=== PATIENT | male | born 1945 | race Caucasian/White ===

== ENCOUNTER → 2016-06-15 | Outpatient (CLI) | payer OTHER ==
[~2016-06-15] MED LIST: ACET325T95 PO; CEPH500C2 PO; CLC100 PO; DOCU100C31 PO; HYDR-5688 PO; OMEP40CA PO; ONDA8TAB6 PO; PROC1TAB5 PO; TRAM-10 PO; VGR50 PO
[2016-06-15 12:32] LABS: BASO % 0.2 %; BASO ABS # 0.02 K/uL (0-0.2); COMPLETE YES; EOS % 2.1 %; HEMATOCRIT 45.2 % (42-52); IG% 0.2 %; LYMPH % 29.7 %; LYMPH ABS # 2.43 K/uL (1.2-3.4); MEAN CELL VOLUME 88.8 fL (80-100); MEAN CORPUSCULAR HEMOGLOBIN 30.1 pg (25-34); MEAN CORPUSCULAR HGB CONC 33.8 g/dl (32-36); MEAN PLATELET VOLUME 9.9 fL (7.4-10.4); MONO % 9.3 %; NEUT % 58.5 %; PLATELET COUNT 158 K/uL (130-400); RED BLOOD COUNT 5.09 M/uL (4.7-6.1); WHITE BLOOD COUNT 8.19 K/uL (4.8-10.8)
[2016-06-15 12:41] LABS: ESTIMATED AVERAGE GLUCOSE 128 mg/dl; HA1C FLAG Normal (Normal)
[2016-06-15 13:21] LABS: BLOOD UREA NITROGEN 16 mg/dl (7-18); BUN/CREATININE RATIO 12.5 (10-20); CALCIUM 9.2 mg/dl (8.5-10.1); CARBON DIOXIDE 27 mmol/L (21-32); CHLORIDE 102 mmol/L (98-107); GLUCOSE 105 mg/dl (70-99); SODIUM 138 mmol/L (136-145)
[2016-06-15 13:24] LABS: CHOLESTEROL 176 mg/dl (0-200); CHOLESTEROL/HDL RATIO 4.4; HDL CHOLESTEROL 40 mg/dl; LDL CHOLESTEROL CALCULATED 95 mg/dl; TRIGLYCERIDES 203 mg/dl (0-150); VERY LOW DENSITY LIPOPROT CALC 41 mg/dl
== END | disposition home or self-care (01) ==
LOC: C.LABBFT 07:54
PROVIDERS: ATTEND Internal Medicine
DX: Z00.00 Encounter for general adult medical examination without abnormal findings (principal); R73.01 Impaired fasting glucose; Z13.6 Encounter for screening for cardiovascular disorders

== ENCOUNTER → 2016-06-29 | Outpatient (CLI) | payer OTHER ==
--- NOTE | 2016-06-29 08:58 | DIAGNOSTIC IMAGING REPORT ---
CT OF THE CHEST WITHOUT IV CONTRAST CLINICAL HISTORY: Pulmonary nodule. 6 month follow-up examination. COMPARISON STUDY: 01/08/2016 CT DOSE: 466.45 mGy.cm TECHNIQUE: CT of the thorax was performed from the thoracic inlet to the lung bases. Images are reviewed in the axial, sagittal, and coronal planes. IV contrast was not administered for this examination. FINDINGS: Thyroid: Imaged portions of the thyroid gland are normal in appearance. Thoracic aorta: There is dilatation of the adjacent thoracic aorta which measures 44 mm. Heart: There are cardiac calcifications present. Lungs and pleural spaces: No pleural effusions are visualized. There is pulmonary emphysema. There is subpleural interstitial thickening. There is an enlarging irregular marginated left upper lobe pulmonary nodule measuring 20 x 7 mm. This is suspicious for a bronchogenic neoplasm. Mediastinum: There is an enlarged 21 mm AP window lymph node. This must be viewed as suspicious for metastatic lymphadenopathy. Payal: Mild left hilar adenopathy is suspected. Evaluation is limited due to the noncontrast nature the study Axilla: Clear. Upper abdomen: Partially visualized upper abdominal viscera is within normal limits. Skeletal structures: There are no lytic or blastic osseous lesions. IMPRESSION: 1. Enlarging irregularly marginated left upper lobe pulmonary nodule measuring 20 mm in long axis. This is suspicious for a bronchogenic neoplasm. 2. Pathologic mediastinal lymphadenopathy 3. Emphysema Electronically signed by: Ehsan Huddleston M.D. 06/29/2016 8:57 AM Dictated Date/Time: 06/29/2016 8:51 AM
== END | disposition home or self-care (01) ==
LOC: C.CTS 08:21
PROVIDERS: ATTEND Internal Medicine
DX: R91.1 Solitary pulmonary nodule (principal); R59.1 Generalized enlarged lymph nodes; J43.9 Emphysema, unspecified

== ENCOUNTER → 2016-07-01 | Outpatient (CLI) | payer OTHER | END | disposition home or self-care (01) | LOC: C.LAB 10:14 → EDSTATUS 11:21 → C.LAB 13:27 → EDSTATUS 13:27 | PROVIDERS: ATTEND Surgery | DX: C34.90 Malignant neoplasm of unspecified part of unspecified bronchus or lung (principal) ==

== ENCOUNTER → 2016-07-07 | Outpatient (CLI) | payer OTHER ==
[~2016-07-07] MED LIST changes: -CEPH500C2 PO
--- NOTE | 2016-07-07 11:43 | DIAGNOSTIC IMAGING REPORT ---
PET/CT CLINICAL HISTORY: Solitary pulmonary nodule. TECHNIQUE: A PET/CT was performed from the skull base through the upper thighs following intravenous injection of 13.45 mCi of F 18 FDG IV. The injection was performed at 9:04 AM on July 07, 2016 and imaging began at 10:06 AM on July 07, 2016. Unenhanced CT was performed for attenuation correction purposes and anatomic localization. COMPARISON STUDY: Chest CT June 29, [address] of the abdomen and pelvis January 08, 2016. FINDINGS: Head and neck: No suspicious FDG uptake is identified within the neck. There is no cervical lymphadenopathy. Chest: There is moderate FDG uptake within the 2 cm irregular subpleural left upper lobe nodule shown on image 73. The SUV max for this nodule is 4.8. There is marked FDG uptake with an enlarged prevascular lymph node shown on image 75. This node measures 2.8 x 1.8 cm and has an SUV max of 8. There is also moderate FDG uptake within several left hilar lymph nodes. These nodes are difficult to visualize on this unenhanced exam but represent pathologic lymph nodes within SUV max of 6. Moderate emphysema is noted. There is mild dilatation of the ascending aorta which measures 4.3 cm. There is extensive coronary artery calcification. Abdomen and Pelvis: No suspicious FDG uptake is identified within the abdomen or pelvis. There is no abdominal or pelvic lymphadenopathy. There is left colon diverticulosis without evidence for acute diverticulitis. There are findings consistent with placement of a bifurcated aortoiliac stent graft. This is similar to exam of January 08, 2016. 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 Musculoskeletal: No suspicious skeletal lesions are identified. IMPRESSION: 1. Moderate FDG uptake within the 2 cm irregular subpleural left upper lobe nodule consistent with bronchogenic carcinoma. 2. Marked FDG uptake within an enlarged prevascular lymph node and moderate FDG uptake within nonenlarged left hilar lymph nodes consistent with johann spread of disease. 3. No evidence of distant metastatic disease. Electronically signed by: Pee Hsokins M.D. 07/07/2016 11:41 AM Dictated Date/Time: 07/07/2016 11:20 AM
== END | disposition home or self-care (01) ==
LOC: C.PET 08:22
PROVIDERS: ATTEND Surgery
DX: R91.1 Solitary pulmonary nodule (principal)

== ENCOUNTER 2016-07-09 05:37 | Day surgery (SDC) | payer OTHER ==
--- NOTE | 2016-07-01 11:08 | PAT Medication Instructions ---
Service Date Jul 01, 2016. Current Home Medication List Omeprazole (Prilosec), 40 MG PO QAM Sildenafil Citrate (Viagra), 50 MG PO PRN Medication Instructions For Your Scheduled Surgery - Take the following medications the morning of surgery with a sip of water OTHERWISE NOTHING TO EAT OR DRINK AFTER MIDNIGHT: Omeprazole (Prilosec), 40 MG PO QAM If you have any questions please call us at [phone] or [phone] or [phone]
[~2016-07-09] VITALS: Ht 175.3 cm; Wt 92.6 kg
[~2016-07-09 05:37] MED LIST changes: -ACET325T95 PO; -CLC100 PO; -DOCU100C31 PO; -HYDR-5688 PO; -ONDA8TAB6 PO; -PROC1TAB5 PO; -TRAM-10 PO
[2016-07-09 05:58] VITALS: BP 159/90; PULSE 59; TEMP 36.6; O2SAT 97; Ht 175.3 cm; Wt 92.6 kg
[2016-07-09] MEDS ORDERED: FENTANYL CITRATE INJ 50 MCG/1 ML 2 ML VIAL ONE ×2 (06:42→07:46)
[2016-07-09] MEDS ORDERED: MIDAZOLAM HCL 1 MG/ML 2ML VIAL ONE (06:42)
[2016-07-09] MEDS: LACTATED RINGER'S 1000ML 1,000 ML IV SCH ×2 (06:58→09:49)
--- NOTE | 2016-07-09 07:00 | History & Physical Bridge Note ---
H&P Re-Evaluation Bridge Note: I have examined the patient, reviewed the History & Physical and in the interval since the performance of the History & Physical I have noted the following changes of clinical significance: No changes noted
--- NOTE | 2016-07-09 08:23 | Discharge Instructions ---
Discharge Instructions Date of Service Jul 09, 2016. Visit Reason for Visit: Lung Nodule Discharge Discharge Diagnosis / Problem: Lung Nodule Discharge Goals Goal(s): Learn about illness Activity Recommendations Activity Limitations: resume your previous activity (in 24 hours) Anesthesia . Post Anesthesia Instructions: If you have had General Anesthesia or IV Sedation: * Do not drive today. * Resume driving when surgeon permits. * Do not make important decisions or sign legal documents today. * Call surgeon for: 1. Temperature elevations greater than 101 degrees F. 2. Uncontrollable pain. 3. Excessive bleeding. 4. Persistent nausea and vomiting. 5. Medication intolerance (nausea, vomiting or rash). * For nausea and vomiting use only clear liquids such as: tea, soda, bouillon until nausea subsides, then gradually increase diet as tolerated. * If you have any concerns or questions, call your surgeon's office. If physician is unavailable and it is an emergency, call 911 or go to the nearest emergency room. . Instructions / Follow-Up Instructions / Follow-Up 1. You may cough up some blood. Call physician if excessive amount noted. 2. Keep your scheduled appointment with Dr. Ohara on July 19, 2016 @ 10:30 Diet Recommendations Recommended Home Diet: resume previous diet Procedures Procedures Performed: Endobronchial Ultrasound; Navigational Bronchoscopy with Biopsies Pending Studies Studies pending at discharge: no Medical Emergencies . Who to Call and When: Medical Emergencies: If at any time you feel your situation is an emergency, please call 911 immediately. . Non-Emergent Contact Non-Emergency issues call your: Surgeon Call Non-Emergent contact if: temperature is above 101.5, your pain is worsening . . "Provider Documentation" section prepared by Gil Martinez.
[2016-07-09] MEDS ORDERED: NALOXONE HCL 0.4 MG/1 ML VIAL/CARP IV PRN (09:00)
[2016-07-09] MEDS ORDERED: ATROPINE SULFATE 0.1 MG/ML 5ML SYR IV PRN (09:00)
[2016-07-09] MEDS ORDERED: PROMETHAZINE HCL INJ 12.5 MG in SODIUM CHLORIDE 0.9% 50ML 50 ML IV PRN (09:00)
[2016-07-09] MEDS ORDERED: LABETALOL HCL IV 5 MG/ML 20ML IV PRN (09:00)
[2016-07-09] MEDS ORDERED: ONDANSETRON INJ 2 MG/ML 2 ML VIAL IV PRN (09:00)
[2016-07-09] MEDS ORDERED: EpHEDrine SULFATE INJ 50 MG/ML AMP IV PRN (09:00)
[2016-07-09] MEDS ORDERED: HYDROmorphone INJ 2 MG/ML SYR/VIAL ONE (09:05)
[2016-07-09] MEDS ORDERED: LIDOCAINE HCL 2% 2 ML VIAL (20MG/ML) ONE (09:09)
[2016-07-09] MEDS ORDERED: EpHEDrine SULFATE 50MG/5ML SYR ONE (09:09)
[2016-07-09] MEDS ORDERED: GLYCOPYRROLATE INJ 0.2 MG/ML VIAL ONE (09:09)
[2016-07-09] MEDS ORDERED: PROPOFOL IV EMULSION 10 MG/ML 20 ML VIAL IV ONE (09:09)
[2016-07-09] MEDS ORDERED: NEOSTIGMINE METHYLSULFATE 5 MG/5 ML SYR ONE (09:09)
[2016-07-09] MEDS ORDERED: ROCURONIUM BROMIDE 10 MG/ML 5 ML VIAL ONE (09:09)
[2016-07-09] MEDS ORDERED: ONDANSETRON INJ 2 MG/ML 2 ML VIAL ONE ×2 (09:09→09:22)
--- NOTE | 2016-07-09 09:44 | DIAGNOSTIC IMAGING REPORT ---
FLUOROSCOPIC IMAGES OF THE CHEST CLINICAL HISTORY: Navigational Bronch COMPARISON STUDY: Chest CT June 26, 2016. FINDINGS: 7 fluoroscopic images during a left sided bronchoscopy were submitted for interpretation. Fluoroscopy time was 1 minute and 50 seconds. IMPRESSION: Fluoroscopic images from left-sided bronchoscopy. Electronically signed by: Pee Hoskins M.D. 07/09/2016 9:42 AM Dictated Date/Time: 07/09/2016 9:40 AM
--- NOTE | 2016-07-09 09:55 | DIAGNOSTIC IMAGING REPORT ---
CHEST ONE VIEW PORTABLE CLINICAL HISTORY: s/p linwood bronch post procedure COMPARISON STUDY: No previous studies for comparison. FINDINGS: The bones soft tissues and hemidiaphragms are normal. The cardiomediastinal silhouette is normal. The lungs are clear. The pulmonary vasculature is normal. No evidence for postprocedural pneumothorax IMPRESSION: No evidence for postprocedural pneumothorax. Electronically signed by: Justin Duarte M.D. 07/09/2016 9:53 AM Dictated Date/Time: 07/09/2016 9:52 AM
--- NOTE | 2016-07-09 10:04 | Anesthesiology Progress Note ---
Anesthesia Post Op Note Date & Time Jul 09, 2016 at 10:03 Vital Signs Pain Intensity: 0 Vital Signs Past 12 Hours Date Time Temp Pulse Resp B/P Pulse Ox O2 Delivery O2 Flow Rate FiO2 07/09/16 10:00 62 22 114/68 97 Nasal Cannula 2 07/09/16 09:50 36.4 58 22 115/68 96 Nasal Cannula 2 07/09/16 09:40 36.0 61 15 117/74 94 Nasal Cannula 2 07/09/16 09:30 66 22 135/75 100 Mask 10 07/09/16 09:20 66 21 128/78 99 Mask 10 07/09/16 09:13 36.1 85 16 162/67 100 Mask 10 07/09/16 05:58 36.6 59 18 159/90 97 Room Air Notes Mental Status: alert / awake / arousable, participated in evaluation Pt Amnestic to Procedure: Yes Nausea / Vomiting: adequately controlled Pain: adequately controlled Airway Patency, RR, SpO2: stable & adequate BP & HR: stable & adequate Hydration State: stable & adequate Anesthetic Complications: no major complications apparent
[2016-07-09 10:15] VITALS: BP 115/68; PULSE 65; TEMP 36.5; O2SAT 94
[2016-07-09 10:45] VITALS: BP 140/81; PULSE 62; TEMP 35.2; O2SAT 97
[2016-07-09 11:15] VITALS: BP 135/81; PULSE 77; TEMP 35.9; O2SAT 97
--- NOTE | 2016-07-09 12:19 | OPERATIVE REPORT ---
DATE OF OPERATION: 07/09/2016 PREOPERATIVE DIAGNOSIS: Left upper lobe lesion with hypermetabolic mediastinal and hilar adenopathy. POSTOPERATIVE DIAGNOSIS: Same. PROCEDURE: 1. Endobronchial ultrasound with biopsy. 2. Navigational bronchoscopy with biopsy. SURGEON: Dr. Ohara. PENSION ADVISER: Rashel Lemus, respiratory therapy. ANESTHESIA: General anesthesia endotracheal intubation. INDICATION FOR PROCEDURE AND FINDINGS: This is a 70-year-old male who was found to have a mass in his left upper lobe with some mild mediastinal adenopathy. We had a long talk about this and I elected to proceed with a navigational bronchoscopy and endobronchial ultrasound after we did pulmonary function studies and a PET scan. PET scan showed localized disease to the thorax, however his periaortic node on the left was hypermetabolic as well as the hilar node. With this mass, it appears he may well be a surgical candidate. On 07/09/2016 the patient an uncomplicated endobronchial ultrasound. We did a complete staging endobronchial ultrasound and got good lymph node tissue from right level 2, right level 4, right level 10, level 7, left level 10, and left level 4. We saw no evidence of malignant disease. I biopsied this hilar area several times. We still did not see evidence of malignant disease. I then did a navigational bronchoscopy and got out right to this lesion and did multiple biopsies with the brush, needle, as well as forceps. We will wait and see what the results show but preliminary shows no evidence of malignancy. He tolerated it well. PROCEDURE: The patient was brought to the operating room and laid in the supine position. General anesthesia induced and endotracheal intubation was performed with single lumen tube. The endobronchial ultrasound was in place. As the patient had a left upper lobe lesion we started on the right side biopsying the right level 10, right level 4 and right level 2 and the level 7 from the right side. We got good lymph node tissue and there was no evidence of malignancy. The level 7 area was then biopsied from the left side and then we biopsied level 10, level 4 and again got lymph node tissue, but no evidence of malignancy. We had negligible bleeding with this. The scope was then removed and a regular bronchoscope was placed. After registering the patient's anatomy with the [employer] system the navigational probe was placed and went up into the left upper lobe. I took this directly out to this lesion and this was confirmed with the radial ultrasound probe. We then did multiple biopsies with brushes, needles, forceps from 2 different angles. Preliminary showed no evidence of malignancy. We then did washings with saline and aspirated back. I then slowly removed the bronchoscope and saw no evidence of bleeding. The patient tolerated it well. I attest to the content of the Intraoperative Record and any orders documented therein. Any exceptions are noted below. RICHD
[2016-09-03] MEDS ORDERED: DOCU100C31 PO (09:26)
[2016-11-26] MEDS ORDERED: ONDA8TAB6 PO (09:18)
[2016-11-26] MEDS ORDERED: PROC1TAB5 PO (09:18)
== END 2016-07-09 11:18 | disposition home or self-care (01) ==
LOC: C.ACU 05:37
PROVIDERS: ATTEND Surgery
DX: R22.2 Localized swelling, mass and lump, trunk (principal); J30.9 Allergic rhinitis, unspecified; I71.2 Thoracic aortic aneurysm, without rupture; M19.90 Unspecified osteoarthritis, unspecified site; K21.9 Gastro-esophageal reflux disease without esophagitis; K57.32 Diverticulitis of large intestine without perforation or abscess without bleeding; E78.5 Hyperlipidemia, unspecified; D12.6 Benign neoplasm of colon, unspecified

== ENCOUNTER 2016-08-09 07:04 | Inpatient (IN) | payer OTHER ==
[2016-08-09] VITALS (8 sets, daily range): BP systolic 130–153; BP diastolic 71–96; PULSE 60–82; TEMP 36.3–36.8; O2SAT 92–97; Ht 175.3 cm; Wt 92.7 kg
[~2016-08-09] VITALS: Ht 175.3 cm; Wt 92.7 kg
[~2016-08-09 07:04] MED LIST changes: +LACTATED RINGER'S 1000ML 1,000 ML IV SCH
[2016-08-09] MEDS ORDERED: MIDAZOLAM HCL 1 MG/ML 2ML VIAL ONE (08:54)
[2016-08-09] MEDS ORDERED: LIDOCAINE HCL 2% 2 ML VIAL (20MG/ML) ONE (08:54)
[2016-08-09] MEDS ORDERED: PROPOFOL IV EMULSION 10 MG/ML 20 ML VIAL IV ONE (08:54)
[2016-08-09] MEDS ORDERED: DEXAMETHASONE SOD INJ 4 MG/ML VIAL ONE (08:54)
[2016-08-09] MEDS ORDERED: ONDANSETRON INJ 2 MG/ML 2 ML VIAL ONE (08:54)
[2016-08-09] MEDS ORDERED: FENTANYL CITRATE INJ 50 MCG/1 ML 2 ML VIAL ONE ×3 (08:54→13:50)
[2016-08-09] MEDS ORDERED: KETAMINE HCL INJ 50 MG/ML 10 ML VIAL ONE (08:54)
[2016-08-09] MEDS ORDERED: CISATRACURIUM BESYLATE IV SOLN 2 MG/ML 10 ML VIAL ONE ×2 (08:54→11:50)
[2016-08-09] MEDS ORDERED: SODIUM CHLORIDE 0.9% PF 50 ML VIAL ONE (09:45)
[2016-08-09] MEDS ORDERED: BUPIVACAINE LIPOSOME 1/3% 266 MG/20 ML VIAL INFIL ONE (09:46)
--- NOTE | 2016-08-09 12:13 | DIAGNOSTIC IMAGING REPORT ---
CHEST 1 VIEW FRONTAL, AND SPECIMEN RADIOGRAPHY CLINICAL HISTORY: LT NAVIGATIONAL BRONCH COMPARISON STUDY: No previous studies for comparison. FINDINGS: 106 seconds of fluoroscopic time was utilized. 2 intraprocedural fluoroscopic spot images of the left chest were obtained. This is supplemented with a single specimen radiograph. The fluoroscopic spot images demonstrate a bronchoscopic catheter within the left midlung zone. A fiducial marker is visualized. A single specimen radiograph as visualized. This contains a fiducial marker. IMPRESSION: 1. A fiducial marker is visualized within the specimen radiograph. Electronically signed by: Ehsan Huddleston M.D. 08/09/2016 12:12 PM Dictated Date/Time: 08/09/2016 12:10 PM
--- NOTE | 2016-08-09 12:35 | OPERATIVE REPORT ---
DATE OF OPERATION: 08/09/2016 PREOPERATIVE DIAGNOSIS: Hypermetabolic mass, left upper lobe. POSTOPERATIVE DIAGNOSIS: Same. PROCEDURE: Fiberoptic bronchoscopy with navigational bronchoscopy with marking left upper lobe mass with a fiducial marker and with methylene blue. SURGEON: Dr. Ohara. RECEIVER STOCKER: Rashel Lemus. ANESTHESIA: General anesthesia endotracheal intubation. INDICATION FOR PROCEDURE AND FINDINGS: The patient is a 70-year-old male who has a history of cigarette smoking and has a hypermetabolic mass which I suspect to be a nonsmall cell lung carcinoma, left upper lobe. He also has some mediastinal adenopathy and we attempted to biopsy this with endobronchial ultrasound and navigational bronchoscopy but were unable to get a diagnosis. We had a long talk in the office. One option would be to do a mediastinotomy (Tiff procedure). However, the patient stated that he wanted this taken care of "once and for all". We are going to proceed with a thoracoscopic wedge resection of this mass and should this prove to be nonsmall cell, we will proceed with a left upper lobectomy and mediastinal lymph node dissection. In order to do this this small mass would have to be marked. On 08/09/2016 the patient was brought to the operating room and underwent uncomplicated intubation with single lumen tube. I then quite easily got out to the mass and placed a fiducial marker it it as well as methylene blue dye towards the pleura. He tolerated it well. He is now ready for his thoracoscopic procedure. PROCEDURE: The patient brought to the operating room, laid in supine position. General anesthesia induced and endotracheal intubation was performed with a single lumen tube. The fiberoptic bronchoscope was then placed after appropriate timeout had been given and antibiotics had been given. The patient and the airways were then registered and then I went into the left upper lobe airway and I was easily able to get out to the mass under the computer navigation. X-ray showed this to be in the proper position and also thoracoscopically. A fiducial marker was then placed without difficulty and then 0.5 mL of methylene blue dye with 0.5 mL of air were then injected towards the pleura. This was then removed and the patient was ready for his procedure. He tolerated it well. I attest to the content of the Intraoperative Record and any orders documented therein. Any exceptio ns are noted below.
[2016-08-09] MEDS ORDERED: SURGICEL ABSORB HEMOSTAT 2IN X 14IN TOP ONE (12:45)
[2016-08-09] MEDS ORDERED: EpHEDrine SULFATE 50MG/5ML SYR ONE (13:02)
[2016-08-09] MEDS ORDERED: ONDANSETRON INJ 2 MG/ML 2 ML VIAL IV PRN ×2 (13:15→13:30)
[2016-08-09] MEDS ORDERED: HYDROmorphone INJ 1 MG/ML SYR IV PRN (13:15)
[2016-08-09] MEDS ORDERED: EpHEDrine SULFATE INJ 50 MG/ML AMP IV PRN (13:30)
[2016-08-09] MEDS ORDERED: FENTANYL CITRATE INJ 50 MCG/1 ML 2 ML VIAL IV PRN (13:30)
[2016-08-09] MEDS ORDERED: PROMETHAZINE HCL INJ 12.5 MG in SODIUM CHLORIDE 0.9% 50ML 50 ML IV PRN (13:30)
[2016-08-09] MEDS ORDERED: FLUMAZENIL 0.1 MG/1 ML 10 ML VIAL IV PRN (13:30)
[2016-08-09] MEDS ORDERED: NALOXONE HCL 0.4 MG/1 ML VIAL/CARP IV PRN (13:30)
[2016-08-09] MEDS ORDERED: LABETALOL HCL IV 5 MG/ML 20ML IV PRN (13:30)
[2016-08-09] MEDS ORDERED: ATROPINE SULFATE 0.1 MG/ML 5ML SYR IV PRN (13:30)
--- NOTE | 2016-08-09 13:54 | DIAGNOSTIC IMAGING REPORT ---
CHEST ONE VIEW PORTABLE CLINICAL HISTORY: AZEEM Wedge COMPARISON STUDY: 07/09/2016 FINDINGS: Postsurgical changes are present on the left. A left-sided chest tube is visualized. There is no significant pneumothorax. The heart is borderline enlarged. There are left upper lobe airspace opacities, likely representing postsurgical edema. There is also elevation of the interstitial markings in the right lung. An element of pulmonary vascular congestion/fluid overload is suspected.[ IMPRESSION: 1. Interval placement of a left-sided chest tube. No evidence of pneumothorax 2. Mild elevation of the interstitium. An element of mild pulmonary vascular congestion/fluid overload is suspected Electronically signed by: Ehsan Huddleston M.D. 08/09/2016 1:53 PM Dictated Date/Time: 08/09/2016 1:52 PM
--- NOTE | 2016-08-09 15:03 | Anesthesiology Progress Note ---
Anesthesia Post Op Note Date & Time August 09, 2016 at 15:02 Vital Signs Pain Intensity: 3 Vital Signs Past 12 Hours Date Time Temp Pulse Resp B/P Pulse Ox O2 Delivery O2 Flow Rate FiO2 08/09/16 14:41 140/81 08/09/16 14:38 64 11 96 08/09/16 14:38 63 11 08/09/16 14:36 129/79 08/09/16 14:33 60 14 08/09/16 14:33 61 14 96 08/09/16 14:31 142/82 08/09/16 14:28 65 16 97 08/09/16 14:28 60 16 08/09/16 14:26 146/80 08/09/16 14:23 50 10 96 08/09/16 14:23 50 10 08/09/16 14:22 36.5 60 20 152/88 96 Nasal Cannula 2 08/09/16 14:21 145/96 08/09/16 14:18 69 16 08/09/16 14:18 16 08/09/16 14:16 152/88 08/09/16 14:13 67 14 97 08/09/16 14:13 67 14 08/09/16 14:11 148/82 08/09/16 14:08 69 18 96 08/09/16 14:08 60 18 08/09/16 14:06 155/92 08/09/16 14:03 65 15 08/09/16 14:03 67 15 98 08/09/16 14:01 136/87 08/09/16 13:58 62 18 99 08/09/16 13:58 62 18 08/09/16 13:57 65 20 100 08/09/16 13:57 64 20 08/09/16 13:56 152/88 08/09/16 13:52 65 17 95 08/09/16 13:52 65 17 08/09/16 13:51 133/86 08/09/16 13:47 65 16 92 08/09/16 13:47 62 16 08/09/16 13:46 160/83 08/09/16 13:43 60 17 08/09/16 13:43 60 17 99 08/09/16 13:41 149/82 08/09/16 13:38 62 14 98 08/09/16 13:38 62 14 08/09/16 13:36 138/87 5/15/17 13:33 61 10 08/09/16 13:33 60 10 97 08/09/16 13:31 139/70 08/09/16 13:28 36.1 69 16 136/82 94 Mask 10 08/09/16 13:28 69 19 136/82 95 08/09/16 13:28 69 19 08/09/16 07:36 36.4 60 20 153/96 96 Room Air Notes Mental Status: alert / awake / arousable, participated in evaluation Pt Amnestic to Procedure: Yes Nausea / Vomiting: adequately controlled Pain: adequately controlled Airway Patency, RR, SpO2: stable & adequate BP & HR: stable & adequate Hydration State: stable & adequate Anesthetic Complications: no major complications apparent
[2016-08-09] MEDS ORDERED: CEFAZOLIN IV 2,000 MG in DEXTROSE 5% 50ML 100 ML IV SCH (16:00)
[2016-08-09] MEDS: D5W AND 1/2NSS 1,000 ML IV SCH (16:41)
[2016-08-09] MEDS: ACETAMINOPHEN IV 1,000 MG in EMPTY BAG 0 ML IV SCH (16:42)
[2016-08-09] MEDS: KETOROLAC TROMETHAMINE 15 MG/ML VIAL IV. SCH (16:42)
[2016-08-09] MEDS: METOCLOPRAMIDE HCL INJ 5 MG/ML 2 ML VIAL IV. SCH (16:43)
[2016-08-09] MEDS: CEFAZOLIN IV 2,000 MG in DEXTROSE 5% 50ML 50 ML IV SCH (17:12)
[2016-08-09] MEDS: DOCUSATE SODIUM 100 MG CAP PO SCH (20:55)
[2016-08-10] MEDS: D5W AND 1/2NSS 1,000 ML IV SCH ×2 (00:02→08:33)
[2016-08-10] MEDS: CEFAZOLIN IV 2,000 MG in DEXTROSE 5% 50ML 50 ML IV SCH (00:02)
[2016-08-10] MEDS: ACETAMINOPHEN IV 1,000 MG in EMPTY BAG 0 ML IV SCH ×2 (00:03→08:03)
[2016-08-10] MEDS: METOCLOPRAMIDE HCL INJ 5 MG/ML 2 ML VIAL IV. SCH ×2 (00:03→08:03)
[2016-08-10] MEDS: KETOROLAC TROMETHAMINE 15 MG/ML VIAL IV. SCH ×2 (00:04→08:03)
[2016-08-10] MEDS ORDERED: NURSING VERBAL MED ORDER ONE ×2 (02:30→03:15)
[2016-08-10 03:10] VITALS: BP 113/68; PULSE 68; TEMP 36.9; O2SAT 93
[2016-08-10 07:16] LABS: HEMATOCRIT 37.4 % (42-52); MEAN CELL VOLUME 89.3 fL (80-100); MEAN CORPUSCULAR HEMOGLOBIN 29.6 pg (25-34); MEAN CORPUSCULAR HGB CONC 33.2 g/dl (32-36); MEAN PLATELET VOLUME 9.2 fL (7.4-10.4); PLATELET COUNT 130 K/uL (130-400); RED BLOOD COUNT 4.19 M/uL (4.7-6.1); WHITE BLOOD COUNT 12.33 K/uL (4.8-10.8)
[2016-08-10 07:27] VITALS: BP 130/70; PULSE 61; TEMP 36.7; O2SAT 95
--- NOTE | 2016-08-10 07:31 | DIAGNOSTIC IMAGING REPORT ---
CHEST ONE VIEW PORTABLE CLINICAL HISTORY: AZEEM Wedge postoperative evaluation COMPARISON STUDY: 08/09/2016 FINDINGS: Stable postoperative changes left hemithorax. Left-sided chest tube unchanged in position. No significant postprocedural pneumothorax. Diaphragms smooth. Right lung is clear. IMPRESSION: Improved exam with minimal residual interstitial change left hemithorax. Stable postoperative changes left hemithorax. Electronically signed by: Justin Duarte M.D. 08/10/2016 7:29 AM Dictated Date/Time: 08/10/2016 7:28 AM
[2016-08-10 07:38] LABS: PARTIAL THROMBOPLASTIN RATIO 1.3; PROTHROMBIN TIME (PATIENT) 10.9 SECONDS (9.0-12.0)
[2016-08-10 07:42] LABS: CREATININE 1.4 mg/dl (0.60-1.40)
[2016-08-10] MEDS ORDERED: CEFAZOLIN IV 2,000 MG in DEXTROSE 5% 50ML 50 ML IV SCH (08:00)
[2016-08-10] MEDS: DOCUSATE SODIUM 100 MG CAP PO SCH (08:03)
--- NOTE | 2016-08-10 08:48 | Discharge Instructions ---
Discharge Instructions Date of Service August 10, 2016. Admission Reason for Admission: Left Upper Lobe Lung Mass Discharge Discharge Diagnosis / Problem: Lung Cancer Discharge Goals Goal(s): Learn about illness Activity Recommendations Activity Limitations: as noted below Lifting Limitations: none . Instructions / Follow-Up Instructions / Follow-Up 1. Do not fly or SCUBA dive until cleared to do so by Dr. Ohara. 2. You may remove dressings in 3 days and shower thereafter. No tub baths. 3. Office appointment with Dr. Ohara in 1-2 weeks. Office will call with date and time of appointment. You will need a chest x-ray prior to appointment. Current Hospital Diet Patient's current hospital diet: Regular Diet Discharge Diet Recommended Diet: Regular Diet Procedures Procedures Performed: Left Video-assisted Thoracoscopy with Lymph Node Biopsy, Left Upper Lobe Wedge Resection; Navigational Bronchoscopy with Fiducial Markers Pending Studies Studies pending at discharge: no Laboratory Results Hemoglobin A1c Test 06/15/16 08:01 Range/Units Estimated Average Glucose 128 mg/dl Hemoglobin A1c 6.1 H 4.5-5.6 % Lipid Panel Test 06/15/16 08:01 Range/Units Triglycerides Level 203 H 0-150 mg/dl Cholesterol Level 176 0-200 mg/dl HDL Cholesterol 40 mg/dl Cholesterol/HDL Ratio 4.4 LDL Cholesterol, Calculated 95 mg/dl Medical Emergencies . Who to Call and When: Medical Emergencies: If at any time you feel your situation is an emergency, please call 911 immediately. . Non-Emergent Contact Non-Emergency issues call your: Surgeon Call Non-Emergent contact if: you have a fever, your pain is not controlled, wound has increased drainage . "Provider Documentation" section prepared by Gil Martinez. . VTE Core Measure Inpt VTE Proph given/why not?: Enoxaparin (Lovenox)SQ
[2016-08-10] MEDS ORDERED: ACET325T95 PO (09:00)
[2016-08-10] MEDS ORDERED: CLC100 PO (09:00)
[2016-08-10] MEDS ORDERED: ENOXAPARIN 40 MG/0.4 ML SYR SQ SCH (09:00)
[2016-08-10] MEDS ORDERED: TRAM-10 PO (09:00)
[2016-08-10] MEDS ORDERED: PANTOprazole SOD 40 MG TAB PO SCH (09:00)
--- NOTE | 2016-08-10 09:22 | DIAGNOSTIC IMAGING REPORT ---
CHEST ONE VIEW PORTABLE CLINICAL HISTORY: chest tube removal postoperative evaluation COMPARISON STUDY: 08/10/2016 7:32 AM FINDINGS: Interval removal left-sided chest tube. No significant postprocedural pneumothorax. Linear density considered loosening over left upper lung appears to relate to a chest tube tract IMPRESSION: No pneumothorax status post left-sided chest tube removal. Postoperative changes as noted. Electronically signed by: Justin Duarte M.D. 08/10/2016 9:21 AM Dictated Date/Time: 08/10/2016 9:20 AM
--- NOTE | 2016-08-10 09:49 | DISCHARGE SUMMARY ---
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 HOSPITAL COURSE: This is a 70-year-old male who was found to have a hypermetabolic mass in his left upper lobe. We did a navigational bronchoscopy, endobronchial ultrasound and did not get an answer and did not get a diagnosis, although it appeared that his mediastinal lymph nodes were negative for carcinoma. The patient and I had a long talk and we elected to proceed with a thoracoscopic biopsy and possible lobectomy. On 08/09/2016, the patient was brought to the operating room and underwent uncomplicated left thoracoscopy with a wedge resection and a frozen section. While waiting for this, we biopsied the level 10 lymph nodes, again indeed this did come back as a small cell lung carcinoma with metastases. I did not see any other evidence of metastases. We did an Exparel block from the 2nd to the 11th rib. He did very well with this. We had no blood loss and really no air leak. His chest tube was removed the following morning. His x-ray looked quite good. He was discharged home and I will see him back in the office in a week to go over his final pathology. Discharge instructions were given. He was tolerating a healthy diet and ambulating in the hallway and was on room air with good saturations.
[2016-08-10 10:25] VITALS: BP 130/70; PULSE 61; TEMP 36.7; O2SAT 95
--- NOTE | 2016-08-10 11:06 | Anesthesiology Progress Note ---
Anesthesia Post Op Note Date & Time August 10, 2016 at 11:06 Vital Signs Pain Intensity: 0.0 Vital Signs Past 12 Hours Date Time Temp Pulse Resp B/P Pulse Ox O2 Delivery O2 Flow Rate FiO2 08/10/16 10:25 36.7 61 19 95 Room Air 08/10/16 08:30 Room Air 08/10/16 07:27 36.7 61 19 130/70 95 Room Air 08/10/16 03:10 36.9 68 16 113/68 93 Room Air 08/09/16 23:46 36.8 72 16 130/71 92 Room Air 08/09/16 23:30 Room Air Notes Mental Status: alert / awake / arousable, participated in evaluation Pt Amnestic to Procedure: Yes Nausea / Vomiting: adequately controlled Pain: adequately controlled Airway Patency, RR, SpO2: stable & adequate BP & HR: stable & adequate Hydration State: stable & adequate Anesthetic Complications: no major complications apparent
--- NOTE | 2016-08-20 06:22 | EDITING REQUIRED CODING QUERY ---
CODING QUERY To promote full compliance with coding requirements relating to patient care, provider participation is requested in all cases of social scientist uncertainty. Please assist us with the question(s) below: Coding Question: Can you please review and maybe addend the operative report? I don't see the documentation for the bronchoscopy procedure, only the fiducial marker placement? Or was that all that was done on this visit? Thank you so much for your help! Physician's Response(s): Thank you! Sara Weeks Principal Diagnosis: "_that condition established after study, to be chiefly responsible for occasioning the admission of the patient to the hospital for care." Co-Existing Principal Diagnosis: "_when two or more diagnoses equally meet the criteria for principal diagnosis as determined by the circumstances of admission, diagnostic work up, and/or therapy provided, and the Alphabetic Index, Tabular List, or another coding guideline does not provide sequencing direction, any one of the diagnoses may be sequenced first." "When the physician has documented what appears to be a current diagnosis in the body of the record, but has not included the diagnosis in the final diagnostic statement, the physician should be asked whether the diagnosis should be added." ([facility] 2 QTR90. p3-4)
--- NOTE | 2016-08-24 16:19 | OPERATIVE REPORT ---
DATE OF OPERATION: 08/09/2016 PREOPERATIVE DIAGNOSIS: Hypermetabolic mass, left upper lobe. POSTOPERATIVE DIAGNOSIS: Small cell carcinoma, left upper lobe. PROCEDURES: 1. Left thoracoscopy with wedge resection left upper lobe mass. 2. Thoracoscopic biopsy of left hilar and mediastinal lymph node. SURGEON: Dr. Ohara. MACHINE PRECISION ETCHER: Clint Martinez PA-C. ANESTHESIA: General anesthesia endotracheal intubation using double lumen tube. SPECIFICS OF PROCEDURE: Mr. Mariscal is a very nice 71-year-old male who has a hypermetabolic mass in his left upper lobe. He has a history of cigarette smoking. We attempted to make a diagnosis of his hypermetabolic mass; however, we were unable to do so with a navigational bronchoscopy and endobronchial ultrasound. I had a long discussion with him and stated we could attempt a [place] procedure. However, he wanted to "get this mass out." After a long discussion we elected to proceed with thoracoscopy. On 08/09/2016, the patient underwent an uncomplicated left thoracoscopy with wedge resection left upper lobe mass. I also biopsied level 5 and level 10 lymph nodes on the left. These came back as positive for small cell lung carcinoma. We elected to stop here. I blocked him with liposomal bupivacaine and an intercostal block. He tolerated it well with negligible blood loss. OPERATION AND FINDINGS: PROCEDURE: The patient was brought to the operating room and laid in supine position. General anesthesia induced and endotracheal intubation performed with a double lumen tube. The patient was placed in right lateral decubitus position. Left chest prepped and draped in usual sterile fashion. It should be noted that the patient had had a navigational bronchoscopy and had his mass marked with methylene blue dye as well as a fiducial marker. After 1 lung ventilation ensued I placed a 5 mm port just anterior and inferior to the tip of the scapula. Under thoracoscopic guidance it could be seen we had very little in the way of adhesions. Two 12 mm ports were placed, 1 about the fourth interspace in the midclavicular line and 1 anterior to the latissimus dorsi and the other about the seventh interspace anteriorly. Between these 3 we were able to dissect this out and I did use thoracoscopy to locate the mass. I did not see the methylene blue wedge well until we had really pulled it up. I then wedged this out in a generous fashion using several Endo-YUMI staplers. This was delivered off in an Endobag and sent for frozen section. While waiting for frozen section, I dissected out a very large level 5 node as well as a level 10 node. Frozen section came back positive for small cell carcinoma as did the left upper lobe mass. It appeared we had clean resection margin. We elected to stop here given the diagnosis. Chest was irrigated out with warm saline. Exparel 266 mg (liposomal bupivacaine) mixed in a total of 60 mL normal saline injected from the 2nd-11th rib under thoracoscopic guidance. A 24-Tamazight chest tube was placed in the inferior anterior chest tube directed towards the apex and held in place with heavy silk suture. 0 Polysorb was used to close the muscle layers of each incision and 4-0 Monocryl was used in running subcuticular fashion to approximate the wound edges. He tolerated it well. I attest to the content of the Intraoperative Record and any orders documented therein. Any exceptio ns are noted below.
[2016-09-03] MEDS ORDERED: DOCU100C31 PO (09:26)
[2016-11-26] MEDS ORDERED: ONDA8TAB6 PO (09:18)
[2016-11-26] MEDS ORDERED: PROC1TAB5 PO (09:18)
== END 2016-08-10 11:00 | disposition home or self-care (01) | DRG 164 ==
LOC: ENRESERVTM → ENRESERVDT → C.ACU 07:04 → C.MSW 09:40
PROVIDERS: ADMIT Surgery; ATTEND Surgery
PROC: 07B74ZX Excision of Thorax Lymphatic, Percutaneous Endoscopic Approach, Diagnostic (ICD-10-PCS; principal; 2016-08-09 09:30)
PROC: 0BBG4ZZ Excision of Left Upper Lung Lobe, Percutaneous Endoscopic Approach (ICD-10-PCS; principal; 2016-08-09 09:30)
DX: C34.12 Malignant neoplasm of upper lobe, left bronchus or lung (principal); C77.1 Secondary and unspecified malignant neoplasm of intrathoracic lymph nodes; Z79.899 Other long term (current) drug therapy

== ENCOUNTER → 2016-08-12 | Outpatient (CLI) | payer OTHER ==
[~2016-08-12] MED LIST changes: +ACET325T95 PO; +CLC100 PO; +DOCU100C31 PO; +HYDR-5688 PO; -LACTATED RINGER'S 1000ML 1,000 ML IV SCH; +ONDA8TAB6 PO; +PROC1TAB5 PO; +TRAM-10 PO
--- NOTE | 2016-08-12 10:29 | DIAGNOSTIC IMAGING REPORT ---
CHEST 2 VIEWS ROUTINE CLINICAL HISTORY: R91.1 Lung [id number] COMPARISON STUDY: 08/10/2016 FINDINGS: The cardiac and mediastinal contours remain stable. There is no lobar consolidation. Increased markings within the left upper lung zone, are likely postsurgical.[ There are no pleural effusions. There is no failure. IMPRESSION: Areas of presumed postsurgical scarring within the left mid to upper lung zone. No acute findings. Electronically signed by: Ehsan Huddleston M.D. 08/12/2016 10:27 AM Dictated Date/Time: 08/12/2016 10:25 AM
== END | disposition home or self-care (01) ==
LOC: C.RAD 10:04
PROVIDERS: ATTEND Surgery
DX: R91.1 Solitary pulmonary nodule (principal)

== ENCOUNTER 2016-09-08 07:48 | Day surgery (SDC) | payer OTHER ==
[~2016-09-08] VITALS: Ht 175.3 cm; Wt 91.0 kg
[~2016-09-08 07:48] MED LIST changes: +CEFAZOLIN 2000 MG/60 ML D5W IV SCH; -CLC100 PO; -HYDR-5688 PO; +LACTATED RINGER'S 1000ML 1,000 ML IV SCH; -ONDA8TAB6 PO; -PROC1TAB5 PO; -TRAM-10 PO
[2016-09-08 08:20] VITALS: BP 164/84; PULSE 56; TEMP 36.6; O2SAT 96; Ht 175.3 cm; Wt 91.0 kg
[2016-09-08] MEDS ORDERED: FENTANYL CITRATE INJ 50 MCG/1 ML 2 ML VIAL ONE (09:13)
[2016-09-08] MEDS ORDERED: MIDAZOLAM HCL 1 MG/ML 2ML VIAL ONE (09:13)
[2016-09-08] MEDS ORDERED: HYDR-5688 PO (09:39)
--- NOTE | 2016-09-08 09:41 | Discharge Instructions ---
Discharge Instructions Date of Service Sep 08, 2016. Visit Reason for Visit: Lung Cancer Discharge Discharge Diagnosis / Problem: A-port placement Discharge Goals Goal(s): Improve disease control Activity Recommendations Activity Limitations: as noted below Shower/Bathe: keep incision dry (for 2 days) Driving or Machine Use: resume 3 days after discharge (if not taking [place]) Anesthesia . Post Anesthesia Instructions: If you have had General Anesthesia or IV Sedation: * Do not drive today. * Resume driving when surgeon permits. * Do not make important decisions or sign legal documents today. * Call surgeon for: 1. Temperature elevations greater than 101 degrees F. 2. Uncontrollable pain. 3. Excessive bleeding. 4. Persistent nausea and vomiting. 5. Medication intolerance (nausea, vomiting or rash). * For nausea and vomiting use only clear liquids such as: tea, soda, bouillon until nausea subsides, then gradually increase diet as tolerated. * If you have any concerns or questions, call your surgeon's office. If physician is unavailable and it is an emergency, call 911 or go to the nearest emergency room. . Instructions / Follow-Up Instructions / Follow-Up Dr. Laird's office in 2 weeks for suture removal, call [phone] if you do not already have an appt Diet Recommendations Recommended Home Diet: no limitations Pending Studies Studies pending at discharge: no Medical Emergencies . Who to Call and When: Medical Emergencies: If at any time you feel your situation is an emergency, please call 911 immediately. . Non-Emergent Contact Non-Emergency issues call your: Surgeon Call Non-Emergent contact if: you have a fever, temperature is above 101.5, your pain is not controlled, wound has increased redness, you have any medication questions . . "Provider Documentation" section prepared by Adam Cedillo. .
[2016-09-08] MEDS ORDERED: THROMBIN FOR SOLN 20000 UNIT KIT ONE (09:42)
[2016-09-08] MEDS ORDERED: CEFAZOLIN SOD 1 GM VIAL ONE (09:42)
[2016-09-08] MEDS ORDERED: HEPARIN SOD (PORCINE) 1000 UNIT/ML 10 ML VIAL ONE (09:42)
[2016-09-08] MEDS ORDERED: LIDOCAINE HCL 1% 20 ML VIAL ONE (09:42)
[2016-09-08] MEDS ORDERED: ATROPINE SULFATE 0.1 MG/ML 5ML SYR IV PRN (09:45)
[2016-09-08] MEDS ORDERED: EpHEDrine SULFATE INJ 50 MG/ML AMP IV PRN (09:45)
[2016-09-08] MEDS ORDERED: PROPOFOL IV EMULSION 10 MG/ML 20 ML VIAL IV ONE (10:01)
[2016-09-08] MEDS ORDERED: LACTATED RINGER'S 1000ML 1,000 ML IV SCH (10:48)
--- NOTE | 2016-09-08 10:51 | [facility] Post Operative Brief Note ---
Immediate Operative Summary Operative Date Sep 08, 2016. Pre-Operative Diagnosis lung cancer Post-Operative Diagnosis same Procedure(s) Performed port placement Surgeon Eitan Door Slinger Surgeon(s) nurses Estimated Blood Loss 7cc Findings placed via Lt cephalic vein Specimens none Anesthesia local/ sedation Complication(s) None Disposition Recovery Room / PACU
[2016-09-08] MEDS ORDERED: HYDROmorphone INJ 1 MG/ML SYR IV PRN (11:00)
[2016-09-08] MEDS ORDERED: ONDANSETRON INJ 2 MG/ML 2 ML VIAL IV PRN ×2 (11:00)
[2016-09-08] MEDS ORDERED: HYDROCODONE/ACETAMOPHEN 5/325MG TAB PO PRN ×3 (11:00)
--- NOTE | 2016-09-08 11:07 | Anesthesiology Progress Note ---
Anesthesia Post Op Note Date & Time Sep 08, 2016 at 11:07 Vital Signs Pain Intensity: 0 Vital Signs Past 12 Hours Date Time Temp Pulse Resp B/P (MAP) Pulse Ox O2 Delivery O2 Flow Rate FiO2 09/08/16 11:03 51 16 98 09/08/16 11:03 51 16 09/08/16 11:01 137/90 09/08/16 10:58 54 19 98 09/08/16 10:58 55 19 09/08/16 10:56 157/82 09/08/16 10:53 52 11 09/08/16 10:53 52 11 100 09/08/16 10:51 129/92 09/08/16 10:49 133/87 09/08/16 10:48 69 15 97 09/08/16 10:48 65 15 09/08/16 10:48 36.2 54 12 133/87 (97) 99 Mask 10 09/08/16 08:20 36.6 56 18 164/84 (110) 96 Room Air Notes Mental Status: alert / awake / arousable, participated in evaluation Pt Amnestic to Procedure: Yes Nausea / Vomiting: adequately controlled Pain: adequately controlled Airway Patency, RR, SpO2: stable & adequate BP & HR: stable & adequate Hydration State: stable & adequate Anesthetic Complications: no major complications apparent
--- NOTE | 2016-09-08 11:54 | DIAGNOSTIC IMAGING REPORT ---
CHEST ONE VIEW PORTABLE CLINICAL HISTORY: port placement LUNG CARCINOMA COMPARISON STUDY: 08/12/2016 FINDINGS: The cardiac and sternal contours remain stable. There is been interval placement of a left subclavian A-Port catheter. The tip projects over the superior vena cava. There is no pneumothorax. There is no focal pulmonary consolidation. There is mild interstitial thickening similar to the prior study.[ IMPRESSION: No evidence of pneumothorax status post placement of a left subclavian A-Port catheter. The tip projects over the superior vena cava. Electronically signed by: Ehsan Huddleston M.D. 09/08/2016 11:52 AM Dictated Date/Time: 09/08/2016 11:51 AM
[2016-09-08 12:00] VITALS: BP 159/96; PULSE 57; TEMP 36.1; O2SAT 97
[2016-09-08 12:30] VITALS: BP 163/80; PULSE 54; TEMP 36.6; O2SAT 98
--- NOTE | 2016-09-08 13:04 | OPERATIVE REPORT ---
DATE OF OPERATION: 09/08/2016 NAME OF OPERATION: Port placement. PREOPERATIVE DIAGNOSIS: Lung cancer. POSTOPERATIVE DIAGNOSIS: Same. STAFF SURGEON: Dr. Laird. ANESTHESIA: 1% plain lidocaine with sedation. DESCRIPTION OF PROCEDURE: The patient was brought in the operating room and placed on the operating table in supine position. His upper chest was prepped and draped in usual fashion. 1% plain lidocaine was used to anesthetize skin and subcutaneous tissue in the left side over the deltopectoral groove. Incision was made carrying dissection down identifying the cephalic vein which was large, was ligated distally using 2-0 silk suture and opened. A catheter was passed under fluoroscopy down into the superior vena cava, secured using 2-0 silk suture, aspirated and flushed with heparinized solution. A pocket was fashioned in the chest wall and then the port was attached to the catheter. Port was then placed into the pocket and secured to the chest wall using 3-0 Prolene suture. The port was then aspirated and flushed with heparinized solution. The site was irrigated with antibiotic solution. Subcutaneous tissue reapproximated using 2-0 chromic catgut suture, then the skin reapproximated using 4-0 nylon suture. The patient was transferred to recovery room in stable condition. I attest to the content of the Intraoperative Record and any orders documented therein. Any exception s are noted below.
[2016-09-08] MEDS ORDERED: ERYTHROMYCIN OP OINT 5 MG/GM 3.5 GM TUBE OP SCH (14:00)
[2016-11-26] MEDS ORDERED: PROC1TAB5 PO (09:18)
[2016-11-26] MEDS ORDERED: ONDA8TAB6 PO (09:18)
== END 2016-09-08 12:45 | disposition home or self-care (01) ==
LOC: C.ACU 07:48
PROVIDERS: ATTEND Surgery
DX: C34.90 Malignant neoplasm of unspecified part of unspecified bronchus or lung (principal); J44.9 Chronic obstructive pulmonary disease, unspecified; I25.10 Atherosclerotic heart disease of native coronary artery without angina pectoris; I12.9 Hypertensive chronic kidney disease with stage 1 through stage 4 chronic kidney disease, or unspecified chronic kidney disease; E11.22 Type 2 diabetes mellitus with diabetic chronic kidney disease; I73.9 Peripheral vascular disease, unspecified; N18.9 Chronic kidney disease, unspecified; F17.200 Nicotine dependence, unspecified, uncomplicated; Z90.89 Acquired absence of other organs; Z98.890 Other specified postprocedural states; Z96.651 Presence of right artificial knee joint; Z88.5 Allergy status to narcotic agent; Z68.29 Body mass index [BMI] 29.0-29.9, adult; E66.9 Obesity, unspecified; Z83.3 Family history of diabetes mellitus; Z80.0 Family history of malignant neoplasm of digestive organs

== ENCOUNTER → 2016-09-20 | Outpatient (CLI) | payer OTHER ==
[~2016-09-20] MED LIST changes: -ACET325T95 PO; -CEFAZOLIN 2000 MG/60 ML D5W IV SCH; +HYDR-5688 PO; -LACTATED RINGER'S 1000ML 1,000 ML IV SCH; +ONDA8TAB6 PO; +PROC1TAB5 PO
--- NOTE | 2016-09-20 11:05 | DIAGNOSTIC IMAGING REPORT ---
CHEST 2 VIEWS ROUTINE CLINICAL HISTORY: C34.90 Small cell lung [id number] neoplasm COMPARISON STUDY: 09/08/2016 FINDINGS: Central catheter remains in superior vena cava. Lungs remain clear. Diaphragms smooth. IMPRESSION: Lungs remain clear. Central catheter remains in the superior vena cava.. No acute process. Electronically signed by: Justin Duarte M.D. 09/20/2016 11:03 AM Dictated Date/Time: 09/20/2016 11:02 AM
[2016-09-20 15:52] VITALS: BP 138/75; PULSE 68; TEMP 36.8; O2SAT 96
== END | disposition home or self-care (01) ==
LOC: C.RAD 10:48
PROVIDERS: ATTEND Surgery
DX: Z51.0 Encounter for antineoplastic radiation therapy (principal); C34.90 Malignant neoplasm of unspecified part of unspecified bronchus or lung; C34.12 Malignant neoplasm of upper lobe, left bronchus or lung

== ENCOUNTER → 2016-10-05 | Outpatient (CLI) | payer OTHER ==
[~2016-10-05] MED LIST changes: +OPTIRAY 320 IV PRN
--- NOTE | 2016-10-05 12:11 | DIAGNOSTIC IMAGING REPORT ---
CT brain combination HEAD COMBO CLINICAL HISTORY: LUNG Ca, small CELL, R/O METS lung carcinoma TECHNIQUE: Pre and postcontrast transaxial acquisition COMPARISON STUDY: None FINDINGS: Unremarkable density characteristics of the cerebellar as well as cerebral hemispheres. Minimal chronic small vessel change. Ventricular system is midline. No abnormal postcontrast enhancement. Evidence for prior antral window placement involving the maxillary sinuses. IMPRESSION: Negative study Electronically signed by: Justin Duarte M.D. 10/05/2016 12:10 PM Dictated Date/Time: 10/05/2016 12:07 PM
== END | disposition home or self-care (01) ==
LOC: C.CTS 11:36
PROVIDERS: ATTEND Radiology Radiation Oncology
DX: C34.12 Malignant neoplasm of upper lobe, left bronchus or lung (principal)

== ENCOUNTER → 2016-11-26 | Outpatient (CLI) | payer OTHER ==
[~2016-11-26] MED LIST changes: -OPTIRAY 320 IV PRN
[2016-11-26 09:04] VITALS: BP 138/80; PULSE 61; TEMP 36.3; O2SAT 98
--- NOTE | 2016-11-26 10:03 | Radiation Oncology Follow-Up ---
Radiation Oncology Follow-Up Date of Visit Nov 26, 2016. 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 Radiation completed 10/29/2016. He received 6000 cGy. Last Edited By: Virginie Iqbal on Nov 08, 2016 13:55 History of Present Illness Mr. Serrano is a 71-year-old male who has a long smoking history. He is smoked since age 12 and continues to smoke daily. He has been able to decrease his smoking to 10 cigarettes a day. He also uses chewing tobacco on a daily basis. He has a history of a thoracic aortic aneurysm and has been followed with serial CT scans. He was noted to have a lung nodule that measured approximately [address] scan from 01/08/2016 again showed a stable 7 mm nodular density in the left upper lobe with no evidence of new or interval changes. Patient therefore underwent a repeat lung nodule study on 06/29/2016. This study identified an enlarging irregular marginated left upper lobe pulmonary nodule that measured 2.0 x 0.7 cm. Due to it's appearance and change this was felt to be suspicious for a bronchogenic carcinoma. In the mediastinum there was an enlarged 2.1 cm AP window lymph node PET was felt to be suspicious for metastatic lymphadenopathy. In the goran a left hilar adenopathy was suspected. The patient was subsequently seen by Dr. Ohara. He ordered a PET/CT scan which was performed on 07/07/2016. This showed a moderate FDG uptake within 2.0 cm irregular subpleural left upper lobe nodule with an SUV max of 4.8. There was marked FDG uptake within an enlarged prevascular lymph node measuring 2.8 x 1.8 cm and an SUV max of 8. He was also moderate FDG uptake noted within several left hilar lymph nodes. The lymph nodes were difficult to visualize on the unenhanced exam but likely represent pathologic lymph nodes within an SUV max of 6. There was mild dilatation of the ascending aorta measuring 4.3 cm. In the abdomen and pelvis no suspicious FDG uptake was identified. No suspicious skeletal lesions were identified. There was no evidence of disseminated metastatic disease appreciated. On 07/09/2016 Dr. Dunn performed an endobronchial ultrasound with biopsy and navigational bronchoscopy with biopsy. A complete staging endobronchial ultrasound was performed with lymph node tissue from the right level II, right level IV, right level X, level VII, left level X and left level IV. Pathology from these nodes were all benign. Case: [id number] through Case: [id number]. Super dimensional bronchial brushing showed no malignant cells. Case: [id number]. Transbronchial aspiration of the left upper lobe lesion revealed no malignant cells. Case: [id number]. Bronchial washings showed no malignant cells. Case: 4-NG and left upper lobe transbronchial biopsy revealed malignant cells. Case: [id number]. Dr. Ohara proceeded to perform a fiberoptic bronchoscopy with navigational bronchoscopy with marking left upper lobe mass with fiducial marker and subsequent wedge resection and node sampling on 08/09/2016. 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 The tumor measured 2.0 x 1.5 x 1.5 cm. No lymphovascular invasion was identified. The tumor involved the visceral pleura. The examined parenchymal margins were negative for tumor. The tumor extended to within 0.5 cm of the parenchymal margin. Biopsy of lymph node 5 was negative for metastatic carcinoma. 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 The pathologic staging was pT2a pN1 Stage IIA. The patient was subsequently seen by Dr. Myron Watkins evaluation of the role of adjuvant systemic chemotherapy. 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 Recommendations included combination chemotherapy radiation. The chemotherapy would consist of a [place] double[place] in the radiation would include irradiating the mediastinal and hilar nodes. The patient is scheduled to undergo placement of a port for chemotherapy administration. He will be seen in the medical oncology department for a more detailed discussion of the aspects of chemotherapy. We were asked to see the patient in referral to review with them the role of radiation and if possible to proceed with a CT simulation to expedite initiation of his treatment. He underwent combined radiation and chemotherapy. Radiation was completed 10/29. He received 6000 cGy Interim History He did develop an area of desquamation of the left upper back. He had presented following treatment and was given Silvadene. This area has steadily improved. There is some mild skin dryness and dark discoloration. He denies any pain. He continues on with chemotherapy. His next dose of treatment will be December 06 to the . This will be his final cycle of chemotherapy. He does feel that he has increased shortness of breath since completion of treatment. He stated that he has known emphysema. He finds that he has to walk slower to prevent the shortness of breath. Denies increased cough. He denies soreness of his throat. Allergies Coded Allergies: Morphine (Verified Allergy, Unknown, BROKE OUT IN SWEATS, "THOUGHT I WAS DYING", SOB, 08/09/16) PERCOCET AND NORCO IN "DISCONTINUED" AND "COMPLETE" CATEGORIES ON ALL-SCRIPTS. Home Medications Scheduled Docusate Sodium (Docusate Sodium), 1 CAP PO DAILY Omeprazole (Prilosec), 40 MG PO QAM Sildenafil Citrate (Viagra), 50 MG PO PRN Scheduled PRN Ondansetron Hcl (Zofran), 8 MG PO Q4H PRN for Nausea Prochlorperazine Maleate (Compazine), 10 MG PO Q6H PRN for Nausea or Vomiting Review of Systems Gastrointestinal: Symptoms: Nausea GI Comments: takes meds as needed, ( vomited one time ) Oral: Symptoms: No Problems Respiratory: Symptoms: SOB With Exertion Other Respiratory: " cougheed up some blood about 1 week ago " none since Urinary: Symptoms: Nocturia Comments: nocturia 2 - 3 times Skin: Symptoms: No Problems Physical Exam Vital Signs Date Time Temp Pulse Resp B/P (MAP) Pulse Ox O2 Delivery O2 Flow Rate FiO2 11/26/16 09:04 36.3 61 20 138/80 98 Pain: Side: Bilateral Patient Pain Scale: 0 - 10 Initial Pain Intensity: 0.0 Fatigue: None General Appearance: no apparent distress Eyes: normal inspection, EOMI ENT: normal ENT inspection, hearing grossly normal Neck: no adenopathy, thyroid normal Respiratory/Chest: lungs clear, no respiratory distress, no accessory muscle use, + pertinent finding (there is no area of hyperpigmentation and resolving dry desquamation of the left upper posterior thorax) Cardiovascular: regular rate, rhythm, no gallop, no murmur Extremities: no pedal edema Neurologic/Psychiatric: no motor/sensory deficits, alert, normal mood/affect Skin: warm/dry Laboratory Studies Test 08/31/16 05:00 09/08/16 08:17 09/29/16 10:50 10/04/16 10:02 Urine Collection Time 24 HOURS Urine Total Volume 1600 mL Urine Creatinine 110.0 mg/dl Urine Creatinine 24 Hour 1.8 gm/24 HR (0.6-2.5) POC Glucose 104 mg/dl (70-99) Platelet Estimate DECREASED Echinocytes 1+ Neutrophils % (Manual) 31.7 % Lymphocytes % (Manual) 34.6 % Variant Lymphocytes % (manual) 15.4 % Monocytes % (Manual) 12.5 % Eosinophils % (Manual) 4.8 % Myelocytes % 1.0 % Neutrophils # (Manual) 0.96 K/uL (1.4-6.5) Total Absolute Neutrophils 0.96 K/uL (1.4-6.5) Lymphocytes # (Manual) 1.04 K/uL (1.2-3.4) Absolute Variant Lymphocytes 0.47 K/uL Total Absolute Lymphocytes 1.51 K/uL (1.2-3.4) Monocytes # (Manual) 0.38 K/uL (0.11-0.59) Eosinophils # (Manual) 0.14 K/uL (0-0.5) Myelocytes # 0.03 K/uL (0-0) Red Blood Cell Morphology Unremarkable Test 10/11/16 08:45 10/20/16 11:12 10/28/16 11:00 11/08/16 08:35 Magnesium Level 2.0 mg/dl (1.8-2.4) 1.8 mg/dl (1.8-2.4) Lactate Dehydrogenase 197 U/L (87-241) 205 U/L (87-241) Platelet Estimate DECREASED Est Creatinine Clear Calc Drug Dose 51.9 ml/min 52.3 ml/min White Blood Count 1.65 K/uL (4.8-10.8) 4.81 K/uL (4.8-10.8) Red Blood Count 3.80 M/uL (4.7-6.1) 4.04 M/uL (4.7-6.1) Hemoglobin 11.7 g/dL (14.0-18.0) 11.9 g/dL (14.0-18.0) Hematocrit 33.3 % (42-52) 35.8 % (42-52) Mean Corpuscular Volume 87.6 fL (80-100) 88.6 fL (80-100) Mean Corpuscular Hemoglobin 30.8 pg (25-34) 29.5 pg (25-34) Mean Corpuscular Hemoglobin Concent 35.1 g/dl (32-36) 33.2 g/dl (32-36) Platelet Count 76 K/uL (130-400) 137 K/uL (130-400) Mean Platelet Volume 8.5 fL (7.4-10.4) 8.7 fL (7.4-10.4) Neutrophils (%) (Auto) 32.1 % 60.6 % Lymphocytes (%) (Auto) 37.6 % 23.5 % Monocytes (%) (Auto) 26.1 % 12.1 % Eosinophils (%) (Auto) 4.2 % 1.7 % Basophils (%) (Auto) 0.0 % 0.6 % Neutrophils # (Auto) 0.53 K/uL (1.4-6.5) 2.92 K/uL (1.4-6.5) Lymphocytes # (Auto) 0.62 K/uL (1.2-3.4) 1.13 K/uL (1.2-3.4) Monocytes # (Auto) 0.43 K/uL (0.11-0.59) 0.58 K/uL (0.11-0.59) Eosinophils # (Auto) 0.07 K/uL (0-0.5) 0.08 K/uL (0-0.5) Basophils # (Auto) 0.00 K/uL (0-0.2) 0.03 K/uL (0-0.2) RDW Standard Deviation 46.3 fL (36.4-46.3) 49.1 fL (36.4-46.3) RDW Coefficient of Variation 14.5 % (11.5-14.5) 15.2 % (11.5-14.5) Immature Granulocyte % (Auto) 0.0 % 1.5 % Immature Granulocyte # (Auto) 0.00 K/uL (0.00-0.02) 0.07 K/uL (0.00-0.02) Giant Platelets 2+ Sodium Level 134 mmol/L (136-145) 135 mmol/L (136-145) Potassium Level 4.0 mmol/L (3.5-5.1) 3.8 mmol/L (3.5-5.1) Chloride Level 102 mmol/L (98-107) 101 mmol/L (98-107) Carbon Dioxide Level 27 mmol/L (21-32) 27 mmol/L (21-32) Anion Gap 5.0 mmol/L (3-11) 7.0 mmol/L (3-11) Blood Urea Nitrogen 24 mg/dl (7-18) 22 mg/dl (7-18) Creatinine 1.40 mg/dl (0.60-1.40) 1.40 mg/dl (0.60-1.40) Estimated GFR () 57.4 57.4 Estimated GFR (Non- 49.5 49.5 BUN/Creatinine Ratio 17.4 (10-20) 15.9 (10-20) Random Glucose 106 mg/dl (70-99) 129 mg/dl (70-99) Calcium Level 8.9 mg/dl (8.5-10.1) 9.2 mg/dl (8.5-10.1) Total Bilirubin 0.1 mg/dl (0.2-1) 0.2 mg/dl (0.2-1) Aspartate Amino Transferase (AST) 22 U/L (15-37) 22 U/L (15-37) Alanine Aminotransferase (ALT) 26 U/L (12-78) 24 U/L (12-78) Alkaline Phosphatase 62 U/L (45-117) 60 U/L (45-117) Total Protein 7.0 gm/dl (6.4-8.2) 7.3 gm/dl (6.4-8.2) Albumin 3.6 gm/dl (3.4-5.0) 3.7 gm/dl (3.4-5.0) Globulin 3.4 gm/dl (2.5-4.0) 3.6 gm/dl (2.5-4.0) Albumin/Globulin Ratio 1.1 (0.9-2) 1.0 (0.9-2) Additional Studies Patient: MONICA SERRANO Address1: [address] [facility] Rec: [id number] Address2: Acct ID: [id number] [facility] Zip: [place] [id number] Date: 1945 Sex: M Room/Bed: Ref Phy: Virginie Iqbal PA-C SC: C.CTS Att Phy: Barron Blackwood M.D. Report #: [id number] Deepa Phy: Jesus العلي M.D. Test: HC Admit Phy: Program Engineer: ASHLEY Interpreting Phy: Justin Duarte M.D. Diagnosis: SMALL CELL CA OF LUNG, R/O METS Ordering Phy: Barron Blackwood M.D. Service Date: 10/05/16 Admit Date: 10/05/16 MNE: [id number] CONF: DICTATED BY: Justin Duarte M.D.]] CC: Barron Blackwood M.D. Hester, Christopher E., M.D. Kline, Angelica, PA-C Endcc: [~ rep ct add3]] CT brain combination HEAD COMBO CLINICAL HISTORY: LUNG Ca, small CELL, R/O METS lung carcinoma TECHNIQUE: Pre and postcontrast transaxial acquisition COMPARISON STUDY: None FINDINGS: Unremarkable density characteristics of the cerebellar as well as cerebral hemispheres. Minimal chronic small vessel change. Ventricular system is midline. No abnormal postcontrast enhancement. Evidence for prior antral window placement involving the maxillary sinuses. IMPRESSION: Negative study Electronically signed by: Justin Duarte M.D. 10/05/2016 12:10 PM Dictated Date/Time: 10/05/2016 12:07 PM Assessment & Plan Plan: Patient is also seen and examined by Dr. Steve today He will be completing his final cycle of chemotherapy. This will begin on 12/06/2016. Today we completed a cancer survivorship care plan. A copy of the document was given to the patient. We discussed prophylactic cranial irradiation. It was discussed that he will need to complete his final cycle and then have restaging scans including an MRI of the Brain. If all is improved and stable then he is a candidate for prophylactic cranial radiation. He stated he will discuss this also with Dr. Watkins at his next visit which is December 06. We asked him to return to our office in 2 months. He may call if she has any questions or concerns in the interim. Assessment & Plan (Attending) ADDENDUM: I agree with note created by Virginie Iqbal PA-C. I reviewed the patient's chart and information with her. I have examined and evaluated the patient. I reviewed relevant clinical information and answered the patient's and /or family's questions. MASTER LAY OUT SPECIALIST Total Time In Follow-Up I spent 20 minutes being to the patient performing examination. I spent 20 minutes reviewing information, preparing the survivorship document, and completing this note. AK Total Time (Attending) In Follow-Up I spent 15 minutes examining and counseling the patient. MASTER LAY OUT SPECIALIST Copy To Jesus العلي M.D.; Myron Watkins MD; Levy Ohara MD Problem Qualifiers (1) Lung cancer: Laterality: left Lung location: upper lobe of lung Qualified Codes: C34.12 - Malignant neoplasm of upper lobe, left bronchus or lung
== END | disposition home or self-care (01) ==
LOC: C.ONC 08:51
PROVIDERS: ATTEND Physician Assistant Medical
DX: Z08 Encounter for follow-up examination after completed treatment for malignant neoplasm (principal); Z92.3 Personal history of irradiation; Z85.118 Personal history of other malignant neoplasm of bronchus and lung

== ENCOUNTER → 2017-01-03 | Outpatient (CLI) | payer OTHER ==
[~2017-01-03] MED LIST changes: -HYDR-5688 PO; +OPTIRAY 320 IV PRN
--- NOTE | 2017-01-03 08:42 | DIAGNOSTIC IMAGING REPORT ---
CT SCAN OF THE CHEST WITH IV CONTRAST CLINICAL HISTORY: Small cell lung cancer. COMPARISON STUDY: Chest CT scans dated 06/29/2016 and 01/08/2016. Chest x-ray dated 09/20/2016. PET/CT dated 07/07/2016. TECHNIQUE: Following the IV administration of 92 cc of Optiray 320, CT scan of the thorax was performed from the thoracic inlet to the upper abdomen. Images are reviewed in the axial, sagittal, and coronal planes. IV contrast was administered without complication. A dose lowering technique was utilized adhering to the principles of ALARA. CT DOSE: 416.12 mGy.cm FINDINGS: Thyroid: Imaged portions of the thyroid gland are normal in size and attenuation. Thoracic aorta: There is atherosclerotic calcification of the thoracic aorta. There is mild ectasia of the ascending thoracic aorta which measures up to 4.1 cm. The remainder of the thoracic aorta is normal in caliber and the arch demonstrates standard 3-vessel anatomy. No dissection is seen. A left subclavian central venous infusion port is in place. Pulmonary vasculature: The pulmonary trunk is normal in caliber. There are no filling defects identified in the central pulmonary vessels to indicate pulmonary embolus. Note that this examination was not protocoled for evaluation of the pulmonary arteries. Heart: The heart is top normal in size and there is trace pericardial effusion. The coronary arteries are densely calcified. Lungs and pleural spaces: Emphysema is noted. Postoperative change is seen in the left upper lobe. The trachea and central airways are clear. A tracheal or esophageal diverticulum is seen just above the thoracic inlet. There is no airspace consolidation typical for pneumonia or pleural effusion. Dependent atelectasis is observed. There are numerous small calcified granulomas. Mediastinum: There are subcentimeter mediastinal lymph nodes. These are not pathologically enlarged by size criteria. The enlarged prevascular lymph node seen previously has been removed. Payal: Clear. Axillae: There is no axillary lymphadenopathy. Upper abdomen: There are numerous calcified splenic granulomas. No adrenal lesion is seen. Skeletal structures: The skeletal structures are osteopenic. There are superior endplate compression deformities of T12 and L1. No lytic or blastic bony lesions are seen. Advanced arthritic change is seen in the shoulders. IMPRESSION: 1. There is no evidence of recurrent or metastatic disease in the chest. 2. Emphysema. 3. There is postoperative change from left upper lobe and mediastinal lymph node resection. 4. There is mild ectasia of the ascending thoracic aorta which measures up to 4.1 cm in diameter. 5. No airspace consolidation or pleural effusion is seen. Electronically signed by: Paolo Katz M.D. 01/03/2017 8:41 AM Dictated Date/Time: 01/03/2017 8:25 AM
== END | disposition home or self-care (01) ==
LOC: C.CTS 07:52
PROVIDERS: ATTEND Internal Medicine Hematology & Oncology
DX: C34.12 Malignant neoplasm of upper lobe, left bronchus or lung (principal); J43.9 Emphysema, unspecified; Z90.2 Acquired absence of lung [part of]

== ENCOUNTER → 2017-01-11 | Outpatient (CLI) | payer OTHER ==
--- NOTE | 2017-01-11 08:27 | DIAGNOSTIC IMAGING REPORT ---
CT OF THE HEAD WITH AND WITHOUT CONTRAST CLINICAL HISTORY: Small cell lung cancer. COMPARISON STUDY: Head CT October 05, 2016. TECHNIQUE: Axial images of the head were obtained before and after intravenous administration of Optiray 320 IV. FINDINGS: No acute intracranial hemorrhage, midline shift or mass effect is present. Ventricular system is normal. Basilar cisterns are patent. There are no extra-axial collections. White matter hypodensities suggest small vessel disease. No intracranial mass or pathologic enhancement is present. No suspicious calvarial lesions are present. There are postoperative findings within the sinuses. IMPRESSION: No evidence of metastatic disease. Electronically signed by: Pee Hoskins M.D. 01/11/2017 8:25 AM Dictated Date/Time: 01/11/2017 8:17 AM
== END | disposition home or self-care (01) ==
LOC: C.CTS 07:30
PROVIDERS: ATTEND Internal Medicine Hematology & Oncology
DX: C34.12 Malignant neoplasm of upper lobe, left bronchus or lung (principal)

== ENCOUNTER → 2017-03-15 | Outpatient (CLI) | payer OTHER ==
[~2017-03-15] MED LIST changes: +MEMA10TA PO; +OMEP20TA PO; +ONDA-170 PO; -ONDA8TAB6 PO; -OPTIRAY 320 IV PRN; +PROC10TA PO; -PROC1TAB5 PO
[2017-03-15 14:45] VITALS: BP 123/80; PULSE 68; TEMP 36.7; O2SAT 96
--- NOTE | 2017-03-15 16:05 | Radiation Oncology Follow-Up ---
Radiation Oncology Follow-Up Date of Visit Mar 15, 2017. Reason For Visit Mr. Mariscal returns for his regular scheduled 1 month follow-up visit following completion of prophylactic whole brain radiation. Radiation Completion Date To chest on 10/29/16 and PCI on 02/13/17 History of Present Illness Mr. Mariscal is a long smoking history. He is smoked since age 12 and continues to smoke daily. He has been able to decrease his smoking to 10 cigarettes a day. He also uses chewing tobacco on a daily basis. He has a history of a thoracic aortic aneurysm and has been followed with serial CT scans. He was noted to have a lung nodule that measured approximately [address] scan from 01/08/2016 again showed a stable 7 mm nodular density in the left upper lobe with no evidence of new or interval changes. Patient therefore underwent a repeat lung nodule study on 06/29/2016. This study identified an enlarging irregular marginated left upper lobe pulmonary nodule that measured 2.0 x 0.7 cm. Due to it's appearance and change this was felt to be suspicious for a bronchogenic carcinoma. In the mediastinum there was an enlarged 2.1 cm AP window lymph node PET was felt to be suspicious for metastatic lymphadenopathy. In the goran a left hilar adenopathy was suspected. The patient was subsequently seen by Dr. Ohara. He ordered a PET/CT scan which was performed on 07/07/2016. This showed a moderate FDG uptake within 2.0 cm irregular subpleural left upper lobe nodule with an SUV max of 4.8. There was marked FDG uptake within an enlarged prevascular lymph node measuring 2.8 x 1.8 cm and an SUV max of 8. He was also moderate FDG uptake noted within several left hilar lymph nodes. The lymph nodes were difficult to visualize on the unenhanced exam but likely represent pathologic lymph nodes within an SUV max of 6. There was mild dilatation of the ascending aorta measuring 4.3 cm. In the abdomen and pelvis no suspicious FDG uptake was identified. No suspicious skeletal lesions were identified. There was no evidence of disseminated metastatic disease appreciated. On 07/09/2016 Dr. Dunn performed an endobronchial ultrasound with biopsy and navigational bronchoscopy with biopsy. A complete staging endobronchial ultrasound was performed with lymph node tissue from the right level II, right level IV, right level X, level VII, left level X and left level IV. Pathology from these nodes were all benign. Case: [id number] through Case: [id number]. Super dimensional bronchial brushing showed no malignant cells. Case: [id number]. Transbronchial aspiration of the left upper lobe lesion revealed no malignant cells. Case: [id number]. Bronchial washings showed no malignant cells. Case: [id number] and left upper lobe transbronchial biopsy revealed malignant cells. Case: [id number]. Dr. Ohara proceeded to perform a fiberoptic bronchoscopy with navigational bronchoscopy with marking left upper lobe mass with fiducial marker and subsequent wedge resection and node sampling on 08/09/2016. 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 The tumor measured 2.0 x 1.5 x 1.5 cm. No lymphovascular invasion was identified. The tumor involved the visceral pleura. The examined parenchymal margins were negative for tumor. The tumor extended to within 0.5 cm of the parenchymal margin. Biopsy of lymph node 5 was negative for metastatic carcinoma. 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 The pathologic staging was pT2a pN1 Stage IIA. The patient was subsequently seen by Dr. Myron Watkins evaluation of the role of adjuvant systemic chemotherapy. 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 Recommendations included combination chemotherapy radiation. The chemotherapy would consist of a lovelock doublet in the radiation would include irradiating the mediastinal and hilar nodes. The patient is scheduled to undergo placement of a port for chemotherapy administration. He will be seen in the medical oncology department for a more detailed discussion of the aspects of chemotherapy. We were asked to see the patient in referral to review with them the role of radiation and if possible to proceed with a CT simulation to expedite initiation of his treatment. He underwent combined radiation and chemotherapy. Radiation was completed 10/29. He received 6000 cGy. He had been doing well. He had been followed closely by medical oncology. He finished his chemotherapy 12/08/2016. He had a recheck CT scan of the chest 01/13/2017. There was no evidence of recurrent or metastatic disease in the chest. He had a CT of the head which showed no evidence of metastatic disease. With these findings he has been referred back to our office discussed prophylactic cranial irradiation. After discussion the patient agreed to a course of prophylactic cranial irradiation. He completed prophylactic cranial irradiation 02/13/2017. He received 2500 cGy delivered over 10 fractions.. Interim History Since completing the whole brain radiation the patient has denies any complaint of headaches or change in memory. He continues to take the Namenda. He has noted hair loss from the radiation but no other sequela I. The patient's main complaint is that of a depressed appetite. He states he is not hungry and is slowly losing weight. He states he has lost slightly over 20 pounds since the initiation of his treatment. He is not taking any nutritional supplement and does occasionally have some mild nausea. He notes a decrease in taste since the initiation of the systemic chemotherapy. Allergies Coded Allergies: Morphine (Verified Allergy, Unknown, BROKE OUT IN SWEATS, "THOUGHT I WAS DYING", SOB, 08/09/16) PERCOCET AND NORCO IN "DISCONTINUED" AND "COMPLETE" CATEGORIES ON ALL-SCRIPTS. 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 ; Oral: Symptoms: No Problems Respiratory: Symptoms: SOB With Exertion Urinary: Symptoms: WNL Skin: Symptoms: No Problems Other Skin Symptoms: Continues w/dry skin on head and ears;uses skin care by choice; Physical Exam Vital Signs Date Time Temp Pulse Resp B/P (MAP) Pulse Ox O2 Delivery O2 Flow Rate FiO2 03/15/17 14:45 36.7 68 16 123/80 96 Fatigue: Mild General Appearance: WD/WN, no apparent distress Eyes: normal inspection ENT: pharynx normal Neck: supple, no adenopathy, no carotid bruits Respiratory/Chest: chest non-tender, lungs clear, normal breath sounds Cardiovascular: regular rate, rhythm, no murmur Abdomen: normal bowel sounds, non tender, soft, no organomegaly Extremities: normal range of motion, non-tender, no pedal edema, no calf tenderness Neurologic/Psychiatric: cemetery manager II-XII nml as tested, no motor/sensory deficits, alert, normal mood/affect, oriented x 3 Skin: normal color Lymphatic: no adenopathy Pain Management Patient Reports Pain: No Pain Management Plan The patient is complaining of no pain at this time. Therefore no plan is necessary for pain management. Laboratory Laboratory Results: were reviewed, and no pertinent findings Pathology Pathology Results: not applicable Imaging Imaging Studies: not applicable Assessment & Plan (Attending) Mr. Mariscal was completed his initial combined chemoradiation for a small cell carcinoma to the lung followed by a course of prophylactic cranial irradiation following evidence of excellent response in the chest no evidence of brain lesions. Overall the patient's pretreatment weight was 90 kg.. This reached a maximum of 93.3 kg early on in the treatment. By the end of treatment his weight had decreased slightly to 90.6 kg. At the time of the initiation of the whole brain radiation is weighted increased to 91.8 kg and at the completion of whole brain radiation his weight was 92.7 kg. His weight today was 89.6 kg. His main complaint is that of a loss of appetite. The patient's overall weight loss though appears to be minimal. I did however suggest that he consider a prescription of Megace to attempt to stimulate his appetite. The patient at this time declined as he is still hoping his appetite will improve on its own. I did suggest that he discuss this with Dr. Watkins especially if his weight continues to drop. We also discussed the continuation of his Namenda. They have filled his second prescription and he should continue to take this for a total of 6 months. I also suggested that he consider taking a nutritional supplement to increase his caloric intake. In addition he could consider milkshakes or other foods that he will enjoy. The patient has a return follow-up appointment with Dr. Watkins in 2017. We talked about returning here for further follow-up. He felt he would be comfortable following up exclusively with Dr. Watkins. He does understand that we would be happy to see him in the future if requested either by the patient or by Dr. Watkins. For this reason no follow-up appointment was made for this patient at this time. Thank you for allowing us to participate in the care of this patient. This chart was completed in part utilizing [employer] Speech Voice Recognition software. Attempts were made to minimize the grammatical errors, random word insertions, pronoun errors and incomplete sentences. Any formal questions or concerns about the content, text or information contained within the body of this dictation should be directly addressed to the provider for clarification. Sarthak Blackwood MD Department of Radiation Oncology [facility] [place] [facility] Total Time (Attending) In Follow-Up I spent 15 minutes in examination and discussion of his symptoms and ongoing follow-up care, 10 minutes reviewing his chart and in preparation of this document. Copy To Jesus العلي M.D.; Myron Watkins MD
== END | disposition home or self-care (01) ==
LOC: C.ONC 14:36
PROVIDERS: ATTEND Physician Assistant Medical
DX: Z08 Encounter for follow-up examination after completed treatment for malignant neoplasm (principal); Z92.3 Personal history of irradiation; Z85.118 Personal history of other malignant neoplasm of bronchus and lung

== ENCOUNTER 2017-04-01 08:43 | Emergency (ER) | payer OTHER ==
[~2017-04-01] VITALS: Ht 175.3 cm; Wt 88.0 kg
[~2017-04-01 08:43] MED LIST changes: -OMEP20TA PO; -ONDA-170 PO; -PROC10TA PO
[2017-04-01 08:44] VITALS: TEMP 36.8; Ht 175.3 cm; Wt 88.0 kg
[2017-04-01] MEDS ORDERED: OMEP20TA PO (08:53)
[2017-04-01 09:39] LABS: HEMATOCRIT 34.2 % (42-52); HEMOGLOBIN 11.6 g/dL (14.0-18.0); MEAN CELL VOLUME 91.2 fL (80-100); MEAN CORPUSCULAR HEMOGLOBIN 30.9 pg (25-34); MEAN CORPUSCULAR HGB CONC 33.9 g/dl (32-36); MEAN PLATELET VOLUME 8.9 fL (7.4-10.4); PLATELET COUNT 77 K/uL (130-400); RED CELL DISTRIBUTION WIDTH CV 13.2 % (11.5-14.5); WHITE BLOOD COUNT 5.59 K/uL (4.8-10.8)
--- NOTE | 2017-04-01 09:44 | DIAGNOSTIC IMAGING REPORT ---
CHEST ONE VIEW PORTABLE CLINICAL HISTORY: 71 years-old Male presenting with weak. TECHNIQUE: Portable upright AP view of the chest was obtained. COMPARISON: 09/20/2016. FINDINGS: Left subclavian Mediport is accessed and terminates in the lower SVC. Atherosclerosis of aortic arch. Cardiac silhouette normal in size. Mild hyperinflation. Heterogeneous lung markings. No focal infiltrate. No large pleural effusion or pneumothorax. Osseous structures normal. IMPRESSION: 1. No acute cardiopulmonary disease. 2. Emphysema. Electronically signed by: Benjamin Patrick M.D. 04/01/2017 9:42 AM Dictated Date/Time: 04/01/2017 9:41 AM
[2017-04-01 09:50] LABS: ALBUMIN 3.6 gm/dl (3.4-5.0); ALT/SGPT 26 U/L (12-78); AST/SGOT 19 U/L (15-37); BLOOD UREA NITROGEN 19 mg/dl (7-18); CALCIUM 8.7 mg/dl (8.5-10.1); CARBON DIOXIDE 24 mmol/L (21-32); CREATININE 1.53 mg/dl (0.60-1.40); GLUCOSE 115 mg/dl (70-99); LIPASE 143 U/L (73-393); POTASSIUM 3.4 mmol/L (3.5-5.1); SODIUM 135 mmol/L (136-145)
[2017-04-01 09:55] LABS: ALKALINE PHOSPHATASE 71 U/L (45-117); TOTAL PROTEIN 7.2 gm/dl (6.4-8.2)
[2017-04-01 10:13] LABS: BASO % 0.2 %; BASO ABS # 0.01 K/uL (0-0.2); EOS % 2.5 %; EOS ABS # 0.14 K/uL (0-0.5); IG# 0.02 K/uL (0.00-0.02); LYMPH % 17.2 %; LYMPH ABS # 0.96 K/uL (1.2-3.4); MONO % 12.3 %; MONO ABS # 0.69 K/uL (0.11-0.59); NEUT % 67.4 %; NEUT ABS # 3.77 K/uL (1.4-6.5)
[2017-04-01 11:38] VITALS: O2SAT 96
--- NOTE | 2017-04-01 11:56 | DIAGNOSTIC IMAGING REPORT ---
HEAD WITHOUT CONTRAST (CT) CLINICAL HISTORY: 71 years-old Male presenting with dizzy, history of small cell lung carcinoma. TECHNIQUE: Multidetector CT imaging of the head was performed without the use of intravenous contrast. IV contrast: None. A dose lowering technique was used consistent with the principles of ALARA (as low as reasonably achievable). COMPARISON: 01/11/2017. CT DOSE (mGy.cm): The estimated cumulative dose is 537.48 mGy.cm. FINDINGS: Coil Shaper topogram: Unremarkable. Ventricles and sulci normal in size. Brain parenchyma normal in appearance with preserved azar-white differentiation. No mass effect or midline shift. No hemorrhage or acute territorial infarct. No extra-axial fluid collection. Paranasal sinuses and mastoid air cells clear. Calvarium intact. IMPRESSION: 1. No acute intracranial abnormality. Electronically signed by: Benjamin Patrick M.D. 04/01/2017 11:55 AM Dictated Date/Time: 04/01/2017 11:52 AM
[2017-04-01 12:20] LABS: INFLUENZA B ANTIGEN Neg for Influ B (NEG)
[2017-04-01] MEDS ORDERED: POTASSIUM CHLORIDE 10 MEQ TABCR PO STA (12:33)
[2017-04-01 12:56] VITALS: BP 134/86; PULSE 80
--- NOTE | 2017-04-01 14:22 | EMERGENCY ROOM VISIT NOTE ---
History Report prepared by Jayden: Oli Jeffries Under the Supervision of: Dr. Rosendo Tate D.O. First contact with patient: 08:53 Chief Complaint: WEAKNESS Stated Complaint: FLU SYMPTOMS - REF BY History of Present Illness The patient is a 71 year old male who presents to the Emergency Room with complaints of worsening weakness beginning a few months ago. The patient states he has been receiving chemotherapy and radiation all summer for small cell lung cancer. He reports he has been weak since treatment started, but it has worsened over the past week. The patient notes he went to the [facility] yesterday and was told to come to the ED because he may have the flu. He states he has lost 20 pounds over the past 6 months because of his decreased appetite. He denies fevers above 104, chest pain, abdominal pain, runny nose, new/ worsening shortness of breath, nausea, and vomiting. Source of History: patient Onset: few months ago Position: other (global) Quality: other (weakness) Timing: worsening Associated Symptoms: No fevers (above 104 degrees), No chest pain, No SOB ( new), No nausea, No vomiting, No abdominal pain Note: Associated symptoms: decreased appetite and weight loss Denies: runny nose Review of Systems See HPI for pertinent positives & negatives. A total of 10 systems reviewed and were otherwise negative. Past Medical & Surgical Medical Problems: (1) AAA (abdominal aortic aneurysm) without rupture (2) Lung cancer (3) No pertinent past medical history Surgical Problems: (1) No pertinent past surgical history Family History Cancer Diabetes mellitus Hypertension Lung disease Social History Smoking Status: Former Smoker Alcohol Use: occasionally Marital Status: Housing Status: lives with significant other Occupation Status: employed Current/Historical Medications Scheduled Memantine Hcl (Namenda), 10 MG PO BID Omeprazole (Omeprazole), 40 MG PO DAILY Allergies Coded Allergies: Morphine (Verified Allergy, Unknown, BROKE OUT IN SWEATS, "THOUGHT I WAS DYING", SOB, 08/09/16) PERCOCET AND NORCO IN "DISCONTINUED" AND "COMPLETE" CATEGORIES ON ALL-SCRIPTS. Physical Exam Vital Signs Date Time Temp Pulse Resp B/P (MAP) Pulse Ox O2 Delivery O2 Flow Rate FiO2 04/01/17 12:56 80 16 134/86 04/01/17 11:59 146/86 1/5/18 11:38 61 21 96 04/01/17 11:33 66 20 97 04/01/17 11:28 63 14 98 04/01/17 11:23 60 20 96 04/01/17 11:18 61 18 96 04/01/17 11:13 60 20 98 04/01/17 11:08 60 19 96 04/01/17 11:03 59 20 95 04/01/17 10:58 61 19 95 04/01/17 10:53 60 19 96 04/01/17 10:48 59 18 96 04/01/17 10:46 60 18 131/82 96 Room Air 04/01/17 10:43 62 19 04/01/17 10:42 131/82 04/01/17 10:38 60 97 04/01/17 10:33 59 95 04/01/17 10:28 58 96 04/01/17 10:23 61 94 04/01/17 10:18 60 95 04/01/17 10:13 61 94 04/01/17 10:08 60 95 04/01/17 10:03 62 96 04/01/17 09:58 61 95 04/01/17 09:53 63 95 04/01/17 09:48 62 97 04/01/17 09:43 64 96 04/01/17 09:33 65 16 97 04/01/17 09:28 64 20 96 04/01/17 09:23 65 20 96 04/01/17 09:18 65 21 97 04/01/17 09:13 67 26 97 04/01/17 09:13 66 04/01/17 09:08 68 15 96 04/01/17 08:44 36.8 76 20 132/76 97 Room Air Physical Exam GENERAL: Sitting up in bed, alert, well appearing, well nourished, no distress, non-toxic EYE EXAM: normal conjunctiva. PERRL and EOM's grossly intact. OROPHARYNX: no exudate, no erythema, lips, buccal mucosa, and tongue normal and mucous membranes are moist NECK: supple, no nuchal rigidity, no adenopathy, non-tender LUNGS: Clear to auscultation. Normal chest wall mechanics HEART: no murmurs, S1 normal and S2 normal CHEST: Port located in the upper chest wall. ABDOMEN: abdomen soft, non-tender, normo-active bowel sounds, no masses, no rebound or guarding. BACK: Back is symmetrical on inspection and there is no deformity, no midline tenderness, no CVA tenderness. SKIN: no rashes and no bruising UPPER EXTREMITIES: upper extremities are grossly normal. LOWER EXTREMITIES: No pitting edema. NEURO EXAM: Normal sensorium, cranial nerves II-XII grossly intact, normal speech, no gross weakness of arms, no gross weakness of legs. Medical Decision & Procedures ER Provider Diagnostic Interpretation: Radiology results as stated below per my review and the radiologist's interpretation: CHEST ONE VIEW PORTABLE CLINICAL HISTORY: 71 years-old Male presenting with weak. TECHNIQUE: Portable upright AP view of the chest was obtained. COMPARISON: 09/20/2016. FINDINGS: Left subclavian Mediport is accessed and terminates in the lower SVC. Atherosclerosis of aortic arch. Cardiac silhouette normal in size. Mild hyperinflation. Heterogeneous lung markings. No focal infiltrate. No large pleural effusion or pneumothorax. Osseous structures normal. IMPRESSION: 1. No acute cardiopulmonary disease. 2. Emphysema. Electronically signed by: Benjamin Patrick M.D. 04/01/2017 9:42 AM Dictated Date/Time: 04/01/2017 9:41 AM HEAD WITHOUT CONTRAST (CT) CLINICAL HISTORY: 71 years-old Male presenting with dizzy, history of small cell lung carcinoma. TECHNIQUE: Multidetector CT imaging of the head was performed without the use of intravenous contrast. IV contrast: None. A dose lowering technique was used consistent with the principles of ALARA (as low as reasonably achievable). COMPARISON: 01/11/2017. CT DOSE (mGy.cm): The estimated cumulative dose is 537.48 mGy.cm. FINDINGS: See Supervisor topogram: Unremarkable. Ventricles and sulci normal in size. Brain parenchyma normal in appearance with preserved azar-white differentiation. No mass effect or midline shift. No hemorrhage or acute territorial infarct. No extra-axial fluid collection. Paranasal sinuses and mastoid air cells clear. Calvarium intact. IMPRESSION: 1. No acute intracranial abnormality. Electronically signed by: Benjamin Patrick M.D. 04/01/2017 11:55 AM Dictated Date/Time: 04/01/2017 11:52 AM Laboratory Results 04/01/17 09:28 Red Blood Count 3.75, Mean Corpuscular Volume 91.2, Mean Corpuscular Hemoglobin 30.9, Mean Corpuscular Hemoglobin Concent 33.9, Mean Platelet Volume 8.9, Neutrophils (%) (Auto) 67.4, Lymphocytes (%) (Auto) 17.2, Monocytes (%) (Auto) 12.3, Eosinophils (%) (Auto) 2.5, Basophils (%) (Auto) 0.2, Neutrophils # (Auto ) 3.77, Lymphocytes # (Auto) 0.96, Monocytes # (Auto) 0.69, Eosinophils # (Auto ) 0.14, Basophils # (Auto) 0.01 04/01/17 09:28 Test 04/01/17 09:28 04/01/17 10:41 White Blood Count 5.59 K/uL (4.8-10.8) Red Blood Count 3.75 M/uL (4.7-6.1) Hemoglobin 11.6 g/dL (14.0-18.0) Hematocrit 34.2 % (42-52) Mean Corpuscular Volume 91.2 fL (80-100) Mean Corpuscular Hemoglobin 30.9 pg (25-34) Mean Corpuscular Hemoglobin Concent 33.9 g/dl (32-36) Platelet Count 77 K/uL (130-400) Mean Platelet Volume 8.9 fL (7.4-10.4) Neutrophils (%) (Auto) 67.4 % Lymphocytes (%) (Auto) 17.2 % Monocytes (%) (Auto) 12.3 % Eosinophils (%) (Auto) 2.5 % Basophils (%) (Auto) 0.2 % Neutrophils # (Auto) 3.77 K/uL (1.4-6.5) Lymphocytes # (Auto) 0.96 K/uL (1.2-3.4) Monocytes # (Auto) 0.69 K/uL (0.11-0.59) Eosinophils # (Auto) 0.14 K/uL (0-0.5) Basophils # (Auto) 0.01 K/uL (0-0.2) RDW Standard Deviation 44.0 fL (36.4-46.3) RDW Coefficient of Variation 13.2 % (11.5-14.5) Immature Granulocyte % (Auto) 0.4 % Immature Granulocyte # (Auto) 0.02 K/uL (0.00-0.02) Platelet Estimate DECREASED Red Blood Cell Morphology Unremarkable Anion Gap 9.0 mmol/L (3-11) Est Creatinine Clear Calc Drug Dose 47.2 ml/min Estimated GFR () 51.5 Estimated GFR (Non- 44.5 BUN/Creatinine Ratio 12.4 (10-20) Calcium Level 8.7 mg/dl (8.5-10.1) Total Bilirubin 0.4 mg/dl (0.2-1) Direct Bilirubin < 0.1 mg/dl (0-0.2) Aspartate Amino Transf (AST/SGOT) 19 U/L (15-37) Alanine Aminotransferase (ALT/SGPT) 26 U/L (12-78) Alkaline Phosphatase 71 U/L (45-117) Troponin I < 0.015 ng/ml (0-0.045) Total Protein 7.2 gm/dl (6.4-8.2) Albumin 3.6 gm/dl (3.4-5.0) Lipase 143 U/L (73-393) Urine Color DK YELLOW Urine Appearance CLEAR (CLEAR) Urine pH 5.5 (4.5-7.5) Urine Specific [place] 1.023 (1.000-1.030) Urine Protein NEG (NEG) Urine Glucose (UA) NEG (NEG) Urine Ketones TRACE (NEG) Urine Occult Blood NEG (NEG) Urine Nitrite NEG (NEG) Urine Bilirubin NEG (NEG) Urine Urobilinogen NEG (NEG) Urine Leukocyte Esterase TRACE (NEG) Urine WBC (Auto) 1-5 /hpf (0-5) Urine RBC (Auto) 0-4 /hpf (0-4) Urine Hyaline Casts (Auto) 1-5 /lpf (0-5) Urine Epithelial Cells (Auto) 5-10 /lpf (0-5) Urine Bacteria (Auto) NEG (NEG) Influenza Type A Antigen Neg for Influ A (NEG) Influenza Type B Antigen Neg for Influ B (NEG) Laboratory results per my review. Medications Administered Medications (Trade) Dose Ordered Sig/Cherise Route Start Time Stop Time Status Last Admin Dose Admin Heparin Sodium (Porcine) (Heparin 100 Unit/ml 5ml Flush) 5 ml STK-MED ONCE .ROUTE 04/01/17 12:16 04/01/17 12:17 DC 04/01/17 12:16 5 ML Potassium Chloride (Klor-Con M10) 40 meq NOW STAT PO 04/01/17 12:33 04/01/17 12:34 DC 04/01/17 12:46 40 MEQ ECG Indication: weakness Rate (beats per minute): 69 Rhythm: sinus rhythm Findings: no ectopy, other (Normal axis and intervals) ED Course ED COURSE: Vital signs were reviewed and showed normal vitals The patients medical record was reviewed The above diagnostic studies were performed and reviewed. ED treatments and interventions as stated above. 0856: The patient was evaluated in room B06. A complete history and physical examination was performed. 1132: I reevaluated the patient. He is going to get a CT of the head because of his intermittent dizziness and history with cancer. 1216: Ordered Heparin Sodium (Porcine) 5ml .ROUTE 1233: Ordered Potassium Chloride 40 meq PO 1234: Upon reevaluation, the patient is standing at the nurses station requesting to be discharge. I discussed my findings with the patient and he understands and agrees with the treatment plan. Based on the patients age, coexisting illnesses, exam and lab findings the decision to treat as an outpatient was made. The patient remained stable while under my care. The patient appeared well at the time of discharge. Medical Decision Differential Diagnosis includes but is not limited to dehydration, stroke, anemia, hypoglycemia, hyponatremia, hypernatremia, urinary tract infection, pneumonia, bronchitis, sepsis, gastroenteritis, additional abdominal pathology, metabolic abnormalities and infections. Patient is a 71-year-old male with a past medical history of small cell lung carcinoma that presents to ER for diffuse weakness the past several days. He has no other complaints. Labs show no significant anemia or leukocytosis. He did have a mild thrombocytopenia. Potassium was slightly low at 3.4. Creatinine 1.53. BUN slightly elevated at 20. Does suggest dehydration. Bilirubin all LFTs was normal. Troponin normal. Lipase normal. UA unremarkable. Influenza AB-. Chest x-ray unremarkable. Patient was updated bedside. He was given fluids. He is also given oral potassium. He was discharged follow-up with PCP as an outpatient. Discussed with Pt concerning signs and symptoms to watch out for. Pt was instructed to follow up with their PCP and discussed with the patient their option to return to the ED at anytime for persistent or worsening symptoms. The appropriate anticipatory guidance and out-patient management, including indications for return to the emergency department, were explained at length to the patient and understood. Medication Reconcilliation Current Medication List: was personally reviewed by me Blood Pressure Screening Patient's blood pressure: Normal blood pressure Blood pressure disposition: Did not require urgent referral Impression Primary Impression: Weak Additional Impression: Hypokalemia Scribe Attestation The scribe's documentation has been prepared under my direction and personally reviewed by me in its entirety. I confirm that the note above accurately reflects all work, treatment, procedures, and medical decision making performed by me. Departure Information Dispostion Home / Self-Care Referrals Jesus العلي M.D. (PCP) Forms HOME CARE DOCUMENTATION FORM, IMPORTANT VISIT INFORMATION Patient Instructions ED Weakness BARBARA, My [facility] Additional Instructions Please follow up with your primary care doctor with in the next 24 hours. Any worsening of your symptoms, please return to the ED immediately. This includes any fevers greater than 100.4, worsening pain, chest pain, shortness breath, persistent nausea, vomiting, unable to eat or drink, or any other concerning signs or symptoms from your standpoint. Please take the potassium tablets as prescribed. Please follow up with your primary care doctor within 24 hours. Problem Qualifiers
== END 2017-04-01 12:56 | disposition home or self-care (01) ==
LOC: C.EDB 08:44
DX: R53.1 Weakness (principal); E87.6 Hypokalemia; C34.90 Malignant neoplasm of unspecified part of unspecified bronchus or lung; I71.4 Abdominal aortic aneurysm, without rupture; Z87.891 Personal history of nicotine dependence; Z83.3 Family history of diabetes mellitus; Z82.49 Family history of ischemic heart disease and other diseases of the circulatory system

== ENCOUNTER → 2017-04-18 | Outpatient (CLI) | payer OTHER ==
[~2017-04-18] MED LIST changes: -DOCU100C31 PO; +OMEP20TA PO; -OMEP40CA PO; +OPTIRAY 320 IV PRN; -VGR50 PO
--- NOTE | 2017-04-18 09:14 | DIAGNOSTIC IMAGING REPORT ---
CT SCAN OF THE CHEST AND ABDOMEN WITH IV CONTRAST CLINICAL HISTORY: Lung cancer follow-up. COMPARISON STUDY: Chest CT scans dated 01/03/2017 and 09/03/2015. Abdominal CT dated 01/08/2016. PET/CT dated 07/07/2016. TECHNIQUE: Following the IV administration of 95 of Optiray 320, CT scan of the chest and abdomen was performed from the thoracic inlet to the pelvic inlet. Images are reviewed in the axial, sagittal, and coronal planes. IV contrast was administered without complication. Automated dose control exposure was utilized. A dose lowering technique was utilized adhering to the principles of ALARA. The examination is degraded by streak artifact from the patient's arms which could not be elevated above the chest or abdomen. CT DOSE: 1541.24 mGycm FINDINGS: CHEST: Thyroid: Imaged portions of the thyroid gland are normal in size and attenuation. Thoracic aorta: There is atherosclerotic calcification of the thoracic aorta. There is unchanged mild ectasia of the ascending thoracic aorta which measures up to 4.1 cm. The remainder of the thoracic aorta is normal in caliber and the arch demonstrates standard 3-vessel anatomy. No dissection is seen. A left subclavian central venous infusion port is in place. Pulmonary vasculature: The pulmonary trunk is normal in caliber. There are no filling defects identified in the central pulmonary vessels to indicate pulmonary embolus. Note that this examination was not protocoled for evaluation of the pulmonary arteries. Heart: The heart is top normal in size and without pericardial effusion. The coronary arteries are densely calcified. Lungs and pleural spaces: Emphysema is noted. Postoperative change is seen in the left upper lobe. The trachea and central airways are clear. 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 There is no airspace consolidation typical for pneumonia or pleural effusion. Dependent atelectasis is observed. There are numerous small calcified granulomas. Mediastinum: There are subcentimeter mediastinal lymph nodes. These are not pathologically enlarged by size criteria. [place]: Clear. Axillae: There is no axillary lymphadenopathy. Bony thorax: The skeletal structures are osteopenic. No lytic or blastic lesions are identified. There is a mild superior endplate compression deformity of T12. ABDOMEN: Liver: The contrast-enhanced liver is normal in size, contour, and attenuation. There is no intrahepatic or ductal dilatation. The hepatic veins and portal veins are patent. Gallbladder: Unremarkable. Spleen: Normal in size and attenuation. There are scattered calcified splenic granulomas. Pancreas: Unremarkable. Adrenal glands: Unremarkable. Kidneys: The contrast enhanced kidneys demonstrate cortical atrophy and are without hydronephrosis. The kidneys enhance symmetrically. Abdominal vasculature: There is advanced atherosclerotic calcification of the abdominal aorta. There has been aortobiiliac stent graft repair of an infrarenal abdominal and there is an. The aneurysm sac measures 5.0 x 5.4 cm. The stent graft is patent. Bowel: There is mild to moderate constipation. There is no evidence of bowel obstruction. Peritoneum: There is no intraperitoneal free air or abdominal ascites. Lymphadenopathy: None. Skeletal structures: No lytic or blastic lesions are seen. There is a mild superior endplate compression deformity of L1. There is mild lumbosacral spondylosis. IMPRESSION: 1. There is no evidence of recurrent or metastatic disease in the chest. 2. There is no evidence of metastatic disease in the abdomen. 3. Emphysema and postoperative changes from left upper lobe resection. 4. No airspace consolidation or pleural effusion is identified. 5. No acute infectious or inflammatory findings are seen in the abdomen. 6. The patient is status post stent graft repair of an infrarenal abdominal aortic aneurysm. The aneurysm sac measures 5 x 5.4 cm. 7. Additional findings as above. Electronically signed by: Paolo Katz M.D. 04/18/2017 9:13 AM Dictated Date/Time: 04/18/2017 9:03 AM
== END | disposition home or self-care (01) ==
LOC: C.CTS 08:09
PROVIDERS: ATTEND Internal Medicine Hematology & Oncology
DX: C34.12 Malignant neoplasm of upper lobe, left bronchus or lung (principal); J43.9 Emphysema, unspecified; Z90.2 Acquired absence of lung [part of]

== ENCOUNTER → 2017-06-22 | Outpatient (CLI) | payer OTHER ==
[~2017-06-22] MED LIST changes: -OPTIRAY 320 IV PRN
[2017-06-22 12:30] LABS: BASO % 0.3 %; BASO ABS # 0.02 K/uL (0-0.2); EOS % 2.8 %; EOS ABS # 0.19 K/uL (0-0.5); HEMATOCRIT 38.8 % (42-52); HEMOGLOBIN 13.1 g/dL (14.0-18.0); IG# 0.04 K/uL (0.00-0.02); LYMPH % 17.7 %; LYMPH ABS # 1.19 K/uL (1.2-3.4); MEAN CELL VOLUME 90.2 fL (80-100); MEAN CORPUSCULAR HEMOGLOBIN 30.5 pg (25-34); MEAN CORPUSCULAR HGB CONC 33.8 g/dl (32-36); MEAN PLATELET VOLUME 9.2 fL (7.4-10.4); MONO % 10.6 %; MONO ABS # 0.71 K/uL (0.11-0.59); NEUT ABS # 4.57 K/uL (1.4-6.5); PLATELET COUNT 134 K/uL (130-400); RED CELL DISTRIBUTION WIDTH CV 14.9 % (11.5-14.5); RED CELL DISTRIBUTION WIDTH SD 48.9 fL (36.4-46.3); WHITE BLOOD COUNT 6.72 K/uL (4.8-10.8)
[2017-06-22 13:31] LABS: ALBUMIN 4.1 gm/dl (3.4-5.0); ALT/SGPT 16 U/L (12-78); AST/SGOT 15 U/L (15-37); BLOOD UREA NITROGEN 21 mg/dl (7-18); CALCIUM 9.3 mg/dl (8.5-10.1); CARBON DIOXIDE 27 mmol/L (21-32); CHOLESTEROL 183 mg/dl (0-200); CREATININE 1.44 mg/dl (0.60-1.40); GLUCOSE 100 mg/dl (70-99); POTASSIUM 4.4 mmol/L (3.5-5.1); SODIUM 135 mmol/L (136-145)
[2017-06-22 13:41] LABS: ALKALINE PHOSPHATASE 59 U/L (45-117); LDL CHOLESTEROL CALCULATED 103 mg/dl; TOTAL PROTEIN 7.7 gm/dl (6.4-8.2)
== END | disposition home or self-care (01) ==
LOC: C.LABBFT 08:35
PROVIDERS: ATTEND Internal Medicine
DX: R73.01 Impaired fasting glucose (principal); E78.5 Hyperlipidemia, unspecified

== ENCOUNTER → 2017-07-04 | Outpatient (CLI) | payer OTHER | END | disposition home or self-care (01) | LOC: C.LABBFT 08:25 | PROVIDERS: ATTEND Internal Medicine | DX: R31.29 Other microscopic hematuria (principal) ==

== ENCOUNTER → 2017-07-19 | Outpatient (CLI) | payer OTHER ==
[~2017-07-19] MED LIST changes: +OPTIRAY 320 IV PRN
--- NOTE | 2017-07-19 09:09 | DIAGNOSTIC IMAGING REPORT ---
CT OF THE CHEST WITH IV CONTRAST CLINICAL HISTORY: Small cell lung cancer. COMPARISON STUDY: Chest CT April 18, 2017. TECHNIQUE: Following IV administration of 94 mL of Optiray-320, helical axial images of the chest were obtained. Sagittal and coronal reconstructions were viewed as well as maximal intensity projections on an independent 3-D workstation. A dose lowering technique was utilized adhering to the principles of ALARA. CT DOSE: 869.81 mGycm FINDINGS: No enlarged axillary, mediastinal or hilar lymph nodes are present. The size of the heart is normal. Extensive coronary artery calcification is noted. Mild dilatation of the ascending aorta, measuring 4 cm at the level the main pulmonary artery is unchanged. Mild dilatation of the distal descending thoracic aorta is unchanged. There is moderate emphysema. Postoperative findings with the left upper lobe suggestive of a wedge resection are unchanged. There are no suspicious pulmonary nodule. Mild subpleural reticulation and groundglass opacities unchanged. There is no consolidation to suggest pneumonia. The appearance of the chest is unchanged. There are no suspicious osseous lesions. The abdomen and pelvis will be reported separately. A tracheal diverticulum just below level of the thoracic inlet is noted. Several calcified granulomas are noted. IMPRESSION: 1. No evidence of metastatic disease within the chest. 2. Moderate emphysema. Electronically signed by: Pee Hoskins M.D. 07/19/2017 9:07 AM Dictated Date/Time: 07/19/2017 8:57 AM
--- NOTE | 2017-07-19 09:31 | DIAGNOSTIC IMAGING REPORT ---
CT OF THE ABDOMEN WITH IV AND ORAL CONTRAST CLINICAL HISTORY: Small cell lung cancer. COMPARISON STUDY: CT of the abdomen April 18, 2017. TECHNIQUE: Axial images of the abdomen were obtained following intravenous injection of 94 cc of Optiray 320 IV. Oral contrast was administered. FINDINGS: The chest will be reported separately. The liver, adrenal glands, kidneys and pancreas are unremarkable. There are calcified granulomas within the spleen. There is no biliary or pancreatic ductal dilatation. Note is made of a bifurcated aortoiliac stent graft which is similar in appearance to exam of April 18, 2017. The aneurysm sac measures 5.2 x 5.1 cm. No abdominal lymphadenopathy is present. Caliber and wall thickness of visualized small and large bowel are normal. There is no ascites. There are no suspicious osseous lesions. There is grade I anterolisthesis of L5 on S1 due to bilateral L5 pars defects. There are old mild compression deformities within the lumbar spine. IMPRESSION: 1. No evidence of metastatic disease within the abdomen. 2. Status post placement of a bifurcated aortoiliac stent graft for infrarenal abdominal aortic aneurysm. No change in appearance. Electronically signed by: Pee Hoskins M.D. 07/19/2017 9:30 AM Dictated Date/Time: 07/19/2017 9:13 AM
== END | disposition home or self-care (01) ==
LOC: C.CTS 08:03
PROVIDERS: ATTEND Internal Medicine Hematology & Oncology
DX: C34.12 Malignant neoplasm of upper lobe, left bronchus or lung (principal)

== ENCOUNTER → 2017-08-03 | Outpatient (CLI) | payer OTHER ==
[~2017-08-03] MED LIST changes: -OPTIRAY 320 IV PRN
== END | disposition home or self-care (01) ==
LOC: C.PATHSPEC 17:09
PROVIDERS: ATTEND Urology
DX: R31.29 Other microscopic hematuria (principal)

== ENCOUNTER → 2017-10-20 | Outpatient (CLI) | payer OTHER ==
[~2017-10-20] MED LIST changes: +OPTIRAY 320 IV PRN
--- NOTE | 2017-10-20 10:06 | DIAGNOSTIC IMAGING REPORT ---
CT (CHEST) THORAX WITH CT DOSE: 814.43 mGy.cm HISTORY: Lung carcinoma X TECHNIQUE: Multiaxial CT images of the chest were performed following the intravenous administration of contrast. A dose lowering technique was utilized adhering to the principles of ALARA. COMPARISON: 07/19/2017 FINDINGS: No change in the prior exam. Mild emphysematous change. Stable left hemithoracic postoperative changes consistent with a prior wedge resection. Mild chronic interstitial change unaltered. IMPRESSION: 1. Unchanged exam compared to the prior study. 2. Stable emphysematous and postoperative change. 3. No evidence for new interval or progressive finding. The above report was generated using voice recognition software. It may contain grammatical, syntax or spelling errors. Electronically signed by: Justin Duarte M.D. 10/20/2017 10:05 AM Dictated Date/Time: 10/20/2017 9:57 AM
--- NOTE | 2017-10-20 10:20 | DIAGNOSTIC IMAGING REPORT ---
CT OF THE ABDOMEN WITH CONTRAST CLINICAL HISTORY: Surveillance for small cell lung cancer. COMPARISON STUDY: CT of the abdomen July 19, 2017. TECHNIQUE: Axial images of the abdomen were obtained following intravenous injection of 119 cc Optiray 320 IV. Oral contrast was administered. FINDINGS: Please note that the chest CT will be reported separately. No hepatic lesions are present. The spleen, adrenal glands, kidneys and pancreas are unremarkable. There is no biliary or pancreatic ductal dilatation patient. A few granulomas within the spleen are noted. There is no abdominal lymphadenopathy or ascites. No hydronephrosis is present. Infrarenal abdominal aortic endovascular bifurcated stent graft is noted. Iliac limbs are partially imaged. Aneurysm sac is unchanged in size since prior exam, measuring 5.3 x 5 cm. No suspicious osseous lesion is noted. IMPRESSION: 1. No evidence of metastatic disease within the abdomen. 2. Status post placement of bifurcated aortoiliac stent graft for infrarenal abdominal aortic aneurysm. No change in appearance. Electronically signed by: Pee Hoskins M.D. 10/20/2017 10:18 AM Dictated Date/Time: 10/20/2017 10:09 AM
== END | disposition home or self-care (01) ==
LOC: C.CTS 09:19
PROVIDERS: ATTEND Internal Medicine Hematology & Oncology
DX: C34.12 Malignant neoplasm of upper lobe, left bronchus or lung (principal); I71.4 Abdominal aortic aneurysm, without rupture

== ENCOUNTER 2018-12-31 22:34 | Inpatient (IN) ==
[2018-12-31] MEDS ORDERED: SODIUM CHLORIDE 0.9% 250 ML IV PRN (22:45)
[2018-12-31] MEDS ORDERED: SODIUM CHLORIDE 0.9% 500 ML IV SCH (22:45)
[2018-12-31] MEDS ORDERED: SODIUM CHLORIDE 0.9% 1000ML 1,000 ML IV SCH (22:45)
--- NOTE | 2018-12-31 22:57 | XRay Report ---
XR chest 1V portable HISTORY: GI bleed. COMPARISON: Chest CT 09/15/2018. FINDINGS: No pneumothorax. No pleural effusions. The heart is normal in size. Left subclavian Port-A- Cath terminates at the distal SVC. No evidence for pulmonary edema. Suture material within the periph elizabeth of the left upper lobe. There is persistent subpleural density adjacent to the suture material. IMPRESSION: No significant change compared to the prior study. No acute process. Electronically signed by: Mina Woodward M.D. 12/31/2018 10:54 PM
[2018-12-31 23:24] LABS: INR 1.1 (0.9-1.1); Partial Thromboplastin Time 25.9 Seconds (21.0-31.0); Prothrombin Time 10.9 Seconds (9.0-12.0)
[2018-12-31 23:26] LABS: iSTAT Creatinine 1.7 mg/dl (0.6-1.3); iSTAT Hemoglobin 9.9 g/dl (14.0-18.0); iSTAT Ionized Calcium 1.06 mmol/l (1.12-1.32); iSTAT Potassium 4.1 mEq/L (3.3-5.0)
[2018-12-31 23:32] LABS: Albumin Level 3.1 gm/dl (3.4-5.0); BUN Creatinine Ratio 14.3 (10-20); Calcium 8.1 mg/dl (8.5-10.1); Creatinine Clr Calc Pharmacy 41.1 ml/min; Est GFR (African American) 45.4; Est GFR (Non-African American) 39.1; Potassium 3.8 mmol/L (3.5-5.1)
[2018-12-31 23:33] LABS: Basophils # (auto) 0.02 K/uL (0-0.2); Basophils % (auto) 0.2 %; Eosinophils # (auto) 0.17 K/uL (0-0.5); Eosinophils % (auto) 2.1 %; Hematocrit (blood only) 30.8 % (42-52); Hemoglobin 10.2 g/dL (14.0-18.0); Immature Granulocytes # (auto) 0.02 K/uL (0.00-0.02); Immature Granulocytes % (auto) 0.2 %; Lymphocytes # (auto) 1.21 K/uL (1.2-3.4); Mean Corpuscular Hemoglobin 30.2 pg (25-34); Mean Corpuscular Hgb Conc 33.1 g/dL (32-36); Mean Corpuscular Volume 91.1 fL (80-100); Monocytes # (auto) 0.54 K/uL (0.11-0.59); Monocytes % (auto) 6.7 %; Neutrophils # (auto) 6.09 K/uL (1.4-6.5); Neutrophils % (auto) 75.8 %; Platelet Count 100 K/uL (130-400); RDW Standard Deviation 46.4 fL (36.4-46.3); Red Blood Count 3.38 M/uL (4.7-6.1); White Blood Count 8.05 K/uL (4.8-10.8)
[2018-12-31 23:35] LABS: Albumin Globulin Ratio 1.1 (0.9-2); Bilirubin,Total 0.3 mg/dl (0.2-1); Globulin 2.9 gm/dl (2.5-4.0)
[2019-01-01] MEDS ORDERED: OPTIRAY 320 125ml IV PRN (00:16)
--- NOTE | 2019-01-01 00:34 | Emergency Department Note ---
Entered by Alexandrea Padilla acting as a scribe for History of Present Illness General Chief complaint: Rectal Bleed Stated complaint: rectal bleeding Time Seen by Provider: 12/31/18 22:42 Source: patient and family () History of Present Illness Onset (ago): hour(s) 2 Location: buttocks Pain Consistency: + constant Relieved By: + none Associated symptoms: + diaphoresis, + weakness and + other (lightheaded) Treatments prior to arrival: none The patient is a 73 year old male who presents to the Emergency Room with complaints of rectal bleeding that started about 2 hours prior to arrival. This evening, he went to the bathroom and called his . She noted that there was copious amounts of bright red blood in the toilet. The states the first incident occurred around 20:00, and it happened 2 more times after that. She reports that the blood became thicker and filled the whole toilet, which is when she decided to call the ambulance. His also notes that on Tuesday her had a colonoscopy, and that today he was doing a lot of heavy lifting. He complains of diaphoresis, weakness, and lightheadedness. He denies abdominal pain. He does not take any blood thinners. He has never had a blood transfusion. He has a history of an AAA, and had a stent placed about 2 years ago. Home Medications Home Medications Medication Instructions Recorded Confirmed Type omeprazole 20 mg capsule,delayed 20 mg PO QAM 11/18/18 12/31/18 History release rosuvastatin 10 mg PO QAM 12/18/18 12/31/18 History Allergies Allergy/AdvReac Type Severity Reaction Status Date / Time morphine Allergy Intermediate BROKE OUT Verified 12/31/18 23:13 IN SWEATS, "THOUGHT I WAS DYING", SOB Past Med/Surg History Medical History CKD (chronic kidney disease) stage 3, GFR 30-59 ml/min BPH (benign prostatic hyperplasia) GERD (gastroesophageal reflux disease) Hyperlipidemia (Chronic) AAA (abdominal aortic aneurysm) without rupture (Chronic) Lung cancer (Chronic 08/09/16) "Incidental finding of a left upper lobe lesion on preoperative chest x-ray Status post bronchoscopy and biopsy 07/09/2016 nondiagnostic Status post left upper lobe wedge resection and lymph node biopsies 08/09/2016 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 Radiation completed 10/29/2016. He received 6000 cGy. Status post completion of prophylactic cranial irradiation 02/13/2017. 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 Radiation completed 10/29/2016. 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 Villanueva 2015 History of hemorrhoidectomy History of lung surgery Status post left upper lobe wedge resection and lymph node biopsies 08/09/2016 History of revision of total replacement of right knee joint History of tooth extraction all teeth removed History of total right knee replacement (TKR) History of vascular access device Aport in place on left side of chest Family History Grandmother (Maternal) Family history of diabetes mellitus Uncle Family history of diabetes mellitus Other No family history of adverse response to anesthesia Social History Preferred Language: Divehi Communication Ability: Effective Identification And Records Commander Required: No Beliefs That Will Affect Care: None Current Living Situation: Spouse Feels Safe at Home: Yes Smoking Status: Former smoker Tobacco Type: cigarettes ; Cigarettes Per Day: 10 ; Second Hand Exposure: No ; Hx Alcohol Use: Yes Alcohol type: beer Hx Substance Use: No Review of Systems See HPI for pertinent positives & negatives. and A total of 10 systems reviewed and were otherwise negative Physical Exam Vital Signs Vital Signs - 24 hr 12/31/18 22:40 12/31/18 23:21 12/31/18 23:22 Temperature 36.9 C Temperature Source Oral Sepsis Recent Fever Within 48 Hours No Sepsis Action Taken by Nursing No Action Required Pulse Rate 60 56 L Pulse Rate from SpO2 Sensor 55 L Pulse Rhythm Regular Pulse Strength Normal Respiratory Rate 16 24 Respiratory Effort / Characteristics Non-Labored Spontaneous Respiratory Depth Normal Blood Pressure 77/53 L 115/65 Blood Pressure Mean 61 81 Blood Pressure Position Sitting Pulse Oximetry 94 99 Oxygen Delivery Method Room Air Room Air Room Air 12/31/18 23:31 12/31/18 23:59 01/01/19 00:01 Temperature Temperature Source Sepsis Recent Fever Within 48 Hours Sepsis Action Taken by Nursing Pulse Rate 57 L 66 66 Pulse Rate from SpO2 Sensor 58 L 66 66 Pulse Rhythm Pulse Strength Respiratory Rate 24 22 24 Respiratory Effort / Characteristics Respiratory Depth Blood Pressure 121/69 117/71 123/105 H Blood Pressure Mean 86 86 111 Blood Pressure Position Pulse Oximetry 100 99 100 Oxygen Delivery Method Room Air Room Air 01/01/19 00:02 01/01/19 00:16 01/01/19 00:30 Temperature Temperature Source Sepsis Recent Fever Within 48 Hours Sepsis Action Taken by Nursing Pulse Rate 62 59 L 75 Pulse Rate from SpO2 Sensor 62 59 L 63 Pulse Rhythm Pulse Strength Respiratory Rate 22 20 24 Respiratory Effort / Characteristics Respiratory Depth Blood Pressure 118/76 144/73 H Blood Pressure Mean 90 96 Blood Pressure Position Pulse Oximetry 100 99 99 Oxygen Delivery Method Vital signs reviewed. General: Hypotensive, cool to touch.Well-appearing older male, in no significant distress. HEENT: No scleral icterus, PERRLA, neck supple. Atraumatic. Cardiovascular: Regular rate and rhythm, no extra sounds. Pulmonary: Clear to auscultation bilaterally, normal work of breathing. Abdomen: Soft, nontender, nondistended, positive bowel sounds. Rectal: Hemoccult positive. Bright red blood present. Normal mucosa Musculoskeletal: Atraumatic, no peripheral edema. Neurologic: Patient awake alert and oriented x 3 Skin: Warm, dry, no rash Course 2248: Past medical records reviewed. The patient was evaluated in room A02. A complete history and physical exam was performed. 2300: The patient was moved to room B01 for further treatment and evaluation. 2315: I rechecked on the patient, and his blood pressure has improved. He is sitting up and talking to the nurse. 0012: I reevaluated the patient, who is resting comfortably. 0054: I spoke to Dr. Christianson, [facility] hospitalist, who agreed to take over care of the patient. The patient verbally expressed understanding and agreement of the treatment plan. The patient will be evaluated for further treatment. Administered Medications Discontinued Medications Sodium Chloride (Nss) 500 mls @ 999 mls/hr IV .Q31M GABRIELLA Stop: 12/31/18 23:15 Last Infusion: 01/01/19 03:36 Dose: 0 mls/hr Documented by: [id number] Admin: 01/01/19 03:00 Dose: 999 mls/hr Documented by: [id number] Sodium Chloride (Nss 1000ml) 1,000 mls @ 125 mls/hr IV .Q8H GABRIELLA Stop: 01/30/19 22:44 Last Infusion: 01/01/19 02:00 Dose: 0 mls/hr Documented by: [id number] Admin: 12/31/18 22:53 Dose: 125 mls/hr Documented by: [id number] Sodium Chloride (Nss 1000ml) 1,000 mls @ 80 mls/hr IV .[id number] GABRIELLA Stop: 01/31/19 01:14 Last Admin: 01/02/19 03:40 Dose: 80 mls/hr Documented by: [id number] Infusion: 01/02/19 03:16 Dose: 80 mls/hr Documented by: [id number] Admin: 01/01/19 14:46 Dose: 80 mls/hr Documented by: [id number] Infusion: 01/01/19 14:30 Dose: 80 mls/hr Documented by: [id number] Admin: 01/01/19 02:00 Dose: 80 mls/hr Documented by: [id number] Famotidine 20 mg/ Syringe 5 mls @ 2.5 mls/min IV Q12H GABRIELLA Stop: 01/31/19 03:14 Last Admin: 01/02/19 16:49 Dose: 2.5 mls/min Documented by: [id number] Admin: 01/02/19 03:40 Dose: 2.5 mls/min Documented by: [id number] Admin: 01/01/19 15:51 Dose: 2.5 mls/min Documented by: [id number] Admin: 01/01/19 04:00 Dose: 2.5 mls/min Documented by: [id number] Acetaminophen (Ofirmev) 65 mls @ 200 mls/hr IV 0645 ONE Stop: 01/02/19 07:04 Last Infusion: 01/02/19 07:34 Dose: 0 mls/hr Documented by: [id number] Admin: 01/02/19 07:14 Dose: 200 mls/hr Documented by: [id number] Ioversol (Optiray 320 125ml) 118 ml IV ONCE PRN PRN Reason: Interaction Checking Stop: 01/05/19 00:15 Last Admin: 01/01/19 00:16 Dose: 1 ml Documented by: [id number] Ondansetron HCl (Zofran) 4 mg IV Q6H PRN PRN Reason: Nausea Stop: 01/31/19 01:41 Last Admin: 01/02/19 03:40 Dose: 4 mg Documented by: [id number] Polyethylene Glycol (Miralax Powder Packet) 238 gm PO ONE ONE Stop: 01/01/19 16:04 Last Admin: 01/01/19 16:32 Dose: 238 gm Documented by: [id number] Medical Decision Making Differential Diagnosis Differential diagnosis includes: diverticulosis, AVM, coagulopathy, colitis, inflammatory bowel disease, malignancy, Dayanara-Pino tear, esophagitis, peptic ulcer disease, variceal bleed, gastritis, epistaxis, fissure, hemorrhoids, as well as others were entertained. Medical Records Attestation: I reviewed the patient's medical records. Home Medications Current Medication List: was personally reviewed by me Laboratory Data Attestation: I reviewed the patient's lab results. Result diagrams: 01/02/19 06:16 01/02/19 06:16 Lab Results 12/31/18 12/31/18 12/31/18 Range/Units 23:06 23:06 23:06 WBC 8.05 (4.8-10.8) K/uL RBC 3.38 L (4.7-6.1) M/uL Hgb 10.2 L (14.0-18.0) g/dL POC Hgb (14.0-18.0) g/dl Hct 30.8 L (42-52) % POC Hct (42-52) % MCV 91.1 (80-100) fL MCH 30.2 (25-34) pg MCHC 33.1 (32-36) g/dL RDW Std Deviation 46.4 H (36.4-46.3) fL RDW Coeff of Waldo 14.0 (11.5-14.5) % Plt Count 100 L (130-400) K/uL MPV 9.0 (7.4-10.4) fL Immature Gran % (Auto) 0.2 % Neut % (Auto) 75.8 % Lymph % (Auto) 15.0 % Park % (Auto) 6.7 % Eos % (Auto) 2.1 % Baso % (Auto) 0.2 % Immature Gran # (Auto) 0.02 (0.00-0.02) K/uL Neut # (Auto) 6.09 (1.4-6.5) K/uL Lymph # (Auto) 1.21 (1.2-3.4) K/uL Park # (Auto) 0.54 (0.11-0.59) K/uL Eos # (Auto) 0.17 (0-0.5) K/uL Baso # (Auto) 0.02 (0-0.2) K/uL PT 10.9 (9.0-12.0) Seconds INR 1.1 (0.9-1.1) APTT 25.9 (21.0-31.0) Seconds PTT Ratio 1.0 POC Sodium (135-144) mEq/L Sodium 139 (136-145) mmol/L POC Potassium (3.3-5.0) mEq/L Potassium 3.8 (3.5-5.1) mmol/L POC Chloride (101-112) mEq/L Chloride 105 (98-107) mmol/L Carbon Dioxide 23 (21-32) mmol/L POC Total CO2 (24-31) mEq/l Anion Gap 11.0 (3-11) POC Anion Gap (16-25) mmol/L POC BUN (7-18) mg/dl BUN 24 H (7-18) mg/dl Creatinine 1.68 H (0.6-1.4) mg/dl POC Creatinine (0.6-1.3) mg/dl Est Cr Clr Drug Dosing 41.1 ml/min Est GFR ( Amer) 45.4 Est GFR (Non-Af Amer) 39.1 BUN/Creatinine Ratio 14.3 (10-20) Glucose 137 H (70-99) mg/dl POC Glucose (other) (70-99) mg/dl Calcium 8.1 L (8.5-10.1) mg/dl POC Ioniz Calcium Maris (1.12-1.32) mmol/l Total Bilirubin 0.3 (0.2-1) mg/dl AST 17 (15-37) U/L ALT 15 (12-78) U/L Alkaline Phosphatase 52 (45-117) U/L Total Protein 6.0 L (6.4-8.2) gm/dl Albumin 3.1 L (3.4-5.0) gm/dl Globulin 2.9 (2.5-4.0) gm/dl Albumin/Globulin Ratio 1.1 (0.9-2) POC Stool Occult Blood (Negative) Blood Type Antibody Screen Crossmatch 12/31/18 12/31/18 12/31/18 Range/Units 23:06 23:11 Unknown WBC (4.8-10.8) K/uL RBC (4.7-6.1) M/uL Hgb (14.0-18.0) g/dL POC Hgb 9.9 L (14.0-18.0) g/dl Hct (42-52) % POC Hct 29 L (42-52) % MCV (80-100) fL MCH (25-34) pg MCHC (32-36) g/dL RDW Std Deviation (36.4-46.3) fL RDW Coeff of Waldo (11.5-14.5) % Plt Count (130-400) K/uL MPV (7.4-10.4) fL Immature Gran % (Auto) % Neut % (Auto) % Lymph % (Auto) % Park % (Auto) % Eos % (Auto) % Baso % (Auto) % Immature Gran # (Auto) (0.00-0.02) K/uL Neut # (Auto) (1.4-6.5) K/uL Lymph # (Auto) (1.2-3.4) K/uL Park # (Auto) (0.11-0.59) K/uL Eos # (Auto) (0-0.5) K/uL Baso # (Auto) (0-0.2) K/uL PT (9.0-12.0) Seconds INR (0.9-1.1) APTT (21.0-31.0) Seconds PTT Ratio POC Sodium 135 (135-144) mEq/L Sodium (136-145) mmol/L POC Potassium 4.1 (3.3-5.0) mEq/L Potassium (3.5-5.1) mmol/L POC Chloride 104 (101-112) mEq/L Chloride (98-107) mmol/L Carbon Dioxide (21-32) mmol/L POC Total CO2 22 L (24-31) mEq/l Anion Gap (3-11) POC Anion Gap 14.0 L (16-25) mmol/L POC BUN 28 H (7-18) mg/dl BUN (7-18) mg/dl Creatinine (0.6-1.4) mg/dl POC Creatinine 1.7 H (0.6-1.3) mg/dl Est Cr Clr Drug Dosing ml/min Est GFR ( Amer) Est GFR (Non-Af Amer) BUN/Creatinine Ratio (10-20) Glucose (70-99) mg/dl POC Glucose (other) 142 H (70-99) mg/dl Calcium (8.5-10.1) mg/dl POC Ioniz Calcium Maris 1.06 L (1.12-1.32) mmol/l Total Bilirubin (0.2-1) mg/dl AST (15-37) U/L ALT (12-78) U/L Alkaline Phosphatase (45-117) U/L Total Protein (6.4-8.2) gm/dl Albumin (3.4-5.0) gm/dl Globulin (2.5-4.0) gm/dl Albumin/Globulin Ratio (0.9-2) POC Stool Occult Blood Positive A (Negative) Blood Type A Positive Antibody Screen NEGATIVE Crossmatch See Detail Imaging Data Radiologist's Impression: Radiology results as stated below per my review and the radiologist's interpretation: XR chest 1V portable HISTORY: GI bleed. COMPARISON: Chest CT 09/15/2018. FINDINGS: No pneumothorax. No pleural effusions. The heart is normal in size. Left subclavian Port-A-Cath terminates at the distal SVC. No evidence for pulmonary edema. Suture material within the periphery of the left upper lobe. There is persistent subpleural density adjacent to the suture material. IMPRESSION: No significant change compared to the prior study. No acute process. CTA ABDOMEN & PELVIS: No change in size of an infrarenal abdominal aortic aneurysm measuring 5.7 cm in maximum diameter, status post aortobiiliac stent placement. No stent malfunction. No evidence of endoleak or rupture. Diverticulosis without diverticulitis. No bowel wall thickening or obstruction. 2 surgical clips are identified in the cecum. Recommend correlation with previous surgeries. Appendix is not identified. No free fluid or free air. 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 Old compre ssion deformity of T12 and L1 with 25% loss of height and no retropulsion. Radiologist: Kelly Avery MD Study ready at 00:15 and initial results transmitted at 00:30 Electronically signed by: Mina Woodward M.D. 12/31/2018 10:54 PM ECG Data Attestation: I personally reviewed and interpreted this ECG as follows: Indication: other (rectal bleeding) Rate (beats per minute): 58 Rhythm: sinus bradycardia Findings: + other (QTC: 453); no acute ischemic change and no ectopy Blood Pressure Blood Pressure Findings: Normal blood pressure Blood Pressure Disposition: did not require urgent referral MDM Narrative This pt was evaluated and appeared to be somewhat ill. BP is noted to be low. IV access was obtained and lab work was drawn. PT was placed on the teletypesetter monitor. Pt has BRBPR on exam. He was type and crossed for 2 units PRBC, pt was clear he was consenting to blood but wanted it "only if absolutely necessary." IVF were initiated and BP did improve after bolus. CT abd pelvis was performed to r/o AAA complication. This study is as above, no acute vascular issue but surgical clips in the cecum were identified. I suspect bleeding is coming from a polypectomy site. Pt likely lost a clip bearing down while lifting appliances. Pt was d/w Dr. King of [facility] hospitalist service who will evaluate the pt for further management. Impression & Plan Lower GI bleed, Anemia, Hypotension, S/P colonoscopic polypectomy Critical Care Time Critical Care Time: Yes The high probability of a clinically significant, sudden or life threatening deterioration required my full and direct attention, intervention and personal management. The aggregate critical care time was 35 minutes. This time is in addition to time spent performing reported procedures but includes the following: [x] Data Review and interpretation [x] Patient assessment and monitoring of vital signs [x] Documentation [x] IVF orders, blood consent and management Discharge Plan Visit Data *Final* Discharge Date/Time: 01/01/19 01:34 Chief Complaint: Rectal Bleed Stated Complaint: rectal bleeding ED Provider: Amber Ambriz Discharge Problem: Lower GI bleed, Anemia, Hypotension, S/P colonoscopic polypectomy Patient Disposition: Admitted As Inpatient Discharge Instructions Interventions: ED Discharge Assessment Last Done: 01/01/19 01:34 Discharge Problem: Anemia Qualifiers: Anemia type: unspecified type Qualified Code(s): D64.9 - Anemia, unspecified Hypotension Qualifiers: Hypotension type: unspecified hypotension type Qualified Code(s): I95.9 - Hypotension, unspecified The scribe's documentation has been prepared under my direction and personally reviewed by me in its entirety. I confirm that the note above accurately reflects all work, treatment, procedures, and medical decision making performed by me.
[2019-01-01] MEDS ORDERED: ONDANSETRON INJ 2 MG/ML 2 ML VIAL IV PRN (01:42)
[2019-01-01] MEDS: SODIUM CHLORIDE 0.9% 1000ML 1,000 ML IV SCH ×2 (02:00→14:46)
--- NOTE | 2019-01-01 03:13 | History & Physical Report ---
Date of Service January 01, 2019 Assessment & Plan (1) Lower GI bleed: Patient presents to the emergency department with lower GI bleed status post colonoscopy were 6 polyps removed and 2 metal clips were placed. Bleeding began after exertional effort with Valsalva. Patient was initially hypotensive with systolic blood pressure in the 70s, that improved to 120s 140s after IV fluid rehydration. Hemoglobin was 10.2 upon admission with baseline 11.6-13.7. We will follow serial H&H's every 6 hours. Type and screen has been performed. NPO. Admit to monitored bed. Consult Dr. Trejo, gastroenterology. Present on Admission?: Yes (2) Hypotension: See above Present on Admission?: Yes (3) Anemia: See above Present on Admission?: Yes (4) S/P colonoscopic polypectomy: See above. Present on Admission?: Yes (5) CKD (chronic kidney disease) stage 3, GFR 30-59 ml/min: Creatinine upon admission was 1.68, with baseline 1.44-1.57. Follow serial BMP. Present on Admission?: Yes (6) GERD (gastroesophageal reflux disease): Hold omeprazole while n.p.o. Placed on famotidine 20 mg IV every 12 hours Present on Admission?: Yes (7) Hyperlipidemia: Hold rosuvastatin while n.p.o. Present on Admission?: Yes (8) AAA (abdominal aortic aneurysm) without rupture: Infrarenal AAA stable at 5.7 cm. Aortobiiliac stent stable as noted on CT. Present on Admission?: Yes History of Present Illness Chief Complaint: The patient presents to the emergency department with complaint of acute onset of rectal bleeding, with lightheadedness following, after moving a water heater and a refrigerator earlier in the evening. Primary Care Provider: Jesus العلي MD The patient is a 73-year-old male who underwent a colonoscopy with removal of 6 polyps and placement of 2 metal clips on 12/27/2018. The patient was doing well, until he moved these heavy objects earlier in the evening prior to arrival. He did have associated lightheadedness and dizziness upon arrival to the emergency department, systolic blood pressure was in the 70s, but he has been feeling significantly better since he was given IV fluids, and systolic blood pressures rebounded to the 120s to 140s range. Allergies Allergy/AdvReac Type Severity Reaction Status Date / Time morphine Allergy Intermediate BROKE OUT Verified 12/31/18 23:13 IN SWEATS, "THOUGHT I WAS DYING", SOB Home Medications Home Medications Medication Instructions Recorded Confirmed Type omeprazole 20 mg capsule,delayed 20 mg PO QAM 11/18/18 12/31/18 History release rosuvastatin 10 mg PO QAM 12/18/18 12/31/18 History Past Med/Surg History Medical History CKD (chronic kidney disease) stage 3, GFR 30-59 ml/min BPH (benign prostatic hyperplasia) GERD (gastroesophageal reflux disease) Hyperlipidemia (Chronic) AAA (abdominal aortic aneurysm) without rupture (Chronic) Lung cancer (Chronic 08/09/16) "Incidental finding of a left upper lobe lesion on preoperative chest x-ray Status post bronchoscopy and biopsy 07/09/2016 nondiagnostic Status post left upper lobe wedge resection and lymph node biopsies 08/09/2016 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 Radiation completed 10/29/2016. He received 6000 cGy. Status post completion of prophylactic cranial irradiation 02/13/2017. 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 Radiation completed 10/29/2016. 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 Villanueva 2015 History of hemorrhoidectomy History of lung surgery Status post left upper lobe wedge resection and lymph node biopsies History of revision of total replacement of right knee joint History of tooth extraction all teeth removed History of total right knee replacement (TKR) History of vascular access device Aport in place on left side of chest Family History Grandmother (Maternal) Family history of diabetes mellitus Uncle Family history of diabetes mellitus Other No family history of adverse response to anesthesia Social History Preferred Language: Ukrainian Communication Ability: Effective Medicaid Nurse Required: No Beliefs That Will Affect Care: None Current Living Situation: Spouse Other Information That Helps Us Care for You: No Feels Safe at Home: Yes Safety Concerns: Feels Safe At This Time Smoking Status: Former smoker Tobacco Type: cigarettes ; Cigarettes Per Day: 10 ; Do You Dip or Chew Tobacco: No ; Second Hand Exposure: No ; Tobacco Cessation Education Requested by Patient: No Hx Alcohol Use: Yes Alcohol type: beer Hx Substance Use: No Review of Systems Review of Systems: The patient denies chest pain, palpitations, shortness of breath, dyspnea on exertion, cough, lower extremity swelling, sore throat, fevers, chills, sweats, nausea, vomiting, diarrhea , constipation, abdominal pain, pelvic pain, blood in urine, dysuria, urinary frequency or urgency, headache, memory loss, loss of consciousness, rash, imbalance, focal weakness, numbness or tingling in arms or legs, generalized arthralgias or myalgias, neck pain, or night sweats. The review of systems is otherwise negative other than for that already noted above, and at least 10 systems have been reviewed. Physical Exam Physical Exam: The patient is awake, alert and oriented 3, well developed and well nourished, normocephalic and atraumatic, lying in bed and in no acute d istress. HEENT--PERRL, EOMI, mucous membranes and oropharynx normal. Neck--supple. No JVD. No bruits. Thyroid normal, trachea midline, no adenopathy. Heart--normal S1 and S2. No murmurs, rubs or gallops. Lungs--clear bilaterally, no respiratory distress, no accessory muscle use. Abdomen--normal bowel sounds and soft. Nontender. Nondistended. Extremities--no cyanosis or clubbing. No edema. There are good distal pulses b/l. Dermatologic--normal skin turgor, normal color, no abnormal lymph nodes, no rash. Neurologic--cranial nerves II through XII grossly intact. Rheumatologic--normal range of motion. Psychiatric--normal affect. Results & Data Vital Signs (Past 12 Hours) Vital Signs Temp Pulse Pulse Resp BP BP Pulse Ox 01/01/19 01:46 97.5 F L 59 L 18 126/81 93 01/01/19 01:30 55 L 20 120/72 96 01/01/19 01:00 67 17 123/75 98 01/01/19 00:30 75 24 144/73 H 99 01/01/19 00:16 59 L 20 118/76 99 01/01/19 00:02 62 22 100 01/01/19 00:01 66 24 123/105 H 100 12/31/18 23:59 66 22 117/71 99 12/31/18 23:31 57 L 24 121/69 100 12/31/18 23:21 56 L 24 115/65 99 12/31/18 22:40 98.4 F 60 16 77/53 L 94 Laboratory Results Laboratory Results WBC 8.05 K/uL (4.8-10.8) 12/31/18 23:06 RBC 3.38 M/uL (4.7-6.1) L 12/31/18 23:06 Hgb 10.2 g/dL (14.0-18.0) L 12/31/18 23:06 POC Hgb 9.9 g/dl (14.0-18.0) L 12/31/18 23:11 Hct 30.8 % (42-52) L 12/31/18 23:06 POC Hct 29 % (42-52) L 12/31/18 23:11 MCV 91.1 fL (80-100) 12/31/18 23:06 MCH 30.2 pg (25-34) 12/31/18 23:06 MCHC 33.1 g/dL (32-36) 12/31/18 23:06 RDW Std Deviation 46.4 fL (36.4-46.3) H 12/31/18 23: RDW Coeff of Waldo 14.0 % (11.5-14.5) 12/31/18 23: Plt Count 100 K/uL (130-400) L 12/31/18 23:06 MPV 9.0 fL (7.4-10.4) 12/31/18 23:06 Immature Gran % (Auto) 0.2 % 12/31/18 23: Neut % (Auto) 75.8 % 12/31/18 23: Lymph % (Auto) 15.0 % 12/31/18 23: Garvin % (Auto) 6.7 % 12/31/18 23: Eos % (Auto) 2.1 % 12/31/18 23: Baso % (Auto) 0.2 % 12/31/18 23:06 Immature Gran # (Auto) 0.02 K/uL (0.00-0.02) 12/31/18 23: Neut # (Auto) 6.09 K/uL (1.4-6.5) 12/31/18 23:06 Lymph # (Auto) 1.21 K/uL (1.2-3.4) 12/31/18 23:06 Garvin # (Auto) 0.54 K/uL (0.11-0.59) 12/31/18 23:06 Eos # (Auto) 0.17 K/uL (0-0.5) 12/31/18 23:06 Baso # (Auto) 0.02 K/uL (0-0.2) 12/31/18 23: PT 10.9 Seconds (9.0-12.0) 12/31/18 23:06 INR 1.1 (0.9-1.1) 12/31/18 23:06 APTT 25.9 Seconds (21.0-31.0) 12/31/18 23: PTT Ratio 1.0 12/31/18 23:06 POC Sodium 135 mEq/L (135-144) 12/31/18 23:11 Sodium 139 mmol/L (136-145) 12/31/18 23:06 POC Potassium 4.1 mEq/L (3.3-5.0) 12/31/18 23:11 Potassium 3.8 mmol/L (3.5-5.1) 12/31/18 23:06 POC Chloride 104 mEq/L (101-112) 12/31/18 23:11 Chloride 105 mmol/L (98-107) 12/31/18 23:06 Carbon Dioxide 23 mmol/L (21-32) 12/31/18 23:06 POC Total CO2 22 mEq/l (24-31) L 12/31/18 23:11 Anion Gap 11.0 (3-11) 12/31/18 23:06 POC Anion Gap 14.0 mmol/L (16-25) L 12/31/18 23:11 POC BUN 28 mg/dl (7-18) H 12/31/18 23:11 BUN 24 mg/dl (7-18) H 12/31/18 23:06 Creatinine 1.68 mg/dl (0.6-1.4) H 12/31/18 23:06 POC Creatinine 1.7 mg/dl (0.6-1.3) H 12/31/18 23:11 Est Cr Clr Drug Dosing 41.1 ml/min 12/31/18 23:06 Est GFR ( Amer) 45.4 12/31/18 23:06 Est GFR (Non-Af Amer) 39.1 12/31/18 23:06 BUN/Creatinine Ratio 14.3 (10-20) 12/31/18 23:06 Glucose 137 mg/dl (70-99) H 12/31/18 23:06 POC Glucose (other) 142 mg/dl (70-99) H 12/31/18 23:11 Calcium 8.1 mg/dl (8.5-10.1) L 12/31/18 23:06 POC Ioniz Calcium Maris 1.06 mmol/l (1.12-1.32) L 12/31/18 23:11 Total Bilirubin 0.3 mg/dl (0.2-1) 12/31/18 23:06 AST 17 U/L (15-37) 12/31/18 23:06 ALT 15 U/L (12-78) 12/31/18 23:06 Alkaline Phosphatase 52 U/L (45-117) 12/31/18 23:06 Total Protein 6.0 gm/dl (6.4-8.2) L 12/31/18 23:06 Albumin 3.1 gm/dl (3.4-5.0) L 12/31/18 23:06 Globulin 2.9 gm/dl (2.5-4.0) 12/31/18 23:06 Albumin/Globulin Ratio 1.1 (0.9-2) 12/31/18 23:06 POC Stool Occult Blood Positive (Negative) A 12/31/18 Unknown Blood Type A Positive 12/31/18 23:06 Antibody Screen NEGATIVE 12/31/18 23:06 Crossmatch See Detail 12/31/18 23:06 Diagnostic Findings [place], [place] [phone] XRay Report Patient: MONICA SERRANO Date: 12/31/18 MR#: [id number]: [address] Acct ID:[id number]: [facility] Zip: [place] [address] Age: 73Location: ED Sex: M Room/Bed: Att Phy:Diagnosis: rectal bleeding Deepa Phy: Jesus العلي, MDService Date: 12/31/18 Fam Phy:Interpreting Phy: Mina Woodward MD Admit Phy: Ordering Phy: Amber Ambriz M.D. cc: ~ XR chest 1V portable HISTORY: GI bleed. COMPARISON: Chest CT 09/15/2018. FINDINGS: No pneumothorax. No pleural effusions. The heart is normal in size. Left subclavian Port-A-Cath terminates at the distal SVC. No evidence for pu lmonary edema. Suture material within the periphery of the left upper lobe. There is persistent subpleural density adjacent to the suture material. IMPRESSION: No significant change compared to the prior study. No acute process. Electronically signed by: Mina Woodward M.D. 12/31/2018 10:54 PM Dictated: 12/31/182250 Transcribed: 12/31/182250 [place], [place] GI REPORT Signed Patient: MONICA SERRANO Date: 12/27/18 MR#: [id number] Phy: Michael Trejo M.D. Acct ID:[id number] Phy: Jesus العلي MD Date: 1945Fam Phy: Age: 73Location: ENDO Sex: M Room/Bed: cc: DICTATED BY: Michael Trejo M.D. Patient Name: Monica Serrano Procedure Date: 12/27/2018 3:10 PM Date of : 1945 Admit Type: Outpatient Age: 73 Gender: Male Attending MD: Michael Trejo MD Procedure: Colonoscopy Providers: Michael Trejo MD Referring MD: Jesus العلي Indications: Personal history of colonic polyps Medicines: Propofol total dose 230 mg IV, Ondansetron 4 mg IV, Lidocaine 80 mg IV Complications: No immediate complications. Estimated Blood Loss: Estimated blood loss: none. Procedure: Pre-Anesthesia Assessment: - Prior to the procedure, a History and Physical was performed, and patient medications, allergies and sensitivities were reviewed. The patient's tolerance of previous anesthesia was reviewed. - The risks and benefits of the procedure and the sedation options and risks were discussed with the patient. All questions were answered and informed consent was obtained. After I obtained informed consent, the scope was passed under direct vision. Throughout the procedure, the patient's blood pressure, pulse, and oxygen saturations were monitored continuously. The scope was introduced through the anus and advanced to the cecum, identified by appendiceal orifice and ileocecal valve. The colonoscopy was performed without difficulty. The patient tolerated the procedure well. The quality of the bowel preparation was good. Findings: Non-bleeding internal hemorrhoids were found during endoscopy. The hemorrhoids were moderate. Multiple small and large-mouthed diverticula were found in the sigmoid colon. A 7 mm polyp was found in the hepatic flexure. The polyp was sessile. The polyp was removed with a hot snare. Resection and retrieval were complete. Estimated blood loss: none. A 10 mm polyp was found in the cecum. The polyp was sessile. The polyp was removed with a hot snare. Resection and retrieval were complete. To prevent bleeding after the polypectomy, one hemostatic clip was successfully placed (MR conditional). There was no bleeding during, or at the end, of the procedure. A 7 mm polyp was found in the ascending colon. The polyp was sessile. The polyp was removed with a hot snare. Resection and retrieval were complete. Estimated blood loss: none. To prevent bleeding after the polypectomy, one hemostatic clip was successfully placed (MR conditional). There was no bleeding during, or at the end, of the procedure. A 7 mm polyp was found in the transverse colon. The polyp was sessile. The polyp was removed with a hot snare. Resection and retrieval were complete. Estimated blood loss: none. A 7 mm polyp was found in the splenic flexure. The polyp was sessile. The polyp was removed with a hot snare. Resection and retrieval were complete. Estimated blood loss: none. A 12 mm polyp was found in the descending colon. The polyp was sessile. The polyp was removed with a hot snare. Resection and retrieval were complete. Estimated blood loss: none. Impression: - Non-bleeding internal hemorrhoids. - Diverticulosis in the sigmoid colon. - One 7 mm polyp at the hepatic flexure, removed with a hot snare. Resected and retrieved. - One 10 mm polyp in the cecum, removed with a hot snare. Resected and retrieved. Clip (MR conditional) was placed. - One 7 mm polyp in the ascending colon, removed with a hot snare. Resected and retrieved. Clip (MR conditional) was placed. - One 7 mm polyp in the transverse colon, removed with a hot snare. Resected and retrieved. - One 7 mm polyp at the splenic flexure, removed with a hot snare. Resected and retrieved. - One 12 mm polyp in the descending colon, removed with a hot snare. Resected and retrieved. Recommendation: - Discharge patient to home (ambulatory). - Continue present medications. - Await pathology results. - Return to primary care physician PRN. Michael Trejo M.D. Michael Trejo MD 12/27/2018 3:55:26 PM This report has been signed electronically. Note Initiated On: 12/27/2018 3:10 PM Number of Addenda: 0 I attest to the content of the Intraoperative Record and orders documented therein, exceptions below {[id number]} Signed By:12/27/18 1555 Dictated: 12/27/18 1510 Transcribed: 12/27/18 1555Transcriptionist: YOBANY The status of this report is Signed. Draft = Not yet reviewed or approved by Medical Physician. Signed = Reviewed and shayla Code Status & VTE Plan Code Status Full code VTE Prophylaxis Plan VTE Prophylaxis will be ordered: Yes PG Care Time/CCT Total # of Minutes Spent Total Time Spent with Patient: Total time spent is greater than 50% in coordination of care (as documented) at patient's floor/unit and/or counseling patient: (1) Hypotension Hypotension type: unspecified hypotension type Qualified Code(s): I95.9 - Hypotension, unspecified (2) Anemia Anemia type: unspecified type Qualified Code(s): D64.9 - Anemia, unspecified
[2019-01-01] MEDS: FAMOTIDINE 20 MG in SYRINGE 3 ML IV SCH ×2 (04:00→15:51)
[2019-01-01 06:41] LABS: Hematocrit (blood only) 26.9 % (42-52); Hemoglobin 9.3 g/dL (14.0-18.0)
--- NOTE | 2019-01-01 06:59 | CT Scan Report ---
CT angio abdomen pelvis w con CLINICAL HISTORY: 73 years-old Male with AAA, rectal bleed acute rectal bleeding. History of abdom inal aortic aneurysm. History small cell lung cancer. COMPARISON STUDY: CT abdomen 09/15/2018, CT abd omen pelvis 05/12/2018. TECHNIQUE: Following the IV administration of 118 cc of Optiray 320, CT angiogram of the abdomen and pelvis was performed from the lung bases the proximal femora. Images are reviewed in the axial, sagit jose eduardo, and coronal planes. 3-D MIPS images are created and assessed. IV contrast was administered witho ut complication. A dose lowering technique was utilized adhering to the principles of ALARA. CT DOSE: 649.25 mGy.cm FINDINGS: CTA: Fusiform aneurysm dilation of the infrarenal abdominal aorta redemonstrated, 5.1 x 5.7 cm in AP and t ransverse dimension, unchanged from 09/15/2018. Patent aortobiiliac stent graft without evidence of an eurysm rupture or endoleak. Patent bilateral iliac arteries with patent bilateral common femoral and imaged proximal superficial femoral arteries. Bilateral renal arteries, celiac trunk, and superior me senteric arteries appear patent. Inferior mesenteric artery may receive flow from retrograde collater als without significant contrast noted within the proximal aspect of the CELINA. This appears unchanged from comparison study. CT ABDOMEN/PELVIS: Mild bibasilar bronchial wall thickening with minimal subsegmental bibasilar atelectasis. No pneumato sis or pneumoperitoneum. Imaged inferior cardiac chambers appear mildly enlarged. Scattered calcific granulomata noted about the spleen and liver. Mildly contracted gallbladder with suggestion of cholel ithiasis. No CT evidence of acute cholecystitis. Pancreas is unremarkable. Mild thickening of the raul ateral adrenal glands is unchanged. Mild nonspecific bilateral perinephric stranding. No suspicious r enal mass lesions or hydronephrosis. Ureters are unremarkable. Mild urinary bladder wall thickening i s nonspecific. No adenopathy. There is no bowel obstruction. Air-fluid level noted about the rectum. Colonic diverticulosis without acute diverticulitis. Partial distention with mild wall thickening since of the cecum through the mi d transverse colon. There are 2 surgical clips noted about the cecum. Terminal ileum is unremarkable. The appendix is not definitively seen. No secondary signs of acute appendicitis. Soft tissues are un remarkable. Degenerative changes of the spine, pelvis and hips. Remote bilateral L5 pars defects with 1.5 cm anterolisthesis L5 on S1. Remote appearing compression deformities at T12 and L1 with remote appearing Schmorl's node about the superior endplate of L2. These findings appear unchanged from 05/12. IMPRESSION: 1. Unchanged size and appearance of the fusiform infrarenal abdominal aortic aneurysm measuring up to 5.1 x 5.7 cm. Patent aortobiiliac stent graft without evidence of aneurysm rupture or endoleak. 2. Air-fluid level about the rectosigmoid may reflect diarrheal illness. 3. Colonic diverticulosis without acute diverticulitis. 4. No bowel obstruction or bowel wall thickening. 5. Additional findings as above. The above report was generated using voice recognition software. It may contain grammatical, syntax o r spelling errors. Electronically signed by: Damian Pizarro M.D. 01/01/2019 6:57 AM
[2019-01-01 11:07] LABS: Hematocrit (blood only) 27.8 % (42-52); Hemoglobin 9.4 g/dL (14.0-18.0)
[2019-01-01] MEDS ORDERED: POLYETHYLENE (MIRALAX) 17 GM PACK PO ONE (16:03)
--- NOTE | 2019-01-01 16:11 | Gastrointestinal Consultation ---
Date of Consultation January 01, 2019 Assessment & Plan (1) Lower GI bleed: Most likely lower with differential including post polypectomy bleeding, diverticular bleeding. Hemorrhoidal does not generally cause this drop. Seems to have stopped at present. Discussed with patient recommend bowel prep overnight. If the blood clear then can be DCed. If has ongoing bleeding then colonoscopy tomorrow. Acute blood loss anemai--trend and transfuse prn colon polyps post polypectomy--as above path all benign tubular adenoma and tubulovillous adenoma diverticulosis---as above. History of Present Illness Reason for Consultation: GI bleeding Requesting Physician: Sylvain Shaw Attending Physician: Sylvain Shaw History of Present Illness CC bleeding HPI Pt had colo by DR Kerns 12/27/18 reviewed report and noted 6 polyps all hot snared ranging in size from 7-12 mm with two of them clipped. Also found was sigmoid diverticulosis and internal hemorrhoids. Pt did fine until last pm after moving heavy objects had bright red then dark rectal bleeding 3 times wiht last of any substance about 2100. This afternoon small pink tinged stool. No abd pain. Had lightheadeness on admit. Hgb on admit 10.2 with most recent 9.4 at 1048. Hgb on 08/30/18 was 13.7. Allergies Allergy/AdvReac Type Severity Reaction Status Date / Time morphine Allergy Intermediate BROKE OUT Verified 12/31/18 23:13 IN SWEATS, "THOUGHT I WAS DYING", SOB Home Medications Home Medications Medication Instructions Recorded Confirmed Type omeprazole 20 mg capsule,delayed 20 mg PO QAM 11/18/18 12/31/18 History release rosuvastatin 10 mg PO QAM 12/18/18 12/31/18 History Patient History Medical History CKD (chronic kidney disease) stage 3, GFR 30-59 ml/min BPH (benign prostatic hyperplasia) GERD (gastroesophageal reflux disease) Hyperlipidemia (Chronic) AAA (abdominal aortic aneurysm) without rupture (Chronic) Lung cancer (Chronic 08/09/16) "Incidental finding of a left upper lobe lesion on preoperative chest x-ray Status post bronchoscopy and biopsy 07/09/2016 nondiagnostic Status post left upper lobe wedge resection and lymph node biopsies 08/09/2016 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 Radiation completed 10/29/2016. He received 6000 cGy. Status post completion of prophylactic cranial irradiation 02/13/2017. 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 Radiation completed 10/29/2016. 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 Villanueva 2015 History of hemorrhoidectomy History of lung surgery Status post left upper lobe wedge resection and lymph node biopsies 08/09/2016 History of revision of total replacement of right knee joint History of tooth extraction all teeth removed History of total right knee replacement (TKR) History of vascular access device Aport in place on left side of chest Family History Grandmother (Maternal) Family history of diabetes mellitus Uncle Family history of diabetes mellitus Other No family history of adverse response to anesthesia Social History Preferred Language: Nepali Communication Ability: Effective [employer] Consultant Required: No Beliefs That Will Affect Care: None Current Living Situation: Spouse Other Information That Helps Us Care for You: No Feels Safe at Home: Yes Safety Concerns: Feels Safe At This Time Smoking Status: Former smoker Tobacco Type: cigarettes ; Cigarettes Per Day: 10 ; Do You Dip or Chew Tobacco: No ; Second Hand Exposure: No ; Tobacco Cessation Education Requested by Patient: No Hx Alcohol Use: Yes Alcohol type: beer Hx Substance Use: No Review of Systems Review of Systems: All systems reviewed & are unremarkable except as noted in HPI & below Physical Exam Constitutional: WD/WN, vitals as above Eyes: PERRL, conjunctivae normal, anicteric sclerae ENMT: external ear and nose normal, oropharynx normal Neck: normal visual inspection and trachea midline Respiratory: normal respiratory effort, lungs clear to auscultation Cardiovascular: RRR, no murmur, no edema Gastrointestinal (Abdomen): normal bowel sounds, soft, nontender, no hepatosplenomegaly Musculoskeletal: no cyanosis or clubbing, extremities motor strength 5/5 Skin: normal turgor Neurologic: patellar DTR's 2+ bilat, sensation intact Psychiatric: A+Ox3, euthymic affect Results & Data Vital Signs (Past 12 Hours) Vital Signs Temp Pulse Resp BP Pulse Ox 01/01/19 15:28 36.8 C 61 18 125/79 95 01/01/19 11:34 36.4 C L 59 L 20 108/66 97 01/01/19 07:34 36.5 C 66 18 120/78 96
[2019-01-01 18:23] LABS: Hematocrit (blood only) 27.2 % (42-52); Hemoglobin 9.2 g/dL (14.0-18.0)
--- NOTE | 2019-01-01 21:34 | Hospitalist Progress Note ---
Date of Service January 01, 2019 Assessment & Plan (1) Lower GI bleed: Patient presents to the emergency department with lower GI bleed status post colonoscopy were 6 polyps removed and 2 metal clips were placed. Bleeding began after exertional effort with Valsalva. Patient was initially hypotensive with systolic blood pressure in the 70s, that improved to 120s 140s after IV fluid rehydration. Hemoglobin was 10.2 upon admission with baseline 11.6-13.7. Level dropped to about 9. will continue to monitor hemoglobin. Patient will likely require colonoscopy. Will hold off transfusion unless hemoglobin drops to below 7. NPO. Admit to monitored bed. Consult Dr. Trejo, gastroenterology. (2) Hypotension: See above (3) Anemia: See above (4) S/P colonoscopic polypectomy: See above. (5) CKD (chronic kidney disease) stage 3, GFR 30-59 ml/min: Creatinine upon admission was 1.68, with baseline 1.44-1.57. Follow serial BMP. (6) GERD (gastroesophageal reflux disease): Hold omeprazole while n.p.o. Placed on famotidine 20 mg IV every 12 hours (7) Hyperlipidemia: Hold rosuvastatin while n.p.o. (8) AAA (abdominal aortic aneurysm) without rupture: Infrarenal AAA stable at 5.7 cm. Aortobiiliac stent stable as noted on CT. (9) Acute kidney injury: Creatinine is 1.68 on admission. Likely from acute blood loss anemia. Will recheck in AM. Subjective 73 yo male reports feeling well. He is waiting for the GI specialist to see him. He state he is very hungry. Patient denies any nausea, vomiting, diarrhea. Review of Systems Review of Systems: All systems reviewed & are unremarkable except as noted in HPI & below Physical Exam Physical Exam: The patient is awake, alert and oriented 3, well developed and well nourished, normocephalic and atraumatic, lying in bed and in no acute distress. HEENT--PERRL, EOMI, mucous membranes and oropharynx normal. Neck--supple. No JVD. No bruits. Thyroid normal, trachea midline, no adenopathy. Heart--normal S1 and S2. No murmurs, rubs or gallops. Lungs--clear bilaterally, no respiratory distress, no accessory muscle use. Abdomen--normal bowel sounds and soft. Nontender. Nondistended. Extremities--no cyanosis or clubbing. No edema. There are good distal pulses b/l. Dermatologic--normal skin turgor, normal color, no abnormal lymph nodes, no rash. Neurologic--cranial nerves II through XII grossly intact. Rheumatologic--normal range of motion. Psychiatric--normal affect. Results & Data Vital Signs (Past 12 Hours) Vital Signs Temp Pulse Resp BP Pulse Ox 01/01/19 19:11 36.5 C 68 18 117/72 98 01/01/19 15:28 36.8 C 61 18 125/79 95 01/01/19 11:34 36.4 C L 59 L 20 108/66 97 PG Care Time/CCT Total # of Minutes Spent Total Time Spent with Patient: Total time spent is greater than 50% in coordina tion of care (as documented) at patient's floor/unit and/or counseling patient: (1) Anemia Anemia type: unspecified type Qualified Code(s): D64.9 - Anemia, unspecified (2) Hypotension Hypotension type: unspecified hypotension type Qualified Code(s): I95.9 - Hypotension, unspecified
[2019-01-02] MEDS ORDERED: HEPARIN 100 UNIT/ML 5ML FLUSH FLUSH PRN (03:04)
[2019-01-02] MEDS: SODIUM CHLORIDE 0.9% 1000ML 1,000 ML IV SCH (03:40)
[2019-01-02] MEDS: FAMOTIDINE 20 MG in SYRINGE 3 ML IV SCH ×2 (03:40→16:49)
[2019-01-02 06:26] LABS: Hemoglobin 8.8 g/dL (14.0-18.0); Mean Corpuscular Hemoglobin 30.6 pg (25-34); Mean Corpuscular Hgb Conc 33.8 g/dL (32-36); Mean Corpuscular Volume 90.3 fL (80-100); RDW Standard Deviation 46.8 fL (36.4-46.3); Red Blood Count 2.88 M/uL (4.7-6.1); White Blood Count 6.68 K/uL (4.8-10.8)
[2019-01-02] MEDS ORDERED: ACETAMINOPHEN 65 ML IV ONE (06:45)
[2019-01-02 06:46] LABS: Basophils # (auto) 0.01 K/uL (0-0.2); Basophils % (auto) 0.1 %; Eosinophils # (auto) 0.16 K/uL (0-0.5); Eosinophils % (auto) 2.4 %; Immature Granulocytes # (auto) 0.02 K/uL (0.00-0.02); Immature Granulocytes % (auto) 0.3 %; Lymphocytes % (auto) 19.5 %; Mean Platelet Volume 8.4 fL (7.4-10.4); Monocytes # (auto) 0.61 K/uL (0.11-0.59); Monocytes % (auto) 9.1 %; Neutrophils # (auto) 4.58 K/uL (1.4-6.5); Neutrophils % (auto) 68.6 %; Platelet Count 82 K/uL (130-400); Platelet Estimate Normal (Normal)
[2019-01-02 07:09] LABS: Albumin Globulin Ratio 1.1 (0.9-2); Albumin Level 3.1 gm/dl (3.4-5.0); BUN Creatinine Ratio 10.4 (10-20); Bilirubin,Total 0.3 mg/dl (0.2-1); Calcium 8.1 mg/dl (8.5-10.1); Creatinine Clr Calc Pharmacy 50.7 ml/min; Est GFR (African American) 64.2; Est GFR (Non-African American) 55.4; Globulin 2.8 gm/dl (2.5-4.0); Potassium 4.1 mmol/L (3.5-5.1); Total Protein 5.9 gm/dl (6.4-8.2)
--- NOTE | 2019-01-02 14:23 | Gastroenterology Progress Note ---
Date of Service January 02, 2019 Assessment & Plan (1) Lower GI bleed: Stools did not clear completely so will do colonoscopy today. Proc and risks explained which include but not limited to med reaction, bleeding, perforation, aspiration, and missed lesions Acute blood loss anemai--Hg drop to 8.8 this am colon polyps post polypectomy--as above path all benign tubular adenoma and tubulovillous adenoma diverticulosis--nothing acute to do; . Subjective CC bleeding HPI Pt had bowel prep overnight and cleared to some extent but still some pink tinged stools. Physical Exam Constitutional: WD/WN, vitals as above Respiratory: normal respiratory effort, lungs clear to auscultation Cardiovascular: RRR, no murmur, no edema Gastrointestinal (Abdomen): normal bowel sounds, soft, nontender, no hepatosplenomegaly Neurologic: patellar DTR's 2+ bilat, sensation intact Psychiatric: A+Ox3, euthymic affect Results & Data Vital Signs (Past 12 Hours) Vital Signs Temp Pulse Resp BP Pulse Ox 01/02/19 13:39 36.7 C 59 L 20 121/74 99 01/02/19 11:39 36.5 C 55 L 18 121/67 99 01/02/19 07:24 36.4 C L 64 18 122/77 95 01/02/19 03:19 36.5 C 67 19 128/80 99
[2019-01-02] MEDS ORDERED: LIDOCAINE HCL 2% 2 ML VIAL/AMP(20MG/ML) INFIL ONE (14:26)
[2019-01-02] MEDS ORDERED: PROPOFOL IV EMULSION 10 MG/ML 20 ML VIAL IV ONE ×3 (14:26→15:32)
--- NOTE | 2019-01-02 14:53 | Anesthesiology Consultation ---
Date of Service January 02, 2019 Assessment & Plan (1) Encounter for pre-operative examination: Chart Review Chart Review: Acceptable Risk for Surgery Consults Requested none History Surgery Operation Date: 01/02/19 09:15 Proposed Procedures p Colonoscopy Dr Spencer Palmer Height/Weight Height: 5 ft 9 in Weight: 84.1 kg Allergies Allergy/AdvReac Type Severity Reaction Status Date / Time morphine Allergy Intermediate BROKE OUT Verified 12/31/18 23:13 IN SWEATS, "THOUGHT I WAS DYING", SOB Medications Home Medications Medication Instructions Recorded Confirmed Last Taken omeprazole 20 mg capsule,delayed 20 mg PO QAM 11/18/18 12/31/18 12/31/18 release rosuvastatin 10 mg PO QAM 12/18/18 12/31/18 12/31/18 Active Medications Generic Name Dose Route Start Last Admin Trade Name Freq PRN Reason Stop Dose Admin Sodium Chloride 1,000 mls @ 80 mls/hr 01/01/19 01:15 01/02/19 03:40 Nss 1000ml IV 01/31/19 01:14 80 mls/hr .[id number] GABRIELLA Administration Famotidine 20 mg/ Syringe 5 mls @ 2.5 mls/min 01/01/19 04:00 01/02/19 03:40 IV 01/31/19 03:14 2.5 mls/min Q12H GABRIELLA Administration Ioversol 118 ml 01/01/19 00:16 01/01/19 00:16 Optiray 320 125ml IV 01/05/19 00:15 1 ml ONCE PRN Administration Interaction Checking Ondansetron HCl 4 mg 01/01/19 01:42 01/02/19 03:40 Zofran IV 01/31/19 01:41 4 mg Q6H PRN Administration Nausea NPO Date Last Intake of Fluids: 01/02/19 Time Last Intake of Fluids: 09:00 Date Last Intake of Solids: 12/31/18 Time Last Intake of Solids: 19:30 Past Medical History Medical History CKD (chronic kidney disease) stage 3, GFR 30-59 ml/min BPH (benign prostatic hyperplasia) GERD (gastroesophageal reflux disease) Hyperlipidemia (Chronic) AAA (abdominal aortic aneurysm) without rupture (Chronic) Lung cancer (Chronic 08/09/16) "Incidental finding of a left upper lobe lesion on preoperative chest x-ray Status post bronchoscopy and biopsy 07/09/2016 nondiagnostic Status post left upper lobe wedge resection and lymph node biopsies 08/09/2016 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 Radiation completed 10/29/2016. He received 6000 cGy. Status post completion of prophylactic cranial irradiation 02/13/2017. 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 Radiation completed 10/29/2016. 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 Villanueva 2015 History of hemorrhoidectomy History of lung surgery Status post left upper lobe wedge resection and lymph node biopsies 08/09/2016 History of revision of total replacement of right knee joint History of tooth extraction all teeth removed History of total right knee replacement (TKR) History of vascular access device Aport in place on left side of chest Social History Smoking Status: Former smoker tobacco type: cigarettes Smoking cigarettes per day: 10 Do You Dip or Chew Tobacco: No Hx Alcohol Use: Yes Alcohol type: beer alcohol intake frequency: holidays/special occasions only Hx Substance Use: No substance use type: does not use Physical Exam Vital Signs Last Vital Signs Temp 36.7 C 01/02/19 13:39 Pulse 59 L 01/02/19 13:39 Resp 20 01/02/19 13:39 BP 121/74 01/02/19 13:39 Pulse Ox 99 01/02/19 13:39 Testing Laboratory Results 01/02/19 06:16 01/02/19 06:16 PT 10.9 Seconds (9.0-12.0) 12/31/18 23:06 INR 1.1 (0.9-1.1) 12/31/18 23:06 APTT 25.9 Seconds (21.0-31.0) 12/31/18 23:06 Blood Type A Positive 12/31/18 23:06 Antibody Screen NEGATIVE 12/31/18 23:06
--- NOTE | 2019-01-02 15:47 | GI REPORT ---
Patient Name: Sylvain Mariscal Procedure Date: 01/02/2019 2:39 PM Date of : 1945 Admit Type: Inpatient Age: 73 Gender: Male Attending MD: Fidel Palmer MD Procedure: Colonoscopy Providers: Fidel Palmer MD Referring MD: Sylvain Shaw M.d. Indications: Hematochezia, Post colo with multiple polyps removed 12/27/18 Medicines: Monitored Anesthesia Care Complications: No immediate complications. Estimated blood loss: Minimal. Estimated Blood Loss: Estimated blood loss was minimal. Procedure: Pre-Anesthesia Assessment: - The risks and benefits of the procedure and the sedation options and risks were discussed with the patient. All questions were answered and informed consent was obtained. - Patient identification and proposed procedure were verified prior to the procedure by the physician, the nurse and the ssas developer. The procedure was verified in the procedure room. After I obtained informed consent, the scope was passed under direct vision. Throughout the procedure, the patient's blood pressure, pulse, and oxygen saturations were monitored continuously. The Colonoscope was introduced through the anus and advanced to the cecum, identified by appendiceal orifice and ileocecal valve. The colonoscopy was performed without difficulty. The patient tolerated the procedure well. Procedure and risks explained to patient which include but not limited to med reaction, bleeding, perforation, aspiration and missed lesions. Judicious gas insufflation and gas removal done on the way out. The lumen always well visualized when advancing the scope. Washes and suctioning used as needed for good visuzlization of mucosa. Prep was good. Retroflexion in the rectum to look at the distal rectum and anal canal done. Findings: A single (solitary) ulcer was found in the cecum with clip noted corresponding to post polypectomy site. No bleeding was present. Stigmata of recent bleeding (small clot and visible vessel) were present. Limited coagulation for bleeding prevention using argon plasma at 1 liter/minute and 20 hylton was successful. To prevent bleeding post-intervention, three hemostatic clips were successfully placed. There was no bleeding at the end of the procedure. Multiple large-mouthed diverticula were found in the sigmoid colon. A 3 mm polyp was found in the ascending colon. The polyp was sessile. The polyp was removed with a lift and cut technique using a cold snare. Resection and retrieval were complete. Estimated blood loss was minimal. A 3 mm polyp was found in the ascending colon. The polyp was sessile. The polyp was removed with a cold biopsy forceps. Resection and retrieval were complete. Estimated blood loss was minimal. Both ascending colon polyps in same jar. AC polypectomy site noted with ulcer and clip. The other polypectomy sites seen included hepatic flexure, transverse colon, splenic flexure, and descending colon. All of the ulcers sites had flat red spots but none looked like they bled recently. Few other small polyps scattered and decided to leave these alone to avoid confusion if he rebleeds. The exam was otherwise without abnormality on direct and retroflexion views. Impression: - A single post polypectomy ulcer in the cecum with stigmata of recent bleeding. Treated with argon plasma coagulation (APC). Clips were placed. - Diverticulosis in the sigmoid colon. - One 3 mm polyp in the ascending colon, removed using lift and cut and a cold snare. Resected and retrieved. - One 3 mm polyp in the ascending colon, removed with a cold biopsy forceps. Resected and retrieved. - AC polypectomy site noted with ulcer and clip. The other polypectomy sites seen included hepatic flexure, transverse colon, splenic flexure, and descending colon. All of the ulcers sites had flat red spots but none looked like they bled recently. - Few other small polyps scattered and decided to leave these alone to avoid confusion if he rebleeds. - The examination was otherwise normal on direct and retroflexion views. Recommendation: - [facility] same day. - Repeat colonoscopy in 1 year for surveillance. Fidel Palmer M.D. Fidel Palmer MD 01/02/2019 3:46:35 PM This report has been signed electronically. Note Initiated On: 01/02/2019 2:39 PM Number of Addenda: 0 I attest to the content of the Intraoperative Record and orders documented therein, exceptions below {[id number]}
--- NOTE | 2019-01-02 15:53 | Post Operative Brief Note ---
Immediate Post Op Note v1 Date of Surgery January 02, 2019 Pre & Post Diagnosis Operation Date: 01/02/19 09:15 Pre-Op Diagnosis: LOWER GI BLEED Post-Op Diagnosis: Ascending polyps, diverticulosis Procedure Operation Date: 01/02/19 09:15 Actual Procedures p Colonoscopy Polypectomy - Fidel Palmer Surgeon Fidel Palmer Press Machine Feeder see report Estimated Blood Loss 3 Findings Consistent with Post-Op Diagnosis see report. Cecal polyp site most likely source of bleeding cauterized with APC and clipped. Discussed findings with patient who denies abd pain. Solid diet and can be DCed today from GI standpoint.
--- NOTE | 2019-01-02 16:22 | Anesthesiology Progress Note ---
Date of Service January 02, 2019 Anesthesia Post Procedure Vital Signs Vital Signs: Temp Pulse Pulse Resp BP Pulse Ox 01/02/19 16:06 58 L 20 132/61 98 01/02/19 15:52 65 20 133/76 01/02/19 15:36 60 20 110/63 99 01/02/19 13:39 36.7 C 59 L 20 121/74 99 01/02/19 11:39 36.5 C 55 L 18 121/67 99 01/02/19 07:24 36.4 C L 64 18 122/77 95 01/02/19 03:19 36.5 C 67 19 128/80 99 01/01/19 23:57 36.7 C 70 18 118/75 97 01/01/19 23:00 68 01/01/19 19:11 36.5 C 68 18 117/72 98 Transfer of Care Handoff Completed per policy Notes Mental Status: alert / awake / arousable Patient Amnestic to Procedure: Yes Nausea / Vomiting: adequately controlled Pain: adequately controlled Airway Patency, RR, SpO2: stable & adequate BP & HR: stable & adequate Hydration State: stable & adequate Anesthetic Complications: no major complications apparent and Pt Satisfied with anesthetic care
--- NOTE | 2019-01-03 07:50 | Discharge Summary ---
Date of Service January 02, 2019 Admission HPI Per Admitting Provider The patient is a 73-year-old male who underwent a colonoscopy with removal of 6 polyps and placement of 2 metal clips on 12/27/2018. The patient was doing well, until he moved these heavy objects earlier in the evening prior to arrival. He did have associated lightheadedness and dizziness upon arrival to the emergency department, systolic blood pressure was in the 70s, but he has been feeling significantly better since he was given IV fluids, and systolic blood pressures rebounded to the 120s to 140s range. Principal Diagnosis lower GI bleed Discharge Exam The patient is awake, alert and oriented 3, well developed and well nourished, normocephalic and atraumatic, lying in bed and in no acute distress. HEENT--PERRL, EOMI, mucous membranes and oropharynx normal. Neck--supple. No JVD. No bruits. Thyroid normal, trachea midline, no adenopathy. Heart--normal S1 and S2. No murmurs, rubs or gallops. Lungs--clear bilaterally, no respiratory distress, no accessory muscle use. Abdomen--normal bowel sounds and soft. Nontender. Nondistended. Extremities--no cyanosis or clubbing. No edema. There are good distal pulses b/l. Dermatologic--normal skin turgor, normal color, no abnormal lymph nodes, no rash. Neurologic--cranial nerves II through XII grossly intact. Rheumatologic--normal range of motion. Psychiatric--normal affect. Discharge Data Allergies Allergy/AdvReac Type Severity Reaction Status Date / Time morphine Allergy Intermediate BROKE OUT Verified 01/09/19 15:06 IN SWEATS, "THOUGHT I WAS DYING", SOB Consultations 01/01/19 00:19 ED Decision to Admit Stat 01/01/19 01:42 Consult Case Management - Discharge Planning Routine Consult Gastroenterology Routine Procedures Performed Operation Date: 01/02/19 09:15 Actual Procedures p Colonoscopy Polypectomy - Fidel Palmer Ordered Studies 12/31/18 23:31 CT angio abdomen pelvis w con Urgent Hospital Course (1) Lower GI bleed: Patient presents to the emergency department with lower GI bleed status post colonoscopy were 6 polyps removed and 2 metal clips were placed. Possible GI bleed post colonoscopy with polypectomy, a complication of care Patient reports heavy lifting prior to bleeding episode, he states it was about 50 kg. Patient wonders if this precipitated his bleeding episode. Bleeding began after exertional effort with Valsalva. Patient was initially hypotensive with systolic blood pressure in the 70s, that improved to 120s 140s after IV fluid rehydration. Hemoglobin was 10.2 upon admission with baseline 11.6-13.7. Level dropped to about 9. will continue to monitor hemoglobin. Patient will likely require colonoscopy. Will hold off transfusion unless hemoglobin drops to below 7. NPO. Admit to monitored bed. Consult Dr. Trejo, gastroenterology. On day of discharge: colonoscopy was completed and showed the following: A single post polypectomy ulcer in the cecum with stigmata of recent bleeding. Treated with argon plasma coagulation (APC). Clips were placed. Will recommend to trend patient's H and H as an outpatient. patient can be discharged. (2) Hypotension: See above (3) Anemia: See above (4) S/P colonoscopic polypectomy: See above. (5) CKD (chronic kidney disease) stage 3, GFR 30-59 ml/min: Creatinine upon admission was 1.68, with baseline 1.44-1.57. Follow serial BMP. (6) GERD (gastroesophageal reflux disease): Hold omeprazole while n.p.o. Placed on famotidine 20 mg IV every 12 hours (7) Hyperlipidemia: Hold rosuvastatin while n.p.o. (8) AAA (abdominal aortic aneurysm) without rupture: Infrarenal AAA stable at 5.7 cm. Aortobiiliac stent stable as noted on CT. (9) Acute kidney injury: Creatinine improved. Total Time Total Time Spent Total Time Spent (In Minutes): 32 Total Time Includes: Examination of the Patient, Discharge Planning, Medication Reconciliation and Communication With Other Providers Discharge Plan Discharge Items Patient Disposition: Home - Self-Care Reason For Visit: LOWER GI BLEED Discharge Diagnosis: lower GI bleed Activity: Resume your previous activity Non-emergency contact: Primary Care Provider Call non-emergency contact if: you have any medication questions Follow-up/Referrals: Ze العلي MD [Primary Care Provider] - 01/09/19 2:30 pm (Please, follow up with Dr. العلي on TuesdayJanuary 09 at 2:30 pm. *If you need to change this appointment, call the office at [phone].) Diet: Regular and Heart Healthy Addtl Attending Provider Instructions: Do not lift heavy objects. Resume home medications. Watch for any bleeding. Pending Studies at Discharge: No Stand-Alone Forms: [facility] Medications and DC Order Prescriptions: Continued omeprazole 20 mg capsule,delayed release(DR/EC) 20 mg PO QAM RF: 0 rosuvastatin 10 mg tablet 10 mg PO QAM RF: 0 Discharge Orders: Discharge Order (Routine); Ordered 01/02/19 Ordered By: Sylvain Shaw Admission Data Admit Date/Time: 01/01/19 01:14 Attending Provider: Sylvain Shaw Admit Provider: Silvino Christianson Primary Care Provider: Ze العلي Other Providers: Fidel Palmer. Other Interventions: Discharge Summary Assessment (RN) Last Done: 01/02/19 17:01 DC Date/Time DO NOT enter until pt leaves facility: 01/02/19 17:34
== END 2019-01-02 17:34 | disposition home or self-care (01) | DRG 920 ==
LOC: ED 22:34 → SUATTDRO 01-01 01:14 → 2S 01-01 01:14
DX: E78.5 Hyperlipidemia, unspecified; Z98.890 Other specified postprocedural states; J43.9 Emphysema, unspecified; Z86.010 Personal history of colon polyps; K91.840 Postprocedural hemorrhage of a digestive system organ or structure following a digestive system procedure; I95.9 Hypotension, unspecified; K63.5 Polyp of colon; Z87.891 Personal history of nicotine dependence; K57.30 Diverticulosis of large intestine without perforation or abscess without bleeding; N18.3 Chronic kidney disease, stage 3 (moderate); I71.4 Abdominal aortic aneurysm, without rupture; K21.9 Gastro-esophageal reflux disease without esophagitis; N17.9 Acute kidney failure, unspecified; Y83.8 Other surgical procedures as the cause of abnormal reaction of the patient, or of later complication, without mention of misadventure at the time of the procedure; Z88.5 Allergy status to narcotic agent; Z79.899 Other long term (current) drug therapy; D62 Acute posthemorrhagic anemia; K63.3 Ulcer of intestine

== ENCOUNTER 2023-03-28 20:13 | Inpatient (IN) ==
--- NOTE | 2023-03-28 20:40 | Emergency Department Note ---
Impression & Plan Acute hypoxic respiratory failure, Atrial fibrillation with rapid ventricular response, Multifocal pneumonia, Weakness, HAN (acute kidney injury), Non-ST elevation [place] (NSTEMI) ED Provider Note Provider: Gerardo Petersen MD DATE OF SERVICE: 03/28/2023 CHIEF COMPLAINT: Shortness of breath, weakness HISTORY OF PRESENT ILLNESS: Patient is a 77-year-old gentleman past medical history of small cell lung cancer, AAA with repair, GERD, CKD, diverticulitis, and COPD presenting here via ambulance from his home. states over the last approximately 4 days the patient's had increasing weakness and intake issues and difficulty breathing. Found to be in the 70s on room air for EMS upon arrival not normally on oxygen. Placed on nonrebreather 15 L with improvement of the mid 90s for EMS but tachycardic with increased work of breathing upon arrival. Patient's states the patient is normally ambulatory but since Tuesday has really just been on the sofa. Patient denies pain. No falls reporting. They both had COVID several weeks ago. Previous treatment for lung cancer but not current. No sick contacts or recent travel reported. Patient denies nausea or vomiting. states he did not have anything to eat today. No significant leg swelling reported. PAST MEDICAL HISTORY: As noted above MEDICATIONS: Reviewed home medications SOCIAL HISTORY: Lives at home with , former smoker PHYSICAL EXAM: GENERAL: alert to verbal stimuli with nonrebreather in place on stretcher with some increased work of breathing. Head: normocephalic and atraumatic EYES: No injection, discharge or icterus. PERRL NECK: Trachea midline. Supple. ENT: Mucous membranes pink with dry membranes. Pharynx without erythema or exudate. LUNGS: Airway patent. Some increased work of breathing and tachypnea. Scattered crackles. HEART: Regular rate and rhythm. No chest wall tenderness ABDOMEN: Soft and non-tender, without guarding or rebound. SKIN: Acyanotic, warm, dry, without rashes EXTREMITIES: Without swelling, tenderness or deformity NEUROLOGICAL: Moving all extremities. No facial droop. Some garbled speech appreciated/dysarthria. EK bpm sinus tachycardia. No PVC or PAC. No acute ST segment elevation or depression with a QTc of 466. Normal axis. EKG 2: 159 bpm atrial fibrillation with rapid ventricular response. No acute ST segment elevation or depression with QTc of 458. CONTINUOUS CARDIAC MONITORING: was ordered and showed a heart rate of 100s to 180s bpm in normal sinus rhythm and atrial fibrillation 1 view chest x-ray per interpretation: Evidence of lung scarring without pneumothorax. Significant left-sided airspace opacities concerning for multifocal pneumonia. Patient's laboratory studies and imaging reviewed. Differential includes Infection, dehydration, metabolic abnormality, hypo/hyperglycemia, electrolyte disturbance, anemia, hypoxia, cardiac sources, intracerebral event, toxicologic, neurologic, as well as other pathologies. IMPRESSION/MEDICAL DECISION MAKING: Patient assessed upon arrival with EMS in room C6. Saturation in the mid 90s on nonrebreather. However tachypneic with some work of breathing. Heart rate upon arrival shortly thereafter increases into the 150s to 70s. Given his work of breathing will place on BiPAP. No significant leg swelling but sounds a bit wet on exam versus pulmonary secretions. Chest x-ray ordered. Cultures and lactate ordered as well as VBG. No significant focal deficits. Appears to have dry mucous membranes and creatinine appears to be elevated from baseline. Decreased intake. Will check chest x-ray for possible fluid bolus to ensure no evidence of significant fluid overload. Review of records from November show no significant CHF on echocardiogram. 1 view chest x-ray reviewed by myself shows evidence of prior scarring of the left lung but significant areas of airspace opacities concerning for pneumonia. No significant pleural effusions noted. Transition from sinus tach to what appears to be rapid A-fib. Given some diltiazem and diltiazem drip ordered. Cefepime ordered for antibiotic coverage. Respiratory placed on BiPAP and suctioning was successful in removing a large amount of posterior oropharyngeal phlegm. Airway sounds improved significantly with this. BNP elevated 514 but given the rest of his exam and imaging, 2.75 L of IV fluid resuscitation ordered although blood pressure not low at this time. This is more than 30 mL/kg of IV fluid. Given the A-fib RVR voiding DuoNebs as prior PFTs show minimal to no response to bronchodilators from available medical record. VBG with a pH of 7.28 and a pCO2 of 52. Has been placed on BiPAP. Lactate elevated 2.4. Troponin elevated 197 likely demand in the setting of A-fib and his critical illness. Heparin drip was initiated given his A-fib. No significant anemia. Normal platelet count. White blood cell count normal. X- ray does appear to show evidence of pneumonia questions or could be some component of viral infection. Respiratory viral panel returns negative. Family updated. Respiratory rate improving on BiPAP. Heart rate slowly improving. Family and patient updated. Hospitalist contacted. For further differentiation of his underlying lung pathology a CT of the chest was ordered. Significant areas of consolidation noted. DIAGNOSIS: Hypoxic and hypercapnic respiratory failure, A-fib RVR, weakness, HAN, multifocal pneumonia, NSTEMI DISPOSITION: Hospitalist will evaluate Patient was agreeable with this plan. Critical Care I have personally spent 75 minutes of critical care time in the direct management of this patient. This includes bedside care, interpretation of diagnostic studies, and testing, discussion with consultants, patient, and family members, and other required patient management activities. These 75 minutes is in excess of all separately billable procedures. Past Med/Surg History Medical History (Updated 03/28/23 @ 21:19 by Gerardo Petersen M.D.) History of primary small cell carcinoma of lung Hx of diverticulitis of colon Small cell lung cancer Dx 2017- s/p chemo and XRT Osteoarthritis Hearing deficit Emphysema lung CKD (chronic kidney disease) stage 3, GFR 30-59 ml/min Prediabetes GERD (gastroesophageal reflux disease) Hyperlipidemia Lung cancer (08/09/16) "Incidental finding of a left upper lobe lesion on preoperative chest x-ray Status post bronchoscopy and biopsy 07/09/2016 nondiagnostic Status post left upper lobe wedge resection and lymph node biopsies 08/09/2016 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 Radiation completed 10/29/2016. He received 6000 cGy. Status post completion of prophylactic cranial irradiation 02/13/2017. 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 Radiation completed 10/29/2016. 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 Villanueva) Surgical History History of lung biopsy (04/22/21) Left H/O hemorrhoidectomy (12/22/20) Excision of internal hemorrhoid. Dr. Laird 12-22-2020 H/O abdominal surgery After appe (r/t infection) History of arthroscopic knee surgery History of lung surgery Status post left upper lobe wedge resection and lymph node biopsies (08/09/2016) History of bronchoscopy Status post bronchoscopy and biopsy (2016) History of vascular access device A port insertion/subsequent removal History of hemorrhoidectomy History of revision of total replacement of right knee joint History of total right knee replacement (TKR) History of appendectomy History of colonoscopy (2020) History of tooth extraction all teeth removed History of endoscopic sinus surgery History of endovascular stent graft for abdominal aortic aneurysm (AAA) PEVAR with Dr. Villanueva (2015) Family History Grandmother (Maternal) Family history of diabetes mellitus Uncle Family history of diabetes mellitus Mother Breast cancer Lung cancer Father Stomach cancer Other Asthma Cancer No family history of adverse response to anesthesia No family history of allergies No family history of bleeding disorder Denies family history of Ovarian cancer Prostate cancer Hearing loss Heart disease Myocardial infarction Colorectal cancer Hypertension Stroke Social History Smoking Status: Never smoker Tobacco Type: Cigarettes and Smokeless Tobacco (Dip or Chew) Age Started Using Tobacco: 13; packs per day: 0.25; Cigarettes Per Day: 5-6 PER DAY; Second Hand Exposure: Yes; Do You Dip or Chew Tobacco: Yes (chews 1/4 can per day ); Hx Alcohol Use: Yes Alcohol type: beer Alcohol Intake Frequency Comment: very rarely Hx Substance Use: No Preferred Language: Sami Communication Ability: Effective Visual Impairment: Limited Hearing Ability: Use of Hearing Aid Pipe Setter Required: No Beliefs That Will Affect Care: None marital status: Current Living Situation: Spouse Current Living Situation Comment: with current occupational status: retired 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 Feels Safe at Home: Yes Childhood Exposure to Second-Hand Smoke: Yes Diet: low salt caffeine: Yes during the past year weight has: remained stable Dental Care, Regularly: Yes Physical Activity Frequency: Daily Seatbelt Use: always Sunscreen Use: No Assistive Devices: Glasses and Hearing Aid - Bilateral Allergies Allergies Allergy/AdvReac Type Severity Reaction Status Date / Time morphine Allergy Intermediate Sweating, Verified 03/28/23 21:05 "thought I was dying", dyspnea pravastatin Allergy Intermediate dizziness Verified 03/28/23 21:05 and myalgia Home Meds Home Medications Medication Instructions Recorded Confirmed psyllium husk 3.4 gram/5.4 gram 1 tbsp PO DAILY 12/17/20 03/28/23 oral powder (Metamucil) docusate sodium 100 mg capsule 100 mg PO DAILY 03/28/23 03/28/23 (Stool Softener) Previous Rx's Medication Instructions Recorded omeprazole 20 mg capsule,delayed 20 mg PO DAILY PRN gerd #90 caps 11/03/21 release tramadol 50 mg tablet 50 mg PO Q8H PRN pain #30 tabs 02/24/22 Results & Data (ED) Vital Signs Vital Signs - 24 hr 03/28/23 20:21 03/28/23 20:23 03/28/23 20:23 Temperature 36.6 C Temperature Source Oral Pulse Rate 108 H 108 H Pulse Rate from SpO2 Sensor Respiratory Rate 40 H Respiratory Effort / Characteristics Labored Labored Respiratory Depth Deep Deep Respiratory Pattern Tachypnea Tachypnea Blood Pressure 132/81 Blood Pressure Mean 98 Pulse Oximetry 96 Oxygen Delivery Method Non-rebreather Oxygen Flow Rate 15 Fraction of Inspired Oxygen Sepsis Recent Fever Within 48 Hours No Sepsis New/Unexplained Change in Mental Status No Sepsis Action Taken by Nursing Physician Notified 03/28/23 20:45 03/28/23 21:00 03/28/23 21:15 Temperature Temperature Source Pulse Rate 161 H 156 H 132 H Pulse Rate from SpO2 Sensor 112 H Respiratory Rate 36 H 34 H 34 H Respiratory Effort / Characteristics Spontaneous Respiratory Depth Respiratory Pattern Tachypnea Blood Pressure Blood Pressure Mean Pulse Oximetry 95 93 Oxygen Delivery Method BiPAP Oxygen Flow Rate 40 Fraction of Inspired Oxygen 40 Sepsis Recent Fever Within 48 Hours Sepsis New/Unexplained Change in Mental Status Sepsis Action Taken by Nursing 03/28/23 21:30 03/28/23 21:45 03/28/23 21:54 Temperature Temperature Source Pulse Rate 139 H 153 H 132 H Pulse Rate from SpO2 Sensor 150 H 146 H 143 H Respiratory Rate 34 H 36 H 35 H Respiratory Effort / Characteristics Respiratory Depth Respiratory Pattern Blood Pressure Blood Pressure Mean Pulse Oximetry 93 93 93 Oxygen Delivery Method BiPAP Oxygen Flow Rate 40 Fraction of Inspired Oxygen Sepsis Recent Fever Within 48 Hours Sepsis New/Unexplained Change in Mental Status Sepsis Action Taken by Nursing 03/28/23 22:00 03/28/23 22:15 03/28/23 22:15 Temperature Temperature Source Pulse Rate 129 H 133 H Pulse Rate from SpO2 Sensor 140 H 142 H Respiratory Rate 38 H 35 H Respiratory Effort / Characteristics Respiratory Depth Respiratory Pattern Blood Pressure 116/86 Blood Pressure Mean 105 Pulse Oximetry 94 91 Oxygen Delivery Method BiPAP Oxygen Flow Rate 40 Fraction of Inspired Oxygen Sepsis Recent Fever Within 48 Hours Sepsis New/Unexplained Change in Mental Status Sepsis Action Taken by Nursing Laboratory Data 03/28/23 20:35 03/28/23 21:09 Lab Results 03/28/23 03/28/23 03/28/23 Range/Units 20:35 20:40 20:49 WBC 5.52 (4.8-10.8) K/ul RBC 4.49 L (4.70-6.10) M/uL Hgb 13.2 L (14.0-18.0) g/dl POC Hgb 14.3 (14.0-18.0) g/dl Hct 40.2 L (42.0-52.0) % POC Hct 42 (42-52) % MCV 89.5 (80.0-100.0) fL MCH 29.4 (25.0-34.0) pg MCHC 32.8 (32.0-36.0) g/dL RDW Std Deviation 52.3 H (36.4-46.3) fL RDW Coeff of Waldo 15.8 H (11.5-14.5) % Plt Count 173 (130-400) K/uL MPV 8.9 L (9.4-12.4) fL Immature Gran % (Auto) 0.9 % Neut % (Auto) 93.8 % Lymph % (Auto) 2.2 % Sawyer % (Auto) 3.1 % Eos % (Auto) 0.0 % Baso % (Auto) 0.0 % Neut # (Auto) 5.18 (1.40-6.50) K/uL Lymph # (Auto) 0.12 L (1.20-3.40) K/uL Sawyer # (Auto) 0.17 (0.11-0.59) K/uL Eos # (Auto) 0.00 (0.00-0.50) K/uL Baso # (Auto) 0.00 (0.00-0.20) K/uL Immature Gran # (Auto) 0.05 (0.01-0.20) K/uL Toxic Vacuolation 3+ Polychromasia 1+ Echinocytes 2+ PT 12.5 H (9.0-12.0) Seconds INR 1.2 H (0.9-1.1) APTT 33 H (21-31) Seconds PTT Ratio 1.2 VBG pH 7.28 L (7.36-7.41) VBG pCO2 52 H (38-50) mmHg VBG pO2 53 mmHg VBG HCO3 24 mmol/L VBG O2 Saturation 82.6 % VBG Base Excess -3.0 mEq/L POC Sodium 138 (135-144) mmol/L Sodium 137 (136-145) mmol/L POC Potassium 4.3 (3.3-5.0) mmol/L Potassium TNP POC Chloride 105 (101-112) mmol/L Chloride 102 (98-107) mmol/L Carbon Dioxide 22 (21-32) mmol/L POC Total CO2 25 (24-31) mmol/L Anion Gap 13 H (3-11) POC Anion Gap 13.0 L (16-25) mmol/L POC BUN 60 H (7-18) mg/dl BUN 64 H (6-23) mg/dl Creatinine 2.33 H (0.6-1.4) mg/dl POC Creatinine 2.4 H (0.6-1.3) mg/dl Est Cr Clr Drug Dosing 26.5 ml/min Est GFR ( Amer) 29.7 ml/min Est GFR (Non-Af Amer) 25.6 ml/min BUN/Creatinine Ratio 27.5 H (10-20) Glucose 127 H (70-99(Fasting)) mg/dl POC Glucose (other) 132 H (70-99) mg/dl Lactate 2.4 H* (0.4-2.0) mmol/L Calcium 9.3 (8.6-10.3) mg/dl POC Ioniz Calcium Maris 1.13 (1.12-1.32) mmol/l Magnesium 2.1 (1.7-2.4) mg/dl Total Bilirubin 0.6 (0.2-1.0) mg/dl AST TNP ALT 21 (7-52) U/L Alkaline Phosphatase 65 (34-104) U/L Troponin I High Sens 197.1 H* (0-20) pg/ml B-Natriuretic Peptide 514 H (0-100) pg/ml Total Protein 7.5 (6.0-8.3) gm/dl Albumin 3.5 (3.4-5.0) gm/dl Globulin 4.0 (2.5-4.0) gm/dl Albumin/Globulin Ratio 0.9 (0.9-2) Urine Color Urine Appearance (Clear) Urine pH (4.5-7.5) Ur Specific Erwin (1.000-1.030) Urine Protein (Negative) Urine Glucose (UA) (Negative) Urine Ketones (Negative) Urine Blood (Negative) Urine Nitrite (Negative) Urine Bilirubin (Negative) Urine Urobilinogen (Negative) Ur Leukocyte Esterase (Negative) Urine WBC (Auto) (0-5) /hpf Urine RBC (Auto) (0-4) /hpf U Hyaline Cast (Auto) (0-5) /lpf U Epithel Cells (Auto) (0-5) /lpf Urine Bacteria (Auto) (Negative) Ur Renal Epithelial Cell Granular Casts (0) /lpf Urine Yeast Adenovirus (PCR) Not Detected (NotDetected) B. pertussis DNA (PCR) Not Detected (NotDetected) B.parapertussis DNA PCR Not Detected (NotDetected) C. pneumoniae DNA (PCR) Not Detected (NotDetected) Coronavirus OC43 (PCR) Not Detected (NotDetected) Coronavirus HKU1 (PCR) Not Detected (NotDetected) Coronavirus 229E (PCR) Not Detected (NotDetected) SARS-CoV-2 (PCR) Not Detected (NotDetected) Coronavirus NL63 (PCR) Not Detected (NotDetected) Human Metapneumovir PCR Not Detected (NotDetected) Influenza Type A (PCR) Not Detected (NotDetected) Influenza Type B (PCR) Not Detected (NotDetected) M. pneumoniae (PCR) Not Detected (NotDetected) Parainfluenza 1 (PCR) Not Detected (NotDetected) Parainfluenza 2 (PCR) Not Detected (NotDetected) Parainfluenza 3 (PCR) Not Detected (NotDetected) Parainfluenza 4 (PCR) Not Detected (NotDetected) RSV (PCR) Not Detected (NotDetected) Entero/Rhino (PCR) Not Detected (NotDetected) 03/28/23 03/28/23 03/28/23 Range/Units 21:09 22:12 22:22 WBC (4.8-10.8) K/ul RBC (4.70-6.10) M/uL Hgb (14.0-18.0) g/dl POC Hgb (14.0-18.0) g/dl Hct (42.0-52.0) % POC Hct (42-52) % MCV (80.0-100.0) fL MCH (25.0-34.0) pg MCHC (32.0-36.0) g/dL RDW Std Deviation (36.4-46.3) fL RDW Coeff of Waldo (11.5-14.5) % Plt Count (130-400) K/uL MPV (9.4-12.4) fL Immature Gran % (Auto) % Neut % (Auto) % Lymph % (Auto) % Sawyer % (Auto) % Eos % (Auto) % Baso % (Auto) % Neut # (Auto) (1.40-6.50) K/uL Lymph # (Auto) (1.20-3.40) K/uL Sawyer # (Auto) (0.11-0.59) K/uL Eos # (Auto) (0.00-0.50) K/uL Baso # (Auto) (0.00-0.20) K/uL Immature Gran # (Auto) (0.01-0.20) K/uL Toxic Vacuolation Polychromasia Echinocytes PT (9.0-12.0) Seconds INR (0.9-1.1) APTT (21-31) Seconds PTT Ratio VBG pH (7.36-7.41) VBG pCO2 (38-50) mmHg VBG pO2 mmHg VBG HCO3 mmol/L VBG O2 Saturation % VBG Base Excess mEq/L POC Sodium (135-144) mmol/L Sodium (136-145) mmol/L POC Potassium (3.3-5.0) mmol/L Potassium 4.4 POC Chloride (101-112) mmol/L Chloride (98-107) mmol/L Carbon Dioxide (21-32) mmol/L POC Total CO2 (24-31) mmol/L Anion Gap (3-11) POC Anion Gap (16-25) mmol/L POC BUN (7-18) mg/dl BUN (6-23) mg/dl Creatinine (0.6-1.4) mg/dl POC Creatinine (0.6-1.3) mg/dl Est Cr Clr Drug Dosing ml/min Est GFR ( Amer) ml/min Est GFR (Non-Af Amer) ml/min BUN/Creatinine Ratio (10-20) Glucose (70-99(Fasting)) mg/dl POC Glucose (other) (70-99) mg/dl Lactate 2.7 H* (0.4-2.0) mmol/L Calcium (8.6-10.3) mg/dl POC Ioniz Calcium Maris (1.12-1.32) mmol/l Magnesium (1.7-2.4) mg/dl Total Bilirubin (0.2-1.0) mg/dl AST 22 ALT (7-52) U/L Alkaline Phosphatase (34-104) U/L Troponin I High Sens (0-20) pg/ml B-Natriuretic Peptide (0-100) pg/ml Total Protein (6.0-8.3) gm/dl Albumin (3.4-5.0) gm/dl Globulin (2.5-4.0) gm/dl Albumin/Globulin Ratio (0.9-2) Urine Color Dark Yellow Urine Appearance Cloudy A (Clear) Urine pH 5.0 (4.5-7.5) Ur Specific Erwin 1.019 (1.000-1.030) Urine Protein 2+ H (Negative) Urine Glucose (UA) Negative (Negative) Urine Ketones Negative (Negative) Urine Blood 2+ H (Negative) Urine Nitrite Negative (Negative) Urine Bilirubin Negative (Negative) Urine Urobilinogen Negative (Negative) Ur Leukocyte Esterase Negative (Negative) Urine WBC (Auto) 1-5 (0-5) /hpf Urine RBC (Auto) 0-4 (0-4) /hpf U Hyaline Cast (Auto) 5-10 H (0-5) /lpf U Epithel Cells (Auto) >30 H (0-5) /lpf Urine Bacteria (Auto) Negative (Negative) Ur Renal Epithelial Cell Not Reportable Granular Casts 10-20 H (0) /lpf Urine Yeast Not Reportable Adenovirus (PCR) (NotDetected) B. pertussis DNA (PCR) (NotDetected) B.parapertussis DNA PCR (NotDetected) C. pneumoniae DNA (PCR) (NotDetected) Coronavirus OC43 (PCR) (NotDetected) Coronavirus HKU1 (PCR) (NotDetected) Coronavirus 229E (PCR) (NotDetected) SARS-CoV-2 (PCR) (NotDetected) Coronavirus NL63 (PCR) (NotDetected) Human Metapneumovir PCR (NotDetected) Influenza Type A (PCR) (NotDetected) Influenza Type B (PCR) (NotDetected) M. pneumoniae (PCR) (NotDetected) Parainfluenza 1 (PCR) (NotDetected) Parainfluenza 2 (PCR) (NotDetected) Parainfluenza 3 (PCR) (NotDetected) Parainfluenza 4 (PCR) (NotDetected) RSV (PCR) (NotDetected) Entero/Rhino (PCR) (NotDetected) Administered Medications Diltiazem HCl 125 mg/ Dextrose 125 mls @ 5 mls/hr IV .Q24H [facility]; Protocol Stop: 04/27/23 20:59 Last Titration: 03/28/23 21:45 Dose: 10 mg/hr, 10 mls/hr Documented By: JOSE Co-signed By: LIDIA Admin: 03/28/23 21:11 Dose: 5 mg/hr, 5 mls/hr Documented By: ONDINA Co-signed By: LIDIA Discontinued Medications Diltiazem HCl (Diltiazem Hcl 5 Mg/Ml 5 Ml Vial) 10 mg IV NOW STA Stop: 03/28/23 20:54 Last Admin: 03/28/23 21:09 Dose: 10 mg Documented By: ONDINA Co-signed By: LIDIA Sodium Chloride (Nss) 1,000 mls @ 999 mls/hr IV .Q1H1M ONE Stop: 03/28/23 21:54 Last Infusion: 03/28/23 22:04 Dose: Infused Documented By: Admin: 03/28/23 21:11 Dose: 999 mls/hr Documented By: ONDINA Cefepime HCl (Maxipime) 2,000 mg in 20 mls @ 5 mls/min IV NOW STA; Protocol Stop: 03/28/23 20:57 Last Admin: 03/28/23 21:23 Dose: 5 mls/min Documented By: ONDINA Sodium Chloride (Nss) 1,000 mls @ 999 mls/hr IV .Q1H1M ONE Stop: 03/28/23 22:05 Last Admin: 03/28/23 22:05 Dose: 999 mls/hr Documented By: JOSE Sodium Chloride (Nss) 500 mls @ 999 mls/hr IV .Q31M ONE Stop: 03/28/23 21:35 Last Admin: 03/28/23 22:21 Dose: Not Given Documented By: JOSE Sodium Chloride (Nss) 250 mls @ 999 mls/hr IV .Q16M ONE Stop: 03/28/23 21:20 Last Admin: 03/28/23 22:21 Dose: Not Given Documented By: JOSE Miscellaneous (Stat Iv Infusion Titration Per Protocol) 1 each N/A NOW STA Stop: 03/28/23 20:54 Last Admin: 03/28/23 21:12 Dose: Not Given Documented By: ONDINA Discharge Plan Visit Data Chief Complaint: Shortness of Breath/Dyspnea ED Provider: Gerardo Petersen Discharge Problem: Acute hypoxic respiratory failure, Atrial fibrillation with rapid ventricular response, Multifocal pneumonia, Weakness, HAN (acute kidney injury), Non-ST elevation [place] (NSTEMI) Patient Disposition: Being Evaluated by Hospitalist Forms Stand Alone Forms: [facility] [place] Prescriptions Prescriptions: No Action omeprazole 20 mg capsule,delayed release(DR/EC) 20 mg PO DAILY PRN (Reason: gerd) Qty: 90 3RF Patient Comments: QAM tramadol 50 mg tablet 50 mg PO Q8H PRN (Reason: pain) Qty: 30 0RF docusate sodium [Stool Softener] 100 mg Capsule 100 mg PO DAILY Metamucil 3.4 gram/5.4 gram Powder 1 tbsp PO DAILY Referrals Referrals: Jesus العلي MD [Primary Care Provider] -
[2023-03-28 20:48] LABS: iSTAT Creatinine 2.4 mg/dl (0.6-1.3); iSTAT Hemoglobin 14.3 g/dl (14.0-18.0); iSTAT Ionized Calcium 1.13 mmol/l (1.12-1.32); iSTAT Potassium 4.3 mmol/L (3.3-5.0)
[2023-03-28] MEDS ORDERED: dilTIAZem HCl 5 MG/ML 5 ML VIAL IV STA (20:53)
[2023-03-28] MEDS ORDERED: STAT IV Infusion **Titration per Protocol STA (20:53)
[2023-03-28] MEDS ORDERED: SODIUM CHLORIDE 0.9% 1,000 ML IV ONE ×2 (20:54→21:05)
[2023-03-28] MEDS ORDERED: CEFEPIME 2,000 MG/20 ML VIAL IV STA (20:54)
[2023-03-28 20:55] LABS: HCO3 VBG 24 mmol/L; Oxygen Saturation VBG 82.6 %; PCO2 VBG 52 mmHg (38-50); PO2 VBG 53 mmHg; pH VBG 7.28 (7.36-7.41)
[2023-03-28] MEDS ORDERED: SODIUM CHLORIDE 0.9% 250 ML IV ONE (21:05)
[2023-03-28] MEDS ORDERED: SODIUM CHLORIDE 0.9% 500 ML IV ONE (21:05)
[2023-03-28 21:08] LABS: Alanine Aminotransferase 21 U/L (7-52); Albumin Globulin Ratio 0.9 (0.9-2); Albumin Level 3.5 gm/dl (3.4-5.0); Alkaline Phosphatase 65 U/L (34-104); Anion Gap 13 (3-11); BUN Creatinine Ratio 27.5 (10-20); Bilirubin,Total 0.6 mg/dl (0.2-1.0); Blood Urea Nitrogen 64 mg/dl (6-23); Calcium 9.3 mg/dl (8.6-10.3); Carbon Dioxide 22 mmol/L (21-32); Chloride 102 mmol/L (98-107); Creatinine Clr Calc Pharmacy 26.5 ml/min; Est GFR (African American) 29.7 ml/min; Est GFR (Non-African American) 25.6 ml/min; Glucose 127 mg/dl (70-99(Fasting)); Magnesium 2.1 mg/dl (1.7-2.4); Sodium 137 mmol/L (136-145); Total Protein 7.5 gm/dl (6.0-8.3)
[2023-03-28] MEDS: dilTIAZem HCL 125 MG in DEXTROSE 5% 100 ML IV SCH (21:11)
[2023-03-28 21:15] LABS: Troponin I High Sensitivity 197.1 pg/ml (0-20)
[2023-03-28 21:17] LABS: INR 1.2 (0.9-1.1); Partial Thromboplastin Ratio 1.2; Partial Thromboplastin Time 33 Seconds (21-31); Prothrombin Time 12.5 Seconds (9.0-12.0)
[2023-03-28 21:24] LABS: Hematocrit (blood only) 40.2 % (42.0-52.0); Hemoglobin 13.2 g/dl (14.0-18.0); Mean Corpuscular Hemoglobin 29.4 pg (25.0-34.0); Mean Corpuscular Hgb Conc 32.8 g/dL (32.0-36.0); Mean Corpuscular Volume 89.5 fL (80.0-100.0); Mean Platelet Volume 8.9 fL (9.4-12.4); Platelet Count 173 K/uL (130-400); RDW Coefficient of Variation 15.8 % (11.5-14.5); RDW Standard Deviation 52.3 fL (36.4-46.3); Red Blood Count 4.49 M/uL (4.70-6.10); White Blood Count 5.52 K/ul (4.8-10.8)
[2023-03-28 21:24] LABS: Potassium 4.4 mmol/L (3.5-5.1)
[2023-03-28 21:27] LABS: Echinocytes 2+; Immature Granulocytes # (auto) 0.05 K/uL (0.01-0.20); Immature Granulocytes % (auto) 0.9 %; Lymphocytes # (auto) 0.12 K/uL (1.20-3.40); Lymphocytes % (auto) 2.2 %; Monocytes # (auto) 0.17 K/uL (0.11-0.59); Monocytes % (auto) 3.1 %; Neutrophils # (auto) 5.18 K/uL (1.40-6.50); Neutrophils % (auto) 93.8 %; Polychromasia 1+; Toxic Vacuolation 3+
[2023-03-28] MEDS ORDERED: Heparin IV Adult Wt-Based Standard w/ INITIAL Bolus Protocol IV STA (21:37)
[2023-03-28 21:40] LABS: Adenovirus PCR Not Detected (NotDetected); Bordetella parapertussis PCR Not Detected (NotDetected); Bordetella pertussis PCR Not Detected (NotDetected); Chlamydia pneumoniae PCR Not Detected (NotDetected); Coronavirus 229E PCR Not Detected (NotDetected); Coronavirus CoV-2 (COVID19)PCR Not Detected (NotDetected); Coronavirus HKU1 PCR Not Detected (NotDetected); Coronavirus NL63 PCR Not Detected (NotDetected); Coronavirus OC43PCR Not Detected (NotDetected); Human Metapneumovirus PCR Not Detected (NotDetected); Influenza A PCR Not Detected (NotDetected); Influenza B PCR Not Detected (NotDetected); Mycoplasma pneumoniae PCR Not Detected (NotDetected); Parainfluenza Virus 1 PCR Not Detected (NotDetected); Parainfluenza Virus 2 PCR Not Detected (NotDetected); Parainfluenza Virus 3 PCR Not Detected (NotDetected); Parainfluenza Virus 4 PCR Not Detected (NotDetected); Respiratory Syncytial VirusPCR Not Detected (NotDetected); Rhinovirus/Enterovirus PCR Not Detected (NotDetected)
[2023-03-28] MEDS ORDERED: HEPARIN SOD (PORCINE) 1000 UNIT/ML IV ONE (21:53)
[2023-03-28 22:32] LABS: Appearance Urine Cloudy (Clear); Bacteria Urine Automated Negative (Negative); Bilirubin Urine Negative (Negative); Blood Urine 2+ (Negative); Color Urine Dark Yellow; Epithelial Cell Urine Auto >30 /lpf (0-5); Glucose Urine UA Negative (Negative); Ketones Urine Negative (Negative); Leukocyte Esterase Urine Negative (Negative); Nitrite Urine Negative (Negative); Protein Urine 2+ (Negative); RBC Urine Automated 0-4 /hpf (0-4); Specific Gravity Urine 1.019 (1.000-1.030); Urobilinogen Urine Negative (Negative)
[2023-03-28] MEDS: HEPARIN SODIUM/DEXTROSE 25,000 UNITS/500 ML BAG IV SCH (23:09)
--- NOTE | 2023-03-28 23:18 | History & Physical Report ---
Date of Service March 28, 2023 Assessment & Plan (1) Acute respiratory failure with hypoxia: (2) Multifocal pneumonia: (3) GERD (gastroesophageal reflux disease): (4) CKD (chronic kidney disease) stage 3, GFR 30-59 ml/min: (5) Non-ST elevation [place] (NSTEMI): (6) Acute kidney injury superimposed on CKD: (7) Atrial fibrillation with rapid ventricular response: (8) History of primary small cell carcinoma of lung: Plan Acute respiratory failure with hypoxia/multifocal pneumonia left greater than right, small cell lung cancer- Admit to telemetry Continue BiPAP, pulse ox goal of 92% Solu-Medrol 40 mg IV every 8 hours Cefepime 2 g IV every 12 hours Azithromycin 500 mg IV daily Duonebs every 4 hours while awake and every [address] chest without contrast ordered and pending BioFire negative New onset atrial fibrillation with RVR/elevated troponin The patient will be admitted to telemetry for serial cardiac enzymes, serial EKG's, cardiac rhythm monitoring and a 2-D echocardiogram with Dopplers. Troponin 197.1, likely secondary to rapid heart rate Follow troponin, CBC with differential, renal function panel and magnesium serially Status post 1.5 mL normal saline in the ED NSS at 60 mL/h x 1 additional liter Heparin drip without bolus per protocol Continue Cardizem drip per protocol GERD- Change omeprazole to pantoprazole 40 mg IV daily History of Present Illness Chief Complaint: The patient is brought to the emergency department by EMS after 4 days of increasing generalized weakness, shortness of breath, dyspnea on exertion and decreased oral intake. The was finally able to convince the patient to come into the hospital Primary Care Provider: Jesus العلي MD The patient is a 77-year-old male with a past medical history including small cell lung cancer, status post AAA repair, hyperlipidemia, GERD, CKD, emphysema, Peyronie's disease, SNHL, Helicobacter infection history, nicotine dependence, diverticulitis, BPH with LUTS, and lumbar back pain with radiculopathy. Patient was finally convinced by his , the emergency department after 4 days of progressive weakness, shortness of breath, dyspnea on exertion and decreased oral intake. She reports that he is been sitting on the sofa over the past 4 days. The patient's contributes most of the HPI and review of systems, as the patient is noted to be too short of breath, even with BiPAP on to contribute. Allergies Allergy/AdvReac Type Severity Reaction Status Date / Time morphine Allergy Intermediate Sweating, Verified 03/28/23 21:05 "thought I was dying", dyspnea pravastatin Allergy Intermediate dizziness Verified 03/28/23 21:05 and myalgia Home Medications Medication Instructions Recorded Confirmed Type psyllium husk 3.4 gram/5.4 gram 1 tbsp PO DAILY 12/17/20 03/28/23 History oral powder (Metamucil) omeprazole 20 mg capsule,delayed 20 mg PO DAILY PRN gerd #90 caps 11/03/21 03/28/23 Rx release tramadol 50 mg tablet 50 mg PO Q8H PRN pain #30 tabs 02/24/22 03/28/23 Rx docusate sodium 100 mg capsule 100 mg PO DAILY 03/28/23 03/28/23 History (Stool Softener) Past Med/Surg History Medical History (Updated 03/28/23 @ 23:20 by Silvino Christianson MD) History of primary small cell carcinoma of lung Hx of diverticulitis of colon Small cell lung cancer Dx 2017- s/p chemo and XRT Osteoarthritis Hearing deficit Emphysema lung CKD (chronic kidney disease) stage 3, GFR 30-59 ml/min Prediabetes GERD (gastroesophageal reflux disease) Hyperlipidemia Lung cancer (08/09/16) "Incidental finding of a left upper lobe lesion on preoperative chest x-ray Status post bronchoscopy and biopsy 07/09/2016 nondiagnostic Status post left upper lobe wedge resection and lymph node biopsies 08/09/2016 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 Radiation completed 10/29/2016. He received 6000 cGy. Status post completion of prophylactic cranial irradiation 02/13/2017. 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 Radiation completed 10/29/2016. 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 Villanueva) Surgical History History of lung biopsy (04/22/21) Left H/O hemorrhoidectomy (12/22/20) Excision of internal hemorrhoid. Dr. Laird 12-22-2020 H/O abdominal surgery After appe (r/t infection) History of arthroscopic knee surgery History of lung surgery Status post left upper lobe wedge resection and lymph node biopsies (08/09/2016) History of bronchoscopy Status post bronchoscopy and biopsy (2016) History of vascular access device A port insertion/subsequent removal History of hemorrhoidectomy History of revision of total replacement of right knee joint History of total right knee replacement (TKR) History of appendectomy History of colonoscopy (2020) History of tooth extraction all teeth removed History of endoscopic sinus surgery History of endovascular stent graft for abdominal aortic aneurysm (AAA) PEVAR with Dr. Villanueva (2015) Family History Grandmother (Maternal) Family history of diabetes mellitus Uncle Family history of diabetes mellitus Mother Breast cancer Lung cancer Father Stomach cancer Other Asthma Cancer No family history of adverse response to anesthesia No family history of allergies No family history of bleeding disorder Denies family history of Ovarian cancer Prostate cancer Hearing loss Heart disease Myocardial infarction Colorectal cancer Hypertension Stroke Social History Smoking Status: Never smoker Tobacco Type: Cigarettes and Smokeless Tobacco (Dip or Chew) Age Started Using Tobacco: 13; packs per day: 0.25; Cigarettes Per Day: 5-6 PER DAY; Second Hand Exposure: Yes; Do You Dip or Chew Tobacco: Yes (chews 1/4 can per day ); Hx Alcohol Use: Yes Alcohol type: beer Alcohol Intake Frequency Comment: very rarely Hx Substance Use: No Preferred Language: Croatian Communication Ability: Effective Visual Impairment: Limited Hearing Ability: Use of Hearing Aid Deputy Harbormaster Required: No Beliefs That Will Affect Care: None marital status: Current Living Situation: Spouse Current Living Situation Comment: with current occupational status: retired 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 HEENT--PERRL, EOMI, mucous membranes and oropharynx dry. Neck--supple. No JVD. No bruits. Thyroid normal, trachea midline, no adenopathy. Heart--normal S1 and S2. No murmurs, rubs or gallops. Lungs--coarse breath sounds bilaterally, left worse than right. Mild to moderate respiratory distress with accessory muscle use. Abdomen--normal bowel sounds and soft. Nontender. Nondistended, no hernias or masses, no organomegaly. Extremities--no cyanosis or clubbing. No edema. Dermatologic--normal skin turgor, normal color, no abnormal lymph nodes, no rash. Neurologic--cranial nerves II through XII grossly intact. Rheumatologic--normal range of motion. Psychiatric--normal affect. Results & Data Results & Data Vital Signs (Past 12 Hours) Vital Signs Temp Pulse Resp BP Pulse Ox O2 Del Method O2 Flow Rate 03/28/23 22:15 133 H 35 H 91 03/28/23 22:15 116/86 03/28/23 22:00 129 H 38 H 94 BiPAP 40 03/28/23 21:54 132 H 35 H 93 03/28/23 21:45 153 H 36 H 93 BiPAP 40 03/28/23 21:30 139 H 34 H 93 03/28/23 21:15 132 H 34 H 93 BiPAP 40 03/28/23 21:00 156 H 34 H 03/28/23 20:45 161 H 36 H 95 03/28/23 20:23 36.6 C 108 H 40 H 132/81 96 Non-rebreather 15 03/28/23 20:21 108 H FiO2 03/28/23 22:15 03/28/23 22:15 03/28/23 22:00 03/28/23 21:54 03/28/23 21:45 03/28/23 21:30 03/28/23 21:15 03/28/23 21:00 03/28/23 20:45 40 03/28/23 20:23 03/28/23 20:21 Laboratory Results Laboratory Results WBC 5.52 K/ul (4.8-10.8) 03/28/23 20:35 RBC 4.49 M/uL (4.70-6.10) L 03/28/23 20:35 Hgb 13.2 g/dl (14.0-18.0) L 03/28/23 20:35 POC Hgb 14.3 g/dl (14.0-18.0) 03/28/23 20:35 Hct 40.2 % (42.0-52.0) L 03/28/23 20:35 POC Hct 42 % (42-52) 03/28/23 20:35 MCV 89.5 fL (80.0-100.0) 03/28/23 20:35 MCH 29.4 pg (25.0-34.0) 03/28/23 20:35 MCHC 32.8 g/dL (32.0-36.0) 03/28/23 20:35 RDW Std Deviation 52.3 fL (36.4-46.3) H 03/28/23 20:35 RDW Coeff of Waldo 15.8 % (11.5-14.5) H 03/28/23 20:35 Plt Count 173 K/uL (130-400) 03/28/23 20:35 MPV 8.9 fL (9.4-12.4) L 03/28/23 20:35 Immature Gran % (Auto) 0.9 % 03/28/23 20:35 Neut % (Auto) 93.8 % 03/28/23 20:35 Lymph % (Auto) 2.2 % 03/28/23 20:35 Perry % (Auto) 3.1 % 03/28/23 20:35 Eos % (Auto) 0.0 % 03/28/23 20:35 Baso % (Auto) 0.0 % 03/28/23 20:35 Neut # (Auto) 5.18 K/uL (1.40-6.50) 03/28/23 20:35 Lymph # (Auto) 0.12 K/uL (1.20-3.40) L 03/28/23 20:35 Perry # (Auto) 0.17 K/uL (0.11-0.59) 03/28/23 20:35 Eos # (Auto) 0.00 K/uL (0.00-0.50) 03/28/23 20:35 Baso # (Auto) 0.00 K/uL (0.00-0.20) 03/28/23 20:35 Immature Gran # (Auto) 0.05 K/uL (0.01-0.20) 03/28/23 20:35 Toxic Vacuolation 3+ 03/28/23 20:35 Polychromasia 1+ 03/28/23 20:35 Echinocytes 2+ 03/28/23 20:35 PT 12.5 Seconds (9.0-12.0) H 03/28/23 20:35 INR 1.2 (0.9-1.1) H 03/28/23 20:35 APTT 33 Seconds (21-31) H 03/28/23 20:35 PTT Ratio 1.2 03/28/23 20:35 VBG pH 7.28 (7.36-7.41) L 03/28/23 20:49 VBG pCO2 52 mmHg (38-50) H 03/28/23 20:49 VBG pO2 53 mmHg 03/28/23 20:49 VBG HCO3 24 mmol/L 03/28/23 20:49 VBG O2 Saturation 82.6 % 03/28/23 20:49 VBG Base Excess -3.0 mEq/L 03/28/23 20:49 POC Sodium 138 mmol/L (135-144) 03/28/23 20:35 Sodium 137 mmol/L (136-145) 03/28/23 20:35 POC Potassium 4.3 mmol/L (3.3-5.0) 03/28/23 20:35 Potassium 4.4 mmol/L (3.5-5.1) 03/28/23 21:09 POC Chloride 105 mmol/L (101-112) 03/28/23 20:35 Chloride 102 mmol/L (98-107) 03/28/23 20:35 Carbon Dioxide 22 mmol/L (21-32) 03/28/23 20:35 POC Total CO2 25 mmol/L (24-31) 03/28/23 20:35 Anion Gap 13 (3-11) H 03/28/23 20:35 POC Anion Gap 13.0 mmol/L (16-25) L 03/28/23 20:35 POC BUN 60 mg/dl (7-18) H 03/28/23 20:35 BUN 64 mg/dl (6-23) H 03/28/23 20:35 Creatinine 2.33 mg/dl (0.6-1.4) H 03/28/23 20:35 POC Creatinine 2.4 mg/dl (0.6-1.3) H 03/28/23 20:35 Est Cr Clr Drug Dosing 26.5 ml/min 03/28/23 20:35 Est GFR ( Amer) 29.7 ml/min 03/28/23 20:35 Est GFR (Non-Af Amer) 25.6 ml/min 03/28/23 20:35 BUN/Creatinine Ratio 27.5 (10-20) H 03/28/23 20:35 Glucose 127 mg/dl (70-99(Fasting)) H 03/28/23 20:35 POC Glucose (other) 132 mg/dl (70-99) H 03/28/23 20:35 Lactate 2.7 mmol/L (0.4-2.0) H* 03/28/23 22:22 Calcium 9.3 mg/dl (8.6-10.3) 03/28/23 20:35 POC Ioniz Calcium Maris 1.13 mmol/l (1.12-1.32) 03/28/23 20:35 Magnesium 2.1 mg/dl (1.7-2.4) 03/28/23 20:35 Total Bilirubin 0.6 mg/dl (0.2-1.0) 03/28/23 20:35 AST 22 U/L (13-39) 03/28/23 21:09 ALT 21 U/L (7-52) 03/28/23 20:35 Alkaline Phosphatase 65 U/L (34-104) 03/28/23 20:35 Troponin I High Sens 207.7 pg/ml (0-20) H* 03/28/23 22:22 B-Natriuretic Peptide 514 pg/ml (0-100) H 03/28/23 20:49 Total Protein 7.5 gm/dl (6.0-8.3) 03/28/23 20:35 Albumin 3.5 gm/dl (3.4-5.0) 03/28/23 20:35 Globulin 4.0 gm/dl (2.5-4.0) 03/28/23 20:35 Albumin/Globulin Ratio 0.9 (0.9-2) 03/28/23 20:35 Urine Color Dark Yellow 03/28/23 22:12 Urine Appearance Cloudy (Clear) A 03/28/23 22:12 Urine pH 5.0 (4.5-7.5) 03/28/23 22:12 Ur Specific Victor 1.019 (1.000-1.030) 03/28/23 22:12 Urine Protein 2+ (Negative) H 03/28/23 22:12 Urine Glucose (UA) Negative (Negative) 03/28/23 22:12 Urine Ketones Negative (Negative) 03/28/23 22:12 Urine Blood 2+ (Negative) H 03/28/23 22:12 Urine Nitrite Negative (Negative) 03/28/23 22:12 Urine Bilirubin Negative (Negative) 03/28/23 22:12 Urine Urobilinogen Negative (Negative) 03/28/23 22:12 Ur Leukocyte Esterase Negative (Negative) 03/28/23 22:12 Urine WBC (Auto) 1-5 /hpf (0-5) 03/28/23 22:12 Urine RBC (Auto) 0-4 /hpf (0-4) 03/28/23 22:12 U Hyaline Cast (Auto) 5-10 /lpf (0-5) H 03/28/23 22:12 U Epithel Cells (Auto) >30 /lpf (0-5) H 03/28/23 22:12 Urine Bacteria (Auto) Negative (Negative) 03/28/23 22:12 Ur Renal Epithelial Cell Not Reportable 03/28/23 22:12 Granular Casts 10-20 /lpf (0) H 03/28/23 22:12 Urine Yeast Not Reportable 03/28/23 22:12 Adenovirus (PCR) Not Detected (NotDetected) 03/28/23 20:40 B. pertussis DNA (PCR) Not Detected (NotDetected) 03/28/23 20:40 B.parapertussis DNA PCR Not Detected (NotDetected) 03/28/23 20:40 C. pneumoniae DNA (PCR) Not Detected (NotDetected) 03/28/23 20:40 Coronavirus OC43 (PCR) Not Detected (NotDetected) 03/28/23 20:40 Coronavirus HKU1 (PCR) Not Detected (NotDetected) 03/28/23 20:40 Coronavirus 229E (PCR) Not Detected (NotDetected) 03/28/23 20:40 SARS-CoV-2 (PCR) Not Detected (NotDetected) 03/28/23 20:40 Coronavirus NL63 (PCR) Not Detected (NotDetected) 03/28/23 20:40 Human Metapneumovir PCR Not Detected (NotDetected) 03/28/23 20:40 Influenza Type A (PCR) Not Detected (NotDetected) 03/28/23 20:40 Influenza Type B (PCR) Not Detected (NotDetected) 03/28/23 20:40 M. pneumoniae (PCR) Not Detected (NotDetected) 03/28/23 20:40 Parainfluenza 1 (PCR) Not Detected (NotDetected) 03/28/23 20:40 Parainfluenza 2 (PCR) Not Detected (NotDetected) 03/28/23 20:40 Parainfluenza 3 (PCR) Not Detected (NotDetected) 03/28/23 20:40 Parainfluenza 4 (PCR) Not Detected (NotDetected) 03/28/23 20:40 RSV (PCR) Not Detected (NotDetected) 03/28/23 20:40 Entero/Rhino (PCR) Not Detected (NotDetected) 03/28/23 20:40 Code Status & VTE Plan Code Status Full code VTE Prophylaxis Plan VTE Prophylaxis will be ordered: Yes PG Care Time/CCT Total # of Minutes Spent Total Time Spent with Patient: Total time spent is greater than 50% in coordination of care (as documented) at patient's floor/unit and/or counseling patient: Coding Level of Care Code 74295 INT INP/OBS CARE 3/75MIN Diagnoses Acute respiratory failure with hypoxia J96.01 Multifocal pneumonia J18.9 GERD (gastroesophageal reflux disease) K21.9 CKD (chronic kidney disease) stage 3, GFR 30-59 ml/min N18.3 Non-ST elevation [place] (NSTEMI) I21.4 Acute kidney injury superimposed on CKD N17.9; N18.9 Atrial fibrillation with rapid ventricular response I48.91 History of primary small cell carcinoma of lung Z85.118
[2023-03-28] MEDS ORDERED: SODIUM CHLORIDE 0.9% 1,000 ML IV SCH (23:46)
[2023-03-28] MEDS ORDERED: ONDANSETRON INJ 2 MG/ML 2 ML VIAL IV PRN (23:46)
[2023-03-29] MEDS: AZITHROMYCIN 500 MG in DEXTROSE 5% 250 ML IV SCH ×2 (00:15→22:05)
[2023-03-29 00:35] LABS: ANTI-Xa, UFH(UnfractionatedHep < 0.10 IU/ml (0.3-0.7)
--- NOTE | 2023-03-29 00:55 | CT Scan Report ---
Exam(s): CT CHEST Without Contrast EXAM: CT Chest Without Intravenous Contrast CLINICAL HISTORY: Reason for exam: resp failure, ?pna. TECHNIQUE: Axial computed tomography images of the chest without intravenous contrast. CTDI is 15.93 mGy and DLP is 570 mGy-cm. Automated exposure control was utilized for the study. A dose lowering technique was utilized adhering to the principles of ALARA. COMPARISON: CT Chest dated 03/10/23 FINDINGS: Lungs: Centrilobular emphysema. Left upper lobe sutures and associated subpleural scarring and fibrosis as described on the prior. New consolidation within large parts of the left upper and lower lobes. The superior segment lesion described on the prior is mostly obscured. New small patchy areas of airspace disease in the right lower lobe. Stable 4 mm right upper lobe nodule series 4 image 58. Right lower lobe calcified granuloma. Stable mild interstitial thickening and fibrotic changes in the lower lungs. Pleural space: Unremarkable. No pneumothorax. No significant effusion. Heart: Coronary calcifications. No cardiomegaly. No significant pericardial effusion. Mediastinum: Mildly enlarged subcarinal nodes, 13 mm short axis increased since the prior. May be reactive. Bones/joints: Similar appearance of nonacute right posterior eighth and ninth rib fractures. Degenerative changes of the shoulders and spine. No dislocation. Soft tissues: Unremarkable. Vasculature: Aortic calcifications. Stable mildly aneurysmal ascending aorta up to 4.4 cm. 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 Lymph nodes: See above. Upper abdomen: Calcified splenic granulomas. Similar nodule right adrenal gland. IMPRESSION: 1. New consolidation within large parts of the left upper and lower lobes. The superior segment lesion described on the prior is mostly obscured. Correlates with pneumonia. Recommend follow-up. 2. New small patchy areas of airspace disease in the right lower lobe. May also relate to pneumonia. 3. Mildly enlarged subcarinal nodes, 13 mm short axis increased since the prior. May be reactive. Attention on follow-up. 4. Stable mildly aneurysmal ascending aorta up to 4.4 cm. 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 5. Other stable nonacute findings as above. Electronically signed by: Christiano Flowers M.D. 03/29/23 00:54 AM
[2023-03-29] MEDS: methylPREDNISolone 40 MG in SYRINGE 0 ML IV SCH ×4 (01:52→23:51)
[2023-03-29 04:30] LABS: Albumin Globulin Ratio 0.9 (0.9-2); Albumin Level 3.3 gm/dl (3.4-5.0); BUN Creatinine Ratio 32.5 (10-20); Bilirubin,Total 0.5 mg/dl (0.2-1.0); Calcium 8.8 mg/dl (8.6-10.3); Creatinine Clr Calc Pharmacy 32.4 ml/min; Est GFR (African American) 37.8 ml/min; Est GFR (Non-African American) 32.6 ml/min; Globulin 3.5 gm/dl (2.5-4.0); Magnesium 2.1 mg/dl (1.7-2.4); Potassium 4.2 mmol/L (3.5-5.1); Total Protein 6.8 gm/dl (6.0-8.3)
[2023-03-29 06:15] LABS: Basophils # (auto) 0.01 K/uL (0.00-0.20); Basophils % (auto) 0.1 %; Dohle Bodies 1+; Echinocytes 1+; Hematocrit (blood only) 38.7 % (42.0-52.0); Hemoglobin 12.4 g/dl (14.0-18.0); Immature Granulocytes # (auto) 0.03 K/uL (0.01-0.20); Immature Granulocytes % (auto) 0.4 %; Lymphocytes # (auto) 0.16 K/uL (1.20-3.40); Lymphocytes % (auto) 2.2 %; Mean Corpuscular Hemoglobin 29.2 pg (25.0-34.0); Mean Corpuscular Volume 91.3 fL (80.0-100.0); Mean Platelet Volume 9.4 fL (9.4-12.4); Monocytes # (auto) 0.19 K/uL (0.11-0.59); Monocytes % (auto) 2.6 %; Neutrophils # (auto) 6.84 K/uL (1.40-6.50); Neutrophils % (auto) 94.7 %; Platelet Count 168 K/uL (130-400); RDW Standard Deviation 53.2 fL (36.4-46.3); Red Blood Count 4.24 M/uL (4.70-6.10); Toxic Granulation 1+; Toxic Vacuolation 1+; White Blood Count 7.23 K/ul (4.8-10.8)
--- NOTE | 2023-03-29 06:58 | XRay Report ---
SINGLE VIEW CHEST CLINICAL HISTORY: Dyspnea FINDINGS: An AP, portable, upright chest radiograph is compared to study dated 02/08/2022 and correla royer with chest CT dated 03/10/2023. The heart is enlarged noting atherosclerotic calcification of the thoracic aorta. The pulmonary vasculature is noncongested. Emphysema is again noted with postsurgica l change an scarring in the left upper lung. There is multifocal airspace consolidation throughout th e left lung which is new from previous. Scarring/atelectasis is noted at the right lung base. No larg e pleural effusion or pneumothorax is seen. The skeletal structures are osteopenic. The bony thorax i s grossly intact. IMPRESSION: 1. Cardiomegaly and emphysema without radiographic evidence of congestive failure. 2. Multifocal airspace consolidation throughout the left lung is new from previous. Correlate clinica lly for evidence of pneumonia/aspiration pneumonitis. Radiographic follow-up to resolution is recomme nded. ACT 112: Negative or not required by law. Electronically signed by: Paolo Katz M.D. 03/29/2023 6:56 AM
[2023-03-29] MEDS: ALBUT/IPRATROP 3MG/0.5MG NEB 3 ML VIAL NEB SCH ×4 (07:07→21:09)
[2023-03-29] MEDS ORDERED: HEPARIN SOD (PORCINE) 1000 UNIT/ML IV ONE ×2 (07:53→16:03)
[2023-03-29] MEDS ORDERED: CEFEPIME 1,000 MG in SYRINGE 0 ML IV SCH (10:00)
--- NOTE | 2023-03-29 10:26 | XCELERA ---
[id number] \\[email or web address]\[id number]
[2023-03-29] MEDS: dilTIAZem HCL 125 MG in DEXTROSE 5% 100 ML IV SCH (10:42)
[2023-03-29] MEDS: PANTOprazole 40 MG in SYRINGE 0 ML IV SCH (11:27)
--- NOTE | 2023-03-29 12:01 | Hospitalist Progress Note ---
Date of Service March 29, 2023 Assessment & Plan (1) Multifocal pneumonia: Plan: Fortunately improving quickly. Switch cefepime to ceftriaxone Continue supportive care, pulmonary toilet (2) Atrial fibrillation with rapid ventricular response: Plan: Need to review rhythm strips further, but appears was in A-fib and now sinus. Currently rate controlled, currently anticoagulatedlikely will need to continue, but again will want to review for clarity. (3) Acute kidney injury superimposed on CKD: Plan: Due to above, superimposed on baseline CKD 3. Improved already. 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 Admission and Anticipated Discharge Date Admission Date: March 28, 2023 Results & Data Results & Data Vital Signs (Past 12 Hours) Vital Signs Temp Pulse Pulse Resp BP BP Pulse Ox 03/29/23 10:59 03/29/23 10:04 78 26 H 93 03/29/23 08:00 98.4 F 78 26 H 108/74 93 03/29/23 07:14 80 03/29/23 07:09 81 33 H 94 03/29/23 07:09 80 33 H 94 03/29/23 06:00 86 28 H 119/79 95 03/29/23 05:02 88 34 H 92 03/29/23 05:02 132/79 03/29/23 05:00 89 38 H 90 03/29/23 04:30 78 30 H 92 03/29/23 04:00 85 31 H 93 03/29/23 04:00 98/68 L 03/29/23 03:30 85 31 H 94 03/29/23 03:01 89 39 H 90 03/29/23 03:01 126/73 03/29/23 03:01 126/73 03/29/23 03:00 88 34 H 88 L 03/29/23 02:30 90 33 H 90 03/29/23 02:19 82 36 H 92 03/29/23 02:01 122/77 03/29/23 02:01 90 35 H 95 03/29/23 02:00 90 32 H 89 L 03/29/23 01:30 91 H 34 H 92 03/29/23 01:02 90 40 H 91 03/29/23 00:33 98.8 F 03/29/23 00:30 93 H 35 H 91 03/29/23 00:01 115/92 03/29/23 00:01 94 H 32 H 90 03/29/23 00:00 93 H 34 H 91 O2 Del Method O2 Flow Rate FiO2 03/29/23 10:59 Nasal Cannula 5 03/29/23 10:04 Nasal Cannula 5 03/29/23 08:00 Nasal Cannula 5 03/29/23 07:14 03/29/23 07:09 40 03/29/23 07:09 BiPAP 40 03/29/23 06:00 Nasal Cannula, BiPAP 5 40 03/29/23 05:02 Nasal Cannula 5 03/29/23 05:02 03/29/23 05:00 03/29/23 04:30 03/29/23 04:00 03/29/23 04:00 03/29/23 03:30 03/29/23 03:01 03/29/23 03:01 03/29/23 03:01 03/29/23 03:00 03/29/23 02:30 03/29/23 02:19 40 03/29/23 02:01 03/29/23 02:01 03/29/23 02:00 03/29/23 01:30 03/29/23 01:02 03/29/23 00:33 03/29/23 00:30 03/29/23 00:01 03/29/23 00:01 03/29/23 00:00 BiPAP 40 PG Care Time/CCT Total # of Minutes Spent Total Time Spent with Patient: Total time spent is greater than 50% in coordination of care (as documented) at patient's floor/unit and/or counseling patient: Coding Level of Care Code 14991 SUB INP/OBS CARE 3/50MIN Diagnoses Multifocal pneumonia J18.9 Atrial fibrillation with rapid ventricular response I48.91 Acute kidney injury superimposed on CKD N17.9; N18.9 Non-ST elevation [place] (NSTEMI) I21.4 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
--- NOTE | 2023-03-29 12:35 | Electrocardiogram Report ---
Test Reason : Blood Pressure : / mmHG Vent. Rate : 106 BPM Atrial Rate : 106 BPM P-R Int : 148 ms QRS Dur : 088 ms QT Int : 336 ms P-R-T Axes : 066 029 061 degrees QTc Int : 446 ms Sinus tachycardia Otherwise normal ECG When compared with ECG of 08-FEB-2022 10:31, Vent. rate has increased BY 39 BPM Confirmed by Kirk Georges ([id number]) on 03/29/2023 12:34:41 PM Referred By: REFERRED SELF Confirmed By:Kirk Georges
--- NOTE | 2023-03-29 12:37 | Electrocardiogram Report ---
Test Reason : Blood Pressure : / mmHG Vent. Rate : 159 BPM Atrial Rate : 000 BPM P-R Int : 000 ms QRS Dur : 088 ms QT Int : 282 ms P-R-T Axes : 000 033 045 degrees QTc Int : 458 ms Atrial fibrillation with rapid ventricular response Abnormal ECG When compared with ECG of 28-MAR-2023 20:20, (unconfirmed) Atrial fibrillation has replaced Sinus rhythm Vent. rate has increased BY 53 BPM Confirmed by Kirk Georges ([id number]) on 03/29/2023 12:37:27 PM Referred By: REFERRED SELF Confirmed By:Kirk Georges
--- NOTE | 2023-03-29 12:48 | Electrocardiogram Report ---
Test Reason : Blood Pressure : / mmHG Vent. Rate : 071 BPM Atrial Rate : 071 BPM P-R Int : 156 ms QRS Dur : 094 ms QT Int : 390 ms P-R-T Axes : 049 022 062 degrees QTc Int : 423 ms Normal sinus rhythm with sinus arrhythmia Normal ECG When compared with ECG of 28-MAR-2023 20:59, (unconfirmed) Sinus rhythm has replaced Atrial fibrillation Vent. rate has decreased BY 88 BPM Confirmed by Kirk Georges ([id number]) on 03/29/2023 12:47:58 PM Referred By: REFERRED SELF Confirmed By:Kirk Georges
[2023-03-29] MEDS: HEPARIN SODIUM/DEXTROSE 25,000 UNITS/500 ML BAG IV SCH ×2 (14:53→22:13)
[2023-03-29 15:45] LABS: ANTI-Xa, UFH(UnfractionatedHep 0.11 IU/ml (0.3-0.7)
[2023-03-29 17:49] LABS: A calco-baum cmplx NotReported Not Detected (NotDetected); Bact fragilis Not Reported Not Detected (NotDetected); Blood Culture Id Panel See PCR Comment (NotDetected); C auris Not Reported Not Detected (NotDetected); Calbicans Not Reported Not Detected (NotDetected); Candida glabrata Not Reported Not Detected (NotDetected); Candida krusei Not Reported Not Detected (NotDetected); Cneoformans/gatti Not Reported Not Detected (NotDetected); Cparapsilosis Not Reported Not Detected (NotDetected); E cloacae compx Not Reported Not Detected (NotDetected); Efaecalis Not Reported Not Detected (NotDetected); Efaecium Not Reported Not Detected (NotDetected); Enterobacterales Not Reported Not Detected (NotDetected); Escherichia coli Not Reported Not Detected (NotDetected); H influenzae Not Reported DETECTED (NotDetected); K aerogenes Not Reported Not Detected (NotDetected); Koxytoca Not Reported Not Detected (NotDetected); Kpneumoniae grp Not Reported Not Detected (NotDetected); Lmonocyt Not Reported Not Detected (NotDetected); N meningitidis Not Reported Not Detected (NotDetected); P aeruginosa Not Reported Not Detected (NotDetected); Proteus spp Not Reported Not Detected (NotDetected); Salmonella spp Not Reported Not Detected (NotDetected); Smarcescens Not Reported Not Detected (NotDetected); Staph lugdunensis Not Reported Not Detected (NotDetected); Staph spp. Not Reported Not Detected (NotDetected); Staphaureus Not Reported Not Detected (NotDetected); Staphepi Not Reported Not Detected (NotDetected); Stenmaltophilia Not Reported Not Detected (NotDetected); Strep agal(GrpB) Not Reported Not Detected (NotDetected); Strep pneum Not Reported Not Detected (NotDetected); Strep pyog (GrpA) Not Reported Not Detected (NotDetected); Strep spp Not Reported Not Detected (NotDetected)
[2023-03-29 18:34] LABS: Haemophilus influenzae DETECTED (NotDetected)
[2023-03-29] MEDS: cefTRIAXone SODIUM 2,000 MG in DEXTROSE 5 % MINI-B 50 ML IV SCH (21:32)
[2023-03-30 00:11] LABS: ANTI-Xa, UFH(UnfractionatedHep 0.18 IU/ml (0.3-0.7)
[2023-03-30] MEDS ORDERED: HEPARIN IV BOLUS 3,000 UNITS in SYRINGE 0 ML IV ONE (01:15)
[2023-03-30] MEDS: HEPARIN SODIUM/DEXTROSE 25,000 UNITS/500 ML BAG IV SCH ×2 (04:29→16:00)
--- NOTE | 2023-03-30 07:08 | Hospitalist Progress Note ---
Date of Service March 30, 2023 Assessment & Plan (1) Multifocal pneumonia: Plan Multifocal pneumonia with Sepsis -CT A/P: infiltrates of upper and lower lobes of left lung -Transitioned from Cefepime to Ceftriaxone, continue Azithromycin for anti- inflammatory -Blood Cultures growing probably haemophilus species. Further sensitivities pending. -Supplemental oxygen, currently on 3-5L -Continue supportive care, pulmonary toilet Paroxysmal Atrial Fibrillation -On arrival appears he was in A-fib and now sinus. -Currently rate controlled, d/c heparin drip and will start Lovenox 40 daily Acute kidney injury superimposed on CKD: -Due to above, superimposed on baseline CKD 3. Improved already. -Monitor daily BMP, encourage increased PO intake Constipation -Poor PO intake and history of chronic constipation -Started bowel regimen with Miralax, Senakot. 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 Feels like he needs to have a bowel movementson later notes that he constantly is concerned about his bowels. Son notes that he really has not eaten much of anything meaningful since Tuesday. Vitals noted, in general he is awake and alert fatigued a little bit hard of hearing. Breathing unlabored no accessory muscle use good effort. Abdomen soft mildly distended, but no focal tenderness no guarding rebound rigidity. Labs/diagnostics noted. Multifocal pneumonia with sepsis (heart rate/respiratory rate) present on admissiondue to haemophiluswith subsequent bacteremiafortunately does not appear to be improving. Continue ceftriaxone and supportive care. Given the size/extent of his pneumonia, it would not surprise me if he goes through a rather significantly symptomatic catarrhal/expectorant phase and may require additional supportive care over the next day or 2. A-fib/RVRonce I was able to review rhythm strips going back to admission, it does appear consistent with A-fib/RVR for the first hour or 2 he was in the hospitalnow sinusrates are controlled. Will require chronic anticoagulation. Otherwise as above Subjective Patient was seen and examined at bedside, no acute events reported overnight. Patient has been on 3-5L NC in the past day. States he feels a bit better today, denies chest pain. Is concerned that he has not had a bowel movement and wants medication for this- his family members note that he has barely eaten anything in the past week and has issues with constipation at baseline. Review of Systems Review of Systems: As per above Physical Exam Constitutional: comfortable; no acute distress Eyes: + anicteric sclerae; no conjunctival abn ormality ENMT: Ears: + hearing impairment; no external ear abnormality Nose: no external nose abnormality Moist mucous membranes Respiratory: normal respiratory effort; no respiratory distress and does not use accessory muscles Auscultation: + diminished lung sounds and + rhonchi Gastrointestinal (Abdomen): Inspection/Auscultation: abdomen not distended Percussion/Palpation: abdomen soft; abdomen nontender and no guarding Skin: no rashes, warm and dry Psychiatric: A+Ox3, euthymic affect Results & Data Results & Data Vital Signs (Past 12 Hours) Vital Signs Temp Pulse Pulse Resp BP BP Pulse Ox 03/30/23 03:01 36.3 C L 63 18 122/76 97 03/30/23 00:13 65 21 95 03/30/23 00:00 65 03/29/23 23:41 36.5 C 66 18 118/77 95 03/29/23 23:30 03/29/23 21:09 66 23 96 O2 Del Method O2 Flow Rate FiO2 03/30/23 03:01 Nasal Cannula 5 03/30/23 00:13 40 03/30/23 00:00 03/29/23 23:41 Nasal Cannula 5 03/29/23 23:30 Nasal Cannula 5 03/29/23 21:09 Nasal Cannula 5 Diagnostic Findings Chest X-Ray 03/28/23 20:20 SINGLE VIEW CHEST CLINICAL HISTORY: Dyspnea FINDINGS: An AP, portable, upright chest radiograph is compared to study dated 02/08/2022 and correlated with chest CT dated 03/10/2023. The heart is enlarged noting atherosclerotic calcification of the thoracic aorta. The pulmonary vasculature is noncongested. Emphysema is again noted with postsurgical change an scarring in the left upper lung. There is multifocal airspace consolidation throughout the left lung which is new from previous. Scarring/atelectasis is noted at the right lung base. No large pleural effusion or pneumothorax is seen. The skeletal structures are osteopenic. The bony thorax is grossly intact. IMPRESSION: 1. Cardiomegaly and emphysema without radiographic evidence of congestive failure. 2. Multifocal airspace consolidation throughout the left lung is new from previous. Correlate clinically for evidence of pneumonia/aspiration pneumonitis. Radiographic follow-up to resolution is recommended. ACT 112: Negative or not required by law. Electronically signed by: Paolo Katz M.D. 03/29/2023 6:[address] 03/28/23 21:56 Exam(s): CT CHEST Without Contrast EXAM: CT Chest Without Intravenous Contrast CLINICAL HISTORY: Reason for exam: resp failure, ?pna. TECHNIQUE: Axial computed tomography images of the chest without intravenous contrast. CTDI is 15.93 mGy and DLP is 570 mGy-cm. Automated exposure control was utilized for the study. A dose lowering technique was utilized adhering to the principles of ALARA. COMPARISON: CT Chest dated 03/10/23 FINDINGS: Lungs: Centrilobular emphysema. Left upper lobe sutures and associated subpleural scarring and fibrosis as described on the prior. New consolidation within large parts of the left upper and lower lobes. The superior segment lesion described on the prior is mostly obscured. New small patchy areas of airspace disease in the right lower lobe. Stable 4 mm right upper lobe nodule series 4 image 58. Right lower lobe calcified granuloma. Stable mild interstitial thickening and fibrotic changes in the lower lungs. Pleural space: Unremarkable. No pneumothorax. No significant effusion. Heart: Coronary calcifications. No cardiomegaly. No significant pericardial effusion. Mediastinum: Mildly enlarged subcarinal nodes, 13 mm short axis increased since the prior. May be reactive. Bones/joints: Similar appearance of nonacute right posterior eighth and ninth rib fractures. Degenerative changes of the shoulders and spine. No dislocation. Soft tissues: Unremarkable. Vasculature: Aortic calcifications. Stable mildly aneurysmal ascending aorta up to 4.4 cm. 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 Lymph nodes: See above. Upper abdomen: Calcified splenic granulomas. Similar nodule right adrenal gland. IMPRESSION: 1. New consolidation within large parts of the left upper and lower lobes. The superior segment lesion described on the prior is mostly obscured. Correlates with pneumonia. Recommend follow-up. 2. New small patchy areas of airspace disease in the right lower lobe. May also relate to pneumonia. 3. Mildly enlarged subcarinal nodes, 13 mm short axis increased since the prior. May be reactive. Attention on follow-up. 4. Stable mildly aneurysmal ascending aorta up to 4.4 cm. 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 5. Other stable nonacute findings as above. Electronically signed by: Christiano Flowers M.D. 03/29/23 00:54 AM Resident Activity Tracking Resident Involvement: Resident Care Provided Care Provided: Adult Hospital Medicine
[2023-03-30] MEDS: ALBUT/IPRATROP 3MG/0.5MG NEB 3 ML VIAL NEB SCH ×4 (07:11→17:48)
[2023-03-30 07:59] LABS: BUN Creatinine Ratio 38.1 (10-20); Calcium 8.5 mg/dl (8.6-10.3); Creatinine Clr Calc Pharmacy 42.1 ml/min; Est GFR (African American) 51.8 ml/min; Est GFR (Non-African American) 44.7 ml/min; Potassium 3.7 mmol/L (3.5-5.1)
[2023-03-30 08:10] LABS: ANTI-Xa, UFH(UnfractionatedHep 0.24 IU/ml (0.3-0.7)
[2023-03-30 08:15] LABS: Basophils # (auto) 0.01 K/uL (0.00-0.20); Basophils % (auto) 0.1 %; Dohle Bodies 1+; Echinocytes 1+; Hematocrit (blood only) 33.5 % (42.0-52.0); Hemoglobin 10.9 g/dl (14.0-18.0); Immature Granulocytes # (auto) 0.14 K/uL (0.01-0.20); Immature Granulocytes % (auto) 1.4 %; Lymphocytes # (auto) 0.33 K/uL (1.20-3.40); Lymphocytes % (auto) 3.3 %; Mean Corpuscular Hgb Conc 32.5 g/dL (32.0-36.0); Mean Corpuscular Volume 89.1 fL (80.0-100.0); Mean Platelet Volume 9.5 fL (9.4-12.4); Neutrophils # (auto) 9.29 K/uL (1.40-6.50); Neutrophils % (auto) 92.2 %; Nucleated RBC # (auto) 0.03 K/uL (0.00-0.12); Nucleated RBC % (auto) 0.3 %; Platelet Count 141 K/uL (130-400); Platelet Estimate Decreased (Normal); Polychromasia 1+; RDW Coefficient of Variation 16.4 % (11.5-14.5); RDW Standard Deviation 54.4 fL (36.4-46.3); Red Blood Count 3.76 M/uL (4.70-6.10); Toxic Granulation 1+; White Blood Count 10.07 K/ul (4.8-10.8)
[2023-03-30] MEDS: methylPREDNISolone 40 MG in SYRINGE 0 ML IV SCH ×2 (08:33→16:59)
--- NOTE | 2023-03-30 11:21 | Electrocardiogram Report ---
Test Reason : Blood Pressure : / mmHG Vent. Rate : 060 BPM Atrial Rate : 060 BPM P-R Int : 160 ms QRS Dur : 098 ms QT Int : 436 ms P-R-T Axes : 053 026 059 degrees QTc Int : 436 ms Normal sinus rhythm Normal ECG When compared with ECG of 29-MAR-2023 10:09, No significant change was found Confirmed by Kirk Georges ([id number]) on 03/30/2023 11:20:41 AM Referred By: REFERRED SELF Confirmed By:Kirk Georges
[2023-03-30] MEDS: PANTOprazole 40 MG in SYRINGE 0 ML IV SCH (11:39)
[2023-03-30] MEDS: POLYETHYLENE (MIRALAX) 17 GM PACK PO SCH ×2 (12:41→19:59)
[2023-03-30] MEDS: SENNA 8.6 MG TAB PO SCH (13:54)
--- NOTE | 2023-03-30 15:06 | Billing Data ---
Date of Service March 30, 2023 Coding Level of Care Code 43831 SUB INP/OBS CARE
[2023-03-30 15:15] LABS: ANTI-Xa, UFH(UnfractionatedHep 0.19 IU/ml (0.3-0.7)
[2023-03-30] MEDS: ENOXAPARIN INJ 40 MG/0.4 ML SYR SQ SCH (16:59)
[2023-03-30] MEDS: cefTRIAXone SODIUM 2,000 MG in DEXTROSE 5 % MINI-B 50 ML IV SCH (19:57)
[2023-03-30] MEDS: AZITHROMYCIN 500 MG in DEXTROSE 5% 250 ML IV SCH (20:31)
[2023-03-31] MEDS: methylPREDNISolone 40 MG in SYRINGE 0 ML IV SCH ×3 (00:15→11:30)
[2023-03-31] MEDS ORDERED: SOD PHOSPHATE/SOD BIPHOSPHATE ENEMA 132 ML BTL PR ONE (05:39)
[2023-03-31 06:15] LABS: Hematocrit (blood only) 30.4 % (42.0-52.0); Hemoglobin 10.6 g/dl (14.0-18.0); Mean Corpuscular Hemoglobin 29.8 pg (25.0-34.0); Mean Corpuscular Hgb Conc 34.9 g/dL (32.0-36.0); Mean Corpuscular Volume 85.4 fL (80.0-100.0); Mean Platelet Volume 9.2 fL (9.4-12.4); Nucleated RBC # (auto) 0.04 K/uL (0.00-0.12); Nucleated RBC % (auto) 0.4 %; Platelet Count 134 K/uL (130-400); RDW Coefficient of Variation 16.3 % (11.5-14.5); RDW Standard Deviation 51.5 fL (36.4-46.3); Red Blood Count 3.56 M/uL (4.70-6.10); White Blood Count 10.78 K/ul (4.8-10.8)
[2023-03-31 06:31] LABS: BUN Creatinine Ratio 47.9 (10-20); Calcium 8.7 mg/dl (8.6-10.3); Creatinine Clr Calc Pharmacy 52.9 ml/min; Est GFR (African American) 68.3 ml/min; Est GFR (Non-African American) 58.9 ml/min; Potassium 3.7 mmol/L (3.5-5.1)
[2023-03-31 06:45] LABS: Basophils # (auto) 0.02 K/uL (0.00-0.20); Basophils % (auto) 0.2 %; Dohle Bodies 2+; Echinocytes 1+; Immature Granulocytes # (auto) 0.34 K/uL (0.01-0.20); Immature Granulocytes % (auto) 3.2 %; Lymphocytes # (auto) 0.33 K/uL (1.20-3.40); Lymphocytes % (auto) 3.1 %; Monocytes # (auto) 0.39 K/uL (0.11-0.59); Monocytes % (auto) 3.6 %; Neutrophils % (auto) 89.9 %; Polychromasia 1+
--- NOTE | 2023-03-31 07:03 | Hospitalist Progress Note ---
Date of Service March 31, 2023 Assessment & Plan (1) Multifocal pneumonia: Plan Mr. Mariscal is a 77-year-old male with a past medical history including small cell lung cancer, status post AAA repair, hyperlipidemia, GERD, CKD, emphysema, Peyronie's disease, SNHL, Helicobacter infection history, nicotine dependence, diverticulitis, BPH with LUTS, and lumbar back pain with radiculopathy. Patient presented to the emergency department after 4 days of progressive weakness, shortness of breath, dyspnea on exertion and decreased oral intake. Multifocal pneumonia with Sepsis -CT A/P: infiltrates of upper and lower lobes of left lung -Transitioned from Cefepime to Ceftriaxone, continue Azithromycin for anti- inflammatory -Blood Cultures growing probably haemophilus species. Further sensitivities pending. -Supplemental oxygen, currently on 2-5L -Continue supportive care, pulmonary toilet Paroxysmal Atrial Fibrillation -On arrival appears he was in A-fib and now sinus. -Currently rate controlled, d/c heparin drip and stared Lovenox 40 daily Acute kidney injury superimposed on CKD: -Due to above, superimposed on baseline CKD 3. Improved already. -Monitor daily BMP, encourage increased PO intake Constipation -Poor PO intake and history of chronic constipation -Started bowel regimen with Miralax, Senakot. Can increase Miralax significantly if needed. 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 no complaints of dyspnea. is weak and wants to get up more but also is upset with staff who are concerned about fall risk and don't want him up without assistance yet. tried to discuss the balance between moving as much as he can to get stronger but not doing things beyond his ability to be independent yet and putting himself at risk Multifocal pneumonia with sepsis (heart rate/respiratory rate) and acute hypoxic respiratory failure (treated and improving) present on admissiondue to haemophiluswith subsequent bacteremiafortunately does not appear to be improving. Continue ceftriaxone and supportive care. showing suprisingly good improvement A-fib/RVRonce I was able to review rhythm strips going back to admission, it does appear consistent with A-fib/RVR for the first hour or 2 he was in the hospitalnow sinusrates are controlled. Will require chronic anticoagulation. PT/OT eval and treat - right now looks like he would need rehab, but hopefully will show progress Otherwise as above Subjective Overnight patient became increasingly concerned about his bowel regimen and requested an enema "so that he could eat." Patient was seen and examined at bedside, he expresses concern that he is going to get weak from sitting in the bed all day. Review of Systems Review of Systems: As per above Physical Exam Constitutional: comfortable; no acute distress Eyes: + anicteric sclerae; no conjunctival abn ormality ENMT: Ears: + hearing impairment; no external ear abnormality Nose: no external nose abnormality Respiratory: normal respiratory effort; no respiratory distress and does not use accessory muscles Auscultation: + diminished lung sounds and + rhonchi Gastrointestinal (Abdomen): Inspection/Auscultation: abdomen not distended Percussion/Palpation: abdomen soft; abdomen nontender and no guarding Skin: no rashes, warm and dry Psychiatric: A+Ox3, euthymic affect Results & Data Results & Data Vital Signs (Past 12 Hours) Vital Signs Temp Pulse Pulse Resp BP BP Pulse Ox 03/31/23 04:11 61 03/31/23 03:00 36.5 C 62 18 117/73 92 03/30/23 22:57 36.5 C 70 18 109/67 98 03/30/23 20:01 03/30/23 19:47 36.5 C 65 18 109/71 93 O2 Del Method O2 Flow Rate 03/31/23 04:11 03/31/23 03:00 Nasal Cannula 3 03/30/23 22:57 CPAP 03/30/23 20:01 Nasal Cannula 2 03/30/23 19:47 Nasal Cannula 2 Resident Activity Tracking Resident Involvement: Resident Care Provided Care Provided: Adult [facility] Medicine
[2023-03-31] MEDS: ALBUT/IPRATROP 3MG/0.5MG NEB 3 ML VIAL NEB SCH ×4 (08:10→19:54)
[2023-03-31] MEDS: SENNA 8.6 MG TAB PO SCH (09:11)
[2023-03-31] MEDS: POLYETHYLENE (MIRALAX) 17 GM PACK PO SCH ×2 (09:11→20:06)
[2023-03-31] MEDS: PANTOprazole 40 MG in SYRINGE 0 ML IV SCH (11:33)
--- NOTE | 2023-03-31 15:21 | Billing Data ---
Date of Service March 31, 2023 Coding Level of Care Code 91769 SUB INP/OBS CARE
[2023-03-31] MEDS: ENOXAPARIN INJ 40 MG/0.4 ML SYR SQ SCH (17:14)
[2023-03-31] MEDS: ACETAMINOPHEN 325 MG TAB PO PRN (18:35)
[2023-03-31] MEDS: AZITHROMYCIN 500 MG in DEXTROSE 5% 250 ML IV SCH (20:04)
[2023-03-31] MEDS: cefTRIAXone SODIUM 2,000 MG in DEXTROSE 5 % MINI-B 50 ML IV SCH (20:04)
[2023-04-01] MEDS: ALBUT/IPRATROP 3MG/0.5MG NEB 3 ML VIAL NEB SCH ×4 (06:23→19:32)
[2023-04-01 06:52] LABS: Hematocrit (blood only) 32.6 % (42.0-52.0); Hemoglobin 10.8 g/dl (14.0-18.0); Mean Corpuscular Hgb Conc 33.1 g/dL (32.0-36.0); Mean Corpuscular Volume 87.6 fL (80.0-100.0); Nucleated RBC # (auto) 0.02 K/uL (0.00-0.12); Nucleated RBC % (auto) 0.2 %; Platelet Count 130 K/uL (130-400); RDW Coefficient of Variation 16.5 % (11.5-14.5); RDW Standard Deviation 53.4 fL (36.4-46.3); Red Blood Count 3.72 M/uL (4.70-6.10)
[2023-04-01 07:17] LABS: Acanthocytes 1+; Basophils # (auto) 0.06 K/uL (0.00-0.20); Basophils % (auto) 0.5 %; Echinocytes 1+; Immature Granulocytes # (auto) 0.53 K/uL (0.01-0.20); Immature Granulocytes % (auto) 4.7 %; Lymphocytes # (auto) 0.38 K/uL (1.20-3.40); Lymphocytes % (auto) 3.4 %; Monocytes # (auto) 0.66 K/uL (0.11-0.59); Monocytes % (auto) 5.9 %; Neutrophils # (auto) 9.57 K/uL (1.40-6.50); Neutrophils % (auto) 85.5 %
[2023-04-01 07:22] LABS: Anion Gap 7 (3-11); BUN Creatinine Ratio 47.5 (10-20); Blood Urea Nitrogen 58 mg/dl (6-23); Calcium 8.2 mg/dl (8.6-10.3); Carbon Dioxide 26 mmol/L (21-32); Chloride 102 mmol/L (98-107); Creatinine Clr Calc Pharmacy 50.7 ml/min; Glucose 149 mg/dl (70-99(Fasting)); Sodium 135 mmol/L (136-145)
--- NOTE | 2023-04-01 07:23 | Hospitalist Progress Note ---
Date of Service April 01, 2023 Assessment & Plan (1) Multifocal pneumonia: Plan Mr. Mariscal is a 77-year-old male with a past medical history including small cell lung cancer, status post AAA repair, hyperlipidemia, GERD, CKD, emphysema, Peyronie's disease, SNHL, Helicobacter infection history, nicotine dependence, diverticulitis, BPH with LUTS, and lumbar back pain with radiculopathy. Patient presented to the emergency department after 4 days of progressive weakness, shortness of breath, dyspnea on exertion and decreased oral intake. Multifocal pneumonia with Sepsis -CT A/P: infiltrates of upper and lower lobes of left lung -Transitioned from Cefepime to Ceftriaxone, continue Azithromycin for anti- inflammatory function -Blood Cultures growing haemophilus influenza betalactamase negative -Planning for 10 day total course of antibiotics- will transition to Cefdinir 300 BID to finish course -Supplemental oxygen, currently on 3L -2 step completed today- likely will need home oxygen (3L at rest and 6L with activity). CM aware. -Continue supportive care, pulmonary toilet Paroxysmal Atrial Fibrillation -On arrival appears he was in A-fib and now sinus. -Currently rate controlled, d/c heparin drip and started Lovenox 40 daily -Will need longterm anticoagulation at discharge Acute kidney injury superimposed on CKD: -Due to above, superimposed on baseline CKD 3. Improved back to baseline. -Monitor daily BMP, encourage increased PO intake Constipation -Poor PO intake and history of chronic constipation -Started bowel regimen with Miralax, Senakot. Can increase Miralax significantly if needed. 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 Attempted to stepunfortunately he was barely able to maintain 90% on 6 L. Otherwise no new complaints. Vitals noted, in general he is awake and alert pleasant no distress. Fairly hard of hearing. Breathing unlabored no accessory muscle use good effort. Skin shows no rashes no pallor or icterus. Neuro without focal deficits. Multifocal pneumonia with sepsis (heart rate/respiratory rate) and acute hypoxic respiratory failure (treated and improving) present on admissiondue to haemophiluswith subsequent bacteremiafortunately does not appear to be improving. Continue ceftriaxone and supportive care. Continues to improve nicelythought about home todaybut unfortunately his oxygen requirements are still enough that I do not think it would really be safe with what home equipment could provide quite yet. A-fib/RVRonce I was able to review rhythm strips going back to admission, it does appear consistent with A-fib/RVR for the first hour or 2 he was in the hospitalnow sinusrates are controlled. Will require chronic anticoagulation. Discussed this today PT/OT eval and treat - he does not want rehab Otherwise as above Subjective Patient seen and examined at bedside. Patient is eager to get home soon and wants to get up and moving. Review of Systems Review of Systems: As per above Physical Exam Constitutional: comfortable; no acute distress Eyes: + anicteric sclerae; no conjunctival abn ormality ENMT: Ears: + hearing impairment; no external ear abnormality Nose: no external nose abnormality Respiratory: normal respiratory effort; no respiratory distress and does not use accessory muscles Auscultation: + diminished lung sounds and + rhonchi Gastrointestinal (Abdomen): Inspection/Auscultation: abdomen not distended Percussion/Palpation: abdomen soft; abdomen nontender and no guarding Skin: no rashes, warm and dry Psychiatric: A+Ox3, euthymic affect Results & Data Results & Data Vital Signs (Past 12 Hours) Vital Signs Temp Pulse Pulse Resp BP BP Pulse Ox 04/01/23 06:23 67 18 92 04/01/23 04:11 36.4 C L 60 22 161/67 H 95 03/31/23 23:52 36.3 C L 59 L 20 117/74 94 03/31/23 23:00 61 03/31/23 21:05 03/31/23 20:29 36.5 C 58 L 22 137/81 96 03/31/23 19:54 61 18 94 O2 Del Method O2 Flow Rate 04/01/23 06:23 Nasal Cannula 2 04/01/23 04:11 Nasal Cannula 2 03/31/23 23:52 Nasal Cannula 2 03/31/23 23:00 03/31/23 21:05 Nasal Cannula 3 03/31/23 20:29 Nasal Cannula 2 03/31/23 19:54 Nasal Cannula 2 Resident Activity Tracking Resident Involvement: Resident Care Provided Care Provided: Adult Hospital Medicine
[2023-04-01] MEDS: methylPREDNISolone 40 MG in SYRINGE 0 ML IV SCH (08:40)
[2023-04-01] MEDS: SENNA 8.6 MG TAB PO SCH (08:40)
[2023-04-01] MEDS: POLYETHYLENE (MIRALAX) 17 GM PACK PO SCH ×2 (08:41→20:57)
[2023-04-01] MEDS: PANTOprazole 40 MG TAB PO SCH (08:41)
[2023-04-01] MEDS: ENOXAPARIN INJ 40 MG/0.4 ML SYR SQ SCH (17:00)
--- NOTE | 2023-04-01 20:05 | Billing Data ---
Date of Service April 01, 2023 Coding Level of Care Code 41809 SUB INP/OBS CARE
[2023-04-01] MEDS: cefTRIAXone SODIUM 2,000 MG in DEXTROSE 5 % MINI-B 50 ML IV SCH (20:55)
[2023-04-01] MEDS: AZITHROMYCIN 500 MG in DEXTROSE 5% 250 ML IV SCH (21:38)
[2023-04-02 06:36] LABS: Hematocrit (blood only) 31.9 % (42.0-52.0); Hemoglobin 11.1 g/dl (14.0-18.0); Mean Corpuscular Hemoglobin 29.6 pg (25.0-34.0); Mean Corpuscular Hgb Conc 34.8 g/dL (32.0-36.0); Mean Corpuscular Volume 85.1 fL (80.0-100.0); Mean Platelet Volume 9.6 fL (9.4-12.4); Platelet Count 128 K/uL (130-400); RDW Coefficient of Variation 16.7 % (11.5-14.5); RDW Standard Deviation 51.9 fL (36.4-46.3); Red Blood Count 3.75 M/uL (4.70-6.10); White Blood Count 11.58 K/ul (4.8-10.8)
[2023-04-02 06:53] LABS: BUN Creatinine Ratio 42.2 (10-20); Calcium 8.3 mg/dl (8.6-10.3); Creatinine Clr Calc Pharmacy 60.6 ml/min; Est GFR (African American) 80.6 ml/min; Est GFR (Non-African American) 69.6 ml/min; Potassium 4.2 mmol/L (3.5-5.1)
[2023-04-02 07:00] LABS: Basophils # (auto) 0.05 K/uL (0.00-0.20); Basophils % (auto) 0.4 %; Eosinophils # (auto) 0.03 K/uL (0.00-0.50); Eosinophils % (auto) 0.3 %; Immature Granulocytes # (auto) 1.08 K/uL (0.01-0.20); Immature Granulocytes % (auto) 9.3 %; Lymphocytes # (auto) 0.72 K/uL (1.20-3.40); Lymphocytes % (auto) 6.2 %; Monocytes # (auto) 0.59 K/uL (0.11-0.59); Monocytes % (auto) 5.1 %; Neutrophils # (auto) 9.11 K/uL (1.40-6.50); Neutrophils % (auto) 78.7 %
[2023-04-02] MEDS: ALBUT/IPRATROP 3MG/0.5MG NEB 3 ML VIAL NEB SCH ×4 (07:13→19:39)
--- NOTE | 2023-04-02 07:20 | Hospitalist Progress Note ---
Date of Service April 02, 2023 Assessment & Plan (1) Multifocal pneumonia: Plan Mr. Mariscal is a 77-year-old male with a past medical history including small cell lung cancer, status post AAA repair, hyperlipidemia, GERD, CKD, emphysema, Peyronie's disease, SNHL, Helicobacter infection history, nicotine dependence, diverticulitis, BPH with LUTS, and lumbar back pain with radiculopathy. Cuurently being treated for gram negative bacteremia secondary to PNA. Multifocal pneumonia with Sepsis -CT A/P: infiltrates of upper and lower lobes of left lung -Transitioned from Cefepime to Ceftriaxone, continue Azithromycin for anti- inflammatory function -Blood Cultures growing haemophilus influenza betalactamase negative -Planning for 10 day total course of antibiotics- will transition to Cefdinir 300 BID to finish course. Final day 04/07 -Supplemental oxygen, currently on 3L -2 step completed 04/02- likely will need home oxygen. CM aware. - With activity oxygen requirement currently greater than 6L -Continue supportive care, pulmonary toilet Paroxysmal Atrial Fibrillation -On arrival appears he was in A-fib and now sinus. -Currently rate controlled, d/c heparin drip and started Lovenox 40 daily -Will need care home anticoagulation at discharge Acute kidney injury superimposed on CKD: -Due to above, superimposed on baseline CKD 3. Improved back to baseline. -Monitor daily BMP, encourage increased PO intake Constipation -Poor PO intake and history of chronic constipation -Started bowel regimen with Miralax, Senakot. Can increase Miralax significantly if needed. 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 Vitals noted, resting comfortably appears in NAD but on 3-4L O2 at rest Multifocal pneumonia with sepsis (heart rate/respiratory rate) and acute hypoxic respiratory failure (treated and improving) present on admissiondue to haemophiluswith subsequent bacteremiafortunately does not appear to be improving. Continue ceftriaxone and supportive care. Continues to improve nicelythought about home todaybut unfortunately his oxygen requirements continue to be enough that I do not think it would really be safe with what home equipment could provide quite yet. A-fib/RVRonce I was able to review rhythm strips going back to admission, it does appear consistent with A-fib/RVR for the first hour or 2 he was in the hospitalnow sinusrates are controlled. Will require chronic anticoagulation. Discussed this 04/01 PT/OT eval and treat - he does not want rehab Otherwise as above Subjective Doing well this morning. No new complaints. Anxious to leave. Review of Systems Review of Systems: As per above Physical Exam Physical Exam: Constitutional: well-appearing, no acute distress HEENT: NCAT, no conjunctival injection CV: regular rhythm, no murmur appreciated, extremities well-perfused, no LE edema Resp: no increased work of breathing, diminished breath sounds/rhonchi in bases GI: soft, nondistended, nontender MSK: no gross deformities appreciated Skin: warm, dry, no rash appreciated Neuro: alert, oriented, no focal neurologic deficit appreciated Results & Data Results & Data Vital Signs (Past 12 Hours) Vital Signs Temp Pulse Pulse Resp BP Pulse Ox O2 Del Method 04/02/23 07:14 63 18 92 Nasal Cannula 04/02/23 03:29 36.7 C 61 21 153/97 H 95 Nasal Cannula 04/01/23 22:52 36.8 C 61 20 118/64 92 Nasal Cannula 04/01/23 21:55 61 04/01/23 21:30 Nasal Cannula 04/01/23 19:33 68 18 94 Nasal Cannula 04/01/23 19:30 36.4 C L 62 22 151/86 H 94 Nasal Cannula O2 Flow Rate 04/02/23 07:14 4 04/02/23 03:29 3 04/01/23 22:52 3 04/01/23 21:55 04/01/23 21:30 3 04/01/23 19:33 3 04/01/23 19:30 3 Resident Activity Tracking Resident Involvement: Resident Care Provided Care Provided: Adult Hospital Medicine
[2023-04-02] MEDS: POLYETHYLENE (MIRALAX) 17 GM PACK PO SCH ×2 (08:03→21:17)
[2023-04-02] MEDS: SENNA 8.6 MG TAB PO SCH (08:04)
[2023-04-02] MEDS: methylPREDNISolone 40 MG in SYRINGE 0 ML IV SCH (08:45)
[2023-04-02] MEDS: PANTOprazole 40 MG TAB PO SCH (08:45)
[2023-04-02] MEDS: ACETAMINOPHEN 325 MG TAB PO PRN (13:47)
--- NOTE | 2023-04-02 16:48 | Billing Data ---
Date of Service April 02, 2023 Coding Level of Care Code 21351 SUB INP/OBS CARE
[2023-04-02] MEDS: ENOXAPARIN INJ 40 MG/0.4 ML SYR SQ SCH (17:13)
[2023-04-02] MEDS: cefTRIAXone SODIUM 2,000 MG in DEXTROSE 5 % MINI-B 50 ML IV SCH (21:39)
[2023-04-02] MEDS: AZITHROMYCIN 500 MG in DEXTROSE 5% 250 ML IV SCH (22:22)
[2023-04-03] MEDS: ALBUT/IPRATROP 3MG/0.5MG NEB 3 ML VIAL NEB SCH ×5 (04:47→19:42)
[2023-04-03] MEDS: ACETAMINOPHEN 325 MG TAB PO PRN ×2 (04:49→23:35)
[2023-04-03 06:46] LABS: Hematocrit (blood only) 37.1 % (42.0-52.0); Hemoglobin 12.1 g/dl (14.0-18.0); Mean Corpuscular Hemoglobin 28.9 pg (25.0-34.0); Mean Corpuscular Hgb Conc 32.6 g/dL (32.0-36.0); Mean Corpuscular Volume 88.8 fL (80.0-100.0); Mean Platelet Volume 10.3 fL (9.4-12.4); Nucleated RBC # (auto) 0.02 K/uL (0.00-0.12); Nucleated RBC % (auto) 0.2 %; Platelet Count 146 K/uL (130-400); RDW Coefficient of Variation 16.7 % (11.5-14.5); RDW Standard Deviation 54.5 fL (36.4-46.3); Red Blood Count 4.18 M/uL (4.70-6.10)
--- NOTE | 2023-04-03 06:49 | Hospitalist Progress Note ---
Date of Service April 03, 2023 Assessment & Plan (1) Multifocal pneumonia: Plan Mr. Mariscal is a 77-year-old male with a past medical history including small cell lung cancer, status post AAA repair, hyperlipidemia, GERD, CKD, emphysema, Peyronie's disease, SNHL, Helicobacter infection history, nicotine dependence, diverticulitis, BPH with LUTS, and lumbar back pain with radiculopathy. Cuurently being treated for gram negative bacteremia secondary to PNA. Multifocal pneumonia with Sepsis -CT A/P: infiltrates of upper and lower lobes of left lung -Transitioned from Cefepime to Ceftriaxone, continue Azithromycin for anti- inflammatory function -Blood Cultures growing haemophilus influenza betalactamase negative -Planning for 10 day total course of antibiotics- will transition to Cefdinir 300 BID to finish course. Final day 04/07 -Supplemental oxygen, currently on 4L -2 step completed 04/02- likely will need home oxygen. CM aware. - With activity oxygen requirement currently greater than 6L - On BiPap for a period morning 04/03 for desaturation, likely mucus plugging. If he desaturates again would try high flow nasal canula prior to BiPap. -Continue supportive care, pulmonary toilet Paroxysmal Atrial Fibrillation -On arrival appears he was in A-fib and now sinus. -Currently rate controlled, d/c heparin drip and started Lovenox 40 daily -Will need [facility]p anticoagulation at discharge Acute kidney injury superimposed on CKD: -Due to above, superimposed on baseline CKD 3. Improved back to baseline. -Monitor daily BMP, encourage increased PO intake Constipation -Poor PO intake and history of chronic constipation -Started bowel regimen with Miralax, Senakot. Can increase Miralax significantly if needed. 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 Family present, updated to the best my ability and answered all the questions to the best my ability and to their satisfaction. Vitals noted, in general he is awake and alert pleasant no distress. HEENT normocephalic atraumatic mucous membranes moist. Breathing unlabored no accessory muscle use good effort. Skin shows no rashes no pallor or icterus. Neuro without focal deficits outside of hard of hearing. Multifocal pneumonia with sepsis (heart rate/respiratory rate) and acute hypoxic respiratory failure (treated and improving) present on admissiondue to haemophiluswith subsequent bacteremiafortunately does not appear to be improving. Continue ceftriaxone and supportive care. Oxygen set up for homeactually his concentrator they set him up with does go up to 6 L, so mostly at this point just need to see him 24 hours without a significant setback before he can go home. Patient/family expressed understanding. A-fib/RVRonce I was able to review rhythm strips going back to admission, it does appear consistent with A-fib/RVR for the first hour or 2 he was in the hospitalnow sinusrates are controlled. Will require chronic anticoagulation. Discussed this / PT/OT eval and treat - he does not want rehab Otherwise as above Subjective Seen at bedside this morning, states that he feels similar to prior days. No new complaints. Review of Systems Review of Systems: As per above Physical Exam Physical Exam: Constitutional: well-appearing, no acute distress HEENT: NCAT, no conjunctival injection CV: regular rhythm, no murmur appreciated, extremities well-perfused, no LE edema Resp: no increased work of breathing, diminished breath sounds/rhonchi in bases GI: soft, nondistended, nontender MSK: no gross deformities appreciated Skin: warm, dry, no rash appreciated Neuro: alert, oriented, no focal neurologic deficit appreciated Results & Data Results & Data Vital Signs (Past 12 Hours) Vital Signs Temp Pulse Pulse Resp BP BP Pulse Ox 04/03/23 05:22 58 L 24 96 04/03/23 04:56 60 30 H 143/84 H 93 04/03/23 04:53 87 L 04/03/23 04:47 76 32 H 85 L 04/03/23 04:39 85 L 04/03/23 03:35 37.2 C 60 22 152/92 H 93 04/02/23 22:49 36.6 C 62 20 134/83 95 04/02/23 21:54 69 04/02/23 21:10 04/02/23 19:40 63 18 96 04/02/23 19:24 36.3 C L 60 20 142/84 H 95 O2 Del Method O2 Flow Rate FiO2 04/03/23 05:22 50 04/03/23 04:56 Oxymask 8 04/03/23 04:53 Nasal Cannula, Oxymask 6 04/03/23 04:47 Nasal Cannula 6 04/03/23 04:39 Nasal Cannula 3 04/03/23 03:35 Nasal Cannula 4 04/02/23 22:49 Nasal Cannula 4 04/02/23 21:54 04/02/23 21:10 Nasal Cannula 4 04/02/23 19:40 Nasal Cannula 4 04/02/23 19:24 Nasal Cannula 4 Resident Activity Tracking Resident Involvement: Resident Care Provided Care Provided: Adult Hospital Medicine
[2023-04-03 07:05] LABS: ALC (manual) 0.96 K/uL (1.2-3.4); ANC (manual) 8.99 K/uL (1.4-6.5); Eosinophils # (manual) 0.11 K/uL (0-0.50); Eosinophils % (manual) 1 %; Lymphocytes # (manual) 0.96 K/uL (1.2-3.4); Lymphocytes % (manual) 9 %; Metamyelocytes # (manual) 0.21 K/uL (0-0); Metamyelocytes % (manual) 2 %; Monocytes # (manual) 0.32 K/uL (0.11-0.59); Monocytes % (manual) 3 %; Myelocytes # (manual) 0.11 K/uL (0-0); Myelocytes % (manual) 1 %; Neutrophils # (manual) 8.99 K/uL (1.40-6.50); Neutrophils % (manual) 84 %; RBC Morphology Unremarkable
[2023-04-03 07:14] LABS: Calcium 8.3 mg/dl (8.6-10.3); Creatinine Clr Calc Pharmacy 56.7 ml/min; Est GFR (African American) 74.4 ml/min; Est GFR (Non-African American) 64.2 ml/min; Potassium 4.5 mmol/L (3.5-5.1)
[2023-04-03] MEDS: PANTOprazole 40 MG TAB PO SCH (09:03)
[2023-04-03] MEDS: methylPREDNISolone 40 MG in SYRINGE 0 ML IV SCH (09:03)
[2023-04-03] MEDS: POLYETHYLENE (MIRALAX) 17 GM PACK PO SCH ×2 (09:03→20:12)
[2023-04-03] MEDS: SENNA 8.6 MG TAB PO SCH (09:04)
[2023-04-03] MEDS: ENOXAPARIN INJ 40 MG/0.4 ML SYR SQ SCH (18:10)
--- NOTE | 2023-04-03 19:53 | Billing Data ---
Date of Service April 03, 2023 Coding Level of Care Code 53095 SUB INP/OBS CARE
[2023-04-03] MEDS: cefTRIAXone SODIUM 2,000 MG in DEXTROSE 5 % MINI-B 50 ML IV SCH (20:12)
[2023-04-03] MEDS: AZITHROMYCIN 500 MG in DEXTROSE 5% 250 ML IV SCH (20:46)
[2023-04-04] MEDS: ALBUT/IPRATROP 3MG/0.5MG NEB 3 ML VIAL NEB SCH ×4 (07:21→20:17)
[2023-04-04 07:25] LABS: Hematocrit (blood only) 35.8 % (42.0-52.0); Hemoglobin 12.4 g/dl (14.0-18.0); Mean Corpuscular Hemoglobin 29.7 pg (25.0-34.0); Mean Corpuscular Hgb Conc 34.6 g/dL (32.0-36.0); Mean Corpuscular Volume 85.9 fL (80.0-100.0); Mean Platelet Volume 9.8 fL (9.4-12.4); Platelet Count 166 K/uL (130-400); RDW Coefficient of Variation 16.6 % (11.5-14.5); Red Blood Count 4.17 M/uL (4.70-6.10); White Blood Count 11.34 K/ul (4.8-10.8)
[2023-04-04 07:48] LABS: BUN Creatinine Ratio 34.3 (10-20); Calcium 8.2 mg/dl (8.6-10.3); Creatinine Clr Calc Pharmacy 57.3 ml/min; Est GFR (African American) 75.3 ml/min; Est GFR (Non-African American) 64.9 ml/min; Magnesium 1.9 mg/dl (1.7-2.4); Potassium 4.6 mmol/L (3.5-5.1)
[2023-04-04] MEDS: SENNA 8.6 MG TAB PO SCH (08:10)
[2023-04-04] MEDS: methylPREDNISolone 40 MG in SYRINGE 0 ML IV SCH (08:11)
[2023-04-04] MEDS: POLYETHYLENE (MIRALAX) 17 GM PACK PO SCH ×2 (08:11→20:10)
[2023-04-04] MEDS: PANTOprazole 40 MG TAB PO SCH (08:11)
[2023-04-04 08:28] LABS: ALC (manual) 0.57 K/uL (1.2-3.4); ANC (manual) 9.75 K/uL (1.4-6.5); Eosinophils # (manual) 0.11 K/uL (0-0.50); Eosinophils % (manual) 1 %; Lymphocytes # (manual) 0.57 K/uL (1.2-3.4); Lymphocytes % (manual) 5 %; Metamyelocytes # (manual) 0.34 K/uL (0-0); Metamyelocytes % (manual) 3 %; Monocytes # (manual) 0.45 K/uL (0.11-0.59); Monocytes % (manual) 4 %; Myelocytes # (manual) 0.11 K/uL (0-0); Myelocytes % (manual) 1 %; Neutrophils # (manual) 9.75 K/uL (1.40-6.50); Neutrophils % (manual) 86 %; Polychromasia 1+
[2023-04-04] MEDS: ENOXAPARIN INJ 40 MG/0.4 ML SYR SQ SCH (16:22)
--- NOTE | 2023-04-04 18:35 | Hospitalist Progress Note ---
"Date of Service April 04, 2023 Assessment & Plan (1) Multifocal pneumonia: Plan Mr. Mariscal is a 77-year-old male with a past medical history including small cell lung cancer, COPD, tobacco use status post AAA repair, hyperlipidemia, GERD, CKD, emphysema, Peyronie's disease, SNHL, Helicobacter infection history, nicotine dependence, diverticulitis, BPH with LUTS, and lumbar back pain with radiculopathy. Currently being treated for gram negative bacteremia secondary to PNA. Multifocal pneumonia with Gram Negative Bacteremia | COPD -CT A/P: infiltrates of upper and lower lobes of left lung -Transitioned from Cefepime to Ceftriaxone, continue Azithromycin for anti- inflammatory function -Blood Cultures growing haemophilus influenza betalactamase negative -Planning for 10 day total course of antibiotics- will transition to Cefdinir 300 BID to finish course. Final day 04/07 -Supplemental oxygen, currently on 3-6L -2 step completed 04/02- likely will need home oxygen. 2 step repeated again on 04/04 due to delay in discharge, oxygen requirement remains the same -With activity oxygen requirement currently greater than 6L -On BiPap for a period morning 04/03 for desaturation, likely mucus plugging. If he desaturates again would try high flow nasal canula prior to BiPap. -Continue supportive care, pulmonary toilet Paroxysmal Atrial Fibrillation -On arrival appears he was in A-fib and now sinus. -Currently rate controlled, d/c heparin drip and started Lovenox 40 daily -Will need mcfp anticoagulation at discharge, anticipate Eliquis 5mg BID Acute kidney injury superimposed on CKD: -Due to above, superimposed on baseline CKD 3. Improved back to baseline. -Monitor daily BMP, encourage increased PO intake Constipation -Poor PO intake and history of chronic constipation -Started bowel regimen with Miralax, Senakot. Can increase Miralax significantly if needed. 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 denied any complains. sitting in chair and hoping to be discharged soon. Vitals noted, in general he is awake and alert pleasant no distress. HEENT normocephalic atraumatic mucous membranes moist. Breathing unlabored no accessory muscle use good effort. Skin shows no rashes no pallor or icterus. Neuro without focal deficits outside of hard of hearing. Multifocal pneumonia with sepsis (heart rate/respiratory rate) and acute hypoxic respiratory failure (treated and improving) present on admissiondue to haemophiluswith subsequent bacteremia/underlying copd -Continue ceftriaxone - anticipate home on cefdinir. -d/c IV steroids - finished 5 days Acute hypoxic resp failure - d/t multifocal pneumonia with underlying copd, lung resection, radiation fibrosis. -Oxygen set up for home A-fib/RVR during first hour or 2 he was in the hospitalnow sinusrates are controlled. start eliquis. PT/OT eval and treat - he does not want rehab [place] Otherwise as above Subjective Patient seen and examined at bedside. Nursing notes he will have some desaturations but recovers quickly. Hopeful to discharge soon. Review of Systems Review of Systems: As per above Physical Exam Constitutional: comfortable; no acute distress Eyes: + anicteric sclerae; no conjunctival abn ormality ENMT: Ears: + hearing impairment; no external ear abnormality Nose: no external nose abnormality Respiratory: normal respiratory effort; no respiratory distress and does not use accessory muscles Auscultation: + diminished lung sounds and + rhonchi Cardiovascular: Limbs appear well perfused Gastrointestinal (Abdomen): Inspection/Auscultation: abdomen not distended Skin: no rashes, warm and dry Psychiatric: A+Ox3, euthymic affect Results & Data Results & Data Vital Signs (Past 12 Hours) Vital Signs Temp Pulse Pulse Pulse Pulse Pulse Pulse 04/04/23 17:17 82 88 86 74 04/04/23 15:23 65 04/04/23 14:39 36.5 C 65 04/04/23 14:03 75 04/04/23 11:20 64 04/04/23 10:59 36.3 C L 65 04/04/23 08:20 04/04/23 07:30 36.7 C 60 04/04/23 07:22 60 04/04/23 07:13 63 Pulse Pulse Resp Resp Resp Resp Resp 04/04/23 17:17 72 78 20 22 20 18 04/04/23 15:23 18 04/04/23 14:39 17 04/04/23 14:03 04/04/23 11:20 16 04/04/23 10:59 20 04/04/23 08:20 04/04/23 07:30 20 04/04/23 07:22 20 04/04/23 07:13 Resp Resp BP Pulse Ox Pulse Ox Pulse Ox Pulse Ox 04/04/23 17:17 18 18 81 L 86 L 90 04/04/23 15:23 95 04/04/23 14:39 107/70 94 04/04/23 14:03 04/04/23 11:20 95 04/04/23 10:59 114/72 92 04/04/23 08:20 04/04/23 07:30 134/84 99 04/04/23 07:22 96 04/04/23 07:13 Pulse Ox Pulse Ox Pulse Ox O2 Del Method O2 Flow Rate O2 Flow Rate O2 Flow Rate 04/04/23 17:17 87 L 90 86 L 3 4 04/04/23 15:23 Nasal Cannula 6 04/04/23 14:39 Nasal Cannula 3 04/04/23 14:03 04/04/23 11:20 Nasal Cannula 3 04/04/23 10:59 Nasal Cannula 3 04/04/23 08:20 Nasal Cannula 4 04/04/23 07:30 Nasal Cannula 3 04/04/23 07:22 Nasal Cannula 3 04/04/23 07:13 O2 Flow Rate O2 Flow Rate O2 Flow Rate 04/04/23 17:17 6 2 3 04/04/23 15:23 04/04/23 14:39 04/04/23 14:03 04/04/23 11:20 04/04/23 10:59 04/04/23 08:20 04/04/23 07:30 04/04/23 07:22 04/04/23 07:13 Resident Activity Tracking Resident Involvement: Resident Care Provided Care Provided: Adult Hospital Medicine"
[2023-04-04] MEDS: cefTRIAXone SODIUM 2,000 MG in DEXTROSE 5 % MINI-B 50 ML IV SCH (20:10)
[2023-04-04] MEDS: AZITHROMYCIN 500 MG in DEXTROSE 5% 250 ML IV SCH (20:58)
[2023-04-05 06:20] LABS: Creatinine Clr Calc Pharmacy 59.5 ml/min; Est GFR (African American) 78.8 ml/min
[2023-04-05] MEDS: ALBUT/IPRATROP 3MG/0.5MG NEB 3 ML VIAL NEB SCH ×2 (06:21→11:46)
[2023-04-05] MEDS: SENNA 8.6 MG TAB PO SCH (08:46)
[2023-04-05] MEDS: PANTOprazole 40 MG TAB PO SCH (08:46)
[2023-04-05] MEDS: POLYETHYLENE (MIRALAX) 17 GM PACK PO SCH (08:47)
[2023-04-05] MEDS ORDERED: APIXABAN 5 MG TABLET PO SCH (09:00)
--- NOTE | 2023-04-05 09:59 | Discharge Summary ---
Date of Service April 05, 2023 Admission HPI Per Admitting Provider The patient is a 77-year-old male with a past medical history including small cell lung cancer, status post AAA repair, hyperlipidemia, GERD, CKD, emphysema, Peyronie's disease, SNHL, Helicobacter infection history, nicotine dependence, diverticulitis, BPH with LUTS, and lumbar back pain with radiculopathy. Patient was finally convinced by his , the emergency department after 4 days of progressive weakness, shortness of breath, dyspnea on exertion and decreased oral intake. She reports that he is been sitting on the sofa over the past 4 days. The patient's contributes most of the HPI and review of systems, as the patient is noted to be too short of breath, even with BiPAP on to contribute. Admission Exam Per Admitting Provider The patient is awake, mildly confused well developed and well nourished, normocephalic and atraumatic, lying in bed and in no acute distress. HEENT--PERRL, EOMI, mucous membranes and oropharynx dry. Neck--supple. No JVD. No bruits. Thyroid normal, trachea midline, no adenopathy. Heart--normal S1 and S2. No murmurs, rubs or gallops. Lungs--coarse breath sounds bilaterally, left worse than right. Mild to moderate respiratory distress with accessory muscle use. Abdomen--normal bowel sounds and soft. Nontender. Nondistended, no hernias or masses, no organomegaly. Extremities--no cyanosis or clubbing. No edema. Dermatologic--normal skin turgor, normal color, no abnormal lymph nodes, no rash. Neurologic--cranial nerves II through XII grossly intact. Rheumatologic--normal range of motion. Psychiatric--normal affect. Principal Diagnosis Pneumonia Discharge Exam Constitutional comfortable; no acute distress Eyes + anicteric sclerae; no conjunctival abnormality ENMT Ears: + hearing impairment; no external ear abnormality Nose: no external nose abnormality Respiratory normal respiratory effort; no respiratory distress and does not use accessory m uscles Auscultation: + diminished lung sounds and + rhonchi Cardiovascular Rate/Rhythm: regular rate and regular rhythm Gastrointestinal (Abdomen) Inspection/Auscultation: abdomen not distended Percussion/Palpation: abdomen soft; abdomen nontender and no guarding Skin no rashes, warm and dry Psychiatric A+Ox3, euthymic affect Discharge Data Allergies Allergy/AdvReac Type Severity Reaction Status Date / Time morphine Allergy Intermediate Sweating, Verified 03/28/23 21:05 "thought I was dying", dyspnea pravastatin Allergy Intermediate dizziness Verified 03/28/23 21:05 and myalgia Consultations 03/28/23 21:37 ED Decision to Admit Stat Ordered Studies 03/28/23 21:56 CT chest diagnostic wo con Stat Chest X-Ray 03/28/23 20:20 SINGLE VIEW CHEST CLINICAL HISTORY: Dyspnea FINDINGS: An AP, portable, upright chest radiograph is compared to study dated 02/08/2022 and correlated with chest CT dated 03/10/2023. The heart is enlarged noting atherosclerotic calcification of the thoracic aorta. The pulmonary vasculature is noncongested. Emphysema is again noted with postsurgical change an scarring in the left upper lung. There is multifocal airspace consolidation throughout the left lung which is new from previous. Scarring/atelectasis is noted at the right lung base. No large pleural effusion or pneumothorax is seen. The skeletal structures are osteopenic. The bony thorax is grossly intact. IMPRESSION: 1. Cardiomegaly and emphysema without radiographic evidence of congestive failure. 2. Multifocal airspace consolidation throughout the left lung is new from previous. Correlate clinically for evidence of pneumonia/aspiration pneumonitis. Radiographic follow-up to resolution is recommended. ACT 112: Negative or not required by law. Electronically signed by: Paolo Katz M.D. 03/29/2023 6:[address] 03/28/23 21:56 Exam(s): CT CHEST Without Contrast EXAM: CT Chest Without Intravenous Contrast CLINICAL HISTORY: Reason for exam: resp failure, ?pna. TECHNIQUE: Axial computed tomography images of the chest without intravenous contrast. CTDI is 15.93 mGy and DLP is 570 mGy-cm. Automated exposure control was utilized for the study. A dose lowering technique was utilized adhering to the principles of ALARA. COMPARISON: CT Chest dated 03/10/23 FINDINGS: Lungs: Centrilobular emphysema. Left upper lobe sutures and associated subpleural scarring and fibrosis as described on the prior. New consolidation within large parts of the left upper and lower lobes. The superior segment lesion described on the prior is mostly obscured. New small patchy areas of airspace disease in the right lower lobe. Stable 4 mm right upper lobe nodule series 4 image 58. Right lower lobe calcified granuloma. Stable mild interstitial thickening and fibrotic changes in the lower lungs. Pleural space: Unremarkable. No pneumothorax. No significant effusion. Heart: Coronary calcifications. No cardiomegaly. No significant pericardial effusion. Mediastinum: Mildly enlarged subcarinal nodes, 13 mm short axis increased since the prior. May be reactive. Bones/joints: Similar appearance of nonacute right posterior eighth and ninth rib fractures. Degenerative changes of the shoulders and spine. No dislocation. Soft tissues: Unremarkable. Vasculature: Aortic calcifications. Stable mildly aneurysmal ascending aorta up to 4.4 cm. 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 Lymph nodes: See above. Upper abdomen: Calcified splenic granulomas. Similar nodule right adrenal gland. IMPRESSION: 1. New consolidation within large parts of the left upper and lower lobes. The superior segment lesion described on the prior is mostly obscured. Correlates with pneumonia. Recommend follow-up. 2. New small patchy areas of airspace disease in the right lower lobe. May also relate to pneumonia. 3. Mildly enlarged subcarinal nodes, 13 mm short axis increased since the prior. May be reactive. Attention on follow-up. 4. Stable mildly aneurysmal ascending aorta up to 4.4 cm. 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 5. Other stable nonacute findings as above. Electronically signed by: Christiano Flowers M.D. 03/29/23 00:54 AM Hospital Course (1) Multifocal pneumonia: Plan Mr. Mariscal is a 77-year-old male with a past medical history including small cell lung cancer, COPD, tobacco use status post AAA repair, hyperlipidemia, GERD, CKD, emphysema, Peyronie's disease, SNHL, Helicobacter infection history, nicotine dependence, diverticulitis, BPH with LUTS, and lumbar back pain with radiculopathy. Currently being treated for gram negative bacteremia secondary to PNA. Multifocal pneumonia with Gram Negative Bacteremia - Haemophilus | COPD CT A/P: infiltrates of upper and lower lobes of left lung. Transitioned from Cefepime to Ceftriaxone. Blood Cultures grew haemophilus influenza betalactamase negative Transitioned to Cefdinir 300 BID to finish course. Final day 04/07. Also received 5 days of steroids. Acute hypoxic resp failure Due to multifocal pneumonia with underlying copd, lung resection, radiation fibrosis. Needed supplemental oxygen. On discharge 3-6L per 2 step. Paroxysmal Atrial Fibrillation On arrival appears he was in A-fib and now sinus, new diagnosis. Currently rate controlled, will need long term care social worker anticoagulation. Started Eliquis 5mg BID Acute kidney injury superimposed on CKD: Due to above, superimposed on baseline CKD 3. Improved back to baseline. Constipation Poor PO intake and history of chronic constipation. Started bowel regimen with Miralax, Senakot. Can increase Miralax significantly if needed. 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 Discharge Plan Discharge Items Patient Disposition: Home - Self-Care Reason For Visit: ACUTE RESP FAILURE WITH HYPOXIA, PNEUMONIA Discharge Diagnosis: Pneumonia, Acute respiratory failure Activity: Per Instructions section Non-emergency contact: Primary Care Provider Call non-emergency contact if: you have any medication questions and your symptoms worsen Follow-up/Referrals: Jesus العلي MD [Primary Care Provider] - 04/12/23 3:00 pm () Diet: Regular Addtl Attending Provider Instructions: You were admitted to the hospital for shortness of breath you were diagnosed with flu and pneumonia. You were treated with antibiotics and supplemental oxygen. Please use oxygen as ordered. A discharge summary will be sent to your primary care physician to ensure continuity of care. Follow-up appointments: Make a follow-up appointment with your PCP within the next week. It is very important that you follow up with them shortly after discharge from the hospital. Keep all your follow-up appointments as already scheduled. If you cannot make an appointment, notify your provider. Medications: Your medication list has been reviewed and reconciled upon discharge to ensure accuracy and continuity of care. An updated list of all your medications is included with your hospital discharge paperwork. Please review this list closely, and make note of any changes. We sent a new medication called Eliquis to your pharmacy. Take Eliquis 5mg one tablet twice daily. This is a "blood thinner" medication that you will need to take due to your new diagnosis of atrial fibrillation. We sent a new medication called Cefdinir to your pharmacy. Take Cefdinir 300mg BID for 3 more days, starting this evening. CALL 911 OR GO TO THE EMERGENCY DEPARTMENT if you experience any of the following: Sudden, severe abdominal pain or nausea/vomiting Severe chest pain, or chest pain that radiates (moves) to your jaw or arm Sudden, severe shortness of breath or difficulty breathing Thank you for allowing us to participate in your care. Pending Studies at Discharge: No Stand-Alone Forms: [facility], Smoking Cessation Medications and DC Order Prescriptions: New Eliquis 5 mg Tablet 5 mg PO BID 30 Days Qty: 60 0RF cefdinir 300 mg capsule 300 mg PO BID 3 Days Qty: 6 0RF Continued omeprazole 20 mg capsule,delayed release(DR/EC) 20 mg PO DAILY PRN (Reason: gerd) Qty: 90 3RF Patient Comments: QAM tramadol 50 mg tablet 50 mg PO Q8H PRN (Reason: pain) Qty: 30 0RF docusate sodium [Stool Softener] 100 mg Capsule 100 mg PO DAILY Metamucil 3.4 gram/5.4 gram Powder 1 tbsp PO DAILY Discharge Orders: Discharge Order (Routine); Ordered 04/05/23 Ordered By: Pattie Ellison Admission Data Admit Date/Time: 03/28/23 23:09 Attending Provider: Radha Garland Admit Provider: Silvino Christianson Primary Care Provider: Jesus العلي Other Providers: Silvino Christianson; Rosendo Ramsay Other Interventions: Discharge Summary Assessment (RN) Last Done: 04/05/23 13:17 Supervising Physician Co-Signing Physician Notes Attending Physician Supervision Note: I independently interviewed and examined the patient and verified the cloud history and physical, reviewed labs and image studies and agree with findings and care plan noted above.
== END 2023-04-05 13:45 | disposition home or self-care (01) | DRG 871 ==
LOC: ED 20:13 → EDINP 23:09 → SUATTDRO 23:09 → 2S 03-29 23:13

== ENCOUNTER 2023-05-20 12:48 | Inpatient (IN) ==
--- NOTE | 2023-05-20 12:58 | Emergency Department Note ---
Impression & Plan Subcapital fracture of right hip ED Provider Note NAME: MONICA SERRANO AGE: 77 SEX: M : 1945 ARRIVES VIA: Ambulance INFORMANT: Patient, EMS ED PROVIDER(S): Kirk Mayer DO CHIEF COMPLAINT: Hip pain HPI: The patient is a 77-year-old male who presented to the emergency department for an evaluation of hip pain. The patient had a fall at his home. He landed onto his right side. The patient was not able to stand. He called 911. The patient does not take blood thinners at this time. He did not strike his head. He denies having any headache or neck pain. He states pain is moderate to severe. Additional history was obtained from the dx board operator. They state the patient had no significant shortening but has pain with any palpation over the right hip. Patient denies having any back pain ROS: See above HPI for pertinent positives & negatives. A total of 10 systems reviewed and were otherwise negative. PAST MEDICAL HISTORY: See Below PAST SURGICAL HISTORY: See Below FAMILY HISTORY: See Below SOCIAL HISTORY: See Below HOME MEDICATIONS: See Below ALLERGIES: See Below VITALS: See Below PHYSICAL EXAMINATION: GENERAL: The patient is awake and alert. He appears anxious and uncomfortable EYES: The conjunctivae are clear. The pupils are round and reactive. EARS, NOSE, MOUTH AND THROAT: The nose is without any evidence of any deformity. NECK: The neck is nontender and supple. RESPIRATORY: Normal respiratory effort is noted there is no evidence of wheezing rhonchi or rales CARDIOVASCULAR: Regular rate and rhythm noted there no murmurs rubs or gallops normal S1 normal S2. GASTROINTESTINAL: The abdomen is soft. Abdomen is nontender. MUSCULOSKELETAL/EXTREMITIES: There was no significant shortening of the right lower extremity however there is pain with any rotational component of the right hip. Pulses were symmetric in both feet SKIN: There is no obvious evidence of any rash. There are no petechiae, pallor or cyanosis noted. NEUROLOGIC: Patient is awake alert and oriented x3 MEDICAL DECISION MAKING: The patient is a 77-year-old male who presented to the emergency department after a fall. The patient fell onto his right side suffering an injury to his right hip. Patient was found to have signs of right hip fracture. I discussed patient's laboratory and radiographic studies with him. He was treated with pain medication in the emergency department. He was reevaluated multiple times. On reevaluation the patient was improved but still had significant pain. I discussed his condition with the on-call [facility] hospitalist as well as the on-call orthopedic surgeon. They have agreed to see the patient in the emergency department for further management and disposition Triage Nursing notes reviewed. Prior medical records reviewed Vital Signs: reviewed and remarkable for no significant abnormalities Differential diagnosis: Fracture, dislocation, neurovascular compromise, compartment syndrome, soft tissue injury, as well as other pathologies. ER treatment provided: See below Diagnostics interpreted by me: ECG: EKG was obtained in the emergency department. My interpretation is normal sinus rhythm at 71 bpm. There is no ectopy. There is no acute ST segment abnormalities noted. This was compared to a tracing from March 30, 2023. No changes were noted Cardiac Monitoring: An order was placed for continuous cardiac monitoring. The monitor shows a rate of 69 bpm with sinus rhythm. Laboratory studies: As stated above and show below. Imaging studies: See below. Radiographic imaging was reviewed by myself Consultation(s): I discussed this case with Dr. Whitfield who is on-call for the [facility] hospitalist group. I discussed this case with Dr. Hawkins who is on-call for orthopedics Past Med/Surg History Medical History History of primary small cell carcinoma of lung Hx of diverticulitis of colon Small cell lung cancer Dx 2017- s/p chemo and XRT Osteoarthritis Hearing deficit Emphysema lung CKD (chronic kidney disease) stage 3, GFR 30-59 ml/min Prediabetes GERD (gastroesophageal reflux disease) Hyperlipidemia Lung cancer (08/09/16) "Incidental finding of a left upper lobe lesion on preoperative chest x-ray Status post bronchoscopy and biopsy 07/09/2016 nondiagnostic Status post left upper lobe wedge resection and lymph node biopsies 08/09/2016 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 Radiation completed 10/29/2016. He received 6000 cGy. Status post completion of prophylactic cranial irradiation 02/13/2017. 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 Radiation completed 10/29/2016. 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 Villanueva) Surgical History History of lung biopsy (04/22/21) Left H/O hemorrhoidectomy (12/22/20) Excision of internal hemorrhoid. Dr. Laird 12-22-2020 H/O abdominal surgery After appe (r/t infection) History of arthroscopic knee surgery History of lung surgery Status post left upper lobe wedge resection and lymph node biopsies (08/09/2016) History of bronchoscopy Status post bronchoscopy and biopsy (2016) History of vascular access device A port insertion/subsequent removal History of hemorrhoidectomy History of revision of total replacement of right knee joint History of total right knee replacement (TKR) History of appendectomy History of colonoscopy (2020) History of tooth extraction all teeth removed History of endoscopic sinus surgery History of endovascular stent graft for abdominal aortic aneurysm (AAA) PEVAR with Dr. Villanueva (2015) Family History Grandmother (Maternal) Family history of diabetes mellitus Uncle Family history of diabetes mellitus Mother Breast cancer Lung cancer Father Stomach cancer Other Asthma Cancer No family history of adverse response to anesthesia No family history of allergies No family history of bleeding disorder Denies family history of Ovarian cancer Prostate cancer Hearing loss Heart disease Myocardial infarction Colorectal cancer Hypertension Stroke Social History Smoking Status: Never smoker Tobacco Type: Cigarettes and Smokeless Tobacco (Dip or Chew) Age Started Using Tobacco: 13; packs per day: 0.25; Cigarettes Per Day: 5-6 PER DAY, quit since being in the hospital 03/2023; Second Hand Exposure: Yes; Do You Dip or Chew Tobacco: Yes (1 can per 4 days ); Hx Alcohol Use: Yes Alcohol type: beer Alcohol Intake Frequency Comment: very rarely Hx Substance Use: No Preferred Language: Japanese Communication Ability: Effective Visual Impairment: Limited Hearing Ability: Use of Hearing Aid Snaker Tractor Driver Required: No Beliefs That Will Affect Care: None marital status: Current Living Situation: Spouse Current Living Situation Comment: with current occupational status: retired 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 Feels Safe at Home: Yes Childhood Exposure to Second-Hand Smoke: Yes Diet: low salt caffeine: Yes during the past year weight has: remained stable Dental Care, Regularly: Yes Physical Activity Frequency: Daily Seatbelt Use: always Sunscreen Use: No Assistive Devices: Cane, Scooter/Electric Scooter, Walker and Wheelchair Allergies Allergies Allergy/AdvReac Type Severity Reaction Status Date / Time morphine Allergy Intermediate Sweating, Verified 05/20/23 14:20 "thought I was dying", dyspnea pravastatin Allergy Intermediate dizziness Verified 05/20/23 14:20 and myalgia Home Meds Home Medications Medication Instructions Recorded Confirmed docusate sodium 100 mg capsule 100 mg PO DAILY PRN hard stool 04/06/23 05/20/23 (Stool Softener) psyllium husk 3.4 gram/5.4 gram 1 tbsp PO DAILY PRN Constipation 04/06/23 05/20/23 oral powder (Metamucil) aspirin 81 mg tablet,delayed 81 mg PO 3XWK 05/17/23 05/20/23 release Previous Rx's Medication Instructions Recorded omeprazole 20 mg capsule,delayed 20 mg PO DAILY PRN gerd #90 caps 11/03/21 release Results & Data (ED) Vital Signs Vital Signs - 24 hr 05/20/23 13:12 05/20/23 13:35 Temperature 36.5 C Temperature Source Oral Pulse Rate 72 69 Respiratory Rate 15 Blood Pressure 135/96 Blood Pressure Mean 109 Blood Pressure Position Lying Pulse Oximetry 96 Oxygen Delivery Method Room Air Sepsis Recent Fever Within 48 Hours No Sepsis New/Unexplained Change in Mental Status No Sepsis Action Taken by Nursing No Action Required Home Medications Current Medication List: was personally reviewed by me Laboratory Data Attestation: I reviewed the patient's lab results. 05/20/23 13:45 05/20/23 13:45 Lab Results 05/20/23 Range/Units 13:45 WBC 7.82 (4.8-10.8) K/ul RBC 4.40 L (4.70-6.10) M/uL Hgb 12.8 L (14.0-18.0) g/dl Hct 38.9 L (42.0-52.0) % MCV 88.4 (80.0-100.0) fL MCH 29.1 (25.0-34.0) pg MCHC 32.9 (32.0-36.0) g/dL RDW Std Deviation 47.8 H (36.4-46.3) fL RDW Coeff of [place] 15.1 H (11.5-14.5) % Plt Count 155 (130-400) K/uL MPV 8.4 L (9.4-12.4) fL Immature Gran % (Auto) 0.6 % Neut % (Auto) 76.8 % Lymph % (Auto) 13.0 % [place] % (Auto) 7.8 % Eos % (Auto) 1.4 % Baso % (Auto) 0.4 % Neut # (Auto) 6.00 (1.40-6.50) K/uL Lymph # (Auto) 1.02 L (1.20-3.40) K/uL [place] # (Auto) 0.61 H (0.11-0.59) K/uL Eos # (Auto) 0.11 (0.00-0.50) K/uL Baso # (Auto) 0.03 (0.00-0.20) K/uL Immature Gran # (Auto) 0.05 (0.01-0.20) K/uL PT 10.8 (9.0-12.0) Seconds INR 1.0 (0.9-1.1) APTT 35 H (21-31) Seconds PTT Ratio 1.2 Sodium 132 L (136-145) mmol/L Potassium 4.5 (3.5-5.1) mmol/L Chloride 99 (98-107) mmol/L Carbon Dioxide 26 (21-32) mmol/L Anion Gap 7 (3-11) BUN 26 H (6-23) mg/dl Creatinine 1.43 H (0.6-1.4) mg/dl Est Cr Clr Drug Dosing 44.5 ml/min Est GFR ( Amer) 53.6 ml/min Est GFR (Non-Af Amer) 46.3 ml/min BUN/Creatinine Ratio 18.2 (10-20) Glucose 111 H (70-99(Fasting)) mg/dl Calcium 9.8 (8.6-10.3) mg/dl Total Bilirubin 0.3 (0.2-1.0) mg/dl AST 15 (13-39) U/L ALT 10 (7-52) U/L Alkaline Phosphatase 56 (34-104) U/L Troponin I High Sens 4.3 (0-20) pg/ml Total Protein 7.5 (6.0-8.3) gm/dl Albumin 4.1 (3.4-5.0) gm/dl Globulin 3.4 (2.5-4.0) gm/dl Albumin/Globulin Ratio 1.2 (0.9-2) Lipase 34 (11-82) U/L Administered Medications Acetaminophen (Acetaminophen 325 Mg Tab) 650 mg PO Q4H PRN PRN Reason: Pain or Fever Stop: 06/19/23 15:40 Last Admin: 05/20/23 17:17 Dose: 650 mg Documented By: CAS Discontinued Medications Fentanyl Citrate (Fentanyl Citrate Pf 100 Mcg/2 Ml Vial) 50 mcg IV Q15M PRN PRN Reason: Pain Stop: 06/03/23 12:54 Last Admin: 05/20/23 15:39 Dose: 50 mcg Documented By: Admin: 05/20/23 14:08 Dose: 50 mcg Documented By: BRETT Sodium Chloride (Nss) 500 mls @ 999 mls/hr IV .Q31M STA Stop: 05/20/23 13:25 Last Admin: 05/20/23 14:08 Dose: 999 mls/hr Documented By: BRETT Ondansetron HCl (Ondansetron Inj 2 Mg/Ml 2 Ml Vial) 4 mg IV NOW STA Stop: 05/20/23 12:56 Last Admin: 05/20/23 14:08 Dose: 4 mg Documented By: BRETT Imaging Data Attestation: I personally reviewed and interpreted this imaging study as follows: My Impression: 1 view chest x-ray was obtained in the emergency department. My interpretation is no free air or definite infiltrate, final report below. X-ray of the right hip and pelvis was obtained. My interpretation is subcapital right hip fracture, final report below Radiologist's Impression: Chest X-Ray 05/20/23 12:55 XR chest 1V portable HISTORY: 77 years-old Male Chest pain, nonspecific COMPARISON: 05/18/2023 TECHNIQUE: AP view chest FINDINGS: Cardiomediastinal and hilar silhouettes are within normal limits. Unchanged linear consolidation/scarring in the left upper lobe with left hilar elevation. Chronic interstitial coarsening. No pneumothorax, pleural effusion or pulmonary edema. IMPRESSION: 1. No acute process. 2. Emphysema with linear left upper lobe/perihilar scarring. ACT 112: Negative or not required by law. The above report was generated using voice recognition software. It may contain grammatical, syntax or spelling errors. Electronically signed by: Andry Pizarro M.D. 05/20/2023 2:08 PM Hip/Pelvis X-Ray 05/20/23 12:55 XR hip RT 2V w pelvis CLINICAL HISTORY: fall COMPARISON: CT of the abdomen and pelvis March 10, 2023. FINDINGS: There is an acute impacted mildly displaced right femoral neck fracture. No additional acute fractures are present. Endovascular aortoiliac stent graft is partially imaged. IMPRESSION: Acute impacted mildly displaced right femoral neck fracture. ACT 112: Negative or not required by law. Electronically signed by: Pee Hoskins M.D. 05/20/2023 2:26 PM Discharge Plan Visit Data Chief Complaint: Fall ED Provider: Kirk Mayer Discharge Problem: Subcapital fracture of right hip Patient Disposition: Being Evaluated by Hospitalist Prescriptions Prescriptions: No Action omeprazole 20 mg capsule,delayed release(DR/EC) 20 mg PO DAILY PRN (Reason: gerd) Qty: 90 3RF Patient Comments: QAM Metamucil 3.4 gram/5.4 gram powder 1 tbsp PO DAILY PRN (Reason: Constipation) docusate sodium [Stool Softener] 100 mg capsule 100 mg PO DAILY PRN (Reason: hard stool) aspirin 81 mg tablet,delayed release (DR/EC) 81 mg PO 3XWK Patient Comments: 3 times a week Rx Instructions: Mon/Wed/Fri Discharge Problem: Subcapital fracture of right hip Qualifiers: Encounter type: initial encounter Fracture type: closed Qualified Code(s): S 72.011A - Unspecified intracapsular fracture of right femur, initial encounter for closed fracture
[2023-05-20 14:04] LABS: Basophils # (auto) 0.03 K/uL (0.00-0.20); Basophils % (auto) 0.4 %; Eosinophils # (auto) 0.11 K/uL (0.00-0.50); Eosinophils % (auto) 1.4 %; Hematocrit (blood only) 38.9 % (42.0-52.0); Hemoglobin 12.8 g/dl (14.0-18.0); Immature Granulocytes # (auto) 0.05 K/uL (0.01-0.20); Immature Granulocytes % (auto) 0.6 %; Lymphocytes # (auto) 1.02 K/uL (1.20-3.40); Mean Corpuscular Hemoglobin 29.1 pg (25.0-34.0); Mean Corpuscular Hgb Conc 32.9 g/dL (32.0-36.0); Mean Corpuscular Volume 88.4 fL (80.0-100.0); Mean Platelet Volume 8.4 fL (9.4-12.4); Monocytes # (auto) 0.61 K/uL (0.11-0.59); Monocytes % (auto) 7.8 %; Neutrophils % (auto) 76.8 %; Platelet Count 155 K/uL (130-400); RDW Coefficient of Variation 15.1 % (11.5-14.5); RDW Standard Deviation 47.8 fL (36.4-46.3); White Blood Count 7.82 K/ul (4.8-10.8)
[2023-05-20] MEDS: fentaNYL citrate PF 100 MCG/2 ML VIAL IV PRN ×2 (14:08→17:30)
[2023-05-20] MEDS: SODIUM CHLORIDE 0.9% 500 ML IV STA (14:08)
[2023-05-20] MEDS: ONDANSETRON INJ 2 MG/ML 2 ML VIAL IV STA (14:08)
--- NOTE | 2023-05-20 14:09 | XRay Report ---
XR chest 1V portable HISTORY: 77 years-old Male Chest pain, nonspecific COMPARISON: 05/18/2023 TECHNIQUE: AP view chest FINDINGS: Cardiomediastinal and hilar silhouettes are within normal limits. Unchanged linear consolidation/scar ring in the left upper lobe with left hilar elevation. Chronic interstitial coarsening. No pneumothor ax, pleural effusion or pulmonary edema. IMPRESSION: 1. No acute process. 2. Emphysema with linear left upper lobe/perihilar scarring. ACT 112: Negative or not required by law. The above report was generated using voice recognition software. It may contain grammatical, syntax o r spelling errors. Electronically signed by: Andry Pizarro M.D. 05/20/2023 2:08 PM
[2023-05-20 14:19] LABS: Albumin Globulin Ratio 1.2 (0.9-2); Albumin Level 4.1 gm/dl (3.4-5.0); BUN Creatinine Ratio 18.2 (10-20); Bilirubin,Total 0.3 mg/dl (0.2-1.0); Calcium 9.8 mg/dl (8.6-10.3); Creatinine Clr Calc Pharmacy 44.5 ml/min; Est GFR (African American) 53.6 ml/min; Est GFR (Non-African American) 46.3 ml/min; Globulin 3.4 gm/dl (2.5-4.0); Potassium 4.5 mmol/L (3.5-5.1); Total Protein 7.5 gm/dl (6.0-8.3)
[2023-05-20 14:24] LABS: Troponin I High Sensitivity 4.3 pg/ml (0-20)
--- NOTE | 2023-05-20 14:28 | XRay Report ---
XR hip RT 2V w pelvis CLINICAL HISTORY: fall COMPARISON: CT of the abdomen and pelvis March 10, 2023. FINDINGS: There is an acute impacted mildly displaced right femoral neck fracture. No additional acu te fractures are present. Endovascular aortoiliac stent graft is partially imaged. IMPRESSION: Acute impacted mildly displaced right femoral neck fracture. ACT 112: Negative or not required by law. Electronically signed by: Pee Hoskins M.D. 05/20/2023 2:26 PM
[2023-05-20 14:38] LABS: Partial Thromboplastin Ratio 1.2; Partial Thromboplastin Time 35 Seconds (21-31); Prothrombin Time 10.8 Seconds (9.0-12.0)
[2023-05-20] MEDS ORDERED: ONDANSETRON INJ 2 MG/ML 2 ML VIAL IV PRN (15:39)
--- NOTE | 2023-05-20 16:05 | History & Physical Report ---
Date of Service May 20, 2023 Assessment & Plan (1) Closed right hip fracture: Plan: Assessment: 1. Acute distal right femoral neck fracture. Orthopedics consulted. I am uncertain as to the OR plans will keep the patient n.p.o. for now. IV fluids. As needed antiemetics and analgesics. 2. CKD stage IIIb stable hydrate when NPO. 3. 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 On active treatment. DVT prophylaxis accordingly. 4. Presbycusis 5. GERD. 6. Dyslipidemia. 7. History of abdominal aortic aneurysm without rupture in the past status post endovascular stent placed Plan: As described above. Please refer to orders for further planning. PT and OT should be consulted obviously postoperatively social security benefits interviewer for possible placement/rehab History of Present Illness Chief Complaint: Right hip pain status post fall Primary Care Provider: Jesus العلي MD This is a pleasant 77-year-old male he typically ambulates with a cane he put his cane aside to carry some groceries he had a mechanical fall landing on his right hip. He had severe hip pain came to the ER for further evaluation and treatment. He did not hit his head when he fell there was no loss of consciousness pre or post fall. In the ER x-rays demonstrated a distal right femoral neck fracture. Orthopedics was consulted. Hospitalist was consulted for admission and medical management. Laboratory studies were stable including the evidence of chronic kidney disease stage IIIb Allergies Allergy/AdvReac Type Severity Reaction Status Date / Time morphine Allergy Intermediate Sweating, Verified 05/20/23 14:20 "thought I was dying", dyspnea pravastatin Allergy Intermediate dizziness Verified 05/20/23 14:20 and myalgia Home Medications Medication Instructions Recorded Confirmed Type omeprazole 20 mg capsule,delayed 20 mg PO DAILY PRN gerd #90 caps 11/03/21 05/20/23 Rx release docusate sodium 100 mg capsule 100 mg PO DAILY PRN hard stool 04/06/23 05/20/23 History (Stool Softener) psyllium husk 3.4 gram/5.4 gram 1 tbsp PO DAILY PRN Constipation 04/06/23 05/20/23 History oral powder (Metamucil) aspirin 81 mg tablet,delayed 81 mg PO 3XWK 05/17/23 05/20/23 History release Past Med/Surg History Medical History History of primary small cell carcinoma of lung Hx of diverticulitis of colon Small cell lung cancer Dx 2017- s/p chemo and XRT Osteoarthritis Hearing deficit Emphysema lung CKD (chronic kidney disease) stage 3, GFR 30-59 ml/min Prediabetes GERD (gastroesophageal reflux disease) Hyperlipidemia Lung cancer (08/09/16) "Incidental finding of a left upper lobe lesion on preoperative chest x-ray Status post bronchoscopy and biopsy 07/09/2016 nondiagnostic Status post left upper lobe wedge resection and lymph node biopsies 08/09/2016 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 Radiation completed 10/29/2016. He received 6000 cGy. Status post completion of prophylactic cranial irradiation 02/13/2017. 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 Radiation completed 10/29/2016. 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 Villanueva) Surgical History History of lung biopsy (04/22/21) Left H/O hemorrhoidectomy (12/22/20) Excision of internal hemorrhoid. Dr. Laird 12-22-2020 H/O abdominal surgery After appe (r/t infection) History of arthroscopic knee surgery History of lung surgery Status post left upper lobe wedge resection and lymph node biopsies () History of bronchoscopy Status post bronchoscopy and biopsy (2016) History of vascular access device A port insertion/subsequent removal History of hemorrhoidectomy History of revision of total replacement of right knee joint History of total right knee replacement (TKR) History of appendectomy History of colonoscopy (2020) History of tooth extraction all teeth removed History of endoscopic sinus surgery History of endovascular stent graft for abdominal aortic aneurysm (AAA) PEVAR with Dr. Villanueva (2015) Family History Grandmother (Maternal) Family history of diabetes mellitus Uncle Family history of diabetes mellitus Mother Breast cancer Lung cancer Father Stomach cancer Other Asthma Cancer No family history of adverse response to anesthesia No family history of allergies No family history of bleeding disorder Denies family history of Ovarian cancer Prostate cancer Hearing loss Heart disease Myocardial infarction Colorectal cancer Hypertension Stroke Social History Smoking Status: Never smoker Tobacco Type: Cigarettes and Smokeless Tobacco (Dip or Chew) Age Started Using Tobacco: 13; packs per day: 0.25; Cigarettes Per Day: 5-6 PER DAY, quit since being in the hospital 03/2023; Second Hand Exposure: Yes; Do You Dip or Chew Tobacco: Yes (1 can per 4 days ); Hx Alcohol Use: Yes Alcohol type: beer Alcohol Intake Frequency Comment: very rarely Hx Substance Use: No Preferred Language: [place] Communication Ability: Effective Visual Impairment: Limited Hearing Ability: Use of Hearing Aid Paper Tube Grader Required: No Beliefs That Will Affect Care: None marital status: Current Living Situation: Spouse Current Living Situation Comment: with current occupational status: retired 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 Physical Exam Physical Exam: In General: In general 77-year-old white male alert and oriented x 3 at the time my exam he interacts appropriately and pleasantly. His only complaint is right hip pain. HEENT: Normocephalic atraumatic pupils are equal round and reactive to light bilaterally. No scleral icterus no conjunctival injection external auditory canals are patent septum is in the midline nose is without discharge oral mucosa is pink and moist without lesion. NECK: Supple no rigidity no lymphadenopathy no thyromegaly no carotid bruits no JVD no masses. HEART: Regular rate and rhythm I do not appreciate any ectopy or rub. No murmur. LUNGS: Clear to auscultation bilaterally and anteriorly with no evidence of adventitious sounds/wheezes rales or rhonchi. ABDOMEN: Soft nontender, no rebound, no peritoneal signs, positive bowel sounds, no appreciable organomegaly. EXTREMITIES: Intact, no peripheral cyanosis, clubbing or edema. Strength is 5 out of 5 in extremities x3 -right lower extremity unable to be evaluated due to acute fracture, neurovascularly both lower extremities are intact. NEUROLOGICAL: Cranial nerves II through XII are grossly intact with no focal deficit elicited upon examination. No tremor. Results & Data Results & Data Vital Signs (Past 12 Hours) Vital Signs Temp Pulse Resp BP Pulse Ox O2 Del Method 05/20/23 13:35 69 05/20/23 13:12 36.5 C 72 15 135/96 96 Room Air Code Status & VTE Plan Code Status Full code-I personally discussed with patient. VTE Prophylaxis Plan VTE Prophylaxis will be ordered: Yes PG Care Time/CCT Total # of Minutes Spent Total Time Spent with Patient: Total time spent is greater than 50% in coordination of care (as documented) at patient's floor/unit and/or counseling patient: Coding Level of Care Code 93009 INT INP/OBS CARE 3/75MIN Diagnoses Closed right hip fracture S72.001A
--- NOTE | 2023-05-20 16:58 | Electrocardiogram Report ---
Test Reason : Blood Pressure : / mmHG Vent. Rate : 071 BPM Atrial Rate : 071 BPM P-R Int : 172 ms QRS Dur : 092 ms QT Int : 400 ms P-R-T Axes : 066 005 063 degrees QTc Int : 434 ms Normal sinus rhythm Normal ECG When compared with ECG of 30-MAR-2023 05:30, No significant change was found Confirmed by Jesus Fine ([id number]) on 05/20/2023 4:57:42 PM Referred By: Confirmed By:Gonzalo Fine
[2023-05-20] MEDS: ACETAMINOPHEN 325 MG TAB PO PRN (17:17)
[2023-05-20] MEDS ORDERED: PSYLLIUM or GUAR GUM FIBER POWDER PACKET PO PRN (17:27)
[2023-05-20] MEDS ORDERED: DOCUSATE SODIUM 100 MG CAP PO PRN (17:27)
[2023-05-20] MEDS ORDERED: PANTOprazole 40 MG TAB PO PRN (17:35)
--- NOTE | 2023-05-20 18:04 | CT Scan Report ---
CT hip RT wo con HISTORY: 77 years-old Male femoral neck fracture acute pain of the pelvis and right hip status post fall COMPARISON: Radiographs of same day, CT 03/10/2023 TECHNIQUE: Multiple axial CT images of the right hip were obtained without the use of IV contrast. Ad ditional 3-D rendered images were generated from a separate workstation and submitted for review. A d ose lowering technique was used consistent with the principals of [place]. FINDINGS: Colonic diverticulosis. Arterial calcifications. Small fat filled right inguinal hernia. Mild subcuta neous edema lateral to the right hip. Probable trace right hip joint effusion/hemarthrosis. Mild to m oderate right hip osteoarthritis. No acute acetabular or pelvic ring fracture. There is an acute mild ly impacted transcervical right femoral neck fracture which demonstrates apex volar regulation and 1. 6 cm superior displacement. IMPRESSION: Acute, mildly comminuted, impacted, angulated and slightly displaced transcervical right femoral fracture. ACT 112: Negative or not required by law. The above report was generated using voice recognition software. It may contain grammatical, syntax o r spelling errors. Electronically signed by: Andry Pizarro M.D. 05/20/2023 6:01 PM
[2023-05-20] MEDS: fentaNYL citrate PF 100 MCG/2 ML VIAL IV ONE (19:26)
[2023-05-20] MEDS: SODIUM CHLORIDE 0.9% 1,000 ML IV SCH (19:26)
[2023-05-20] MEDS: HEPARIN SOD 5,000 UNIT/0.5 ML VIAL SQ SCH (21:04)
--- NOTE | 2023-05-21 07:14 | Anesthesiology Consultation ---
Date of Service May 21, 2023 Assessment & Plan (1) Encounter for pre-operative examination: Chart Review Chart Review: Acceptable Risk for Surgery History Surgery Operation Date: 05/21/23 08:30 Proposed Procedures p Right Hip Hemiarthroplasty - Andry Hawkins DO Height/Weight Height: 5 ft 8 in Weight: 90.1 kg Allergies Allergy/AdvReac Type Severity Reaction Status Date / Time morphine Allergy Intermediate Sweating, Verified 05/20/23 14:20 "thought I was dying", dyspnea pravastatin Allergy Intermediate dizziness Verified 05/20/23 14:20 and myalgia Medications Home Medications Medication Instructions Recorded Confirmed Last Taken omeprazole 20 mg capsule,delayed 20 mg PO DAILY PRN gerd #90 caps 11/03/21 05/20/23 05/20/23 release docusate sodium 100 mg capsule 100 mg PO DAILY PRN hard stool 04/06/23 05/20/23 05/20/23 (Stool Softener) psyllium husk 3.4 gram/5.4 gram 1 tbsp PO DAILY PRN Constipation 04/06/23 05/20/23 05/20/23 oral powder (Metamucil) aspirin 81 mg tablet,delayed 81 mg PO 3XWK 05/17/23 05/20/23 05/20/23 release Active Medications Generic Name Dose Route Start Last Admin Trade Name Freq PRN Reason Stop Dose Admin Acetaminophen 650 mg 05/20/23 15:41 05/20/23 17:17 Acetaminophen 325 Mg Tab PO 06/19/23 15:40 650 mg Q4H PRN Administration Pain or Fever Fentanyl Citrate 25 mcg 05/20/23 15:39 05/21/23 03:07 Fentanyl Citrate Pf 100 Mcg/2 Ml Vial IV 06/03/23 15:38 25 mcg Q2H PRN Administration Pain Heparin Sodium (Porcine) 5,000 units 05/20/23 21:00 05/20/23 21:04 Heparin Sod 5,000 Unit/0.5 Ml Vial SQ 06/19/23 20:59 5,000 units Q12 GABRIELLA Administration Sodium Chloride 1,000 mls @ 80 mls/hr 05/20/23 15:45 05/20/23 19:26 Nss IV 06/19/23 15:44 80 mls/hr .[id number] GABRIELLA Administration NPO Date Last Intake of Fluids: 05/20/23 Time Last Intake of Fluids: 22:00 Date Last Intake of Solids: 05/20/23 Time Last Intake of Solids: 17:00 Past Medical History Medical History History of primary small cell carcinoma of lung Hx of diverticulitis of colon Small cell lung cancer Dx 2017- s/p chemo and XRT Osteoarthritis Hearing deficit Emphysema lung CKD (chronic kidney disease) stage 3, GFR 30-59 ml/min Prediabetes GERD (gastroesophageal reflux disease) Hyperlipidemia Lung cancer (08/09/16) "Incidental finding of a left upper lobe lesion on preoperative chest x-ray Status post bronchoscopy and biopsy 07/09/2016 nondiagnostic Status post left upper lobe wedge resection and lymph node biopsies 08/09/2016 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 Radiation completed 10/29/2016. He received 6000 cGy. Status post completion of prophylactic cranial irradiation 02/13/2017. 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 Radiation completed 10/29/2016. 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 Villanueva) Past Family History Family History Grandmother (Maternal) Family history of diabetes mellitus Uncle Family history of diabetes mellitus Mother Breast cancer Lung cancer Father Stomach cancer Other Asthma Cancer No family history of adverse response to anesthesia No family history of allergies No family history of bleeding disorder Denies family history of Ovarian cancer Prostate cancer Hearing loss Heart disease Myocardial infarction Colorectal cancer Hypertension Stroke Past Surgical History Surgical History History of lung biopsy (04/22/21) Left H/O hemorrhoidectomy (12/22/20) Excision of internal hemorrhoid. Dr. Laird 12-22-2020 H/O abdominal surgery After appe (r/t infection) History of arthroscopic knee surgery History of lung surgery Status post left upper lobe wedge resection and lymph node biopsies (08/09/2016) History of bronchoscopy Status post bronchoscopy and biopsy (2016) History of vascular access device A port insertion/subsequent removal History of hemorrhoidectomy History of revision of total replacement of right knee joint History of total right knee replacement (TKR) History of appendectomy History of colonoscopy (2020) History of tooth extraction all teeth removed History of endoscopic sinus surgery History of endovascular stent graft for abdominal aortic aneurysm (AAA) PEVAR with Dr. Villanueva (2015) Social History Smoking Status: Former smoker tobacco type: cigarettes Smoking cigarettes per day: 5-6 PER DAY, quit since being in the hospital 03/2023 Do You Dip or Chew Tobacco: Yes (1 can per 4 days ) Hx Alcohol Use: Yes Alcohol type: beer alcohol intake frequency: a few times a month Hx Substance Use: No substance use type: does not use Physical Exam Vital Signs Last Vital Signs Temp 36.4 C L 05/21/23 03:59 Pulse 69 05/21/23 03:59 Resp 18 05/21/23 03:59 BP 146/85 H 05/21/23 03:59 Pulse Ox 93 05/21/23 03:59 O2 Del Method Room Air 05/21/23 03:59 Testing Laboratory Results 05/20/23 13:45 05/20/23 13:45 PT 10.8 Seconds (9.0-12.0) 05/20/23 13:45 INR 1.0 (0.9-1.1) 05/20/23 13:45 APTT 35 Seconds (21-31) H 05/20/23 13:45 Laboratory Tests 09/06/22 05/20/23 09:24 13:45 PTT Ratio 1.2 Hemoglobin A1c 6.1 H Electrocardiogram Date: 05/20/23 Findings: + NSR @ (71) Echocardiogram Date: 03/29/23 EF: 50-55% LV Function: normal Valvular Disease: + MR (mild)
[2023-05-21 07:45] LABS: Basophils # (auto) 0.02 K/uL (0.00-0.20); Basophils % (auto) 0.3 %; Eosinophils # (auto) 0.22 K/uL (0.00-0.50); Eosinophils % (auto) 2.8 %; Hemoglobin 11.7 g/dl (14.0-18.0); Immature Granulocytes # (auto) 0.04 K/uL (0.01-0.20); Immature Granulocytes % (auto) 0.5 %; Lymphocytes # (auto) 1.53 K/uL (1.20-3.40); Lymphocytes % (auto) 19.5 %; Mean Corpuscular Hemoglobin 28.7 pg (25.0-34.0); Mean Corpuscular Hgb Conc 32.5 g/dL (32.0-36.0); Mean Corpuscular Volume 88.2 fL (80.0-100.0); Mean Platelet Volume 8.6 fL (9.4-12.4); Monocytes # (auto) 0.74 K/uL (0.11-0.59); Monocytes % (auto) 9.5 %; Neutrophils # (auto) 5.28 K/uL (1.40-6.50); Neutrophils % (auto) 67.4 %; Platelet Count 150 K/uL (130-400); RDW Coefficient of Variation 15.1 % (11.5-14.5); RDW Standard Deviation 49.1 fL (36.4-46.3); Red Blood Count 4.08 M/uL (4.70-6.10); White Blood Count 7.83 K/ul (4.8-10.8)
[2023-05-21 08:07] LABS: Albumin Globulin Ratio 1.4 (0.9-2); Albumin Level 3.9 gm/dl (3.4-5.0); BUN Creatinine Ratio 18.8 (10-20); Bilirubin,Total 0.5 mg/dl (0.2-1.0); Calcium 8.8 mg/dl (8.6-10.3); Creatinine Clr Calc Pharmacy 55.8 ml/min; Est GFR (African American) 68.3 ml/min; Est GFR (Non-African American) 58.9 ml/min; Globulin 2.7 gm/dl (2.5-4.0); Potassium 4.2 mmol/L (3.5-5.1); Total Protein 6.6 gm/dl (6.0-8.3)
[2023-05-21] MEDS ORDERED: fentaNYL citrate PF 100 MCG/2 ML VIAL ONE (08:34)
[2023-05-21] MEDS ORDERED: MIDAZOLAM HCL 1 MG/ML 2ML VIAL ONE (08:34)
[2023-05-21] MEDS ORDERED: ROPIVACAINE 0.5% 5 MG/ML 30 ML VIAL ONE (08:35)
--- NOTE | 2023-05-21 08:46 | Hospitalist Progress Note ---
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 Keane Impression: 77-year-old male with mechanical fall resulting in right hip fracture. Went to the operating room today for fixation with right hip hemiarthroplasty with Dr. Hawkins. EBL 75 cc 1. Right hip fracture: * POD #0 for fixation with right Dejuan arthroplasty * Pain generally controlled * Patient is generally yves to narcotics with last prescription per PDMP with tramadol in 2021. Discontinue fentanyl and off her oxycodone 5 mg every 6 hours as needed for pain and hydromorphone 0.5 mg IV for pain rated 6-10 out of 10 * PT OT evaluations and treatment * Further management per orthopedics 2. History of atrial fibrillation with rapid ventricular response: * Normal sinus rhythm at the time of my visit. Rate controlled in the 60s * Patient is not on any beta-blockers or antiarrhythmics at home. Monitor on telemetry. 3. COPD: * Not on any inhalers at home * SpO2 96% on room air * No bronchospasms or respiratory distress on examination * Follow supportively 4. CKD: * Creatinine at baseline at 1.17. BUN 22 * Follow serial labs and strict ins and outs 5. Squamous cell carcinoma of the left lower lobe: * Date of diagnosis:08/09/16 Stage:Limited stage (TNM stage IIA (pT2a pN1)) * [facility] * Cisplatin and etoposide in 2019 * CT chest 03/10/2023 with fibrotic changes to the left midlung zone consistent with postradiation change. No change to 2.2 cm irregular lesion in the superior segment of the left lower lobe as compared to prior study * follow-up scheduled with Jayleen Lizarraga PA-C on 05/26/2023 DVT prophylaxis: Aspirin 81 mg p.o. twice daily PER orthopedics Diet: Heart healthy Activity per orthopedics Admission and Anticipated Discharge Date Admission Date: May 20, 2023 Supervising Physician Co-Signing Physician Notes The patient was not seen by me. The chart was reviewed. Case discussed with JUAN CARLOS Cox. Agree with assessment and plan Subjective Attending: Dr. Keane This is a 77-year-old male who presented yesterday for admission after having a mechanical fall landing on his right hip resulting in hip fracture. Orthopedics was consulted for surgical revision in the operating theater. The patient does have limited stage small cell lung cancer diagnosed in 2017. He follows with Dr. Perez. Patient was seen in PACU following surgery. He was alert and oriented x 3. Pain was generally controlled but patient still had no movement of his right lower extremity due to spinal block. Pedal pulses intact and equal bilaterally feet were warm. Vital signs were stable. Patient had no acute complaints. Review of Systems 2 Review of Systems: A total of 10 systems was reviewed and is negative other than as listed in the HPI Physical Exam 2 Physical Exam: GENERAL : No acute distress EYES: No icterus, gaze conjugate NOSE: No evidence of epistaxis MOUTH: No lesions or candidiasis NECK: Supple LUNGS: CTA B/L, no wheezes, rales or rhonchi HEART: Regular, rate controlled ABDOMEN: Soft, NT, ND, BS Present EXTREMITIES: No LE edema, pedal pulses intact and equal bilaterally. NEURO: A&OX3. At the time of my examination patient was still under the effect of spinal block and was unable to move right lower extremity. Results & Data Results & Data Vital Signs (Past 12 Hours) Vital Signs Temp Pulse Pulse Resp BP BP Pulse Ox 05/21/23 07:58 05/21/23 07:40 36.6 C 76 18 147/78 H 94 05/21/23 03:59 36.4 C L 69 18 146/85 H 93 05/20/23 22:02 67 05/20/23 21:07 64 23 137/90 95 05/20/23 21:00 O2 Del Method 05/21/23 07:58 Room Air 05/21/23 07:40 Room Air 05/21/23 03:59 Room Air 05/20/23 22:02 05/20/23 21:07 Room Air 05/20/23 21:00 Room Air Laboratory Results Abnormal lab results 05/20/23 05/21/23 Range/Units 13:45 07:27 RBC 4.40 L 4.08 L (4.70-6.10) M/uL Hgb 12.8 L 11.7 L (14.0-18.0) g/dl Hct 38.9 L 36.0 L (42.0-52.0) % RDW Std Deviation 47.8 H 49.1 H (36.4-46.3) fL RDW Coeff of Waldo 15.1 H 15.1 H (11.5-14.5) % MPV 8.4 L 8.6 L (9.4-12.4) fL Lymph # (Auto) 1.02 L (1.20-3.40) K/uL Moffat # (Auto) 0.61 H 0.74 H (0.11-0.59) K/uL APTT 35 H (21-31) Seconds Sodium 132 L 132 L (136-145) mmol/L BUN 26 H (6-23) mg/dl Creatinine 1.43 H (0.6-1.4) mg/dl Glucose 111 H 105 H (70-99(Fasting)) mg/dl 05/21/23 07:27 05/21/23 07:27 Diagnostic Findings Chest X-Ray 05/20/23 12:55 XR chest 1V portable HISTORY: 77 years-old Male Chest pain, nonspecific COMPARISON: 05/18/2023 TECHNIQUE: AP view chest FINDINGS: Cardiomediastinal and hilar silhouettes are within normal limits. Unchanged linear consolidation/scarring in the left upper lobe with left hilar elevation. Chronic interstitial coarsening. No pneumothorax, pleural effusion or pulmonary edema. IMPRESSION: 1. No acute process. 2. Emphysema with linear left upper lobe/perihilar scarring. ACT 112: Negative or not required by law. The above report was generated using voice recognition software. It may contain grammatical, syntax or spelling errors. Electronically signed by: Andry Pizarro M.D. 05/20/2023 2:08 PM Hip/Pelvis X-Ray 05/20/23 12:55 XR hip RT 2V w pelvis CLINICAL HISTORY: fall COMPARISON: CT of the abdomen and pelvis March 10, 2023. FINDINGS: There is an acute impacted mildly displaced right femoral neck fracture. No additional acute fractures are present. Endovascular aortoiliac stent graft is partially imaged. IMPRESSION: Acute impacted mildly displaced right femoral neck fracture. ACT 112: Negative or not required by law. Electronically signed by: Pee Hoskins M.D. 05/20/2023 2:[address] 05/20/23 16:10 CT hip RT wo con HISTORY: 77 years-old Male femoral neck fracture acute pain of the pelvis and right hip status post fall COMPARISON: Radiographs of same day, CT 03/10/2023 TECHNIQUE: Multiple axial CT images of the right hip were obtained without the use of IV contrast. Additional 3-D rendered images were generated from a separate workstation and submitted for review. A dose lowering technique was used consistent with the principals of [place]. FINDINGS: Colonic diverticulosis. Arterial calcifications. Small fat filled right inguinal hernia. Mild subcutaneous edema lateral to the right hip. Probable trace right hip joint effusion/hemarthrosis. Mild to moderate right hip osteoarthritis. No acute acetabular or pelvic ring fracture. There is an acute mildly impacted transcervical right femoral neck fracture which demonstrates apex volar regulation and 1.6 cm superior displacement. IMPRESSION: Acute, mildly comminuted, impacted, angulated and slightly displaced transcervical right femoral fracture. ACT 112: Negative or not required by law. The above report was generated using voice recognition software. It may contain grammatical, syntax or spelling errors. Electronically signed by: Andry Pizarro M.D. 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
--- NOTE | 2023-05-21 09:04 | History & Physical Bridge Note ---
Date of Service May 21, 2023 History & Physical Bridge Note I have examined the patient, reviewed the History & Physical and in the interval since the performance of the History & Physical I have noted the following changes of clinical significance: no changes noted. I met with the patient and we had a lengthy discussion regarding risk benefits potential complications of right hip hemiarthroplasty for his displaced femoral neck fracture. These include but are not limited to: Infection, neurovascular injury, DVT, fracture, leg length discrepancy, dislocation and need for future surgery. After reviewing these he elected to proceed with surgical intervention and written consent was obtained.
--- NOTE | 2023-05-21 09:06 | Orthopedic Consultation ---
Date of Consultation May 21, 2023 Assessment & Plan (1) Closed right hip fracture: 77-year-old male with displaced right femoral neck fracture -Nonweightbearing right lower extremity -Bedrest -Pain control -Medical management -N.p.o. -Hold DVT prophylaxis for OR -Plan for OR today for right hip hemiarthroplasty History of Present Illness Reason for Consultation: Right femoral neck fracture Attending Physician: Yogesh Keane MD History of Present Illness 77-year-old male presenting after sustaining a ground-level fall onto his right side with right hip pain and inability to ambulate. In the emergency department radiographs were obtained demonstrating displaced right femoral neck fracture. Patient was admitted to medical service and orthopedics was consulted for operative management. Allergies Allergy/AdvReac Type Severity Reaction Status Date / Time morphine Allergy Intermediate Sweating, Verified 05/20/23 14:20 "thought I was dying", dyspnea pravastatin Allergy Intermediate dizziness Verified 05/20/23 14:20 and myalgia Home Medications Medication Instructions Recorded Confirmed Type omeprazole 20 mg capsule,delayed 20 mg PO DAILY PRN gerd #90 caps 11/03/21 05/20/23 Rx release docusate sodium 100 mg capsule 100 mg PO DAILY PRN hard stool 04/06/23 05/20/23 History (Stool Softener) psyllium husk 3.4 gram/5.4 gram 1 tbsp PO DAILY PRN Constipation 04/06/23 05/20/23 History oral powder (Metamucil) aspirin 81 mg tablet,delayed 81 mg PO 3XWK 05/17/23 05/20/23 History release Patient History Medical History History of primary small cell carcinoma of lung Hx of diverticulitis of colon Small cell lung cancer Dx 2017- s/p chemo and XRT Osteoarthritis Hearing deficit Emphysema lung CKD (chronic kidney disease) stage 3, GFR 30-59 ml/min Prediabetes GERD (gastroesophageal reflux disease) Hyperlipidemia Lung cancer (08/09/16) "Incidental finding of a left upper lobe lesion on preoperative chest x-ray Status post bronchoscopy and biopsy 07/09/2016 nondiagnostic Status post left upper lobe wedge resection and lymph node biopsies 08/09/2016 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 Radiation completed 10/29/2016. He received 6000 cGy. Status post completion of prophylactic cranial irradiation 02/13/2017. 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 Radiation completed 10/29/2016. 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 Villanueva) Surgical History History of lung biopsy (04/22/21) Left H/O hemorrhoidectomy (12/22/20) Excision of internal hemorrhoid. Dr. Laird 12-22-2020 H/O abdominal surgery After appe (r/t infection) History of arthroscopic knee surgery History of lung surgery Status post left upper lobe wedge resection and lymph node biopsies (08/09/2016) History of bronchoscopy Status post bronchoscopy and biopsy (2016) History of vascular access device A port insertion/subsequent removal History of hemorrhoidectomy History of revision of total replacement of right knee joint History of total right knee replacement (TKR) History of appendectomy History of colonoscopy (2020) History of tooth extraction all teeth removed History of endoscopic sinus surgery History of endovascular stent graft for abdominal aortic aneurysm (AAA) PEVAR with Dr. Villanueva (2015) Family History Grandmother (Maternal) Family history of diabetes mellitus Uncle Family history of diabetes mellitus Mother Breast cancer Lung cancer Father Stomach cancer Other Asthma Cancer No family history of adverse response to anesthesia No family history of allergies No family history of bleeding disorder Denies family history of Ovarian cancer Prostate cancer Hearing loss Heart disease Myocardial infarction Colorectal cancer Hypertension Stroke Social History Smoking Status: Former smoker Tobacco Type: Cigarettes Age Started Using Tobacco: 13; packs per day: 0.25; Cigarettes Per Day: 5-6 PER DAY, quit since being in the hospital 03/2023; Second Hand Exposure: Yes; Do You Dip or Chew Tobacco: Yes (1 can per 4 days ); Hx Alcohol Use: Yes Alcohol type: beer Alcohol Intake Frequency Comment: very rarely Hx Substance Use: No Preferred Language: Hebrew Communication Ability: Effective Visual Impairment: Limited Hearing Ability: Use of Hearing Aid Steel Shot Header Operator Required: No Beliefs That Will Affect Care: None marital status: Current Living Situation: Spouse Current Living Situation Comment: with current occupational status: retired 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 Feels Safe at Home: Yes Childhood Exposure to Second-Hand Smoke: Yes Diet: low salt caffeine: Yes during the past year weight has: remained stable Dental Care, Regularly: Yes Physical Activity Frequency: Daily Seatbelt Use: always Sunscreen Use: No Assistive Devices: Glasses Physical Exam Constitutional: General: No acute distress, resting in bed Musculoskeletal: Right lower extremity -Unable to straight leg raise, positive logroll - silt s/spn/dpn/t/s - fires ta/ehl/gsc + dp/pt Results & Data Vital Signs (Past 12 Hours) Vital Signs Temp Pulse Pulse Resp BP BP Pulse Ox 05/21/23 07:58 05/21/23 07:40 36.6 C 76 18 147/78 H 94 05/21/23 03:59 36.4 C L 69 18 146/85 H 93 05/20/23 22:02 67 05/20/23 21:07 64 23 137/90 95 O2 Del Method 05/21/23 07:58 Room Air 05/21/23 07:40 Room Air 05/21/23 03:59 Room Air 05/20/23 22:02 05/20/23 21:07 Room Air Diagnostic Findings Radiographs and CT scan of the right hip demonstrate displaced transcervical right femoral neck fracture
[2023-05-21] MEDS ORDERED: Nursing to Pharmacy Communication SCH (09:15)
[2023-05-21] MEDS ORDERED: ceFAZolin 330 MG/ML 1 GM VIAL ONE (09:20)
[2023-05-21] MEDS ORDERED: PHENYLEPHRINE HCL 10 MG/ML VIAL ONE (09:30)
[2023-05-21] MEDS ORDERED: PROPOFOL IV EMULSION 10 MG/ML 20 ML VIAL IV ONE ×2 (09:31→10:09)
[2023-05-21] MEDS ORDERED: ATROPINE SULFATE 0.1 MG/ML 10ML SYR IV PRN (09:42)
[2023-05-21] MEDS ORDERED: KETOROLAC 30 MG/ML VIAL IV PRN (09:42)
[2023-05-21] MEDS ORDERED: ePHEDrine sulfate 50 MG/ML AMP IV PRN (09:42)
[2023-05-21] MEDS ORDERED: ONDANSETRON INJ 2 MG/ML 2 ML VIAL IV PRN (09:42)
[2023-05-21] MEDS ORDERED: ePHEDrine sulfate 50 MG/5 ML SYR ONE (09:42)
[2023-05-21] MEDS ORDERED: HYDROmorphone INJ 1 MG/ML SYRINGE IV PRN (09:42)
[2023-05-21] MEDS: ROPIV 0.5% 246mg, Ketorolac 30mg, EPINEPHrine 0.5mg in NSS INFIL SCH (09:58)
--- NOTE | 2023-05-21 10:45 | Post Operative Brief Note ---
Immediate Post Op Note v1 Date of Surgery May 21, 2023 Pre & Post Diagnosis Operation Date: 05/21/23 08:30 Pre-Op Diagnosis: Right Hip Fracture Post-Op Diagnosis: Right Hip Fracture I identified the patient and participated in the time-out.: Yes Procedure Operation Date: 05/21/23 08:30 Actual Procedures p Right Hip Hemiarthroplasty(Right) - Andry Hawkins DO Surgeon Andry Hawkins DO Grease Packer none Estimated Blood Loss 75 Findings Consistent with Post-Op Diagnosis see dictation Drains Hemovac Drain Complications none
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
--- NOTE | 2023-05-21 11:04 | XRay Report ---
SINGLE VIEW RIGHT HIP CLINICAL HISTORY: Postoperative examination. FINDINGS: An AP portable view of the right hip is obtained. Comparison is made to study dated 05/20/19. A right hip arthroplasty is in near-anatomic alignment. No acute fracture is identified. There ar e expected postoperative changes overlying the right hip including skin clips, subcutaneous gas, and soft tissue swelling. IMPRESSION: Expected postoperative findings status post right hip arthroplasty. No acute fracture is seen. ACT 112: Negative or not required by law. Electronically signed by: Paolo Katz M.D. 05/21/2023 11:02 AM
--- NOTE | 2023-05-21 11:20 | Anesthesiology Progress Note ---
Date of Service May 21, 2023 Anesthesia Post Procedure Vital Signs Vital Signs: Temp Pulse Pulse Resp BP BP BP 05/21/23 11:15 36.5 C 67 18 106/69 05/21/23 11:05 65 20 108/60 05/21/23 10:55 71 20 99/62 L 05/21/23 10:45 78 20 109/67 05/21/23 10:38 36.2 C L 72 18 110/72 05/21/23 07:58 05/21/23 07:40 36.6 C 76 18 147/78 H 05/21/23 03:59 36.4 C L 69 18 146/85 H 05/20/23 22:02 67 05/20/23 21:07 64 23 137/90 05/20/23 21:00 05/20/23 20:00 05/20/23 20:00 67 22 128/83 05/20/23 19:45 67 20 05/20/23 19:32 70 21 129/80 05/20/23 19:30 05/20/23 19:26 68 23 128/87 05/20/23 18:00 70 18 128/87 05/20/23 13:35 69 05/20/23 13:12 36.5 C 72 15 135/96 Pulse Ox Pulse Ox O2 Del Method O2 Del Method O2 Flow Rate 05/21/23 11:15 93 Room Air 05/21/23 11:05 94 Room Air 05/21/23 10:55 95 Room Air 05/21/23 10:45 100 Oxymask 4 05/21/23 10:38 99 Oxymask 6 05/21/23 07:58 Room Air 05/21/23 07:40 94 Room Air 05/21/23 03:59 93 Room Air 05/20/23 22:02 05/20/23 21:07 95 Room Air 05/20/23 21:00 Room Air 05/20/23 20:00 Room Air 05/20/23 20:00 90 Room Air 05/20/23 19:45 92 Room Air 05/20/23 19:32 93 Room Air 05/20/23 19:30 94 Room Air 05/20/23 19:26 94 Room Air 05/20/23 18:00 94 Room Air 05/20/23 13:35 05/20/23 13:12 96 Room Air Pain Intensity Right Hip: Pain Intensity: 5 Transfer of Care Handoff Completed per policy Notes Mental Status: alert / awake / arousable Patient Amnestic to Procedure: Yes Nausea / Vomiting: adequately controlled Pain: adequately controlled Airway Patency, RR, SpO2: stable & adequate BP & HR: stable & adequate Hydration State: stable & adequate Neuraxial Anesthesia: was administered and sensory block is resolving Anesthetic Complications: no major complications apparent
[2023-05-21] MEDS: SODIUM CHLORIDE 0.9% 1,000 ML IV SCH (11:39)
--- OUTSIDE RECORDS SUMMARY | 2023-05-21 16:06 | External Medical Summary | Summary of Care ---
Author Name Unknown Organization [facility] [address] [place] [place] [address] Phone [phone] Care Team Providers Care Plastic Panel Installer Name Role Phone Jesus العلي MD Primary Care Provi padmini Encounter Details Date Type Department Care Team (Late st Contact Info) Description 05/20/2023 Population Health External Data Unspecified Department Allergies Active Allergy Reactions Criticality Noted Date Comments Morphine Unknown High 04/10/2021 Other reaction(s): diaphoretic, sob documented as of this encounter (statuses as of 05/20/2023) Medications Medication Sig Dispensed Refills Start Date End Date Status Docusate Sodium 100 MG Oral Capsule (Colace) 100 mg. 0 03/05/2020 Act terri Omeprazole 20 MG Oral Capsule Delayed Release (PriLOSEC) 20 mg. 0 03/05/2020 Active Rosuvastatin Calcium 5 MG Oral Tablet (Crestor) 0 02/24/2021 Active Tamsulosin HCl 0.4 MG Oral Capsule (Flomax) 0.4 mg. 0 03/05/2020 Act terri Aspirin 81 MG Oral Tablet Delayed Release Take 81 mg in the morning by mouth. 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 22 documented as of this encounter (statuses as of 05/20/2023) Social History Tobacco Use Types Packs/Day Years Used Date Smoking Tobacco: Light Smoker Smokeless Tobacco: Current Sex and Gender Information Value Date Recorded Sex Assigned at Not on file Gender Identity Not on file Sexual Orientation Not on file Job Start Date Occupation Industry Not on file Not on file Not on file documented as of this encounter Plan of Treatment Health Maintenance Due Date Last Done Comments Pneumococcal Vaccine: 65+ Years (1 of 2 - PCV) 08/12/1951 Depression Screening 1957 Hepatitis C Screening 08/12/1961 DTaP,Tdap,and Td Vaccines (1 - Tdap) 08/12/1962 Zoster Vaccines (1 of 2) 08/12/1993 Influenza Vaccine (FLU shot) (#1) 2022 COVID-19 Vaccine Completed 01/03/2023, 12/24/2021 GARDASIL-HPV IMMUNIZATION SERIES Aged Out No longer eligible b ased on patient's age to complete this topic Hepatitis B Aged Out No longer eligi ble based on patient's age to complete this topic MENINGOCOCCAL (MENACTRA/MENVEO) Aged Out No longer eligible b ased on patient's age to complete this topic documented as of this encounter Medical Devices Not on filedocumented as of this encounter Care Teams Plastic Panel Installer Relationship Specialty Start Date End Date Jesus العلي MD [address] [place] [address] [place] [id number] PCP - General Internal Medicine 04/22/21 documented as of this encounter
[2023-05-21] MEDS: oxyCODONE HCL IR 5 MG TAB (IMMEDIATE RELEASE) PO PRN (17:36)
[2023-05-21] MEDS: ceFAZolin 2000MG 2,000 MG/15 ML SYR IV SCH (18:02)
[2023-05-21] MEDS: ASPIRIN 81 MG ECTAB PO SCH (21:23)
[2023-05-22] MEDS: HYDROmorphone INJ 0.5 MG/0.5 ML SYR IV PRN (03:35)
[2023-05-22 06:40] LABS: Basophils # (auto) 0.03 K/uL (0.00-0.20); Basophils % (auto) 0.3 %; Eosinophils # (auto) 0.04 K/uL (0.00-0.50); Eosinophils % (auto) 0.4 %; Hematocrit (blood only) 31.8 % (42.0-52.0); Hemoglobin 10.5 g/dl (14.0-18.0); Immature Granulocytes # (auto) 0.04 K/uL (0.01-0.20); Immature Granulocytes % (auto) 0.4 %; Lymphocytes # (auto) 1.12 K/uL (1.20-3.40); Lymphocytes % (auto) 10.7 %; Mean Corpuscular Hemoglobin 29.1 pg (25.0-34.0); Mean Corpuscular Volume 88.1 fL (80.0-100.0); Mean Platelet Volume 8.7 fL (9.4-12.4); Monocytes # (auto) 1.05 K/uL (0.11-0.59); Monocytes % (auto) 10.1 %; Neutrophils # (auto) 8.14 K/uL (1.40-6.50); Neutrophils % (auto) 78.1 %; Platelet Count 133 K/uL (130-400); RDW Coefficient of Variation 15.3 % (11.5-14.5); RDW Standard Deviation 49.4 fL (36.4-46.3); Red Blood Count 3.61 M/uL (4.70-6.10); White Blood Count 10.42 K/ul (4.8-10.8)
[2023-05-22 07:08] LABS: BUN Creatinine Ratio 21.1 (10-20); Calcium 8.6 mg/dl (8.6-10.3); Creatinine Clr Calc Pharmacy 59.7 ml/min; Est GFR (African American) 74.4 ml/min; Est GFR (Non-African American) 64.2 ml/min; Potassium 4.3 mmol/L (3.5-5.1)
--- NOTE | 2023-05-22 08:46 | Orthopedic Progress Note ---
Date of Service May 22, 2023 Assessment & Plan (1) Subcapital fracture of right hip: Plan: 77 yo male stable POD #1 /p right hip hemiarthroplasty 1. Med management 2. DVT prophylaxis- ASA, SCDs 3. PT/OT 4. D/C planning- home w/ HH vs SNF/Rehab, ortho to sign off, instructions in d/c instructions Admission and Anticipated Discharge Date Admission Date: May 20, 2023 Subjective Pt resting in bed, alert and oriented, states moderate hip pain Physical Exam Physical Exam: Silverlon dressing in place right hip, thigh soft, toes mobile, NVI Results & Data Vital Signs (Past 12 Hours) Vital Signs Temp Pulse Pulse Resp BP Pulse Ox O2 Del Method 05/22/23 07:17 36.8 C 80 18 119/71 89 L Room Air 05/22/23 07:14 Room Air 05/22/23 07:10 77 05/22/23 03:38 36.9 C 78 16 119/73 93 Room Air 05/21/23 22:55 36.9 C 75 16 130/78 95 Room Air 05/21/23 22:00 74 Laboratory Results 05/22/23 Range/Units 06:00 WBC 10.42 (4.8-10.8) K/ul RBC 3.61 L (4.70-6.10) M/uL Hgb 10.5 L (14.0-18.0) g/dl Hct 31.8 L (42.0-52.0) % MCV 88.1 (80.0-100.0) fL MCH 29.1 (25.0-34.0) pg MCHC 33.0 (32.0-36.0) g/dL RDW Std Deviation 49.4 H (36.4-46.3) fL RDW Coeff of Waldo 15.3 H (11.5-14.5) % Plt Count 133 (130-400) K/uL MPV 8.7 L (9.4-12.4) fL Immature Gran % (Auto) 0.4 % Neut % (Auto) 78.1 % Lymph % (Auto) 10.7 % Swift % (Auto) 10.1 % Eos % (Auto) 0.4 % Baso % (Auto) 0.3 % Neut # (Auto) 8.14 H (1.40-6.50) K/uL Lymph # (Auto) 1.12 L (1.20-3.40) K/uL Swift # (Auto) 1.05 H (0.11-0.59) K/uL Eos # (Auto) 0.04 (0.00-0.50) K/uL Baso # (Auto) 0.03 (0.00-0.20) K/uL Immature Gran # (Auto) 0.04 (0.01-0.20) K/uL Sodium 133 L (136-145) mmol/L Potassium 4.3 (3.5-5.1) mmol/L Chloride 103 (98-107) mmol/L Carbon Dioxide 25 (21-32) mmol/L Anion Gap 5 (3-11) BUN 23 (6-23) mg/dl Creatinine 1.09 (0.6-1.4) mg/dl Est Cr Clr Drug Dosing 59.7 ml/min Est GFR ( Amer) 74.4 ml/min Est GFR (Non-Af Amer) 64.2 ml/min BUN/Creatinine Ratio 21.1 H (10-20) Glucose 125 H (70-99(Fasting)) mg/dl Calcium 8.6 (8.6-10.3) mg/dl 25-OH Vitamin D Total 21.1 L (30-100) ng/ml (1) Subcapital fracture of right hip Encounter type: initial encounter Fracture type: closed Qualified Code(s): S72.011A - Unspecified intracapsular fracture of right femur, initial encounter for closed fracture
--- NOTE | 2023-05-22 15:33 | Hospitalist Progress Note ---
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 Keane Impression: 77-year-old male with mechanical fall resulting in right hip fracture. Went to the operating room today for fixation with right hip hemiarthroplasty with Dr. Hawkins. EBL 75 cc 1. Right hip fracture: * POD #1 for fixation with right Dejuan arthroplasty * Pain generally controlled with narcotics * Patient is generally yves to narcotics with last prescription per PDMP with tramadol in 2021. * Patient doing well with oxycodone 5 mg every 6 hours as needed for pain and hydromorphone 0.5 mg IV for pain rated 6-10 out of 10. Patient with reported morphine allergy but tolerating Dilaudid and oxycodone well * PT/OT evaluations and treatment - Acute physical rehab placement recommended prior to going home * Orthopedic recommendations reviewed in discharge summary. 2. History of atrial fibrillation with rapid ventricular response: * Normal sinus rhythm at the time of my visit. Rate controlled in the 60s * Patient is not on any beta-blockers or antiarrhythmics at home. Monitor on telemetry. 3. COPD: * Not on any inhalers at home * SpO2 96% on room air * No bronchospasms or respiratory distress on examination * Follow supportively 4. CKD: * Creatinine at baseline at 1.17. BUN 22 * Follow serial labs and strict ins and outs 5. Squamous cell carcinoma of the left lower lobe: * Date of diagnosis:08/09/16 Stage:Limited stage (TNM stage IIA (pT2a pN1)) * [facility] * Cisplatin and etoposide in 2019 * CT chest 03/10/2023 with fibrotic changes to the left midlung zone consistent with postradiation change. No change to 2.2 cm irregular lesion in the superior segment of the left lower lobe as compared to prior study * follow-up scheduled with Jayleen Lizarraga PA-C on 05/26/2023 DVT prophylaxis: Aspirin 81 mg p.o. twice daily PER orthopedics Diet: Heart healthy Activity per orthopedics Refer for inpatient rehab on discharge Admission and Anticipated Discharge Date Admission Date: May 20, 2023 Supervising Physician Co-Signing Physician Notes The patient was not seen by me. The chart was reviewed. Case discussed with JUAN CARLOS Cox. Agree with assessment and plan Subjective Attending: Dr. Keane 77-year-old male admitted for mechanical fall and fracture of right hip. Patient underwent right hemiarthroplasty, POD #1. Patient continues to complain of persistent right hip pain. Orthopedic orders reviewed. Patient encouraged to get out of bed. He denies fever, chills, sweats, rigors. No other acute complaints other than hip pain. Review of Systems 2 Review of Systems: A total of 10 systems was reviewed and is negative other than as listed in the HPI Physical Exam 2 Physical Exam: GENERAL : No acute distress EYES: No icterus, gaze conjugate NOSE: No evidence of epistaxis MOUTH: No lesions or candidiasis NECK: Supple LUNGS: CTA B/L, no wheezes, rales or rhonchi HEART: Regular, rate controlled ABDOMEN: Soft, NT, ND, BS Present EXTREMITIES: No LE edema, pedal pulses intact and equal bilaterally. No rotation of feet. Tender to palpation over right hip incision. NEURO: A&OX3 Results & Data Results & Data Vital Signs (Past 12 Hours) Vital Signs Temp Pulse Pulse Resp BP Pulse Ox O2 Del Method 05/22/23 14:50 80 05/22/23 12:14 36.9 C 86 18 120/64 94 Room Air 05/22/23 07:17 36.8 C 80 18 119/71 89 L Room Air 05/22/23 07:14 Room Air 05/22/23 07:10 77 05/22/23 03:38 36.9 C 78 16 119/73 93 Room Air Laboratory Results 05/22/23 06:00 05/22/23 06:00 PG Care Time/CCT Total # of Minutes Spent Total Time Spent with Patient: Total time spent is greater than 50% in coordination of care (as documented) at patient's floor/unit and/or counseling patient: 30 minutes Coding Level of Care Code 68580 SUB INP/OBS CARE 04/21MIN Diagnoses Subcapital fracture of right hip S72.011A Encounter type: initial encounter Fracture type: closed Atrial fibrillation with rapid ventricular response I48.91 CKD (chronic kidney disease) stage 3, GFR 30-59 ml/min N18.3 COPD (chronic obstructive pulmonary disease) J44.9 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
[2023-05-23 09:14] LABS: Basophils # (auto) 0.02 K/uL (0.00-0.20); Basophils % (auto) 0.2 %; Eosinophils # (auto) 0.12 K/uL (0.00-0.50); Eosinophils % (auto) 1.2 %; Hematocrit (blood only) 30.2 % (42.0-52.0); Immature Granulocytes # (auto) 0.08 K/uL (0.01-0.20); Immature Granulocytes % (auto) 0.8 %; Lymphocytes # (auto) 1.18 K/uL (1.20-3.40); Lymphocytes % (auto) 11.4 %; Mean Corpuscular Hemoglobin 29.2 pg (25.0-34.0); Mean Corpuscular Hgb Conc 33.1 g/dL (32.0-36.0); Mean Platelet Volume 9.1 fL (9.4-12.4); Monocytes # (auto) 0.81 K/uL (0.11-0.59); Monocytes % (auto) 7.8 %; Neutrophils # (auto) 8.11 K/uL (1.40-6.50); Neutrophils % (auto) 78.6 %; Platelet Count 114 K/uL (130-400); RDW Coefficient of Variation 15.2 % (11.5-14.5); RDW Standard Deviation 49.2 fL (36.4-46.3); Red Blood Count 3.43 M/uL (4.70-6.10); White Blood Count 10.32 K/ul (4.8-10.8)
[2023-05-23 09:22] LABS: BUN Creatinine Ratio 20.7 (10-20); Calcium 8.3 mg/dl (8.6-10.3); Creatinine Clr Calc Pharmacy 70.5 ml/min; Est GFR (African American) 91.4 ml/min; Est GFR (Non-African American) 78.8 ml/min; Potassium 3.9 mmol/L (3.5-5.1)
--- NOTE | 2023-05-23 15:05 | Hospitalist Progress Note ---
Date of Service May 23, 2023 Assessment & Plan (1) Subcapital fracture of right hip: Plan: Appears to be pathologic due to underlying osteoporosis. The fracture was suffered in a mechanical fall. Postoperative day #2 after right hip hemiarthroplasty. Pain control measures in place. Supportive care. Appreciate orthopedic consultation and recommendations (2) Atrial fibrillation with rapid ventricular response: Plan: He has converted back to normal sinus rhythm. Continue current medical management. Telemetry (3) CKD (chronic kidney disease) stage 3, GFR 30-59 ml/min: Plan: Stable. Monitor intake and output. Serial lab (4) COPD (chronic obstructive pulmonary disease): Plan: Stable. Continue current medical management Plan Anticipate eventual placement at either [facility] or [facility]. He is medically stable for discharge. Admission and Anticipated Discharge Date Admission Date: May 20, 2023 Subjective Alert and oriented. No distress. He is complaining of postoperative right hip pain and I encouraged him to ask for the oxycodone on an as needed basis. Review of Systems 2 Review of Systems: Constitutional-no fever or chills ENT-no blurred vision, no double vision, no epistaxis, no sore throat Respiratory-no cough, no wheezing, no shortness of breath Cardiac-no palpitations, no chest pain, no syncope GI-no nausea, vomiting, diarrhea, melena, hematochezia -no urinary retention, no urinary incontinence, no dysuria, no hematuria Musculoskeletal-postoperative right hip pain. No muscle tenderness Skin-no bruising, no rashes, no pruritus Neuro-no isolated weakness, no paresthesia, no weakness Psych-no depression, no anxiety Physical Exam 2 Physical Exam: General-alert and oriented x3, no fever, no chills HEENT-head atraumatic and normocephalic, pupils equal and reactive to light, extraocular muscles intact Neck-no lymphadenopathy or thyromegaly, trachea midline Chest-clear to auscultation. No rales, wheezing or rhonchi Cardiac-regular rate and rhythm, normal S1 and S2 Abdomen-normal bowel sounds, nontender, no hepatosplenomegaly Extremities-no cyanosis, clubbing, or edema Skinright hip surgical site unremarkable Neuro-cranial nerves II through XII intact, motor and sensory function within normal limits, strength symmetrical, no focal deficits Psych-normal affect, normal mood Results & Data Results & Data Vital Signs (Past 12 Hours) Vital Signs Temp Pulse Pulse Resp BP Pulse Ox O2 Del Method 05/23/23 11:05 36.8 C 75 20 117/78 93 Room Air 05/23/23 10:07 77 05/23/23 07:10 36.9 C 75 18 137/77 94 Room Air 05/23/23 03:21 36.4 C L 79 22 115/74 93 Room Air Laboratory Results 05/23/23 08:31 05/23/23 08:31 PG Care Time/CCT Total # of Minutes Spent Total Time Spent with Patient: Total time spent is greater than 50% in coordination of care (as documented) at patient's floor/unit and/or counseling patient: Coding Level of Care Code 49388 SUB INP/OBS CARE 350MIN Diagnoses Subcapital fracture of right hip S72.011A Encounter type: initial encounter Fracture type: closed Atrial fibrillation with rapid ventricular response I48.91 CKD (chronic kidney disease) stage 3, GFR 30-59 ml/min N18.3 COPD (chronic obstructive pulmonary disease) J44.9 (1) Subcapital fracture of right hip Encounter type: initial encounter Fracture type: closed Qualified Code(s): S 72.011A - Unspecified intracapsular fracture of right femur, initial encounter for closed fracture
[2023-05-24 07:25] LABS: Basophils # (auto) 0.02 K/uL (0.00-0.20); Basophils % (auto) 0.2 %; Eosinophils # (auto) 0.19 K/uL (0.00-0.50); Eosinophils % (auto) 1.9 %; Hematocrit (blood only) 30.6 % (42.0-52.0); Immature Granulocytes # (auto) 0.06 K/uL (0.01-0.20); Immature Granulocytes % (auto) 0.6 %; Lymphocytes # (auto) 1.39 K/uL (1.20-3.40); Mean Corpuscular Hemoglobin 29.2 pg (25.0-34.0); Mean Corpuscular Hgb Conc 32.7 g/dL (32.0-36.0); Mean Corpuscular Volume 89.5 fL (80.0-100.0); Mean Platelet Volume 8.7 fL (9.4-12.4); Monocytes # (auto) 0.82 K/uL (0.11-0.59); Monocytes % (auto) 8.2 %; Neutrophils # (auto) 7.46 K/uL (1.40-6.50); Neutrophils % (auto) 75.1 %; Platelet Count 134 K/uL (130-400); RDW Coefficient of Variation 15.1 % (11.5-14.5); RDW Standard Deviation 49.2 fL (36.4-46.3); Red Blood Count 3.42 M/uL (4.70-6.10); White Blood Count 9.94 K/ul (4.8-10.8)
[2023-05-24 07:36] LABS: BUN Creatinine Ratio 23.9 (10-20); Calcium 8.7 mg/dl (8.6-10.3); Creatinine Clr Calc Pharmacy 73.8 ml/min; Est GFR (African American) 94.7 ml/min; Est GFR (Non-African American) 81.7 ml/min; Potassium 4.1 mmol/L (3.5-5.1)
--- NOTE | 2023-05-24 16:52 | Hospitalist Progress Note ---
Date of Service May 24, 2023 Assessment & Plan (1) Subcapital fracture of right hip: Plan: Appears to be pathologic due to underlying osteoporosis. The fracture was suffered in a mechanical fall. Now s/p right hip hemiarthroplasty on 05/21. Appreciate orthopedic consultation and recommendations Continue oxycodone and APAP prn pain PT/OT Vit D level low at 21-start Vit D replacement For constipation-likely worsened by oxycodone use, immobilization--> start daily senna/docusate and Miralax (2) Atrial fibrillation with rapid ventricular response: Plan: Paroxysmal. Has not had any Afib throughout this stay. This was a new diagnosis last admission and seemed short-lived, however he was started on Eliquis that admission The Eliquis was not on his home med list this admission--> added Resume home Eliquis 5mg po bid and STOP ASA bid for DVT prophylaxis Watch CBC Ok to downgrade off tele (3) CKD (chronic kidney disease) stage 3, GFR 30-59 ml/min: Plan: [employer] Technical [employer] at baseline -Avoid nephrotoxins -renally dose meds when appropriate -follow BMP (4) COPD (chronic obstructive pulmonary disease): Plan: Stable. Continue current medical management Plan DVT proph-change ASA to Eliquis, SCDs Dispo-continued stay awaiting rehab placement, downgrade to med/surg discussed care with son at bedside on 05/24 and will also call Admission and Anticipated Discharge Date Admission Date: May 20, 2023 Subjective Had pain in right hip now improved with pain medicine. No BM since admission. Was able to ambulate with PT across the room today. Tele with [facility] and never had Afib throughout this stay Physical Exam Constitutional: WD/WN, vitals as above Respiratory: normal respiratory effort, lungs clear to auscultation Cardiovascular: RRR, no murmur, no edema Gastrointestinal (Abdomen): normal bowel sounds, soft, nontender, no hepatosplenomegaly Musculoskeletal: Extremities: + extremities abnormal to inspection (right hip prevalon dressing in place,ecchymosis) Psychiatric: A+Ox3, euthymic affect Results & Data Results & Data Vital Signs (Past 12 Hours) Vital Signs Temp Pulse Pulse Resp BP Pulse Ox O2 Del Method 05/24/23 15:45 37.0 C 74 16 118/77 93 Room Air 05/24/23 15:16 78 05/24/23 11:05 36.3 C L 72 16 111/76 94 Room Air 05/24/23 09:38 67 05/24/23 07:49 36.5 C 70 18 129/80 93 Room Air Laboratory Results CBC, BMP reviewed PG Care Time/CCT Total # of Minutes Spent Total Time Spent with Patient: Total time spent is greater than 50% in coordination of care (as documented) at patient's floor/unit and/or counseling patient: Coding Level of Care Code 33180 SUB INP/OBS CARE 235MIN Diagnoses Subcapital fracture of right hip S72.011A Encounter type: initial encounter Fracture type: closed Atrial fibrillation with rapid ventricular response I48.91 CKD (chronic kidney disease) stage 3, GFR 30-59 ml/min N18.3 COPD (chronic obstructive pulmonary disease) J44.9 (1) Subcapital fracture of right hip Encounter type: initial encounter Fracture type: closed Qualified Code(s): S72.011A - Unspecified intracapsular fracture of right femur, initial encounter for closed fracture
[2023-05-24] MEDS: CHOLECALCIFEROL 25 MCG (1000 UNITS) TAB PO SCH (18:31)
[2023-05-24] MEDS: DOCUSATE SODIUM/SENNA 50/8.6MG TAB PO SCH (19:55)
[2023-05-24] MEDS: POLYETHYLENE (MIRALAX) 17 GM PACK PO SCH (19:55)
[2023-05-24] MEDS: APIXABAN 5 MG TABLET PO SCH (19:55)
[2023-05-25 08:13] LABS: Basophils # (auto) 0.04 K/uL (0.00-0.20); Basophils % (auto) 0.5 %; Eosinophils # (auto) 0.28 K/uL (0.00-0.50); Eosinophils % (auto) 3.5 %; Hematocrit (blood only) 30.1 % (42.0-52.0); Hemoglobin 10.2 g/dl (14.0-18.0); Immature Granulocytes # (auto) 0.04 K/uL (0.01-0.20); Immature Granulocytes % (auto) 0.5 %; Lymphocytes # (auto) 1.21 K/uL (1.20-3.40); Lymphocytes % (auto) 15.1 %; Mean Corpuscular Hemoglobin 29.4 pg (25.0-34.0); Mean Corpuscular Hgb Conc 33.9 g/dL (32.0-36.0); Mean Corpuscular Volume 86.7 fL (80.0-100.0); Mean Platelet Volume 8.9 fL (9.4-12.4); Monocytes # (auto) 0.65 K/uL (0.11-0.59); Monocytes % (auto) 8.1 %; Neutrophils # (auto) 5.79 K/uL (1.40-6.50); Neutrophils % (auto) 72.3 %; Platelet Count 175 K/uL (130-400); RDW Coefficient of Variation 14.9 % (11.5-14.5); RDW Standard Deviation 47.2 fL (36.4-46.3); Red Blood Count 3.47 M/uL (4.70-6.10); White Blood Count 8.01 K/ul (4.8-10.8)
[2023-05-25 08:32] LABS: BUN Creatinine Ratio 25.3 (10-20); Calcium 8.8 mg/dl (8.6-10.3); Creatinine Clr Calc Pharmacy 82.2 ml/min; Est GFR (Non-African American) 85.4 ml/min; Magnesium 1.9 mg/dl (1.7-2.4)
--- NOTE | 2023-05-25 09:29 | Discharge Summary ---
Discharge Summary Date of Service May 25, 2023 Notes For Next Care Provider Medication Changes From Visit Added oxycodone 5mg po q6h prn moderate-severe pain acetaminophen 650mg po q4-6h prn pain Added docusate/senna daily, Miralax daily Admission HPI Per Admitting Provider This is a pleasant 77-year-old male he typically ambulates with a cane he put his cane aside to carry some groceries he had a mechanical fall landing on his right hip. He had severe hip pain came to the ER for further evaluation and treatment. He did not hit his head when he fell there was no loss of consciousness pre or post fall. In the ER x-rays demonstrated a distal right femoral neck fracture. Orthopedics was consulted. Hospitalist was consulted for admission and medical management. Laboratory studies were stable including the evidence of chronic kidney disease stage IIIb Principal Dx & Hospital Course #1 = Principal Diagnosis (1) Subcapital fracture of right hip: Appears to be pathologic due to underlying osteoporosis. The fracture was suffered in a mechanical fall. Now s/p right hip hemiarthroplasty on 05/21. Appreciate orthopedic consultation and recommendations Continue oxycodone and APAP prn pain PT/OT Vit D level low at 21-start Vit D replacement For constipation-likely worsened by oxycodone use, immobilization--> started daily senna/docusate and Miralax, gave bisacodyl MS x 1 (2) Atrial fibrillation with rapid ventricular response: Paroxysmal. Has not had any Afib throughout this stay. This was a new diagnosis last admission and seemed short-lived, however he was started on Eliquis that admission The Eliquis was not on his home med list this admission--> added Resumed home Eliquis 5mg po bid and STOPPED ASA bid for DVT prophylaxis CBC with stable hgb (3) CKD (chronic kidney disease) stage 3, GFR 30-59 ml/min: [employer] at baseline -Avoid nephrotoxins -renally dose meds when appropriate (4) COPD (chronic obstructive pulmonary disease): Stable. Continue current medical management (5) GERD (gastroesophageal reflux disease): continue PPI prn (6) Hyponatremia: chronic, stable at baseline 131 likely due to h/o lung CA Plan DVT proph- Lisa, SCDs Dispo-dc to [facility] discussed care with son at bedside on 05/24 and also called 05/24 Discharge Exam Constitutional WD/WN, vitals as above Respiratory normal respiratory effort Cardiovascular Vessels: radial pulses present Gastrointestinal (Abdomen) normal bowel sounds, soft, nontender, no hepatosplenomegaly Musculoskeletal Extremities: + extremities abnormal to inspection (right hip prevalon dressing in place,ecchymosis) Psychiatric A+Ox3, euthymic affect Updated Medication List Medication Instructions Recorded Confirmed Type omeprazole 20 mg capsule,delayed 20 mg PO DAILY PRN gerd #90 caps 11/03/21 05/20/23 Rx release docusate sodium 100 mg capsule 100 mg PO DAILY PRN hard stool 04/06/23 05/20/23 History (Stool Softener) psyllium husk 3.4 gram/5.4 gram 1 tbsp PO DAILY PRN Constipation 04/06/2305/20 History oral powder (Metamucil) aspirin 81 mg tablet,delayed 81 mg PO 3XWK 05/17/23 05/20/23 History release apixaban 5 mg tablet (Eliquis) 5 mg PO BID 05/24/23 05/24/23 History acetaminophen 325 mg tablet 650 mg (2 x 325 mg) PO Q4H PRN 05/25/23 Rx pain #30 tabs cholecalciferol (vitamin D3) 25 25 mcg PO QAM #30 caps 05/25/23 Rx mcg (1,000 unit) capsule oxycodone 5 mg tablet 5 mg PO Q6H PRN Moderate-severe 05/25/23 Rx pain #12 tabs polyethylene glycol 3350 17 gram 17 g PO DAILY #30 ea 05/25/23 Rx oral powder packet (Miralax) sennosides 8.6 mg-docusate sodium 1 tab PO BID #60 tabs 05/25/23 Rx 50 mg tablet (Senokot-S) Hospital Stay Data Consultations 05/20/23 14:25 ED Decision to Admit Stat 05/20/23 14:39 Consult Orthopedic Surgery Stat Procedures Performed Operation Date: 05/21/23 08:30 Actual Procedures p Right Hip Hemiarthroplasty(Right) - Andry Hawkins DO Diagnostic Imagining Performed 05/20/23 16:10 CT hip RT wo con Urgent Pending Results Patient Have Any Pending Studies at Discharge: Yes (Pathology from hip) Discharge Instructions Given to Patient (Per Discharging Provider) You were admitted after suffering a fall with a right hip fracture. This was surgically fixed. You will remain on your Eliquis for your history of atrial fibrillation which will also help prevent blood clots after having hip surgery. Total Time Total Time Spent Total Time Spent (In Minutes): 35 min Coding Level of Care Code 79780 INP/OBS DISCH >30 MIN Diagnoses Subcapital fracture of right hip S72.011A Encounter type: initial encounter Fracture type: closed Atrial fibrillation with rapid ventricular response I48.91 CKD (chronic kidney disease) stage 3, GFR 30-59 ml/min N18.3 COPD (chronic obstructive pulmonary disease) J44.9 GERD (gastroesophageal reflux disease) K21.9 Hyponatremia E87.1
[2023-05-25] MEDS: bisacodyL 10 MG SUPP PR STA (10:14)
== END 2023-05-25 13:27 | DRG 522 ==
LOC: ED 12:48 → SUATTDRO 15:43 → EDINP 15:43 → 2S 17:26 → 3W 05-24 20:16

== ENCOUNTER 2025-02-11 09:32 | Inpatient (IN) ==
--- NOTE | 2025-02-11 09:55 | Emergency Department Note ---
Impression & Plan Generalized weakness, Frequent falls, Acute dehydration, CHI (closed head injury) ED Provider Note NAME: MONICA SERRANO AGE: 79 SEX: M : 1945 ARRIVES VIA: Walk-In INFORMANT: Patient, ED PROVIDER(S): Abram Givens MD CHIEF COMPLAINT: Constipation, back pain, not eating or drinking MEDICAL DECISION MAKING: Patient presents for the above. IV was established and blood work was obtained. Patient presented with any recurrence of falls he is on a blood thinner did strike his head. Patient is awake alert and following commands. Screening x- rays performed of the chest and abdomen in addition to right side hip. Patient is able to raise leg up off the bed have low suspicion for fracture. CT head also obtained given the patient's head strike. Patient was ordered IV fluids clinically dry. Patient would benefit from admission just in his current state as he is not participating in his ADLs unable to complete them and to much of care responsibility for and family at this time. Patient refused x-rays secondary to inadequate pain control. X line patient with a normal white count hemoglobin 11.5 and normal platelet count. Kidney function with a creatinine 1.49. Patient's most recent in July was 1.5. Patient is clinically dry though. Patient did receive IV fluids. Additional pain medication ordered. CT head negative. Given the patient's failure to thrive and complete ADLs may require placement. I did speak the on- call hospitalist service and the patient was admitted to the medicine service by Dr. Ramsay. Discussion w/ other healthcare providers: Dr. Ramsay inpatient medicine service Prior /Outside records reviewed: I reviewed part of a PCP visit from February 01, 2025. Patient was seen by Pattie Zavala. 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 Also COPD GERD hyperlipidemia AAA without rupture. Review of the note shows the patient does have a known history of squamous cell carcinoma bronchus and left lower lobe. Patient with metastatic disease to the thoracic spine liver MRI brain reportedly without mets. Patient reportedly with a history of back pain secondary to suspected metastatic lesions started on Dilaudid 2 mg every 4 hours with reported aggressive bowel regimen of lactulose 15 3 times daily. Patient reportedly was only taking 1 teaspoon of lactulose but encouraged to take 1 tablespoon. Differential diagnosis: Infection, dehydration, metabolic abnormality, hypo/hyperglycemia, electrolyte imbalance, anemia, UTI, pneumonia, thyroid dysfunction among others were considered. Diagnostics, as interpreted by me: ECG: None Cardiac monitoring: An order was placed for continuous cardiac monitoring. The monitor shows a rate of 65 with sinus rhythm. Patient was placed on pulse oximetry Medical decision rules: None Imaging studies: I informally interpreted the patient's CT head without obvious ICH with formal report to follow. HPI: Patient presents due to concern for weakness fatigue not eating or drinking as well as back pain and recurrence of falls. reports that he essentially nothing on Tuesday yesterday did eat some summers and eggs in the morning and some sort of beef noodles over mashed potatoes last evening. He had 1 egg this morning. Patient reportedly has had a recurrence of fall secondary to weakness. He reportedly did hit his head over the weekend. Did not pass out but does take blood thinning medications. Portably the patient is not eating or drinking very weak and fatigued unable to perform his ADLs. Patient also complaining that has not had a bowel movement 4 to 5 days. Patient has not been getting his lactulose on a regular basis as initially prescribed but the patient this morning did receive lactulose MiraLAX as well as docusate. Patient does complain of lower back pain. PAST MEDICAL HISTORY: See Below PAST SURGICAL HISTORY: See Below SOCIAL HISTORY: See Below HOME MEDICATIONS: See Below ALLERGIES: See Below VITALS: See Below PHYSICAL EXAMINATION: GENERAL: NAD, non-toxic. Head: Slight bruise noted to the nasal bridge. EYE EXAM: Normal conjunctiva. PERRL, no anisocoria and EOM's grossly intact w/o pain. OROPHARYNX: Dry mucus membranes, grossly normal dentition. NECK: Trachea midline, no stridor. LUNGS: Clear to auscultation. Normal chest wall mechanics. HEART: NSR, systolic ejection murmur ABDOMEN: Abdomen soft, non-tender, no masses, no rebound or guarding. BACK: No CVA TTP. SKIN: Scattered bruising noted on the upper extremities. UPPER EXTREMITIES: Upper extremities are grossly normal. LOWER EXTREMITIES: Grossly normal, no edema. Abrasions noted to the bilateral knees. Mild pain to palpation of the right hip but able to raise the right leg up off the bed without issue. NEURO EXAM: Awake and alert, follows commands, no obvious facial asymmetry, normal speech, moves all 4 extremities. 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 Eczema of left upper extremity (Acute) 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 Radiation completed 10/29/2016. He received 6000 cGy. Status post completion of prophylactic cranial irradiation 02/13/2017. 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 Radiation completed 10/29/2016. 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 Dr. Laird 12-22-2020 History of cataract surgery Right eye - Dr. Russell Clayton - 12/31/2024 - [facility] S/P ORIF (open reduction internal fixation) fracture Right hip History of lung biopsy (04/22/21) Left H/O abdominal surgery After appe (r/t infection) History of arthroscopic knee surgery History of lung surgery Status post left upper lobe wedge resection and lymph node biopsies (08/09/2016) History of bronchoscopy Status post bronchoscopy and biopsy (2016) History of vascular access device A port insertion/subsequent removal History of revision of total replacement of right knee joint History of total right knee replacement (TKR) History of appendectomy History of colonoscopy (2020) History of tooth extraction all teeth removed History of endoscopic sinus surgery History of endovascular stent graft for abdominal aortic aneurysm (AAA) PEVAR with Dr. Villanueva (2015) Family History Grandmother (Maternal) Family history of diabetes mellitus Uncle Family history of diabetes mellitus Mother Breast cancer Lung cancer Father Stomach cancer Sister POEMS syndrome Other Asthma Cancer No family history of adverse response to anesthesia No family history of allergies No family history of bleeding disorder Denies family history of Ovarian cancer Prostate cancer Hearing loss Heart disease Myocardial infarction Colorectal cancer Hypertension Stroke Social History Smoking Status: Current some day smoker Tobacco Type: Cigarettes Age Started Using Tobacco: 13; packs per day: 0.25; Cigarettes Per Day: 6 cigs per day > advised npo; Second Hand Exposure: No; Do You Dip or Chew Tobacco: Yes (advised npo); Hx Alcohol Use: Yes Alcohol type: beer Alcohol Intake Frequency Comment: very rarely Hx Substance Use: No Preferred Language: Azerbaijani Communication Ability: Effective Visual Impairment: Limited Hearing Ability: Use of Hearing Aid Computational Linguist Required: No Beliefs That Will Affect Care: None marital status: Current Living Situation: Spouse Current Living Situation Comment: with current occupational status: retired 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 Feels Safe at Home: Yes Childhood Exposure to Second-Hand Smoke: Yes Diet: low salt caffeine: Yes during the past year weight has: remained stable Dental Care, Regularly: Yes Physical Activity Frequency: Daily Seatbelt Use: always Sunscreen Use: No Assistive Devices: Denture - Upper, Denture - Lower, Glasses and Hearing Aid - Bilateral Allergies Allergies Allergy/AdvReac Type Severity Reaction Status Date / Time morphine Allergy Intermediate Sweating, Verified 02/06/25 14:51 "thought I was dying", dyspnea pravastatin Allergy Intermediate dizziness Verified 02/06/25 14:51 and myalgia Home Meds Home Medications Medication Instructions Recorded Confirmed aspirin 81 mg tablet,delayed 81 mg PO 3XWK 05/17/23 02/11/25 release acetaminophen 500 mg tablet 1,000 mg PO Q8H PRN Pain 06/13/23 02/11/25 amlodipine 2.5 mg tablet 2.5 mg PO QAM 12/21/24 02/11/25 cyanocobalamin (vitamin B-12) 500 500 mcg PO DAILY 12/21/24 02/11/25 mcg tablet ibuprofen 200 mg tablet 200 mg PO Q6H PRN Pain 12/21/24 02/11/25 psyllium husk 3.4 gram/5.4 gram 1 tbsp PO DAILY Constipation 01/25/25 02/11/25 oral powder (Metamucil) Previous Rx's Medication Instructions Recorded omeprazole 20 mg capsule,delayed 20 mg PO DAILY PRN gerd #90 caps 11/03/21 release vibegron 75 mg tablet (Gemtesa) 75 mg PO DAILY #90 tabs 01/24/25 hydromorphone 2 mg tablet 2 mg PO Q6H PRN pain #60 tabs 01/31/25 (Dilaudid) lactulose 10 gram/15 mL oral 15 ml PO TID #3,000 mL 01/31/25 solution cholecalciferol (vitamin D3) 25 25 mcg PO DAILY #30 caps 02/01/25 mcg (1,000 unit) capsule Results & Data (ED) Vital Signs Vital Signs - 24 hr 02/11/25 09:35 02/11/25 10:18 02/11/25 10:48 Temperature 36.8 C Temperature Source Temporal Artery Scan Pulse Rate 82 67 Pulse Rate from SpO2 Sensor 66 Respiratory Rate 18 21 Blood Pressure 120/81 118/77 Blood Pressure Mean 94 90 Pulse Oximetry 90 90 92 Oxygen Delivery Method Room Air Room Air Room Air Oxygen Flow Rate Sepsis New/Unexplained Change in Mental Status No Sepsis Action Taken by Nursing No Action Required 02/11/25 11:30 02/11/25 12:00 02/11/25 12:30 Temperature Temperature Source Pulse Rate 67 61 62 Pulse Rate from SpO2 Sensor 66 62 Respiratory Rate 23 21 21 Blood Pressure 122/79 123/79 135/87 Blood Pressure Mean 93 93 103 Pulse Oximetry 96 98 94 Oxygen Delivery Method Nasal Cannula Nasal Cannula Nasal Cannula Oxygen Flow Rate 2 2 2 Sepsis New/Unexplained Change in Mental Status Sepsis Action Taken by Detention Medications Current Medication List: was personally reviewed by me Laboratory Data Attestation: I reviewed the patient's lab results. 02/11/25 10:30 02/11/25 10:30 Lab Results 02/11/25 Range/Units 10:30 WBC 10.34 (4.8-10.8) K/ul RBC 4.06 L (4.70-6.10) M/uL Hgb 11.5 L (14.0-18.0) g/dL Hct 34.1 L (42.0-52.0) % MCV 84.0 (80.0-100.0) fL MCH 28.3 (25.0-34.0) pg MCHC 33.7 (32.0-36.0) g/dL RDW Std Deviation 44.2 (36.4-46.3) fL RDW Coeff of Waldo 14.4 (11.5-14.5) % Plt Count 180 (130-400) K/uL MPV 9.1 L (9.4-12.4) fL Immature Gran % (Auto) 0.5 % Neut % (Auto) 87.9 % Lymph % (Auto) 3.4 % [place] % (Auto) 7.8 % Eos % (Auto) 0.2 % Baso % (Auto) 0.2 % Neut # (Auto) 9.09 H (1.40-6.50) K/uL Lymph # (Auto) 0.35 L (1.20-3.40) K/uL [place] # (Auto) 0.81 H (0.11-0.59) K/uL Eos # (Auto) 0.02 (0.00-0.50) K/uL Baso # (Auto) 0.02 (0.00-0.20) K/uL Immature Gran # (Auto) 0.05 (0.01-0.20) K/uL Sodium 135 L (136-145) mmol/L Potassium 3.8 (3.5-5.1) mmol/L Chloride 98 (98-107) mmol/L Carbon Dioxide 27 (21-32) mmol/L Anion Gap 10 (3-11) BUN 44 H (6-23) mg/dl Creatinine 1.49 H (0.6-1.4) mg/dl Est Cr Clr Drug Dosing Not Reportable eGFR 46.86 BUN/Creatinine Ratio 29.5 H (10-20) Glucose 112 H (70-99(Fasting)) mg/dl Calcium 9.6 (8.6-10.3) mg/dl Total Bilirubin 0.6 (0.2-1.0) mg/dl AST 195 H (13-39) U/L ALT 51 (7-52) U/L Alkaline Phosphatase 87 (34-104) U/L Total Protein 6.7 (6.0-8.3) gm/dl Albumin 3.8 (3.4-5.0) gm/dl Globulin 2.9 (2.5-4.0) gm/dl Albumin/Globulin Ratio 1.3 (0.9-2) Lipase 6 L (11-82) U/L Administered Medications Hydromorphone HCl (Hydromorphone Hcl 2 Mg Tab) 2 mg PO Q6H PRN PRN Reason: pain Stop: 02/25/25 15:39 Last Admin: 02/11/25 16:24 Dose: 2 mg Documented By: GRACIA Discontinued Medications Fentanyl Citrate (Fentanyl Citrate Pf 100 Mcg/2 Ml Vial) 25 mcg IV NOW STA Stop: 02/11/25 10:19 Last Admin: 02/11/25 10:37 Dose: 25 mcg Documented By: Fentanyl Citrate (Fentanyl Citrate Pf 100 Mcg/2 Ml Vial) 25 mcg IV NOW ONE Stop: 02/11/25 11:55 Last Admin: 02/11/25 12:06 Dose: 25 mcg Documented By: marshall Sodium Chloride (Nss) 1,000 mls @ 500 mls/hr IV .Q2H STA Stop: 02/11/25 12:17 Last Infusion: 02/11/25 13:56 Dose: Infused Documented By: marshall Admin: 02/11/25 10:42 Dose: 500 mls/hr Documented By: MATT Acetaminophen (Ofirmev) 1,000 mg in 100 mls @ 400 mls/hr IV NOW STA Stop: 02/11/25 12:08 Last Infusion: 02/11/25 13:13 Dose: Infused Documented By: marshall Admin: 02/11/25 12:06 Dose: 400 mls/hr Documented By: marshall Lidocaine (Lidocaine 5% 1 Patch) 1 patch TD NOW STA Stop: 02/11/25 11:55 Last Admin: 02/11/25 12:07 Dose: 1 patch Documented By: marshall Imaging Data Radiologist's Impression: Head CT 02/11/25 10:18 CT SCAN OF THE BRAIN WITHOUT IV CONTRAST CLINICAL HISTORY: Pain following fall. COMPARISON STUDY: Head CT October 26, 2021. MRI of the brain January 30, 2025. TECHNIQUE: Unenhanced axial CT scan of the brain was performed from the vertex to the skull base. A dose lowering technique was utilized adhering to the principles of ALARA. CT DOSE: 703.85 mGy.cm FINDINGS: Brain parenchyma: No acute intracranial hemorrhage, midline shift or mass effect is present. Walsh-white matter differentiation is preserved. There are no extra- axial fluid collections. There are no findings to suggest acute dural sinus thrombosis or acute territorial infarct. Extensive white matter hypodensities are again noted. These suggest small vessel disease. Ventricles, sulci, cisterns: There is no hydrocephalus. The basal cisterns are patent. Calvarium: There are no calvarial fractures. Sinuses and mastoids: There are postoperative findings within the sinuses. Small amount of fluid within the left mastoid air cells remains unchanged. Orbits: The bony orbits are grossly intact. IMPRESSION: 1. No acute intracranial findings. 2. No calvarial fractures. ACT 112: Negative or not required by law. Electronically signed by: Pee Hoskins M.D. 02/11/2025 11:17 AM Discharge Plan Visit Data Chief Complaint: Constipation Stated Complaint: UNABLE TO EAT, CONSTIPATED ED Provider: Abram Givens Discharge Problem: Generalized weakness, Frequent falls, Acute dehydration, CHI (closed head injury) Patient Disposition: Admitted As Inpatient Condition: Good Discharge Instructions Interventions: ED Discharge Assessment Last Done: 02/11/25 15:41 Discharge Problem: CHI (closed head injury) Qualifiers: Encounter type: initial encounter Qualified Code(s): S09.90XA - Unspecified injury of head, initial encounter
[2025-02-11] MEDS: SODIUM CHLORIDE 0.9% 1,000 ML IV STA (10:42)
[2025-02-11 10:50] LABS: Hematocrit (blood only) 34.1 % (42.0-52.0); Hemoglobin 11.5 g/dL (14.0-18.0); Immature Granulocytes # (auto) 0.05 K/uL (0.01-0.20); Immature Granulocytes % (auto) 0.5 %; Mean Corpuscular Hemoglobin 28.3 pg (25.0-34.0); Mean Corpuscular Volume 84.0 fL (80.0-100.0); Platelet Count 180 K/uL (130-400); RDW Standard Deviation 44.2 fL (36.4-46.3); Red Blood Count 4.06 M/uL (4.70-6.10); White Blood Count 10.34 K/ul (4.8-10.8)
[2025-02-11 11:17] LABS: Alanine Aminotransferase 51 U/L (7-52); Albumin Globulin Ratio 1.3 (0.9-2); Albumin Level 3.8 gm/dl (3.4-5.0); Alkaline Phosphatase 87 U/L (34-104); Anion Gap 10 (3-11); Bilirubin,Total 0.6 mg/dl (0.2-1.0); Blood Urea Nitrogen 44 mg/dl (6-23); Calcium 9.6 mg/dl (8.6-10.3); Carbon Dioxide 27 mmol/L (21-32); Chloride 98 mmol/L (98-107); Globulin 2.9 gm/dl (2.5-4.0); Glucose 112 mg/dl (70-99(Fasting)); Lipase 6 U/L (11-82); Potassium 3.8 mmol/L (3.5-5.1); Sodium 135 mmol/L (136-145); Total Protein 6.7 gm/dl (6.0-8.3)
--- NOTE | 2025-02-11 11:20 | CT Scan Report ---
CT SCAN OF THE BRAIN WITHOUT IV CONTRAST CLINICAL HISTORY: Pain following fall. COMPARISON STUDY: Head CT October 26, 2021. MRI of the brain January 30, 2025. TECHNIQUE: Unenhanced axial CT scan of the brain was performed from the vertex to the skull base. A dose lowering technique was utilized adhering to the principles of ALARA. CT DOSE: 703.85 mGy.cm FINDINGS: Brain parenchyma: No acute intracranial hemorrhage, midline shift or mass effect is present. Walsh-whi te matter differentiation is preserved. There are no extra-axial fluid collections. There are no find ings to suggest acute dural sinus thrombosis or acute territorial infarct. Extensive white matter hyp odensities are again noted. These suggest small vessel disease. Ventricles, sulci, cisterns: There is no hydrocephalus. The basal cisterns are patent. Calvarium: There are no calvarial fractures. Sinuses and mastoids: There are postoperative findings within the sinuses. Small amount of fluid with in the left mastoid air cells remains unchanged. Orbits: The bony orbits are grossly intact. IMPRESSION: 1. No acute intracranial findings. 2. No calvarial fractures. ACT 112: Negative or not required by law. Electronically signed by: Pee Hoskins M.D. 02/11/2025 11:17 AM
[2025-02-11] MEDS: ACETAMINOPHEN 1,000 MG/100 ML VIAL IV STA (12:06)
[2025-02-11] MEDS: LIDOCAINE 5% 1 PATCH TD STA (12:07)
--- NOTE | 2025-02-11 12:18 | History & Physical Report ---
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 He was supposed to followup Palliative care today . He is being admitted for PT/OT evaluation and fluid resuscitation . #Recent fall #Ambulatory dysfunction - reports he is having multiple falls recently. Last fall was yesterday evening -Will consider PT/OT evaluation #HAN -Likely 2/2 to decrease water intake -NSS at 80ml/hr -Repeat BMP in the AM #Back pain -Lumbar Spine XR(11/19): Reveals severe lumbar spondylosis, compression deformities of L5 vertebral body -Recent CT scan shows metastasis to thoracic spine -On hydromorphone 2mg PO q6hr PRN for pain. 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 His is his primary historian. Also he hasn't had his bowel movement for 3-4 days. He has been having multiple falls recently. The last fall he has was yesterday at 8 PM. He used walker to ambulate. Patient reports is is feeling lightheaded, and has chronic mild cough since some time now. Denies nausea, vomiting,chest pain, shortness of breath, They are following with Dr Perez in the outpatient for radiotherapy and had followup with Dr Clemons today but had to cancel the appointment. His is his primary hospice home care coordinator and daughter lives 10minutes away. He can swallow the pill and took all of his morning medication Talked with the in the bedside.Wishes to be DNR/DNI. They are considering him to go to rehab before going home. His grand son and his are planning to come to help Katerin with his care. Allergies Allergy/AdvReac Type Severity Reaction Status Date / Time morphine Allergy Intermediate Sweating, Verified 02/06/25 14:51 "thought I was dying", dyspnea pravastatin Allergy Intermediate dizziness Verified 02/06/25 14:51 and myalgia Home Medications Medication Instructions Recorded Confirmed Type omeprazole 20 mg capsule,delayed 20 mg PO DAILY PRN gerd #90 caps 11/03/21 02/11/25 Rx release aspirin 81 mg tablet,delayed 81 mg PO 3XWK 05/17/23 02/11/25 History release acetaminophen 500 mg tablet 1,000 mg PO Q8H PRN Pain 06/13/23 02/11/25 History amlodipine 2.5 mg tablet 2.5 mg PO QAM 12/21/24 02/11/25 History cyanocobalamin (vitamin B-12) 500 500 mcg PO DAILY 12/21/24 02/11/25 History mcg tablet ibuprofen 200 mg tablet 200 mg PO Q6H PRN Pain 12/21/24 02/11/25 History vibegron 75 mg tablet (Gemtesa) 75 mg PO DAILY #90 tabs 01/24/25 02/11/25 Rx psyllium husk 3.4 gram/5.4 gram 1 tbsp PO DAILY Constipation 01/25/25 02/11/25 History oral powder (Metamucil) hydromorphone 2 mg tablet 2 mg PO Q6H PRN pain #60 tabs 01/31/25 02/11/25 Rx (Dilaudid) lactulose 10 gram/15 mL oral 15 ml PO TID #3,000 mL 01/31/25 02/11/25 Rx solution cholecalciferol (vitamin D3) 25 25 mcg PO DAILY #30 caps 02/01/25 02/11/25 Rx mcg (1,000 unit) capsule 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 Eczema of left upper extremity (Acute) Squamous cell carcinoma of bronchus in left lower lobe (Chronic 04/22/21) Hemorrhoids COPD (chronic obstructive pulmonary disease) BPH associated with nocturia Allergic rhinitis (Acute) Memory loss (Acute) Personal history of Helicobacter infection (Acute) SNHL (sensorineural hearing loss) (Acute) Peyronie disease Emphysema lung (Chronic) Erectile dysfunction Microscopic hematuria CKD (chronic kidney disease) stage 3, GFR 30-59 ml/min Prediabetes GERD (gastroesophageal reflux disease) Hyperlipidemia AAA (abdominal aortic aneurysm) without rupture s/p PEVAR (2015), under surveillance by vascular (Dr. 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 Radiation completed 10/29/2016. He received 6000 cGy. Status post completion of prophylactic cranial irradiation 02/13/2017. 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 Radiation completed 10/29/2016. 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 Dr. Laird 12-22-2020 History of cataract surgery Right eye - Dr. Russell Clayton - 12/31/2024 - [facility] S/P ORIF (open reduction internal fixation) fracture Right hip History of lung biopsy (04/22/21) Left H/O abdominal surgery After appe (r/t infection) History of arthroscopic knee surgery History of lung surgery Status post left upper lobe wedge resection and lymph node biopsies (08/09/2016) History of bronchoscopy Status post bronchoscopy and biopsy (2016) History of vascular access device A port insertion/subsequent removal History of revision of total replacement of right knee joint History of total right knee replacement (TKR) History of appendectomy History of colonoscopy (2020) History of tooth extraction all teeth removed History of endoscopic sinus surgery History of endovascular stent graft for abdominal aortic aneurysm (AAA) PEVAR with Dr. Villanueva (2015) Family History Grandmother (Maternal) Family history of diabetes mellitus Uncle Family history of diabetes mellitus Mother Breast cancer Lung cancer Father Stomach cancer Sister POEMS syndrome Other Asthma Cancer No family history of adverse response to anesthesia No family history of allergies No family history of bleeding disorder Denies family history of Ovarian cancer Prostate cancer Hearing loss Heart disease Myocardial infarction Colorectal cancer Hypertension Stroke Social History Smoking Status: Current every day smoker Tobacco Type: Cigarettes and Smokeless Tobacco (Dip or Chew) Age Started Using Tobacco: 13; packs per day: 0.25; Cigarettes Per Day: 6 cigs per day > advised npo; Second Hand Exposure: Yes; Do You Dip or Chew Tobacco: Yes; Tobacco Cessation Education Requested by Patient: No Hx Alcohol Use: No Hx Substance Use: No Preferred Language: Maltese Communication Ability: Effective Visual Impairment: Limited Hearing Ability: Use of Hearing Aid [employer] Fish [employer] Chips Required: No Beliefs That Will Affect Care: None marital status: Current Living Situation: Spouse Current Living Situation Comment: with current occupational status: retired 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 Other Information That Helps Us Care for You: No Feels Safe at Home: Yes Safety Concerns: Feels Safe At This Time Childhood Exposure to Second-Hand Smoke: Yes Diet: low salt caffeine: Yes during the past year weight has: remained stable Dental Care, Regularly: Yes Physical Activity Frequency: Daily Seatbelt Use: always Sunscreen Use: No Assistive Devices: Denture - Upper, Denture - Lower and Glasses Review of Systems Review of Systems: As per HPI Physical Exam Physical Exam: Constitutional: Lying in bed ; On 2l of O2 HEENT: Atraumatic, Normocephalic, No conjunctival injection CVS: S1 S2 no murmur, Regular Rhythm, no LE edema Respiratory: BL equal air entry with NVBS. No rhonchi, wheezes, or crackles. Mild increased work of breathing GI: Soft, Nondistended, Nontender MSK: No gross deformities noted Skin: Warm, Dry, No rashes Results & Data Results & Data Vital Signs (Past 12 Hours) Vital Signs Temp Pulse Resp BP Pulse Ox O2 Del Method 02/11/25 10:48 67 21 118/77 92 Room Air 02/11/25 10:18 90 Room Air 02/11/25 09:35 36.8 C 82 18 120/81 90 Room Air Supervising Physician Co-Signing Physician Notes I personally examined the patient and verified all cloud points of history and exam, discussed case, and agree with decision making with Dr Prieto abdominal pain, no bowel movement for about 3 days. Poor p.o. intake. Vitals noted, in general he is awake and alert pleasant but appears somewhat frail. Mucous membranes dry. Breathing unlabored no accessory muscle use good effort. Abdomen is soft moderately distended no focal tenderness no guarding rebound or rigidity. Failure to thriverelated to metastatic/progressive lung cancer, compounded by dehydration and what sounds to be acute malnutrition, constipation. Bowel regimen, IV fluids, then start baseball coach on diet. Otherwise as above. DVT prophylaxisLovenox Resident Activity Tracking Resident Involvement: Resident Care Provided Care Provided: Adult Hospital Medicine
[2025-02-11] MEDS: SODIUM CHLORIDE 0.9% 500 ML IV SCH (18:00)
[2025-02-11] MEDS: ASPIRIN 81 MG ECTAB PO SCH (18:08)
[2025-02-11 18:10] LABS: Appearance Urine Clear (Clear); Bacteria Urine Automated None Seen (None Seen); Cast Urine Automated 0-2 /lpf (0-2); Epithelial Cell Urine Auto 0-2 /hpf (0-2); Glucose Urine UA Negative (Negative); RBC Urine Automated 0-2 /hpf (0-2); WBC Urine Automated 0-5 /hpf (0-5)
--- NOTE | 2025-02-11 19:12 | Billing Data ---
Date of Service February 11, 2025 Coding Level of Care Code 50624 INT INP/OBS CARE
[2025-02-11] MEDS: POLYETHYLENE (MIRALAX) 17 GM PACK PO SCH (20:36)
[2025-02-11] MEDS: REMOVE LIDODERM PATCH SCH (20:36)
[2025-02-11] MEDS: POLYETHYLENE (MIRALAX) 17 GM PACK PO ONE (20:36)
[2025-02-11] MEDS: LACTULOSE SYRUP 20 GM/30 ML UDC PO SCH (20:43)
[2025-02-12] MEDS: ACETAMINOPHEN 500 MG TAB PO PRN (01:38)
[2025-02-12 07:46] LABS: Anion Gap 9.0 (3-11); Blood Urea Nitrogen 32.0 mg/dl (6-23); Calcium 8.7 mg/dl (8.6-10.3); Carbon Dioxide 25.0 mmol/L (21-32); Chloride 103.0 mmol/L (98-107); Creatinine Clr Calc Pharmacy 58.5 ml/min; Glucose 91.0 mg/dl (70-99(Fasting)); Potassium 3.8 mmol/L (3.5-5.1); Sodium 137.0 mmol/L (136-145)
[2025-02-12] MEDS: ENOXAPARIN INJ 30 MG/0.3 ML SYR SQ SCH (08:03)
[2025-02-12] MEDS: VIBEGRON 75 MG TAB PO SCH (08:03)
[2025-02-12] MEDS: PSYLLIUM HUSK 4GM PACKET PO SCH (08:03)
--- NOTE | 2025-02-12 09:26 | Hospitalist Progress Note ---
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 He was supposed to followup Palliative care today . He is being admitted for PT/OT evaluation and fluid resuscitation . #Recent fall #Ambulatory dysfunction - reports he is having multiple falls recently. Last fall was yesterday evening - PT/OT evaluation #HAN(resolved) -Encourage PO intake. Will stop fluid for now. Add fluid if not able to eat/drink well. #Back pain -Lumbar Spine XR(11/19): Reveals severe lumbar spondylosis, compression deformities of L5 vertebral body -Recent CT scan shows metastasis to thoracic spine -On hydromorphone 2mg PO q6hr PRN for pain. Continue Hydromorphone -Lidocaine patch #Constipation -2/2 to opioids -Lactulose , Senna and Miralax at home -Continue Miralax #Chronic conditions #BPH with nocturia: Continue vibegron #CAD: continue aspirin #Afib: was on Eliquis, but self discontinued #HTN: Continue Amlodipine 2.5 mg daily #GERD: Continue Omeprazole PRN #Dipso: Med/Surg #DVT prophylaxis: Lovenox #Code: DNR/DNI Admission and Anticipated Discharge Date Admission Date: February 11, 2025 Supervising Physician Co-Signing Physician Notes I personally examined the patient and verified all cloud points of history and exam, discussed case, and agree with decision making with Dr Prieto had multiple large bowel movements. Having a lot of pain. For x-ray treatment later today. Vitals noted, in general he is awake and alert Appears somewhat uncomfortable and a bit cantankerous whenever his family is encouraging him to eat. Breathing unlabored no accessory muscle use good effort. Skin without rashes pallor or icterus. Failure to thriverelated to metastatic/progressive lung cancer, compounded by dehydration and what sounds to be acute malnutrition, constipation. He has been well-hydrated with the IVhold further IV fluids and only resume if his p.o. intake is very poor and we need to continue to support; bowel regimen has affected multiple large bowel movements, continue at a lower amount of medication to keep his bowels moving but not affect dehydration. Began coaching on p.o. intake and dietthis will probably be a bit of a challenge given that he does not really want to eat and becomes very feisty about it. Work on pain control as this also seems to be taking away his appetite. DVT prophylaxisLovenox Radha Mariscal Sylvain was seen and examined in the bedside this morning. He had bowel movement this morning. He hasnot had his breakfast at. He is planned for radiotherapy at 2 today Review of Systems Review of Systems: As per HPI Physical Exam Physical Exam: Constitutional: Lying in bed ; On 2l of O2 HEENT: Atraumatic, Normocephalic, No conjunctival injection CVS: S1 S2 no murmur, Regular Rhythm, no LE edema Respiratory: BL equal air entry with NVBS. No rhonchi, wheezes, or crackles. Mild increased work of breathing GI: Soft, Nondistended, Nontender MSK: No gross deformities noted Skin: Warm, Dry, No rashes Results & Data Results & Data Vital Signs (Past 12 Hours) Vital Signs Temp Pulse Resp BP Pulse Ox O2 Del Method O2 Flow Rate 02/12/25 07:32 36.4 C L 61 16 149/98 H 94 Nasal Cannula 02/11/25 22:19 36.6 C 62 18 131/80 92 Nasal Cannula 2 Resident Activity Tracking Resident Involvement: Resident Care Provided Care Provided: Adult Hospital Medicine
[2025-02-12] MEDS: IBUPROFEN 200 MG TAB PO PRN (12:55)
--- NOTE | 2025-02-12 13:34 | Palliative Care Consultation ---
Date of Consultation February 12, 2025 Assessment & Plan (1) Cancer related pain: (2) Palliative care by specialist: Plan Khang feels pain regimen is adequately relieving pain to a tolerable level and has felt more relief since RT started. We discussed the option of increasing pain med vs waiting another day to see if pain improvement with RT continues and he elected the latter. We discussed OIC regimen in detail. I reinforced the instructions I had provided in clinic, he and still have the hand written instructions given to them in clinic. He acknowledges he was not following a regular OIC protocol but states he will be more diligent now after dealing with the constipation. Thank you for allowing us to participate in the ongoing care of this patient. Please page with any additional concerns. 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 Plan is for palliative RT. Treatment: Cisplatin D1 + Etoposide D1-3 + XRT Q28D for Small cell lung cancer/Adjuvant Stage: IIA Khang is seen while waiting for RT He states pain has been slightly improving with RT so far but not as much as he wanted Pain meds helping His constipation has improved with bowel regimen - large BM this AM Frustrated by pain, slow improvement / relief and wants cancer therapies "to work faster" Allergies Allergy/AdvReac Type Severity Reaction Status Date / Time morphine Allergy Intermediate Sweating, Verified 02/06/25 14:51 "thought I was dying", dyspnea pravastatin Allergy Intermediate dizziness Verified 02/06/25 14:51 and myalgia Home Medications Medication Instructions Recorded Confirmed Type omeprazole 20 mg capsule,delayed 20 mg PO DAILY PRN gerd #90 caps 11/03/21 02/11/25 Rx release aspirin 81 mg tablet,delayed 81 mg PO 3XWK 05/17/23 02/11/25 History release acetaminophen 500 mg tablet 1,000 mg PO Q8H PRN Pain 06/13/23 02/11/25 History amlodipine 2.5 mg tablet 2.5 mg PO QAM 12/21/24 02/11/25 History cyanocobalamin (vitamin B-12) 500 500 mcg PO DAILY 12/21/24 02/11/25 History mcg tablet ibuprofen 200 mg tablet 200 mg PO Q6H PRN Pain 12/21/24 02/11/25 History vibegron 75 mg tablet (Gemtesa) 75 mg PO DAILY #90 tabs 01/24/25 02/11/25 Rx psyllium husk 3.4 gram/5.4 gram 1 tbsp PO DAILY Constipation 01/25/25 02/11/25 History oral powder (Metamucil) hydromorphone 2 mg tablet 2 mg PO Q6H PRN pain #60 tabs 01/31/25 02/11/25 Rx (Dilaudid) lactulose 10 gram/15 mL oral 15 ml PO TID #3,000 mL 01/31/25 02/11/25 Rx solution cholecalciferol (vitamin D3) 25 25 mcg PO DAILY #30 caps 02/01/25 02/11/25 Rx mcg (1,000 unit) capsule Patient History Medical History History of colon polyps noted colonoscopy 12/2018 - tubular adenoma and tubulovillous adenoma; tubular adenoma 07/09/20 Hx of non-ST elevation myocardial infarction (NSTEMI) pt denies Hx of diverticulitis of colon Osteoarthritis Lung cancer (08/09/16) "Incidental finding of a left upper lobe lesion on preoperative chest x-ray Status post bronchoscopy and biopsy 07/09/2016 nondiagnostic Status post left upper lobe wedge resection and lymph node biopsies 08/09/2016 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 Radiation completed 10/29/2016. He received 6000 cGy. Status post completion of prophylactic cranial irradiation 02/13/2017. 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 Radiation completed 10/29/2016. 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 Dr. Laird 12-22-2020 History of cataract surgery Right eye - Dr. Russell Clayton - 12/31/2024 - [facility] S/P ORIF (open reduction internal fixation) fracture Right hip History of lung biopsy (04/22/21) Left H/O abdominal surgery After appe (r/t infection) History of arthroscopic knee surgery History of lung surgery Status post left upper lobe wedge resection and lymph node biopsies (08/09/2016) History of bronchoscopy Status post bronchoscopy and biopsy (2016) History of vascular access device A port insertion/subsequent removal History of revision of total replacement of right knee joint History of total right knee replacement (TKR) History of appendectomy History of colonoscopy (2020) History of tooth extraction all teeth removed History of endoscopic sinus surgery History of endovascular stent graft for abdominal aortic aneurysm (AAA) PEVAR with Dr. Villanueva (2015) Family History Grandmother (Maternal) Family history of diabetes mellitus Uncle Family history of diabetes mellitus Mother Breast cancer Lung cancer Father Stomach cancer Sister POEMS syndrome Other Asthma Cancer No family history of adverse response to anesthesia No family history of allergies No family history of bleeding disorder Denies family history of Ovarian cancer Prostate cancer Hearing loss Heart disease Myocardial infarction Colorectal cancer Hypertension Stroke Social History Smoking Status: Current every day smoker Tobacco Type: Cigarettes and Smokeless Tobacco (Dip or Chew) Age Started Using Tobacco: 13; packs per day: 0.25; Cigarettes Per Day: 6 cigs per day > advised npo; Second Hand Exposure: Yes; Do You Dip or Chew Tobacco: Yes; Tobacco Cessation Education Requested by Patient: No Hx Alcohol Use: No Hx Substance Use: No Preferred Language: Armenian Communication Ability: Effective Visual Impairment: Limited Hearing Ability: Use of Hearing Aid Cover Operator Required: No Beliefs That Will Affect Care: None marital status: Current Living Situation: Spouse Current Living Situation Comment: with current occupational status: retired 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 Other Information That Helps Us Care for You: No Feels Safe at Home: Yes Safety Concerns: Feels Safe At This Time Childhood Exposure to Second-Hand Smoke: Yes Diet: low salt caffeine: Yes during the past year weight has: remained stable Dental Care, Regularly: Yes Physical Activity Frequency: Daily Seatbelt Use: always Sunscreen Use: No Assistive Devices: Cane, Scooter/Electric Scooter, Walker and Wheelchair Review of Systems Review of Systems: All systems reviewed & are unremarkable except as noted in Subjective Physical Exam Physical Exam: Pain Ratin out of 10 Fatigue: Moderate Constitutional: Bitemporalwasting, mood subdued HENT: PERRLA, EOMIs, sclera non icteric, hearing intact conversationally, MMM/no thrush, dentition fair. Neck: Supple, no stridor, no thyromegaly Lungs: Diminished, mild increased effort with exertion CV: S1S2, no gross JVD GI: soft, NTP, BS+ MS: Tenderness to the left lower back, lumbosacral region. + Paraspinal muscle tenderness and tightness palpated. Unable to assess with straight leg raise but diminished strength bilaterally to the lower extremities. Denies numbness or tingling. Poultry Raiser is intact bilaterally. Skin: Pale, pink, warm, no overt lesions Neuro: AAOx3 Extremities: No c/c/e Results & Data Vital Signs (Past 12 Hours) Vital Signs Temp Pulse Resp BP Pulse Ox O2 Del Method O2 Flow Rate 02/12/25 07:32 36.4 C L 61 16 149/98 H 94 Nasal Cannula 02/12/25 07:10 Nasal Cannula 2 Laboratory Results 02/12/25 02/11/25 02/11/25 Range/Units 06:44 17:50 10:30 WBC 10.34 (4.8-10.8) K/ul RBC 4.06 L (4.70-6.10) M/uL Hgb 11.5 L (14.0-18.0) g/dL Hct 34.1 L (42.0-52.0) % MCV 84.0 (80.0-100.0) fL MCH 28.3 (25.0-34.0) pg MCHC 33.7 (32.0-36.0) g/dL RDW Std Deviation 44.2 (36.4-46.3) fL RDW Coeff of [place] 14.4 (11.5-14.5) % Plt Count 180 (130-400) K/uL MPV 9.1 L (9.4-12.4) fL Immature Gran % (Auto) 0.5 % Neut % (Auto) 87.9 % Lymph % (Auto) 3.4 % [place] % (Auto) 7.8 % Eos % (Auto) 0.2 % Baso % (Auto) 0.2 % Neut # (Auto) 9.09 H (1.40-6.50) K/uL Lymph # (Auto) 0.35 L (1.20-3.40) K/uL [place] # (Auto) 0.81 H (0.11-0.59) K/uL Eos # (Auto) 0.02 (0.00-0.50) K/uL Baso # (Auto) 0.02 (0.00-0.20) K/uL Immature Gran # (Auto) 0.05 (0.01-0.20) K/uL Sodium 137 135 L (136-145) mmol/L Potassium 3.8 3.8 (3.5-5.1) mmol/L Chloride 103 98 (98-107) mmol/L Carbon Dioxide 25 27 (21-32) mmol/L Anion Gap 9 10 (3-11) BUN 32 H 44 H (6-23) mg/dl Creatinine 0.99 D 1.49 H (0.6-1.4) mg/dl Est Cr Clr Drug Dosing 58.5 Not Reportable eGFR 76.53 46.86 BUN/Creatinine Ratio 32.3 H 29.5 H (10-20) Glucose 91 112 H (70-99(Fasting)) mg/dl Calcium 8.7 9.6 (8.6-10.3) mg/dl Total Bilirubin 0.6 (0.2-1.0) mg/dl AST 195 H (13-39) U/L ALT 51 (7-52) U/L Alkaline Phosphatase 87 (34-104) U/L Total Protein 6.7 (6.0-8.3) gm/dl Albumin 3.8 (3.4-5.0) gm/dl Globulin 2.9 (2.5-4.0) gm/dl Albumin/Globulin Ratio 1.3 (0.9-2) Lipase 6 L (11-82) U/L Urine Color Yellow Urine Appearance Clear (Clear) Urine pH 5.5 (4.5-7.5) Ur Specific [place] 1.024 (1.000-1.030) Urine Protein 1+ H (Negative) Urine Glucose (UA) Negative (Negative) Urine Ketones 1+ H (Negative) Urine Blood 3+ H (Negative) Urine Nitrite Negative (Negative) Urine Bilirubin Negative (Negative) Urine Urobilinogen Negative (Negative) Ur Leukocyte Esterase Negative (Negative) Urine WBC (Auto) 0-5 (0-5) /hpf Urine RBC (Auto) 0-2 (0-2) /hpf U Hyaline Cast (Auto) 0-2 (0-2) /lpf U Epithel Cells (Auto) 0-2 (0-2) /hpf Urine Bacteria (Auto) None Seen (None Seen) Urine Comment Diagnostic Findings Head CT 02/11/25 10:18 CT SCAN OF THE BRAIN WITHOUT IV CONTRAST CLINICAL HISTORY: Pain following fall. COMPARISON STUDY: Head CT October 26, 2021. MRI of the brain January 30, 2025. TECHNIQUE: Unenhanced axial CT scan of the brain was performed from the vertex to the skull base. A dose lowering technique was utilized adhering to the principles of ALARA. CT DOSE: 703.85 mGy.cm FINDINGS: Brain parenchyma: No acute intracranial hemorrhage, midline shift or mass effect is present. Walsh-white matter differentiation is preserved. There are no extra- axial fluid collections. There are no findings to suggest acute dural sinus thrombosis or acute territorial infarct. Extensive white matter hypodensities are again noted. These suggest small vessel disease. Ventricles, sulci, cisterns: There is no hydrocephalus. The basal cisterns are patent. Calvarium: There are no calvarial fractures. Sinuses and mastoids: There are postoperative findings within the sinuses. Small amount of fluid within the left mastoid air cells remains unchanged. Orbits: The bony orbits are grossly intact. IMPRESSION: 1. No acute intracranial findings. 2. No calvarial fractures. ACT 112: Negative or not required by law. Electronically signed by: Pee Hoskins M.D. 02/11/2025 11:17 AM PG Care Time/CCT Total # of Minutes Spent Total Time Spent with Patient: Total time spent is greater than 50% in coordination of care (as documented) at patient's floor/unit and/or counseling patient: [place] [address] IN/OBS CONSULT LVL 5,80M Patient Type New History Comprehensive Exam Comprehensive Medical Decision Making High Complexity Diagnoses Cancer related pain G89.3 Palliative care by specialist Z51.5
--- NOTE | 2025-02-12 14:51 | Communication Note ---
Date of Service: February 12, 2025 Palliative Medicine Brief Note Attempted to see patient twice however he was off the unit. Will reattempt tomorrow. Thank you for allowing us to participate in the ongoing care of this patient. Please page with any additional concerns. Gordy Clemons DNP Director, Palliative Medicine
--- NOTE | 2025-02-12 19:41 | Billing Data ---
Date of Service February 12, 2025 Coding Level of Care Code 81284 SUB INP/OBS CARE MIN
--- NOTE | 2025-02-12 19:41 | Billing Data ---
Date of Service February 12, 2025 Coding Level of Care Code 45139 SUB INP/OBS CARE MIN
[2025-02-12] MEDS: ACETAMINOPHEN 500 MG TAB PO SCH (20:03)
[2025-02-13] MEDS: ALBUT/IPRATROP 3MG/0.5MG NEB 3 ML VIAL NEB PRN (02:29)
--- NOTE | 2025-02-13 07:41 | Hospitalist Progress Note ---
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 He was supposed to followup Palliative care today . He is being admitted for PT/OT evaluation and fluid resuscitation . #Recent fall #Ambulatory dysfunction - reports he is having multiple falls recently. Last fall was yesterday evening - PT/OT evaluation today. Recommend returning home with 24 hr supervision. #HAN(resolved) -Encourage PO intake. #Failure to thrive -Nutrition consulted -Encourage PO intake #Back pain -Lumbar Spine XR(11/19): Reveals severe lumbar spondylosis, compression deformities of L5 vertebral body -Recent CT scan shows metastasis to thoracic spine -On hydromorphone 2mg PO q6hr PRN for pain. Continue Hydromorphone -Lidocaine patch #Constipation -2/2 to opioids -Lactulose , Senna and Miralax at home -Continue Miralax #Chronic conditions #BPH with nocturia: Continue vibegron #CAD: continue aspirin #Afib: was on Eliquis, but self discontinued #HTN: Continue Amlodipine 2.5 mg daily #GERD: Continue Omeprazole PRN #Dipso: Med/Surg #DVT prophylaxis: Lovenox #Code: DNR/DNI Admission and Anticipated Discharge Date Admission Date: February 11, 2025 Supervising Physician Co-Signing Physician Notes I personally examined the patient and verified all cloud points of history and exam, discussed case, and agree with decision making with Dr Prieto resting comfortably. d/w R2 and pain under better control today. allowed pt to rest. vitals noted nad heent nc at mmm breathing unlabored no accessory muscles good effort skin no rashes no pallor or icterus Failure to thriverelated to metastatic/progressive lung cancer, compounded by dehydration and what sounds to be acute malnutrition, constipation. hydrated, bowels moving, pain appears better controlled. PT/OT rehab. power plant operations manager support ongoing. DVT prophylaxisLovenox Sylvain Hoang was seen and examined in the bedside this morning. He had bowel movement this morning. He just had his breakfast and didn't complete all of his breakfast. Review of Systems Review of Systems: As per HPI Physical Exam Physical Exam: Constitutional: Lying in bed ; On 2l of O2 HEENT: Atraumatic, Normocephalic, No conjunctival injection CVS: S1 S2 no murmur, Regular Rhythm, no LE edema Respiratory: BL equal air entry with NVBS. No rhonchi, wheezes, or crackles. Mild increased work of breathing GI: Soft, Nondistended, Nontender MSK: No gross deformities noted Skin: Warm, Dry, No rashes Results & Data Results & Data Vital Signs (Past 12 Hours) Vital Signs Temp Pulse Resp BP Pulse Ox O2 Del Method O2 Flow Rate 02/13/25 07:12 36.3 C L 57 L 16 149/83 H 91 Nasal Cannula 02/13/25 02:29 60 16 93 Nasal Cannula 2 02/12/25 22:48 36.6 C 59 L 16 130/78 92 Nasal Cannula 1 02/12/25 20:05 Nasal Cannula 2 Resident Activity Tracking Resident Involvement: Resident Care Provided Care Provided: Adult Hospital Medicine
[2025-02-13] MEDS: ENOXAPARIN INJ 40 MG/0.4 ML SYR SQ SCH (08:14)
[2025-02-13] MEDS: ASPIRIN 81 MG ECTAB PO SCH (08:15)
--- NOTE | 2025-02-13 18:03 | Billing Data ---
Date of Service February 13, 2025 Coding Level of Care Code 78813 SUB INP/OBS CARE
--- NOTE | 2025-02-14 09:21 | Hospitalist Progress Note ---
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 He was supposed to followup Palliative care today . He is being admitted for PT/OT evaluation and fluid resuscitation . #intractable pain -in d/w radiation oncology, pain in region totally corresponding with known mets -in d/w pt - pain better than it was before, but still intolerable and impacting quality of life -continue XRT -meds prior to admit oxy IR 15mg q4prn -notes uncontrolled - escalations as follows: -scheduled tylenol 1000mg tid -add fentanyl patch 12mcg q72hr -add lidocaine patch to area of pain ----and continue oxy IR 15mg q4prn pain -follow for response, likely will need to be dynamic as his cancer course progressses #acute protein calorie malnutrition/weakness/failure to thrive -PO intake was poor at home - cancer itself as well as constipation, dehydration (caused by poor intake but then contributing to malaise precluding further intake), and uncontrolled pain -dehydration corrected w IV fluids, constipation doing better (continue bowel regimen), pain -> "work in progress" as above -linux network administrator consult -ongoing education on adequate nutrition -- have been discussing his basal energy expenditure "like a budget" and explaining that it's critical to get to 2100 calorie goal each day (discussed further that it's of course better to get there with "good nutrition" but that in my experience people do better overall if they get to the calorie goal regardless of the "quality" than to not get there at all - ie explained "it's best to get to 2100 with fish and broccoli, but it's far better to get to 2100 with boost and ice cream than to get to 1000 with fish and broccoli" - he's starting to get a better understanding of the importance -encouraged to track daily calorie intake and not go to bed without getting to goal #Recent fall/weakness #PT/OT eval and treat - [facility] home w family/home health, but SNF or rehab for short stay would be ideal if insurance approval could be gained #HAN(resolved) -Encourage PO intake. (was treated w IV fluids #Constipation -2/2 to opioids -continue current bowel regimen -- would continue this escalated regimen at discharge as well #Chronic conditions #BPH with nocturia: Continue vibegron #CAD: continue aspirin #Afib: was on Eliquis, but self discontinued #HTN: Continue Amlodipine 2.5 mg daily #GERD: Continue Omeprazole PRN #Dipso: Med/Surg #DVT prophylaxis: Lovenox #Code: DNR/DNI Admission and Anticipated Discharge Date Admission Date: February 11, 2025 Subjective still not eating great but starting to understand the necessity. L back and flank pain still persists and notes that it's better than it was but intolerable. Feels like this is part of why he cannot eat, feels like pain is still poorly controlled. In discussion with radiation oncology, where he is feeling pain completely aligns with what they are saying as far as metastatic lesions. Review of Systems Review of Systems: All systems reviewed & are unremarkable except as noted in HPI & below Physical Exam Physical Exam: In general he is awake and alert alternates between no distress and wincing with his left flank pain. Breathing unlabored no accessory muscle use good effort. Skin without rashes pallor or icterus. Neuro without focal deficits. Results & Data Results & Data Vital Signs (Past 12 Hours) Vital Signs Temp Pulse Resp BP Pulse Ox O2 Del Method O2 Flow Rate 02/14/25 07:23 99.5 F 78 18 150/75 H 95 Nasal Cannula 1 02/14/25 04:35 65 18 92 Nasal Cannula 1 02/13/25 21:58 97.3 F L 64 18 135/82 97 Nasal Cannula 1 PG Care Time/CCT Total # of Minutes Spent Total Time Spent with Patient: Total time spent is greater than 50% in coordination of care (as documented) at patient's floor/unit and/or counseling patient: Coding Level of Care Code 70001 SUB INP/OBS CARE 3/50MIN Diagnoses Frequent falls R29.6 Generalized weakness R53.1 CAD (coronary artery disease) I25.10
[2025-02-14] MEDS: LIDOCAINE 5% 1 PATCH TD SCH (10:05)
[2025-02-14] MEDS: REMOVE LIDODERM PATCH SCH (21:05)
--- NOTE | 2025-02-15 10:18 | Hospitalist Progress Note ---
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 He was supposed to followup Palliative care . He is being admitted for PT/OT evaluation and fluid resuscitation and rehab . #intractable pain -patient continues to have pain, however, admits that his pain regimen helps a lot -he will continue palliatve radiation therapy till 02/19 -Continue Tylenol 1000mg TId, Fentanyl patch, Lidocaine patch, IR oxycontin 15mg q4hrs prn #acute protein calorie malnutrition/weakness/failure to thrive -Poor oral intake due to poor appetite and also from the hypercaloric effect of cancer itself encourage PO intake Nutritional supplements #Recent fall/weakness #PT/OT eval and treat - Will need SNF sometime next week #HAN(resolved) -Encourage PO intake. (was treated w IV fluids #Constipation -2/2 to opioids -continue current bowel regimen -- would continue this escalated regimen at discharge as well #Chronic conditions #BPH with nocturia: Continue vibegron #CAD: continue aspirin #Afib: was on Eliquis, but self discontinued #HTN: Continue Amlodipine 2.5 mg daily #GERD: Continue Omeprazole PRN #Dipso: Med/Surg #DVT prophylaxis: Lovenox #Code: DNR/DNI Admission and Anticipated Discharge Date Admission Date: February 11, 2025 Subjective seen and examined today, still complaining of left flank pain, but says the pain meds help a lot Review of Systems Review of Systems: All systems reviewed are negative, apart from the ones contained in the history. Physical Exam Physical Exam: The patient is awake, alert and oriented 3, well developed and well nourished, normocephalic and atraumatic, lying in bed and in no acute distress. HEENT--PERRL, EOMI, mucous membranes and oropharynx mildly dry Neck--supple. No JVD. No bruits. Thyroid normal, trachea midline, no adenopathy. Heart--normal S1 and S2. No murmurs, rubs or gallops. Lungs--clear bilaterally, no respiratory distress, no accessory muscle use. Abdomen--normal bowel sounds and soft. Extremities--no cyanosis or clubbing. No edema. Dermatologic--normal skin turgor, normal color, no abnormal lymph nodes, no rash. Neurologic--cranial nerves II through XII grossly intact. Rheumatologic--normal range of motion. Psychiatric--normal affect. Results & Data Results & Data Vital Signs (Past 12 Hours) Vital Signs Temp Pulse Resp BP BP Pulse Ox O2 Del Method 02/15/25 07:28 97.5 F L 63 17 137/82 96 Room Air 02/14/25 22:22 97.9 F 65 18 138/85 95 Nasal Cannula O2 Flow Rate 02/15/25 07:28 02/14/25 22:22 2 PG Care Time/CCT Total # of Minutes Spent Total Time Spent with Patient: Total time spent is greater than 50% in coordination of care (as documented) at patient's floor/unit and/or counseling patient: Coding Level of Care Code 65258 SUB INP/OBS CARE 2/35MIN Diagnoses Frequent falls R29.6 Generalized weakness R53.1 CAD (coronary artery disease) I25.10 Time Spent (min) 35
[2025-02-16 06:57] LABS: Hematocrit (blood only) 34.1 % (42.0-52.0); Hemoglobin 11.6 g/dL (14.0-18.0); Mean Corpuscular Hemoglobin 28.6 pg (25.0-34.0); Mean Corpuscular Volume 84.2 fL (80.0-100.0); Platelet Count 167 K/uL (130-400); RDW Standard Deviation 44.9 fL (36.4-46.3); Red Blood Count 4.05 M/uL (4.70-6.10); White Blood Count 7.46 K/ul (4.8-10.8)
[2025-02-16 07:31] LABS: Anion Gap 6.0 (3-11); Blood Urea Nitrogen 20.0 mg/dl (6-23); Calcium 8.7 mg/dl (8.6-10.3); Carbon Dioxide 29.0 mmol/L (21-32); Chloride 98.0 mmol/L (98-107); Creatinine Clr Calc Pharmacy 71.5 ml/min; Glucose 106.0 mg/dl (70-99(Fasting)); Potassium 4.1 mmol/L (3.5-5.1); Sodium 133.0 mmol/L (136-145)
--- NOTE | 2025-02-16 11:11 | Hospitalist Progress Note ---
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 He was supposed to followup Palliative care . He is being admitted for PT/OT evaluation and fluid resuscitation and rehab . #intractable pain -patient continues to have pain, however, admits that his pain regimen helps a lot -Continue Tylenol 1000mg TId, Fentanyl patch, Lidocaine patch, IR oxycontin 15mg q4hrs prn -He will continue palliative radiation till 02/19 then after that he will go to rehab #acute protein calorie malnutrition/weakness/failure to thrive -Poor oral intake due to poor appetite and also from the hypercaloric effect of cancer itself encourage PO intake Nutritional supplements #Recent fall/weakness #PT/OT eval and treat - Will need SNF sometime next week #HAN(resolved) -Encourage PO intake. (was treated w IV fluids #Constipation -2/2 to opioids -continue current bowel regimen -- would continue this escalated regimen at discharge as well #Chronic conditions #BPH with nocturia: Continue vibegron #CAD: continue aspirin #Afib: was on Eliquis, but self discontinued #HTN: Continue Amlodipine 2.5 mg daily #GERD: Continue Omeprazole PRN #DVT prophylaxis: Lovenox #Code: DNR/DNI #Dipso: He will continue palliative radiation till 02/19 then after that he will go to rehab Admission and Anticipated Discharge Date Admission Date: February 11, 2025 Subjective seen and examined today, still complaining of left flank pain, but says the pain meds help a lot Review of Systems Review of Systems: All systems reviewed are negative, apart from the ones contained in the history. Physical Exam Physical Exam: The patient is awake, alert and oriented 3, well developed and well nourished, normocephalic and atraumatic, lying in bed and in no acute distress. HEENT--PERRL, EOMI, mucous membranes and oropharynx mildly dry Neck--supple. No JVD. No bruits. Thyroid normal, trachea midline, no adenopathy. Heart--normal S1 and S2. No murmurs, rubs or gallops. Lungs--clear bilaterally, no respiratory distress, no accessory muscle use. Abdomen--normal bowel sounds and soft. Extremities--no cyanosis or clubbing. No edema. Dermatologic--normal skin turgor, normal color, no abnormal lymph nodes, no rash . Neurologic--cranial nerves II through XII grossly intact. Rheumatologic--normal range of motion. Psychiatric--normal affect. Results & Data Results & Data Vital Signs (Past 12 Hours) Vital Signs Temp Pulse Resp BP Pulse Ox O2 Del Method O2 Flow Rate 02/16/25 07:56 97.5 F L 67 18 146/91 H 98 Nasal Cannula 02/16/25 07:37 Nasal Cannula 2 PG Care Time/CCT Total # of Minutes Spent Total Time Spent with Patient: Total time spent is greater than 50% in coordination of care (as documented) at patient's floor/unit and/or counseling patient: Coding Level of Care Code 36748 SUB INP/OBS CARE 2/35MIN Diagnoses Frequent falls R29.6 Generalized weakness R53.1 CAD (coronary artery disease) I25.10 Time Spent (min) 35
--- NOTE | 2025-02-17 09:29 | Hospitalist Progress Note ---
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 He was supposed to followup Palliative care . He is being admitted for PT/OT evaluation and fluid resuscitation and rehab . #intractable pain -patient continues to have pain, however, admits that his pain regimen helps a lot -Continue Tylenol 1000mg TId, Fentanyl patch, Lidocaine patch, IR oxycontin 15mg q4hrs prn -He will continue palliative radiation till 02/19 then after that he will go to rehab #acute protein calorie malnutrition/weakness/failure to thrive -Poor oral intake due to poor appetite and also from the hypercaloric effect of cancer itself encourage PO intake Nutritional supplements #Recent fall/weakness #PT/OT eval and treat - Will need SNF sometime next week #HAN(resolved) -Encourage PO intake. (was treated w IV fluids #Constipation -2/2 to opioids -continue current bowel regimen -- would continue this escalated regimen at discharge as well COPD: Per pulmonology, typically does not respond to inhaler Currently on oxygen through nasal cannula Very minimal wheeze on exam #Chronic conditions #BPH with nocturia: Continue vibegron #CAD: continue aspirin #Afib: was on Eliquis, but self discontinued #HTN: Continue Amlodipine 2.5 mg daily #GERD: Continue Omeprazole PRN #DVT prophylaxis: Lovenox #Code: DNR/DNI #Dipso: He will continue palliative radiation till 02/19 then after that he will go to rehab Admission and Anticipated Discharge Date Admission Date: February 11, 2025 Subjective seen and examined today, still complaining of left flank pain, but says the pain meds help a lot Review of Systems Review of Systems: All systems reviewed are negative, apart from the ones contained in the history. Physical Exam Physical Exam: The patient is awake, alert and oriented 3, well developed and well nourished, normocephalic and atraumatic, lying in bed and in no acute distress. HEENT--PERRL, EOMI, mucous membranes and oropharynx mildly dry Neck--supple. No JVD. No bruits. Thyroid normal, trachea midline, no adenopathy. Heart--normal S1 and S2. No murmurs, rubs or gallops. Lungs--clear bilaterally, no respiratory distress, no accessory muscle use. Abdomen--normal bowel sounds and soft. Extremities--no cyanosis or clubbing. No edema. Dermatologic--normal skin turgor, normal color, no abnormal lymph nodes, no rash. Neurologic--cranial nerves II through XII grossly intact. Rheumatologic--normal range of motion. Psychiatric--normal affect. Results & Data Results & Data Vital Signs (Past 12 Hours) Vital Signs Temp Pulse Resp BP BP Pulse Ox O2 Del Method 02/17/25 08:08 98.1 F 63 17 143/90 H 91 Nasal Cannula 02/17/25 08:00 Nasal Cannula 02/16/25 22:07 97.9 F 63 20 126/80 97 Nasal Cannula O2 Flow Rate 02/17/25 08:08 02/17/25 08:00 2 02/16/25 22:07 2 PG Care Time/CCT Total # of Minutes Spent Total Time Spent with Patient: Total time spent is greater than 50% in coordination of care (as documented) at patient's floor/unit and/or counseling patient: Coding Level of Care Code 59327 SUB INP/OBS CARE 2/35MIN Diagnoses Frequent falls R29.6 Generalized weakness R53.1 CAD (coronary artery disease) I25.10
--- NOTE | 2025-02-18 13:21 | Hospitalist Progress Note ---
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 #intractable cancer related pain | recent falls | weakness pt w/ SCC of left lower lung w/ bony mets. Follows w/ palliative care outpatient, consulted inpatient --> rec increasing Fentanyl patch to 25mcg/hr q72h; continue oxy 15mg PO q4h prn & lidocaine patch. Currently recieving palliative radiation through 02/19 PT/OT consulted --> recommending rehab upon discharge, Auth pending for [facility]. #acute protein calorie malnutrition/weakness/failure to thrive Poor oral intake due to poor appetite and also from the hypercaloric effect of cancer itself encourage PO intake Dietitian following --> regular diet + carnation shakes AM/HS, add Remeron (to start on 02/18 HS) #HAN(resolved)-Encourage PO intake; was treated w IV fluids #Constipation 2/2 to opioids continue current bowel regimen -- would continue this escalated regimen at discharge as well COPD: Per pulmonology, typically does not respond to inhaler Currently on oxygen through nasal cannula Very minimal wheeze on exam #BPH with nocturia: Continue vibegron #CAD: continue aspirin #Afib: was on Eliquis, but self discontinued #HTN: Continue Amlodipine 2.5 mg daily #GERD: Continue Omeprazole PRN #DVT prophylaxis: Lovenox #Code: DNR/DNI Admission and Anticipated Discharge Date Admission Date: February 11, 2025 Supervising Physician Co-Signing Physician Notes The patient was not seen by me. The chart was reviewed. Case discussed with JUAN CARLOS Lomeli. Agree with assessment and plan Radha Narayan was seen & examined this morning with family at bedside. He reports he has had back pain and he is tired. He denied any additional complaints. Discharge planning was discussed. Physical Exam Physical Exam: General: NAD, VS: BP 124/82; P72; R16; T36.6C Resp: normal respiratory effort Extremities:no edema Neuro: A&O x3 Skin: intact, no lesions noted Results & Data Results & Data Vital Signs (Past 12 Hours) Vital Signs Temp Pulse Resp BP Pulse Ox O2 Del Method O2 Flow Rate 02/18/25 08:05 36.5 C 67 16 136/83 96 Nasal Cannula 2 02/18/25 07:45 Nasal Cannula 2 PG Care Time/CCT Total # of Minutes Spent Total Time Spent with Patient: Total time spent is greater than 50% in coordination of care (as documented) at patient's floor/unit and/or counseling patient: Coding Level of Care Code 25301 SUB INP/OBS CARE 2/35MIN Diagnoses Frequent falls R29.6 Generalized weakness R53.1 CAD (coronary artery disease) I25.10"
--- NOTE | 2025-02-18 13:49 | Palliative Care Progress Note ---
Date of Service February 18, 2025 Assessment & Plan (1) Cancer related pain: Plan: Last 24h hour OMEs: 120 (previous 24hr 97.5 OME) OxyIR 15 mg Q4hr Prn x4 = 90 OME TD fentanyl 12.5mcg/hr Q72hr GABRIELLA = 30 OME Pt states that pain has been well managed over weekend but c/o feeling drowsy with medications. He has been consistently using Oxy IR 3-4x/day over weekend. He shared that he is sleeping well at night but awakens in morning in severe pain. We discussed increase of his TD fentanyl to offer more consistent pain management with less drowsiness and less breakthrough pain. He is agreeable. INCREASE TD fentanyl to 25ucg/hr patch Q72h CONTINUE Oxycodone HCl IR 15 mg PO Q4H PRN for BTP Continue lidocaine patch (2) Palliative care by specialist: Plan: Palliative care will continue to follow for ongoing symptom management and patient/family support. Pt is established and well known to outpt [facility]. (3) Therapeutic opioid-induced constipation (OIC): Plan: Reinforced importance of PROPHYLACTIC bowel regime to prevent/manage OIC. Plan as above Admission and Anticipated Discharge Date Admission Date: February 11, 2025 Subjective Assessed pt at bedside, no visitors present. Pt shared that his pain is well managed over weekend, but he c/o feeling drowsy. TAMMY MORALES. Review of Systems Review of Systems: All systems reviewed & are unremarkable except as noted in Subjective Physical Exam Constitutional: WD/WN, vitals as above Eyes: PERRL, conjunctivae normal, anicteric sclerae Neck: trachea midline, no thyromegaly Respiratory: normal respiratory effort, lungs clear to auscultation Cardiovascular: RRR, no murmur, no edema Gastrointestinal (Abdomen): normal bowel sounds, soft, nontender, no hepatosplenomegaly Musculoskeletal: generalized weakness Skin: no rashes, warm and dry Psychiatric: A+Ox3, euthymic affect Results & Data Vital Signs (Past 12 Hours) Vital Signs Temp Pulse Resp BP Pulse Ox O2 Del Method O2 Flow Rate 02/18/25 08:05 36.5 C 67 16 136/83 96 Nasal Cannula 2 02/18/25 07:45 Nasal Cannula [address] 02/11/25 10:18 CT SCAN OF THE BRAIN WITHOUT IV CONTRAST CLINICAL HISTORY: Pain following fall. COMPARISON STUDY: Head CT October 26, 2021. MRI of the brain January 30, 2025. TECHNIQUE: Unenhanced axial CT scan of the brain was performed from the vertex to the skull base. A dose lowering technique was utilized adhering to the principles of ALARA. CT DOSE: 703.85 mGy.cm FINDINGS: Brain parenchyma: No acute intracranial hemorrhage, midline shift or mass effect is present. Walsh-white matter differentiation is preserved. There are no extra- axial fluid collections. There are no findings to suggest acute dural sinus thrombosis or acute territorial infarct. Extensive white matter hypodensities are again noted. These suggest small vessel disease. Ventricles, sulci, cisterns: There is no hydrocephalus. The basal cisterns are patent. Calvarium: There are no calvarial fractures. Sinuses and mastoids: There are postoperative findings within the sinuses. Small amount of fluid within the left mastoid air cells remains unchanged. Orbits: The bony orbits are grossly intact. IMPRESSION: 1. No acute intracranial findings. 2. No calvarial fractures. ACT 112: Negative or not required by law. Electronically signed by: Pee Hoskins M.D. 02/11/2025 11:17 AM Medications Administered Current Inpatient Medications Acetaminophen (Acetaminophen 500 Mg Tab) 1,000 mg PO TID [facility] Stop: 03/14/25 20:59 Last Admin: 02/18/25 08:54 Dose: 1,000 mg Albuterol (Albut/Ipratrop 3mg/0.5mg Neb 3 Ml Vial) 3 ml NEB Q6R PRN; Protocol PRN Reason: Shortness Of Breath Or Wheezing Stop: 03/15/25 02:06 Last Admin: 02/14/25 04:35 Dose: 3 ml Amlodipine Besylate (Amlodipine Besylate 5 Mg Tab) 2.5 mg PO QAM [facility] Stop: 03/14/25 08:59 Last Admin: 02/18/25 08:43 Dose: 2.5 mg Aspirin (Aspirin 81 Mg Ectab) 81 mg PO MoWeFr@0900 GABRIELLA Stop: 03/15/25 08:59 Last Admin: 02/18/25 08:44 Dose: 81 mg Enoxaparin Sodium (Enoxaparin Inj 40 Mg/0.4 Ml Syr) 40 mg SQ QAM GABRIELLA Stop: 03/15/25 08:59 Last Admin: 02/18/25 08:44 Dose: 40 mg Fentanyl (Fentanyl 25 Mcg/Hr Tdsy) 1 patch TD Q3D [facility] Stop: 03/04/25 09:59 Last Admin: 02/18/25 10:52 Dose: 1 patch Ibuprofen (Ibuprofen 200 Mg Tab) 200 mg PO Q6H PRN PRN Reason: Pain Stop: 03/13/25 15:39 Last Admin: 02/16/25 02:03 Dose: 200 mg Lactulose (Lactulose Syrup 20 Gm/30 Ml Udc) 10 gm PO TID [facility] Stop: 03/13/25 20:59 Last Admin: 02/18/25 13:21 Dose: Not Given Lidocaine (Lidocaine 5% 1 Patch) 1 patch TD QAM [facility] Stop: 03/16/25 09:59 Last Admin: 02/18/25 08:45 Dose: 1 patch Miscellaneous (Fentanyl Patch Remove & Waste) 1 each N/A Q3D [facility] Stop: 03/19/25 09:59 Last Admin: 02/17/25 10:15 Dose: 1 each Miscellaneous (Check Fentanyl Patch Placement) 1 each N/A QS [facility] Stop: 03/16/25 15:59 Last Admin: 02/18/25 08:43 Dose: 1 each Miscellaneous (Remove Lidoderm Patch) 1 each N/A DAILY@2100 [facility] Stop: 03/16/25 20:59 Last Admin: 02/17/25 21:07 Dose: 1 each Miscellaneous (Fentanyl Patch Remove & Waste) 1 each N/A Q3D [facility] Stop: 03/20/25 09:59 Last Admin: 02/18/25 10:52 Dose: 1 each Miscellaneous (Check Fentanyl Patch Placement) 1 each N/A QS [facility] Stop: 03/20/25 15:59 Oxycodone HCl (Oxycodone Hcl Ir 5 Mg Tab (Immediate Release)) 15 mg PO Q4H PRN PRN Reason: Pain severe Stop: 02/26/25 19:41 Last Admin: 02/18/25 13:20 Dose: 15 mg Pantoprazole Sodium (Pantoprazole 40 Mg Tab) 40 mg PO DAILY PRN PRN Reason: gerd Stop: 03/13/25 15:43 Polyethylene Glycol (Polyethylene (Miralax) 17 Gm Pack) 17 gm PO BID [facility] Stop: 03/13/25 20:59 Last Admin: 02/18/25 08:55 Dose: 17 gm Psyllium Hydrophilic Mucilloid (Psyllium Husk 4gm Packet) 4 gm PO DAILY GABRIELLA; Protocol Stop: 03/14/25 08:59 Last Admin: 02/18/25 08:54 Dose: Not Given Vibegron (Vibegron 75 Mg Tab) 75 mg PO DAILY GABRIELLA Stop: 03/14/25 08:59 Last Admin: 02/18/25 08:46 Dose: 75 mg PG Care Time/CCT Total # of Minutes Spent Total Time Spent with Patient: Total time spent is greater than 50% in coordination of care (as documented) at patient's floor/unit and/or counseling patient: Coding [place] [address] SUB INP/OBS CARE 3/50MIN Patient Type Established Medical Decision Making Moderate Complexity Diagnoses Cancer related pain G89.3 Palliative care by specialist Z51.5 Therapeutic opioid-induced constipation (OIC) K59.03; T40.2X5A
[2025-02-18] MEDS ORDERED: Nursing to Pharmacy Communication SCH (15:45)
[2025-02-18] MEDS: MIRTAZAPINE TAB 15 MG TAB PO SCH (19:43)
[2025-02-19 08:30] LABS: Hematocrit (blood only) 39.5 % (42.0-52.0); Hemoglobin 12.8 g/dL (14.0-18.0); Mean Corpuscular Hemoglobin 28.0 pg (25.0-34.0); Mean Corpuscular Volume 86.4 fL (80.0-100.0); Platelet Count 170 K/uL (130-400); RDW Standard Deviation 46.3 fL (36.4-46.3); Red Blood Count 4.57 M/uL (4.70-6.10); White Blood Count 7.95 K/ul (4.8-10.8)
--- NOTE | 2025-02-19 08:46 | XRay Report ---
XR chest 1V portable CLINICAL HISTORY: SOB COMPARISON STUDY: 05/20/2023 FINDINGS: There is stable bandlike opacity at the left upper lung. No new consolidation or pleural ef fusion seen. No pneumothorax. IMPRESSION: Stable exam. ACT 112: Negative or not required by law. Electronically signed by: Khadar Hummel M.D. 02/19/2025 8:45 AM
[2025-02-19 08:47] LABS: Anion Gap 5.0 (3-11); Blood Urea Nitrogen 17.0 mg/dl (6-23); Calcium 9.2 mg/dl (8.6-10.3); Carbon Dioxide 32.0 mmol/L (21-32); Chloride 96.0 mmol/L (98-107); Creatinine Clr Calc Pharmacy 54.1 ml/min; Glucose 108.0 mg/dl (70-99(Fasting)); Potassium 4.5 mmol/L (3.5-5.1); Sodium 133.0 mmol/L (136-145)
--- NOTE | 2025-02-19 10:43 | Hospitalist Progress Note ---
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 #intractable cancer related pain | recent falls | weakness pt w/ SCC of left lower lung w/ bony mets. Follows w/ palliative care outpatient, consulted inpatient --> rec increasing Fentanyl patch to 25mcg/hr q72h; continue oxy 15mg PO q4h prn & lidocaine patch. Currently receiving palliative radiation through 02/19 Discussion with family took place on 02/19 & has has elected to have patient return home to be around family & on hospice, discussed w/ CM following encounter. #acute protein calorie malnutrition | weakness| failure to thrive Poor oral intake due to poor appetite and also from the hypercaloric effect of cancer itself Dietitian following --> regular diet + carnation shakes AM/HS, add Remeron (to start on 02/18 HS) - up to family discretion whether to continue protein shakes on discharge. #HAN(resolved)-Encourage PO intake; was treated w IV fluids #Constipation 2/2 to opioids continue current bowel regimen -- would continue this escalated regimen at discharge as well COPD: Per pulmonology, typically does not respond to inhaler Currently on oxygen through nasal cannula, home oxygen can be arranged through home hospice agency. #BPH with nocturia: Continue vibegron #CAD: continue aspirin #Afib: was on Eliquis, but self discontinued #HTN: Continue Amlodipine 2.5 mg daily #GERD: Continue Omeprazole PRN #DVT prophylaxis: Lovenox #Code: DNR/DNI anticipate discharge home 02/20/2025 with hospice services. Admission and Anticipated Discharge Date Admission Date: February 11, 2025 Supervising Physician Co-Signing Physician Notes The patient was not seen by me. The chart was reviewed. Case discussed with JUAN CARLOS Lomeli. Agree with assessment and plan Radha Narayan was seen & examined this morning with his at bedside. He was resting in bed upon encounter, appeared comfortable and denied complaints. Spoke w/ who is requesting patient be returned home tomorrow with hospice. Discussed w/ palliative & CM Physical Exam Physical Exam: General: NAD, VS: BP 130/78; P77; R18; T36.6C Resp: normal respiratory effort Extremities: no edema Neuro: A&O x3 Skin: intact, no lesions noted Results & Data Results & Data Vital Signs (Past 12 Hours) Vital Signs Temp Pulse Resp BP BP Pulse Ox O2 Del Method 02/19/25 08:00 Nasal Cannula 02/19/25 07:22 36.6 C 77 18 130/78 84 L Oxymask 02/18/25 23:02 36.8 C 63 16 129/84 96 Room Air O2 Flow Rate 02/19/25 08:00 5 02/19/25 07:22 6 02/18/25 23:02 PG Care Time/CCT Total # of Minutes Spent Total Time Spent with Patient: Total time spent is greater than 50% in coordination of care (as documented) at patient's floor/unit and/or counseling patient: Coding Level of Care Code 26814 SUB INP/OBS CARE 2/35MIN Diagnoses Frequent falls R29.6 Generalized weakness R53.1 CAD (coronary artery disease) I25.10"
--- NOTE | 2025-02-19 16:21 | Advance Care Plan Prog Note ---
Advanced Care Planning Note Date of Discussion February 19, 2025 ACP Discussion Diagnoses requiring ACP discussion: [*] A [id number] discussion with the patient, patients , and patients daughter regarding the patient's advanced care planning took place during this hospitalization on the above date. The discussion included the explanation and discussion of advance directives and associated forms/documents, as well as the patient's current code status. We also discussed at length the patient's medical conditions (both acute and chronic), general prognosis, treatment options, and goals of care. The following summarizes the discussion: Met with Sylvain and his family at [facility]. During encounter, Sylvain was able to express he was not currently in pain but did not contribute to discussion. expressed concerns with the patients current status including his inability to tolerate chemotherapy in his current state. was okay with finishing the radiation as that would provide comfort but she endorsed she does not want him to have chemotherapy or another PET scan again. Discussion then took place that she does not want to Sylvain to go to rehab & wants him to return home with his family. We then discussed home with hospice in which the and daughter were agreeable to. They would like him to return home on 02/20 pending that home hospice can be arranged. Their goal is now shifted towards keeping him comfortable at home around his family. Status Resuscitation Status DNR/DNI No Resuscitation Total Time I spent a total of 30 minutes was spent on this discussion, including counseling, answering questions, and completing, if any, pertinent advanced care planning forms/documents.
[2025-02-19 20:34] VITALS: RESP 16
--- NOTE | 2025-02-19 21:44 | Palliative Family Discussion ---
Date of Service February 19, 2025 Patient Directed Conference Time of [id number] Participants: Sweta Clemons DNP Patient participation: yes Patient Support System: and daughter Other Healthcare Provider Participation: None Meeting Location: bedside Advanced Directive available: no but pt and reaffirm DNR/DNI The patient's surrogate medical decision maker participated: A family ACP meeting was held face to face at bedside for MONICA SERRANO. This meeting was necessary for determining the appropriate course of treatment. Topics of Discussion Topics of Discussion: 1. Khang and have been speaking at length about his overall situation. He has made it clear to the family he does not want a biopsy, pet scan or chemo. he has told them and reiterates today that his main wish is to be at home, be pain free as possible and spend time as a family for as long as he may have at this junction. He states he already knows this is an advanced cancer and it will not be curable. He and note they are in the 80s, they believe they have had a great life with a marriage of over 65 years (they were at age 14 and 15, met and started dating at 11.) Their daughter is in agreement. 2. Daughter states their cousin works for [employer] and she has reached out to hospice to get pt on service, she adds that care mgt is also working on this with primary team. She asked about hospice services: I provided education about the hospice benefit: an interdisciplinary program offered by nurses, nurses aides, social workers, chaplains and a health care / medical job titles for patients with a terminal condition and a life expectancy of less than 6 months. This is covered by Medicare at 100%/no out of pocket expense to patient and all meds/supplies needed by patient for the reason they are on hospice are paid for/covered by hospice. The goal is assure quality of life of the patient in their home setting (home, senior care, inpatient hospice setting) by providing symptoms management, psychosocial and spiritual support. However, they cannot offer 24 hours care and if the family is unable to provide that care, they will have to consider personal care with out of pocket cost vs. senior care placement. We discussed the goals of hospice as a patient service and the goals of care; we discussed EOL trajectories and transitions cary the emotional impact of realizing mortality as a concrete reality from prior abstract considerations. Pt was reassured that no matter where they are along this trajectory, they are not alone - their medical team will remain by their side through their journey. Discussed the pros/cons of accepting help when especially weakened and distressed by pain-which would also help provide relief/decrease caregiver burden/strain. 3. asked me [facility], which[facility],. Other Content of Meetin. Opportunity given for participants to speak and ask questions. 2. Participants were assured of attention to patient comfort. 3. Reassurance provided. 4. Support was provided for informed, good-emani decisions. 5. Emotions expressed by family were acknowledged and addressed. 6. Follow-up Outpatient: prn/offered telemed as needed 7. Plan of Care: as above. We discussed how dying patients fear dyspnea and pain, therefore, symptom control is one cornerstone of pulmonary palliative care. Dyspnea is a prominent symptom of the patient with advanced respiratory disease of any cause: nearly all patients with COPD had dyspnea during the last 3 days of their lives. We also discussed changes pt may move through in the dying process including but not limited to sleeping more, disorientation when awake, restlessness, diminished senses/inability to respond to stimulus although ability to be aware of them remains intact longer, and changes in body temperatures, skin changes/mottling/cyanosis, respiratory pattern changes, and oral secretions. Family verbalized understanding. The goal is to assure a peaceful . I reviewed info re Oxygen at EOL: For patients at the end of life, oxygen delivered by a nasal cannula provides no additional symptomatic benefit for relief of refractory dyspnea in patients with life-limiting illness compared with room air: there's a point at which that the oxygen level gets so low that it's no longer compatible with life. By providing supplemental oxygen, the dying process will be unnecessarily prolonged. Please use less burdensome but more effective strategies such as comfort care meds, oscillating fan, massage, repositioning, etc. (Chiquita AP, Mannie CF, Solo PA, et al. Effect of palliative oxygen versus room air in relief of breathlessness in patients with refractory dyspnoea: a double-blind, randomised controlled trial. Lancet. 2010;376(3185):784-793. doi:10.1016/G2639-8555354-5420(59)41230-4) TS 50min Thank you for allowing us to participate in the ongoing care of this patient. Please page with any additional concerns. Gordy Clemons DNP Director, Palliative Medicine
--- NOTE | 2025-02-19 22:06 | Palliative Care Progress Note ---
Date of Service February 19, 2025 Assessment & Plan (1) Cancer related pain: (2) Therapeutic opioid-induced constipation (OIC): (3) Palliative care by specialist: (4) Generalized weakness: (5) Pain from bone metastases: (6) Nontraumatic compression fracture of L5 vertebra: (7) COPD (chronic obstructive pulmonary disease): Plan See ACP note For home hospice Family in agreement Code reaffirmed DNR/DNI Hospice meds rx sent Thank you for allowing us to participate in the ongoing care of this patient. Please page with any additional concerns. Gordy Clemons DNP Director, Palliative Medicine Admission and Anticipated Discharge Date Admission Date: February 11, 2025 Subjective Khang is awake but tired this AM nursing reports he had a desat earlier and NC O2 was increased. He feels pain is better controlled no nausea, no abd pain complains of dyspnea with exertion or too much conversation tires easily Chart review indicates he used Oxy IR 15mg x 6 doses in past 24 hr = 90mg oxycodone = 180 OMEs = 60mg IV MS equivalents Describes pain in left mid abdomen radiating anteriorly towards umbilicus. Nursing notes he has a lidocaine patch on left lower back He has not been eating a lot but tries to drink through the day favors cold, bland things and daughter expected later this morning, desire family meeting Review of Systems Review of Systems: All systems reviewed & are unremarkable except as noted in Subjective Physical Exam Physical Exam: frail, chronically ill elderly male +pallor mild conversational dyspnea with use of accessory muscles neck supple/no stridor oral mucosa dry dentition fair resp effort WAL at rest lungs diminished tachy s1s2 abd soft, tender left mid to anterior low to mid back pain, +TTP, +paraspinal spasms, improved from prior exam but locations of pain overall the same limited ROM needs assist for most tasks AAOx3 but tired easily Results & Data Vital Signs (Past 12 Hours) Vital Signs Temp Pulse Resp BP Pulse Ox O2 Del Method O2 Flow Rate 02/19/25 20:32 36.6 C 69 16 111/72 96 Nasal Cannula 4 02/19/25 20:20 Nasal Cannula 4 02/19/25 15:16 36.8 C 63 17 116/72 96 Nasal Cannula 4 Laboratory Results 02/19/25 02/16/25 Range/Units 08:16 06:11 WBC 7.95 7.46 (4.8-10.8) K/ul RBC 4.57 L 4.05 L (4.70-6.10) M/uL Hgb 12.8 L 11.6 L (14.0-18.0) g/dL Hct 39.5 L 34.1 L (42.0-52.0) % MCV 86.4 84.2 (80.0-100.0) fL MCH 28.0 28.6 (25.0-34.0) pg MCHC 32.4 34.0 (32.0-36.0) g/dL RDW Std Deviation 46.3 44.9 (36.4-46.3) fL RDW Coeff of Waldo 14.7 H 14.5 (11.5-14.5) % Plt Count 170 167 (130-400) K/uL MPV 8.9 L 9.3 L (9.4-12.4) fL Sodium 133 L 133 L (136-145) mmol/L Potassium 4.5 4.1 (3.5-5.1) mmol/L Chloride 96 L 98 (98-107) mmol/L Carbon Dioxide 32 29 (21-32) mmol/L Anion Gap 5 6 (3-11) BUN 17 20 (6-23) mg/dl Creatinine 1.07 0.81 (0.6-1.4) mg/dl Est Cr Clr Drug Dosing 54.1 71.5 ml/min eGFR 69.72 88.58 BUN/Creatinine Ratio 15.9 24.7 H (10-20) Glucose 108 H 106 H (70-99(Fasting)) mg/dl Calcium 9.2 8.7 (8.6-10.3) mg/dl Diagnostic Findings Head CT 02/11/25 10:18 CT SCAN OF THE BRAIN WITHOUT IV CONTRAST CLINICAL HISTORY: Pain following fall. COMPARISON STUDY: Head CT October 26, 2021. MRI of the brain January 30, 2025. TECHNIQUE: Unenhanced axial CT scan of the brain was performed from the vertex to the skull base. A dose lowering technique was utilized adhering to the principles of ALARA. CT DOSE: 703.85 mGy.cm FINDINGS: Brain parenchyma: No acute intracranial hemorrhage, midline shift or mass effect is present. Walsh-white matter differentiation is preserved. There are no extra-axial fluid collections. There are no findings to suggest acute dural sinus thrombosis or acute territorial infarct. Extensive white matter hypodensities are again noted. These suggest small vessel disease. Ventricles, sulci, cisterns: There is no hydrocephalus. The basal cisterns are patent. Calvarium: There are no calvarial fractures. Sinuses and mastoids: There are postoperative findings within the sinuses. Small amount of fluid within the left mastoid air cells remains unchanged. Orbits: The bony orbits are grossly intact. IMPRESSION: 1. No acute intracranial findings. 2. No calvarial fractures. ACT 112: Negative or not required by law. Electronically signed by: Pee Hoskins M.D. 02/11/2025 11:17 AM Chest X-Ray 02/19/25 08:00 XR chest 1V portable CLINICAL HISTORY: SOB COMPARISON STUDY: 05/20/2023 FINDINGS: There is stable bandlike opacity at the left upper lung. No new consolidation or pleural effusion seen. No pneumothorax. IMPRESSION: Stable exam. ACT 112: Negative or not required by law. Electronically signed by: Khadar Hummel M.D. 02/19/2025 8:45 AM PG Care Time/CCT Total # of Minutes Spent Total Time Spent: 75 Total Time Spent with Patient: Total time spent is greater than 50% in coordination of care (as documented) at patient's floor/unit and/or counseling patient: [place] [address] SUB INP/OBS CARE 3/50MIN (25 - SIGNIFICANT, SEPARATELY IDENTIFIABLE ) Patient Type Established Medical Decision Making High Complexity Diagnoses Cancer related pain G89.3 Therapeutic opioid-induced constipation (OIC) K59.03; T40.2X5A Palliative care by specialist Z51.5 Generalized weakness R53.1 Pain from bone metastases G89.3; C79.51 Nontraumatic compression fracture of L5 vertebra M48.56XA COPD (chronic obstructive pulmonary disease) J44.9
--- NOTE | 2025-02-19 22:54 | Communication Note ---
Date of Service: February 19, 2025 Pall med communications instructor chart reviewed, pt seen and examiined ACP meeting held See my earlier notes Per family request, the Hospice prn meds have been ordered thru his local pharmacy: TDF, Oxy IR, haldol liquid, Robionul tabs, ativan. Thank you for allowing us to participate in the ongoing care of this patient. Please page with any additional concerns. Gordy Clemons DNP Director, Palliative Medicine
[2025-02-20 07:25] VITALS: BP 115/74; PULSE 65; TEMP 98.1; O2SAT 95
--- NOTE | 2025-02-20 11:08 | Discharge Summary ---
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 #intractable cancer related pain | recent falls | weakness pt w/ SCC of left lower lung w/ bony mets. Follows w/ palliative care outpatient, consulted inpatient --> rec increasing Fentanyl patch to 25mcg/hr q72h; continue oxy 15mg PO q4h prn & lidocaine patch. Received palliative radiation through 02/19 Discussion with family took place on 02/19 & has has elected to have patient return home to be around family & on hospice. To return home 02/20. #acute protein calorie malnutrition | weakness| failure to thrive Poor oral intake due to poor appetite and also from the hypercaloric effect of cancer itself Dietitian following --> regular diet + carnation shakes AM/HS, add Remeron (to start on 02/18 HS) - up to family discretion whether to continue protein shakes on discharge. #HAN(resolved)-Encourage PO intake; was treated w IV fluids #Constipation 2/2 to opioids ; continue current bowel regimen on discharge. COPD: Per pulmonology, typically does not respond to inhaler Currently on oxygen through nasal cannula, home oxygen can be arranged through home hospice agency. #BPH with nocturia: Continue vibegron #CAD: discontinued aspirin given hospice status #Afib: was on Eliquis, but self discontinued #HTN: discontinued Amlodipine 2.mg given hospice status. #GERD: Continue Omeprazole PRN discharged home 02/20/2025 with hospice services. 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 His is his primary historian. Also he hasn't had his bowel movement for 3-4 days. He has been having multiple falls recently. The last fall he has was yesterday at 8 PM. He used walker to ambulate. Patient reports is is feeling lightheaded, and has chronic mild cough since some time now. Denies nausea, vomiting,chest pain, shortness of breath, They are following with Dr Perez in the outpatient for radiotherapy and had followup with Dr Clemons today but had to cancel the appointment. His is his primary landcare facilitator and daughter lives 10minutes away. He can swallow the pill and took all of his morning medication Talked with the in the bedside.Wishes to be DNR/DNI. They are considering him to go to rehab before going home. His grand son and his are planning to come to [place] with his care. Discharge Exam General: NAD, VS: BP 115/74; P65; R16; T36.7C Resp: normal respiratory effort Extremities: no edema Neuro: Alert, oriented to person. appears confused Skin: intact, no lesions noted Discharge Plan Discharge Items Patient Disposition: Hospice - Home Reason For Visit: BACKPAIN Discharge Diagnosis: Squamous cell lung cancer with metastatic lesions to the bone. Condition on Discharge: Good Activity: Resume your previous activity Non-emergency contact: Primary Care Provider Call non-emergency contact if: you have any medication questions, your symptoms worsen, your pain is not controlled and your pain is worsening Follow-up/Referrals: Virginie Iqbal PA-C [Physician Licensed Acupuncturist] - 06/05/25 1:15 pm (Post radiation treatment follow up with Tosha Iqbal PA-C. If you are unable to keep this appt, please phone our office [phone].) Adam Hurd, [Primary Care Provider] - Diet: Regular Addtl Attending Provider Instructions: Mr. Mariscal, You were recently hospitalized for back pain secondary to your cancer. You underwent palliative radiation treatments to help with the pain. Palliative care was consulted and your medications have been adjusted to keep your pain controlled. You have elected to return home with hospice services. Medications: Your medication list has been reviewed and reconciled upon discharge to ensure accuracy and continuity of care. An updated list of all your medications is included with your hospital discharge paperwork. Please review this list closely, and make note of any changes. The palliative care provider did call in your medications to the pharmacy on 02/19. This includes a fentanyl patch, oxycodone for breakthrough pain, liquid haldol for anxiety or agitation, Robinul tablets for secretions, and Ativan for anxiety or agitation. Mirtazapine has been sent to your pharmacy. Please take this prior to bed. It helps increase your appetitie. Your Fentanyl patch was placed on 02/20 for reference. Several of your medications have been discontinued on discharge including amlodipine, aspirin, vitamin D, and vitamin B12. Take your medications as instructed; do not skip a dose of your medicines. Make sure all of your doctors know every medicine you are taking (including skau-uve-vpcfcty medicines, vitamins, and supplements). Call your primary care provider before taking any new medicines (including over- the-counter medicines, vitamins, and supplements), because some of these may interact with your current medications, or may make your symptoms worse. Tell your primary care provider if you cannot afford your medications. Activity: You can do normal everyday activities as your body allows. Take rest breaks if you feel tired. Do not overexert. Stop activity if you have pain, shortness of breath or feel dizzy. Follow-up appointments: Make an appointment with your primary care physician within one week of discharge. A copy of this summary will be sent to them. Every time you see your primary care physician, or any other doctor, bring your medication list, and a list of questions. CONTACT YOUR PRIMARY CARE PROVIDER if you experience any of the following: Shortness of breath or difficulty breathing Fevers or chills Feeling tired with normal activity or experiencing dizziness or fainting Difficulty following your treatment plan, or difficulty taking medications CALL 911 OR GO TO THE EMERGENCY DEPARTMENT if you experience any of the following: Severe abdominal pain or nausea/vomiting Severe chest pain, or chest pain that radiates (moves) to your jaw or arm Sudden, severe shortness of breath or difficulty breathing Thank you for allowing us to participate in your care. Pending Studies at Discharge: No Stand-Alone Forms: My [facility] Medications and DC Order Prescriptions: New mirtazapine 15 mg Tablet 15 mg PO HS Qty: 30 0RF Continued omeprazole 20 mg capsule,delayed release(DR/EC) 20 mg PO DAILY PRN (Reason: gerd) Qty: 90 3RF Patient Comments: QAM lorazepam [Ativan] 1 mg tablet 1 mg PO Q6H PRN (Reason: anxiety,nausea,spasms,insomnia) 30 Days Qty: 60 0RF fentanyl 25 mcg/hr patch 72 hour 1 patch transdermal Q72H 14 Days Qty: 5 0RF glycopyrrolate [Robinul Forte] 2 mg tablet 2 mg PO TID PRN (Reason: secretions) 30 Days Qty: 30 0RF haloperidol lactate 2 mg/mL concentrate 0.5 mg PO Q6H PRN (Reason: nausea and vomiting, delirium, agitation) 30 Days Qty: 15 0RF oxycodone 20 mg tablet 20 mg PO Q4H PRN (Reason: breakthru cancer pain, air hunger) 14 Days Qty: 90 0RF acetaminophen 500 mg tablet 1,000 mg PO Q8H PRN (Reason: Pain) lactulose 10 gram/15 mL solution 15 ml PO TID Qty: 3000 3RF Gemtesa 75 mg tablet 75 mg PO DAILY Qty: 90 1RF ibuprofen 200 mg Tablet 200 mg PO Q6H PRN (Reason: Pain) Metamucil 3.4 gram/5.4 gram powder 1 tbsp PO DAILY Discontinued aspirin 81 mg tablet,delayed release (DR/EC) 81 mg PO 3XWK Patient Comments: 3 times a week Rx Instructions: Mon/Wed/Fri hydromorphone [Dilaudid] 2 mg tablet 2 mg PO Q6H PRN (Reason: pain) Qty: 60 0RF cholecalciferol (vitamin D3) 25 mcg (1,000 unit) capsule 25 mcg PO DAILY Qty: 30 0RF cyanocobalamin (vitamin B-12) 500 mcg Tablet 500 mcg PO DAILY amlodipine 2.5 mg tablet 2.5 mg PO QAM Discharge Orders: Discharge Order (Routine); Ordered 02/20/25 Ordered By: Kala Malik Admission Data Admit Date/Time: 02/11/25 12:43 Attending Provider: Yogesh Keane Admit Provider: Tamir Prieto Primary Care Provider: Adam Hurd Other Providers: Rosendo Ramsay; Nessa Marshall; Sweta Clemons; [facility]; [place]; [facility]; [facility] Stay Data Consultations 02/11/25 11:54 ED Decision to Admit Stat 02/12/25 12:39 Consult Palliative Care Routine Diagnostic Imagining Performed 02/11/25 10:18 CT head/brain wo con Stat Pending Results Patient Have Any Pending Studies at Discharge: No Discharge Instructions Given to Patient (Per Discharging Provider) Mr. Mariscal, You were recently hospitalized for back pain secondary to your cancer. You underwent palliative radiation treatments to help with the pain. Palliative care was consulted and your medications have been adjusted to keep your pain controlled. You have elected to return home with hospice services. Medications: Your medication list has been reviewed and reconciled upon discharge to ensure accuracy and continuity of care. An updated list of all your medications is included with your hospital discharge paperwork. Please review this list closely, and make note of any changes. The palliative care provider did call in your medications to the pharmacy on 02/19. This includes a fentanyl patch, oxycodone for breakthrough pain, liquid haldol for anxiety or agitation, Robinul tablets for secretions, and Ativan for anxiety or agitation. Mirtazapine has been sent to your pharmacy. Please take this prior to bed. It helps increase your appetitie. Your Fentanyl patch was placed on 02/20 for reference. Several of your medications have been discontinued on discharge including amlodipine, aspirin, vitamin D, and vitamin B12. Take your medications as instructed; do not skip a dose of your medicines. Make sure all of your doctors know every medicine you are taking (including grxb-rxt-xdjevyv medicines, vitamins, and supplements). Call your primary care provider before taking any new medicines (including over- the-counter medicines, vitamins, and supplements), because some of these may interact with your current medications, or may make your symptoms worse. Tell your primary care provider if you cannot afford your medications. Activity: You can do normal everyday activities as your body allows. Take rest breaks if you feel tired. Do not overexert. Stop activity if you have pain, shortness of breath or feel dizzy. Follow-up appointments: Make an appointment with your primary care physician within one week of discharge. A copy of this summary will be sent to them. Every time you see your primary care physician, or any other doctor, bring your medication list, and a list of questions. CONTACT YOUR PRIMARY CARE PROVIDER if you experience any of the following: Shortness of breath or difficulty breathing Fevers or chills Feeling tired with normal activity or experiencing dizziness or fainting Difficulty following your treatment plan, or difficulty taking medications CALL 911 OR GO TO THE EMERGENCY DEPARTMENT if you experience any of the following: Severe abdominal pain or nausea/vomiting Severe chest pain, or chest pain that radiates (moves) to your jaw or arm Sudden, severe shortness of breath or difficulty breathing Thank you for allowing us to participate in your care. Supervising Physician Co-Signing Physician Notes The patient was not seen by me. The chart was reviewed. Case discussed with JUAN CARLOS Lomeli. Agree with assessment and plan Total Time Total Time Spent Total Time Spent (In Minutes): 45 Total Time Includes: Examination of the Patient, Discharge Planning and Medication Reconciliation Coding Level of Care Code 83938 INP/OBS DISCH >30 MIN Diagnoses Frequent falls R29.6 Generalized weakness R53.1 CAD (coronary artery disease) I25.10"
== END 2025-02-20 14:36 | disposition hospice, home (50) | DRG 683 ==
LOC: ED 09:32 → EDINP 12:43 → SUATTDRO 12:43 → 3N 15:41
DX: Z88.5 Allergy status to narcotic agent; K21.9 Gastro-esophageal reflux disease without esophagitis; Z91.128 Patient's intentional underdosing of medication regimen for other reason; K59.00 Constipation, unspecified; C78.7 Secondary malignant neoplasm of liver and intrahepatic bile duct; M47.896 Other spondylosis, lumbar region; R26.89 Other abnormalities of gait and mobility; C79.51 Secondary malignant neoplasm of bone; Z88.8 Allergy status to other drugs, medicaments and biological substances; I25.2 Old myocardial infarction; T45.7X6A Underdosing of anticoagulant antagonist, vitamin K and other coagulants, initial encounter; E86.0 Dehydration; I71.40 Abdominal aortic aneurysm, without rupture, unspecified; N40.0 Benign prostatic hyperplasia without lower urinary tract symptoms; J44.9 Chronic obstructive pulmonary disease, unspecified; T40.2X5A Adverse effect of other opioids, initial encounter; G89.3 Neoplasm related pain (acute) (chronic); Z80.1 Family history of malignant neoplasm of trachea, bronchus and lung; R62.7 Adult failure to thrive; Z90.2 Acquired absence of lung [part of]; I25.10 Atherosclerotic heart disease of native coronary artery without angina pectoris; Z79.899 Other long term (current) drug therapy; R32 Unspecified urinary incontinence; C34.32 Malignant neoplasm of lower lobe, left bronchus or lung; Z51.5 Encounter for palliative care; R35.1 Nocturia; F17.220 Nicotine dependence, chewing tobacco, uncomplicated; N17.9 Acute kidney failure, unspecified; F17.210 Nicotine dependence, cigarettes, uncomplicated; E78.5 Hyperlipidemia, unspecified; Z79.82 Long term (current) use of aspirin; I48.91 Unspecified atrial fibrillation; E44.1 Mild protein-calorie malnutrition; Z66 Do not resuscitate